=== PATIENT | female | born 1930 | race African-American/Black ===

== ENCOUNTER → 2016-02-21 12:18 | Outpatient (CLI) | payer MEDICARE, MEDICAID ==
[2015-09-25 10:10] VITALS: BMI 56.6
[~2016-02-21 12:18] MED LIST: ACETAMINOPHEN325 MG PO; ADVAIR 250/501 DISK INH; AMBIEN10 MG PO; AMRIX15 M1 PO; ASPIRIN81 MG PO; BENADRYL25 MG PO; BUMEX2 MG PO; CELEBREX 100 M100 MG PO; CELEBREX200 MG PO; COLACE100 MG PO; COREG6.25 MG PO; COUMADIN3 MG PO; COUMADIN4 MG PO; COUMADIN5 MG PO; FERREX 150 PLUS1 CAP PO; FLORAJEN3 CAPS460 MG PO; FLUTICASONE PRO16 GM NASAL; GLUCOPHAGE500 MG PO; GLUCOSAMINE & C1 CAP PO; GLUCOTROL 5 MG T5 MG PO; HYDROCODONE-APA1 TAB PO; INDOCIN25 MG PO; IPRAT-ALBUT 0.5-3 ML UPD; K-DUR20 MEQ PO; K-TAB10 MEQ PO; KEFLEX500 MG PO; LASIX20 MG PO; LEVAQUIN500 MG PO; LEVAQUIN750 MG PO; LEVOTHROID75 MCG PO; LEVOTHYROXINE112 MCG PO; LEXAPRO10 MG PO; LIPITOR20 MG PO; LISINOPRIL-HCTZ1 TA2 PO; LISINOPRIL10 MG PO; LOTREL 10/20 CA1 CAP PO; MOBIC7.5 MG PO; MUCINEX DM ER1 EAC1 PO; MUCINEX600 MG PO; NORCO 7.5-3251 EACH PO; NORVASC10 MG PO; NYSTATIN ORAL SU5 ML PO; OXYBUTYNIN CHLOR5 MG PO; PAXIL20 MG PO; PAXIL30 MG PO; PEPCID20 MG PO; POTASSIUM CHLO20 MEQ PO; PREDNISONE10 MG PO; PREDNISONE20 MG PO; PRILOSEC20 MG; PRILOSEC20 MG PO; PROMETHAZINE W473 M1 PO; PROVENTIL/2.5 MG/3 M INH; PULMICORT0.5 MG/21 INH; STERAPRED DS 1210 MG PO; SYMBICORT 16010.2 GM INH; TRAZODONE HCL50 MG PO; ULORIC40 MG PO; ULTRAM50 MG PO; VALIUM5 MG PO; VENTOLIN HFA18 GM INH; VESICARE5 MG PO; VITAMIN D250000 UNIT PO; ZYLOPRIM100 MG PO
[2016-02-21 14:02] LABS: ANION GAP 9.2 mmol/L (8-16); CALCIUM 8.5 mg/dL (8.5-10.1); CARBON DIOXIDE 34.2 mmol/L (21.0-32.0); CREATININE - SERUM 1.2 mg/dL (0.6-1.3); POTASSIUM - SERUM 4.4 mmol/L (3.5-5.1)
[2016-02-21 14:09] LABS: INR 2.14 (0.85-1.17)
== END | disposition home or self-care (01) ==
LOC: D.LABREF 12:18
PROVIDERS: Family Medicine
DX: Z51.81 Encounter for therapeutic drug level monitoring (principal); Z79.01 Long term (current) use of anticoagulants; Z86.718 Personal history of other venous thrombosis and embolism; R25.2 Cramp and spasm

== ENCOUNTER → 2016-03-18 11:32 | Outpatient (CLI) | payer MEDICARE, MEDICAID ==
[2015-09-25 10:10] VITALS: BMI 56.6
[2016-03-18 12:19] LABS: INR 1.98 (0.85-1.17); PROTIME 22.5 SECONDS (11.6-15.0)
== END | disposition home or self-care (01) ==
LOC: D.LABREF 11:32
PROVIDERS: Family Medicine
DX: Z79.01 Long term (current) use of anticoagulants (principal); I50.9 Heart failure, unspecified; Z86.718 Personal history of other venous thrombosis and embolism

== ENCOUNTER 2016-03-21 11:29 | Inpatient (IN) | payer MEDICARE, MEDICAID ==
[~2016-03-21] VITALS: Ht 162.6 cm; Wt 152.3 kg
[~2016-03-21 11:29] MED LIST changes: -ACETAMINOPHEN325 MG PO; -ADVAIR 250/501 DISK INH; -BUMEX2 MG PO; -COUMADIN3 MG PO; -COUMADIN4 MG PO; -FLORAJEN3 CAPS460 MG PO; -GLUCOTROL 5 MG T5 MG PO; -IPRAT-ALBUT 0.5-3 ML UPD; -K-DUR20 MEQ PO; -LEVAQUIN500 MG PO; -LEVOTHYROXINE112 MCG PO; -LIPITOR20 MG PO; -LISINOPRIL-HCTZ1 TA2 PO; -MUCINEX DM ER1 EAC1 PO; -NYSTATIN ORAL SU5 ML PO; -OXYBUTYNIN CHLOR5 MG PO; -PAXIL30 MG PO; -SYMBICORT 16010.2 GM INH
[2016-03-21 12:24] LABS: BASOPHILS 0.3 % (0.0-2.0); EOSINOPHILS 8.1 % (0-7); HEMATOCRIT 31.5 % (36.0-48.0); HEMOGLOBIN 9.5 g/dL (12-16); IMMATURE GRANULOCYTES 1.2 % (0-5); MCH 30.6 pg (26.0-34.0); MCHC 30.2 g/dL (31.0-37.0); MCV 101.6 fL (80.0-100.0); MONOCYTES 7.7 % (2-11); NEUTROPHILS 58.7 % (40-80); PLATELET COUNT 229 10x3/uL (130-400); RDW 15.8 % (11.5-14.5); WBC 11.4 10x3/uL (4.8-10.8)
[2016-03-21 12:43] LABS: ALBUMIN 2.8 g/dL (3.4-5.0); ANION GAP 10.5 mmol/L (8-16); BILIRUBIN - TOTAL 0.48 mg/dL (0.2-1.3); CARBON DIOXIDE 33.2 mmol/L (21.0-32.0); CREATININE - SERUM 1.6 mg/dL (0.6-1.3); POTASSIUM - SERUM 4.7 mmol/L (3.5-5.1); PROTEIN - SERUM 7.1 g/dL (6.4-8.2)
[2016-03-21 13:05] LABS: APPEARANCE CLEAR (CLEAR); BILIRUBIN NEGATIVE (NEGATIVE); COLOR YELLOW (YELLOW); GLUCOSE NEGATIVE (NEGATIVE); KETONE NEGATIVE (NEGATIVE); LEUKOCYTE ESTERASE NEGATIVE (NEGATIVE); NITRITE NEGATIVE (NEGATIVE); PROTEIN NEGATIVE (NEGATIVE); UROBILINOGEN NORMAL (NORMAL)
[2016-03-21 15:17] LABS: APTT 42.4 SECONDS (22.8-39.4); INR 2.06 (0.85-1.17); PROTIME 23.3 SECONDS (11.6-15.0)
[2016-03-21 22:38] VITALS: BP 145/48; BMI 57.4
--- NOTE | 2016-03-21 22:42 | NUR ---
PT ARRIVED TO FLOOR FROM ER BY STRETCHER, RESPERATIONS EVEN AND UNLABORED ON 2LNC FAMILY/FRIEND IN ROOM AT BEDSIDE IVP INFUSING NS ORDERED. BED LOW AND LOCKED CALL LIGHT IN REACH SRX2 NO DISTRESS OBSERVED WILL MONITOR
[2016-03-22 01:44] VITALS: BP 96/56
[2016-03-22 05:56] LABS: BASOPHILS 0.3 % (0.0-2.0); EOSINOPHILS 7.5 % (0-7); HEMATOCRIT 30.2 % (36.0-48.0); HEMOGLOBIN 9.3 g/dL (12-16); IMMATURE GRANULOCYTES 0.8 % (0-5); LYMPHOCYTES 23.4 % (15-50); MCH 30.9 pg (26.0-34.0); MCHC 30.8 g/dL (31.0-37.0); MCV 100.3 fL (80.0-100.0); MEAN PLATELET VOLUME 10.4 fL (7.4-10.4); PLATELET COUNT 236 10x3/uL (130-400); RBC 3.01 10x6/uL (4.00-5.40); WBC 11.8 10x3/uL (4.8-10.8)
[2016-03-22 06:08] LABS: INR 2.01 (0.85-1.17); PROTIME 22.8 SECONDS (11.6-15.0)
[2016-03-22 06:13] LABS: ANION GAP 8.3 mmol/L (8-16); CARBON DIOXIDE 34.8 mmol/L (21.0-32.0); CREATININE - SERUM 1.2 mg/dL (0.6-1.3); MAGNESIUM - SERUM 2.3 mg/dL (1.8-2.4); PHOSPHOROUS 3.1 mg/dL (2.5-4.9); POTASSIUM - SERUM 4.1 mmol/L (3.5-5.1)
--- NOTE | 2016-03-22 07:10 | NUR ---
PT SITTING UP IN BED REQUESTING SOCKS, GIVEN. DENIES OTHER NEEDS WILL CONT TO MONITOR.
[2016-03-22 08:00] VITALS: BP 90/41
[2016-03-22] MEDS ORDERED: FLUTICASONE PRO16 GM NASAL (09:15)
[2016-03-22] MEDS ORDERED: LISINOPRIL-HCTZ1 TA2 PO (09:16)
[2016-03-22] MEDS ORDERED: LEVOTHYROXINE112 MCG PO (09:16)
[2016-03-22] MEDS ORDERED: K-DUR20 MEQ PO (09:18)
[2016-03-22] MEDS ORDERED: GLUCOTROL 5 MG T5 MG PO (09:19)
[2016-03-22] MEDS ORDERED: VALIUM5 MG PO (09:20)
[2016-03-22] MEDS ORDERED: PAXIL30 MG PO (09:22)
[2016-03-22] MEDS ORDERED: BUMEX2 MG PO (09:23)
[2016-03-22] MEDS ORDERED: OXYBUTYNIN CHLOR5 MG PO (09:24)
[2016-03-22] MEDS ORDERED: ZYLOPRIM100 MG PO (09:25)
[2016-03-22] MEDS ORDERED: LIPITOR20 MG PO (09:26)
[2016-03-22] MEDS ORDERED: COUMADIN4 MG PO (09:28)
[2016-03-22] MEDS ORDERED: COUMADIN3 MG PO (09:28)
[2016-03-22] MEDS ORDERED: SYMBICORT 16010.2 GM INH (09:30)
[2016-03-22] MEDS ORDERED: ADVAIR 250/501 DISK INH (09:31)
[2016-03-22] MEDS ORDERED: ACETAMINOPHEN325 MG PO (09:32)
[2016-03-22 12:00] VITALS: BP 124/55
[2016-03-22 12:07] VITALS: Ht 162.6 cm; Wt 152.3 kg
--- NOTE | 2016-03-22 13:11 | NUR ---
PT TAKING A NAP, NO S/S DISTRESS AT THIS TIME WILL CONT TO MONITOR.
--- NOTE | 2016-03-22 14:45 | NUR ---
PT PULLED OUT PIV WITH CATHETER TIP INTACT.
--- NOTE | 2016-03-22 15:37 | NUR ---
SANJUANA SO SITED PT TO LEFT FA 22G.
--- NOTE | 2016-03-22 15:56 | NUR ---
Patient Name: SRINIVAS PARRA Admission Status: ER Accout number: [id number] Admission Date: 03-21-2016 : 1930 Admission Diagnosis:ACUTE KIDNEY FAILURE, UNSPECIFIED Attending: SHEILA Current LOS: 1 Anticipated DC Date: Planned Disposition: Home with Home Health Primary Insurance: MEDICARE A & B Discharge Planning Comments: * Is the patient Alert and Oriented? Yes 0 * How many steps to enter\exit or inside your home? 1 0 * PCP DR. ALAN 0 * Pharmacy [facility]. 0 * Preadmission Environment Home with Family 0 * ADLs Partial Dependent 0 * Equipment Bedside [facility] Bed Nebulizer Other Oxygen Shower Chair Wheelchair 0 * Other Equipment LIFT CHAIR [facility] [employer]IPMENT PROVIDER 0 * List name and contact numbers for known caregivers / representatives who currently or will assist patient after discharge: LAURYN LEI, DAUGHTER, 0 * Community resources currently utilized Home Health 0 * Please name any agencies selected above. [facility], 0 * Additional services required to return to the preadmission environment? YES MEALS ON WHEELS, PRIVATE DUTY CARE [facility], [facility] (S-F; 9AM-3PM) * Can the patient safely return to the preadmission environment? Yes 0 * Has this patient been hospitalized within the prior 30 days at any hospital? No 0 CM MET WITH PT IN ROOM TO DISCUSS DISCHARGE PLANNING AND NEEDS. PT REPORTS LIVING AT HOME PARTIALLY DEPENDENT ON CAREGIVERS AND ADULT DAUGHTER. PT REPORTS HAVING ALL NEEDED MEDICAL EQUIPMENT FROM [facility]. PT HAS HOME HEALTH FOR NURSING AND PHYSICAL THERAPY WITH [facility], PERSONAL CARE THROUGH [facility] AND VISITING FANS CLERK WITH [facility]. CM DISCUSSED AVAILABILITY OF HOME HEALTH, REHAB SERVICES AND MEDICAL EQUIPMENT. PT DENIES REHAB NEEDS, REPORTS SHE IS GOING HOME, FAMILY TO PICK HER UP FOR DISCHARGE HOME. FOR DISCHARGE AND HOME HEALTH RESUMPTION, CONTACT [facility], , FAX DISCHARGE INFORMATION TO [facility] AT [phone]. CM TO FOLLOW AND ASSIST NEEDED. Hearing And Speech Assistant: Jeremy Caldera
[2016-03-22 16:00] VITALS: BP 101/53
--- NOTE | 2016-03-22 16:53 | NUR ---
ERLINDA FROM [facility] CALLED AND SAID THAT THE PT THAT WAS ADMITTED LAST NIGHT DID NOT RECEIVE FIRST DOSE OF LEVAQUIN THROUGH ADMITTING NURSE. I STARTED LEVAQUIN NOW.
--- NOTE | 2016-03-22 18:29 | NUR ---
PT SITTING UP IN BED DENIES NEEDS WILL CONT TO MONITOR.
[2016-03-22 20:24] VITALS: BP 106/65
--- NOTE | 2016-03-22 21:19 | NUR ---
RESTING IN BED. AROUSES TO VOICE. ALERT ORIENTED CONVERSANT. DENIES NEEDS. GUEST AT BEDSIDE
[2016-03-23 01:07] VITALS: BP 154/73
[2016-03-23 05:01] VITALS: BP 110/56
[2016-03-23 06:16] LABS: BASOPHILS 0.1 % (0.0-2.0); EOSINOPHILS 0 % (0-7); HEMATOCRIT 30.8 % (36.0-48.0); HEMOGLOBIN 9.9 g/dL (12-16); IMMATURE GRANULOCYTES 1.2 % (0-5); LYMPHOCYTES 9.6 % (15-50); MCH 31.4 pg (26.0-34.0); MCHC 32.1 g/dL (31.0-37.0); MONOCYTES 2.5 % (2-11); NEUTROPHILS 86.6 % (40-80); PLATELET COUNT 237 10x3/uL (130-400); RBC 3.15 10x6/uL (4.00-5.40); RDW 15.8 % (11.5-14.5)
[2016-03-23 06:18] LABS: MCV 97.8 fL (80.0-100.0); WBC 15.8 10x3/uL (4.8-10.8)
[2016-03-23 06:31] LABS: ANION GAP 11.4 mmol/L (8-16); CALCIUM 9.2 mg/dL (8.5-10.1); CARBON DIOXIDE 28.8 mmol/L (21.0-32.0); CREATININE - SERUM 1.2 mg/dL (0.6-1.3); MAGNESIUM - SERUM 2.3 mg/dL (1.8-2.4); POTASSIUM - SERUM 4.2 mmol/L (3.5-5.1)
[2016-03-23 06:56] LABS: INR 2.17 (0.85-1.17); PROTIME 24.2 SECONDS (11.6-15.0)
[2016-03-23 07:00] VITALS: BP 108/49
--- NOTE | 2016-03-23 07:16 | NUR ---
AM ROUDNING- PT LAYING IN BED ON BACK WITH EYES OPEN RESTING. FAMILY MEMBER AT BEDSIDE. ON ROOM AIR. IV SEEN TO LEFT FOREARM THAT IS SALINE LOCKED AND PATENT. ON MONITOR SHOWING SR, HR 82 WITH BBB. PER REPORT FROM PRINT SUPPORT SPECIALIST NURSE ALFREDO, PT HAS PACEMAKER TO LEFT SIDE OF CHEST. ON EP. FSBS ACHS, 264 THIS AM THAT WAS COVERED BY PRINT SUPPORT SPECIALIST NURSE, ALFREDO. PT IS ALERT AND ORIENTED. NO NEED AT CURRENT TIME. WILL CONTINUE TO MONITOR.
[2016-03-23 12:00] VITALS: BP 105/47
[2016-03-23] MEDS ORDERED: NYSTATIN ORAL SU5 ML PO (13:46)
[2016-03-23] MEDS ORDERED: FERREX 150 PLUS1 CAP PO (13:46)
[2016-03-23] MEDS ORDERED: MUCINEX DM ER1 EAC1 PO (13:47)
[2016-03-23] MEDS ORDERED: FLORAJEN3 CAPS460 MG PO (13:48)
[2016-03-23] MEDS ORDERED: PREDNISONE10 MG PO (13:51)
[2016-03-23] MEDS ORDERED: IPRAT-ALBUT 0.5-3 ML UPD (13:52)
[2016-03-23] MEDS ORDERED: LEVAQUIN500 MG PO (13:52)
[2016-03-23 16:00] VITALS: BP 110/52
--- NOTE | 2016-03-23 16:21 | NUR ---
TOOK PTS IV CATHETER OUT TO LEFT FOREARM WITH CATH TIP INTACT. APPLIED 2X2 GUAZE AND SECURED SITE WITH TAPE. TOLERTED WELL. AWAITING SARAY OTOOLE TO FINISH D/C PAPERWORK AND WILL CONTINUE TO D/C PAPERWORK. AMBULANCE HAS BEEN CALLED PER SARAY OTOOLE.
--- NOTE | 2016-03-23 17:52 | NUR ---
PT SITTING UP IN BED WITH EYES OPEN RESTING. GUEST AT BEDSIDE. PT IS AWAITING AMBULANCE TO COME GET HER TO TAKE HER HOME. DENIES ANY NEED AT CURRENT TIME. WILL CONTINUE TO MONITOR.
--- NOTE | 2016-03-23 18:50 | NUR ---
1835- PT D/C VIA STRETCHER BY AMBULANCE HOME.
--- NOTE | 2016-03-25 08:45 | NUR ---
Patient Name: SRINIVAS PARRA Encounter No: [id number] : 1930 Primary Insurance: MEDICARE A & B Anticipated DC Date: Planned Disposition: Home with Home Health External Planned Provider: [facility] DCP follow-up note: CM REVIEWED CHART POST DISCHARGE, CALLED [facility], , NOTIFIED JAKE OF PT'S DISCHARGE ON FRIDAY. CM FAXED DISCHARGE INFORMATION TO [facility] AT [phone]. [facility] TO RESUME HOME CARE. Rubber Curer: Jeremy Caldera
--- NOTE | 2016-04-04 09:40 | CN ---
PATIENT NAME:SRINIVAS PARRA MEDICAL RECORD: [id number] : [birth year] LOCATION:D. D.2102 ADMIT DATE: 03/21/16 ACCOUNT: [id number] CONSULTING PHYSICIAN: SHAE MOREJON MD REFERRING PHYSICIAN: FRANCISCA MONTEMAYOR MD DATE OF CONSULTATION: 03/22/2016 PULMONARY CONSULTATION CONSULT REQUESTING PHYSICIAN: Francisca Montemayor MD REASON FOR CONSULTATION: Acute exacerbation of chronic obstructive pulmonary disease, possible pneumonia. HISTORY OF PRESENT ILLNESS: Ms. Parra is an 85-year-old -[place], very pleasant lady. According to the patient, she is sick for the last 4-5 days. She is coughing, wheezing, shortness of breath with mild exertion. The cough is productive of white yellow colored sputum production. Denies any fever or chills. No night sweats. According to the patient, the cough is so severe, spasmodic, sometimes she throw up with the coughing. REVIEW OF SYSTEMS: Mainly in the history of present illness. PAST MEDICAL HISTORY: 1. Congestive heart failure. 2. Deep venous thrombosis. The patient is on Coumadin. 3. Hypertension. 4. Chronic obstructive pulmonary disease. 5. Gastroesophageal reflux disease. 6. Osteoarthritis. 7. Gout. 8. Osteoporosis. 9. Type 2 diabetes mellitus. 10. Hypothyroidism. PAST SURGICAL HISTORY: She is status post pacemaker placement in 2013. PERSONAL AND SOCIAL HISTORY: The patient is . She is a heavy secondhand exposure to smoking. Her were 2 pack per day smoker. Herself does not smoke. FAMILY HISTORY: Significant for cardiovascular diseases. PHYSICAL EXAMINATION: GENERAL: Now, the patient is lying comfortably. She is not in acute distress. VITAL SIGNS: The blood pressure is 124/55, pulse is 79, respirations 18, temperature 97.9, SPO2 is 96% on room air. HEENT: Conjunctivae pink, sclerae nonicteric. NECK: Supple, no JVD. CHEST: The chest excursion is minimal on both sides. There is wheeze on forceful expiration. HEART: Rhythm regular, normal sound, no murmur. ABDOMEN: Soft, bowel sounds present. No hepatosplenomegaly. RECTAL: Deferred. EXTREMITIES: No cyanosis, no clubbing, no pedal edema. CONSULT REPORT [id number] SRINIVAS PARRA SKIN: Warm, normal turgor. CENTRAL NERVOUS SYSTEM: The patient is awake and alert. There is no obvious cranial nerve abnormality. The gait was not tested. IMAGING: Chest radiograph: There are increased interstitial markings. LABORATORY DATA: CBC: WBC 11.8, hemoglobin 9.3, hematocrit 30.2. The platelet count is 236. Chemistry: Sodium 141, potassium 4.1, chloride 102, BUN is 42, creatinine 1.2. The proBNP is 81. IMPRESSION: 1. Acute exacerbation of chronic obstructive pulmonary disease. 2. Acute cough. 3. Acute tracheobronchitis, rule out pneumonia. 4. Congestive heart failure. 5. Gastroesophageal reflux. 6. Leukocytosis. 7. Allergic rhinitis. 8. History of deep venous thrombosis. RECOMMENDATION: 1. Continue methylprednisolone IV, albuterol/ipratropium nebulizer, Brovana and budesonide nebulizer. 2. Continue Levaquin. Continue Bumex. 3. Flonase nasal spray. 4. Mucinex DM [address] Montemayor, once again thanks for involving me in the care of Ms. Parra. TRANSINT:[id number] Voice Confirmation ID: [id number] DOCUMENT ID: [id number] SHAE MOREJON MD at 0940 CC: NABILA ALAN MD [id number] DICTATION DATE: 03/22/161458 OPERATIONS SPECIALISTS: 03/22/16 1748 DIS IN 03/23/16 [facility] [address] [facility] [address]
== END 2016-03-23 18:51 | disposition home health service (06) | DRG 190 ==
LOC: D.ER 11:29 → D.M2 17:50
PROVIDERS: Nurse Practitioner Family; ADMIT Emergency Medicine
DX: J44.0 Chronic obstructive pulmonary disease with (acute) lower respiratory infection (principal); J18.9 Pneumonia, unspecified organism; N17.9 Acute kidney failure, unspecified; J44.1 Chronic obstructive pulmonary disease with (acute) exacerbation; E03.9 Hypothyroidism, unspecified; E11.65 Type 2 diabetes mellitus with hyperglycemia; F03.90 Unspecified dementia, unspecified severity, without behavioral disturbance, psychotic disturbance, mood disturbance, and anxiety; M81.0 Age-related osteoporosis without current pathological fracture; K21.9 Gastro-esophageal reflux disease without esophagitis; I11.0 Hypertensive heart disease with heart failure; I50.9 Heart failure, unspecified; J30.9 Allergic rhinitis, unspecified; D50.9 Iron deficiency anemia, unspecified; Z86.718 Personal history of other venous thrombosis and embolism; Z95.0 Presence of cardiac pacemaker

== ENCOUNTER → 2016-04-01 11:46 | Outpatient (CLI) | payer MEDICARE, MEDICAID ==
[2016-03-22 12:07] VITALS: BMI 57.3
[~2016-04-01 11:46] MED LIST changes: +ACETAMINOPHEN325 MG PO; +ADVAIR 250/501 DISK INH; +BUMEX2 MG PO; +COUMADIN3 MG PO; +COUMADIN4 MG PO; +FLORAJEN3 CAPS460 MG PO; +GLUCOTROL 5 MG T5 MG PO; +IPRAT-ALBUT 0.5-3 ML UPD; +K-DUR20 MEQ PO; +LEVAQUIN500 MG PO; +LEVOTHYROXINE112 MCG PO; +LIPITOR20 MG PO; +LISINOPRIL-HCTZ1 TA2 PO; +MUCINEX DM ER1 EAC1 PO; +NYSTATIN ORAL SU5 ML PO; +OXYBUTYNIN CHLOR5 MG PO; +PAXIL30 MG PO; +SYMBICORT 16010.2 GM INH
[2016-04-01 13:16] LABS: INR 2.25 (0.85-1.17); PROTIME 24.9 SECONDS (11.6-15.0)
== END | disposition home or self-care (01) ==
LOC: D.LABREF 11:46
PROVIDERS: Family Medicine
DX: Z51.81 Encounter for therapeutic drug level monitoring (principal); Z79.01 Long term (current) use of anticoagulants; Z86.718 Personal history of other venous thrombosis and embolism

== ENCOUNTER 2016-04-15 11:39 | Observation (INO) | payer MEDICARE, MEDICAID ==
[~2016-04-15] VITALS: Ht 162.6 cm; Wt 147.0 kg
[2016-04-15 12:57] LABS: BASOPHILS 0.2 % (0.0-2.0); EOSINOPHILS 4.5 % (0-7); HEMATOCRIT 32.4 % (36.0-48.0); HEMOGLOBIN 9.8 g/dL (12-16); IMMATURE GRANULOCYTES 0.6 % (0-5); LYMPHOCYTES 26.8 % (15-50); MCHC 30.2 g/dL (31.0-37.0); MCV 102.5 fL (80.0-100.0); MEAN PLATELET VOLUME 10.1 fL (7.4-10.4); MONOCYTES 5.5 % (2-11); NEUTROPHILS 62.4 % (40-80); PLATELET COUNT 197 10x3/uL (130-400); RBC 3.16 10x6/uL (4.00-5.40); RDW 15.4 % (11.5-14.5); WBC 8.7 10x3/uL (4.8-10.8)
[2016-04-15 13:13] LABS: ALBUMIN 2.8 g/dL (3.4-5.0); ALKALINE PHOSPHATASE 140 U/L (46-116); ALT (SGPT) 28 U/L (10-68); BILIRUBIN - TOTAL 0.34 mg/dL (0.2-1.3); CALC OSMOLALITY 290 mosm/kg (275-300); CALCIUM 8.7 mg/dL (8.5-10.1); CHLORIDE - SERUM 101 mmol/L (98-107); CREATININE - SERUM 1.2 mg/dL (0.6-1.3); GLUCOSE 207 mg/dL (74-106); POTASSIUM - SERUM 4.2 mmol/L (3.5-5.1); PROTEIN - SERUM 6.3 g/dL (6.4-8.2); SODIUM 140 mmol/L (136-145); UREA NITROGEN 28 mg/dL (7-18); eGFR NON AFRICAN AMERICAN 45 mL/min (90-120)
[2016-04-15 13:14] LABS: CARBON DIOXIDE 47.8 mmol/L (21.0-32.0)
[2016-04-15 13:24] LABS: PRO BNP 111 pg/mL (0-450)
[2016-04-15 13:57] LABS: APPEARANCE HAZY (CLEAR); BILIRUBIN NEGATIVE (NEGATIVE); COLOR YELLOW (YELLOW); GLUCOSE NEGATIVE (NEGATIVE); KETONE NEGATIVE (NEGATIVE); LEUKOCYTE ESTERASE NEGATIVE (NEGATIVE); NITRITE NEGATIVE (NEGATIVE); PH 5.5 (5.0-6.0); PROTEIN NEGATIVE (NEGATIVE); RED CELLS - URINE OCC /hpf (0-5); UROBILINOGEN NORMAL (NORMAL); WHITE CELLS - URINE OCC /hpf (0-5)
[2016-04-15 13:58] LABS: BACTERIA FEW /hpf (NONE SEEN); EPITHELIAL CELLS 0-5 /hpf (0-5); HYALINE CAST 0-5 /lpf (NONE SEEN); MUCUS <1+ /lpf (NONE SEEN)
[2016-04-15 18:00] VITALS: BP 101/53; Ht 162.6 cm; Wt 147.0 kg
--- NOTE | 2016-04-15 18:10 | NUR ---
ADMITTED FROM ER VIA STRECTHER. INCONT OF URINE. BED ZEROED OUT AND PATIENT WEIGHED. MONITOR ON WITH SR. IV STARTED IN AMBULANCE AND DATED. WILL CONTINUE TO MONITOR.
--- NOTE | 2016-04-15 18:38 | NUR ---
NO NEEDS VOICED. HOB UP FOR DIET. DENIES ANY NEEDS. NS AT 50 INFUSING INTO THE RIGHT WRIST. TELEMERTY SHOWS SR
[2016-04-15 20:00] VITALS: BP 110/53
--- NOTE | 2016-04-15 20:00 | NUR ---
INTRODUCED MYSELF TO PT PRIMARY RN FOR [facility]. PT IS A&O RESTING QUIETLY IN BED WITH FAMILY AT BEDSIDE. RR NONLABORED ON RA. PT DENIES ANY CURRENT PAIN OR NEEDS. CL IN REACH, BED IN LOWEST, SIDE RAILS X2 AND BUILT IN BED ALARM ON. WILL CPOC.
--- NOTE | 2016-04-15 21:25 | NUR ---
FSBS 152 PT DENIED WANTING ANY TX AND STATES AT HOME SHE WOULDNT TAKE ANYTHING. PT RESTING AND STATES SHE IS COMFORTABLE. CL IN REACH, BED IN LOWEST, SIDE RAILS X2. WILL CPOC.
[2016-04-16] VITALS: BP 129/50
--- NOTE | 2016-04-16 00:23 | NUR ---
PT RESTING QUIETLY IN BED WITH EYES CLOSED. RR NONLABORED ON RA. R.WRIST PIV HAS DRSG CDI WITH NS @50ML/HR INFUSING. NO S/S OF DISTRESS OR ANY CURRENT NEEDS AT THIS TIME. CL IN REACH, BED IN LOWEST, SIDE RAILS X2, BUILT IN BED ALARM ON. WILL CTM.
--- NOTE | 2016-04-16 02:30 | NUR ---
CHANGED ALL LINENS R/T INCONTINENT EPISODE OF URINE. CLEANSED PT TO BEST OF ABILITY WITH HER LIMITED ROM. ELEVATED BILAT FEET ON PILLOW TO HELP REDUCE SOME PAIN PT IN A LOT OF PAIN BUT HAS NO ORDERED PAIN MEDS. STATED SOME RELIEF WITH THE ELEVATION. REPOSITIONED PT WELL AND SHE STATED IT HELPED. SL PTS R.WRIST REQUESTED FOR COMFORT. PT DENIES ANY FURTHER NEEDS AT THIS TIME. CL IN REACH, BED IN LOWEST, SIDE RAILS X2. WILL CTM.
[2016-04-16 04:00] VITALS: BP 101/42
--- NOTE | 2016-04-16 05:57 | NUR ---
PT REFUSED HER AM PROTONIX R/T NOT FEELING WELL FROM HER PAIN AND WOULD LIKE TO JUST CONTINUE RESTING. GRANTED PTS WISHES. PT DENIES ANY CURRENT NEEDS AND STATES HER BRIEF IS DRY. CL IN REACH, BED IN LOWEST, SIDE RAILS X2. WILL CPOC.
[2016-04-16 06:04] LABS: BASOPHILS 0.2 % (0.0-2.0); EOSINOPHILS 3.9 % (0-7); HEMATOCRIT 31.8 % (36.0-48.0); HEMOGLOBIN 9.9 g/dL (12-16); IMMATURE GRANULOCYTES 0.3 % (0-5); LYMPHOCYTES 24.3 % (15-50); MCH 31.2 pg (26.0-34.0); MCHC 31.1 g/dL (31.0-37.0); MEAN PLATELET VOLUME 9.9 fL (7.4-10.4); NEUTROPHILS 65.3 % (40-80); PLATELET COUNT 213 10x3/uL (130-400); RBC 3.17 10x6/uL (4.00-5.40); RDW 15.2 % (11.5-14.5); WBC 9.9 10x3/uL (4.8-10.8)
[2016-04-16 06:22] LABS: MCV 100.3 fL (80.0-100.0)
[2016-04-16 06:24] LABS: ANION GAP 10.8 mmol/L (8-16); CALCIUM 8.9 mg/dL (8.5-10.1); CREATININE - SERUM 1.1 mg/dL (0.6-1.3); POTASSIUM - SERUM 3.9 mmol/L (3.5-5.1)
[2016-04-16 06:34] LABS: CARBON DIOXIDE 30.1 mmol/L (21.0-32.0)
--- NOTE | 2016-04-16 07:30 | NUR ---
ASSESSMENT COMPLETED. TELEMETRY SHOWS PACED RHYTHM. RIGHT WRIST SL. DENIES ANY NEEDS. CALL LIGHT IN REAXH WITH SR UP
[2016-04-16 08:27] VITALS: BP 132/41
[2016-04-16 12:02] VITALS: BP 104/50
--- NOTE | 2016-04-16 14:10 | NUR ---
PT REFUSED SCDS. PT WILL BE DISCHARGED. AWAITING DISCHARGE INSTRUCTIONS
--- NOTE | 2016-04-16 16:00 | NUR ---
Patient Name: SRINIVAS PARRA Admission Status: ER Accout number: [id number] Admission Date: 04-15-2016 : 1930 Admission Diagnosis: Attending: ELOISE Current LOS: 1 Anticipated DC Date: 04-16-2016 Planned Disposition: Home with Home Health Primary Insurance: MEDICARE A & B Discharge Planning Comments: * Is the patient Alert and Oriented? Yes 0 * How many steps to enter\exit or inside your home? 1 0 * PCP DR. ALAN 0 * [facility] [place] 0 * Preadmission Environment Home with Family 0 * ADLs Partial Dependent 0 * Partial ADLs (Assistance needed) Ambulation Bathing Dressing Medication Management Transfers 0 * Equipment Bedside [facility] Bed Nebulizer Other Oxygen Shower Chair Wheelchair 0 * Other Equipment LIFT CHAIR [employer] [facility] MED[employer]QUIPMENT PROVIDER 0 * List name and contact numbers for known caregivers / representatives who currently or will assist patient after discharge: LAURYN LEI, DAUGHTER, 0 * Community resources currently utilized Home Health Meals on Wheels Private Duty Care 0 * Please name any agencies selected above. [facility], (S-F; 9AM-3PM) 0 * Additional services required to return to the preadmission environment? No 0 * Can the patient safely return to the preadmission environment? Yes 0 * Has this patient been hospitalized within the prior 30 days at any hospital? Yes 0 CM MET WITH PT AND SON IN ROOM TO DISCUSS DISCHARGE PLANNING AND NEEDS. PT REPORTS LIVING AT HOME PARTIALLY DEPENDENT ON HER ADULT CHILDREN FOR CARE. PT REPORTS HAVING ALL NEEDED MEDICAL EQUIPMENT AT HOME FROM [facility]; PT HAS HOME HEALTH WITH [facility] AND [facility]. PT DENIES DISCHARGE NEEDS EXCEPT FOR RESUMPTION OF HER HOME SERVICES. PT WILL TRANSPORT HOME VIA AMBULANCE. CM CALLED [facility], , SPOKE TO JAUN WHO PUT PT BACK ON HOME HEALTH SCHEDULE. CM FAXED DISCHARGE INFORMATION FOR RESUMPTION OF CARE TO [facility] AT [phone]. PT NOTIFIED. PT DENIES FURTHER DISCHARGE NEEDS. Terrazzo Roller: Jeremy Caldera
--- NOTE | 2016-04-16 16:32 | NUR ---
PT DISCHARGED. TO HOME PER AMBULANCE
== END 2016-04-16 16:33 | disposition home or self-care (01) ==
LOC: D.ER 11:39 → OBSVTIME 15:29 → D.M2 15:29 → D.SDCHOLD 04-16 11:37 → D.M2 04-16 11:37
PROVIDERS: Emergency Medicine; ADMIT Family Medicine Adult Medicine
DX: I95.9 Hypotension, unspecified (principal); E11.65 Type 2 diabetes mellitus with hyperglycemia; I11.0 Hypertensive heart disease with heart failure; I50.9 Heart failure, unspecified; J44.9 Chronic obstructive pulmonary disease, unspecified; Z86.718 Personal history of other venous thrombosis and embolism; Z79.01 Long term (current) use of anticoagulants; Z95.0 Presence of cardiac pacemaker; M81.0 Age-related osteoporosis without current pathological fracture; D50.9 Iron deficiency anemia, unspecified; E03.9 Hypothyroidism, unspecified; K21.9 Gastro-esophageal reflux disease without esophagitis; Z87.891 Personal history of nicotine dependence

== ENCOUNTER → 2016-05-21 11:41 | Outpatient (CLI) | payer MEDICARE, MEDICAID ==
[2016-04-15 18:00] VITALS: BMI 64.9
[2016-05-21 12:25] LABS: INR 1.93 (0.85-1.17)
[2016-05-21 16:18] LABS: HEMATOCRIT 33.2 % (36.0-48.0); HEMOGLOBIN 10.4 g/dL (12-16); MCH 32.2 pg (26.0-34.0); MCHC 31.3 g/dL (31.0-37.0); MCV 102.8 fL (80.0-100.0); RBC 3.23 10x6/uL (4.00-5.40); RDW 14.9 % (11.5-14.5); WBC 9.6 10x3/uL (4.8-10.8)
[2016-05-21 16:34] LABS: PLATELET COUNT 161 10x3/uL (130-400)
[2016-05-21 16:35] LABS: MEAN PLATELET VOLUME 10.3 fL (7.4-10.4)
[2016-05-21 17:26] LABS: LYMPHOCYTES 12 % (15-50); NEUTROPHILS 88 % (40-80)
[2016-05-21 17:27] LABS: PLATELET ESTIMATE NORMAL; PLATELET MORPHOLOGY PLT CLUMPS PRESENT
== END | disposition home or self-care (01) ==
LOC: D.LABREF 11:41
PROVIDERS: Family Medicine
DX: D50.9 Iron deficiency anemia, unspecified (principal); Z51.81 Encounter for therapeutic drug level monitoring; Z79.01 Long term (current) use of anticoagulants; I50.9 Heart failure, unspecified

== ENCOUNTER → 2016-06-07 10:37 | Outpatient (CLI) | payer MEDICARE ==
[2016-04-15 18:00] VITALS: BMI 64.9
[2016-06-07 11:08] LABS: INR 2.19 (0.85-1.17); PROTIME 24.4 SECONDS (11.6-15.0)
[2016-06-07 11:18] LABS: ALBUMIN 2.8 g/dL (3.4-5.0); ANION GAP 6.8 mmol/L (8-16); BILIRUBIN - TOTAL 0.43 mg/dL (0.2-1.3); CALCIUM 9.1 mg/dL (8.5-10.1); CARBON DIOXIDE 32.1 mmol/L (21.0-32.0); CHOL - HDL RATIO 1.9 ratio (2.3-4.1); CREATININE - SERUM 1.1 mg/dL (0.6-1.3); LDL-HDL RATIO 0.7 ratio (1.5-3.5); POTASSIUM - SERUM 3.9 mmol/L (3.5-5.1); PROTEIN - SERUM 6.9 g/dL (6.4-8.2)
== END | disposition home or self-care (01) ==
LOC: D.LABREF 10:37
PROVIDERS: Family Medicine
DX: Z51.81 Encounter for therapeutic drug level monitoring (principal); Z79.01 Long term (current) use of anticoagulants; E78.00 Pure hypercholesterolemia, unspecified; I50.9 Heart failure, unspecified

== ENCOUNTER → 2016-07-09 13:00 | Outpatient (CLI) | payer MEDICARE ==
[2016-04-15 18:00] VITALS: BMI 64.9
[2016-07-09 13:35] LABS: INR 2.58 (0.85-1.17); PROTIME 27.9 SECONDS (11.6-15.0)
== END | disposition home or self-care (01) ==
LOC: D.LABREF 13:00
PROVIDERS: Family Medicine
DX: Z51.81 Encounter for therapeutic drug level monitoring (principal); Z79.01 Long term (current) use of anticoagulants; Z86.718 Personal history of other venous thrombosis and embolism

== ENCOUNTER → 2016-08-23 12:40 | Outpatient (CLI) | payer MEDICARE ==
[2016-04-15 18:00] VITALS: BMI 64.9
[~2016-08-23 12:40] MED LIST changes: +BACTROBAN NASAL1 GM NASAL; +COUMADIN1 MG PO; +HYDROCHLOROTH12.5 M1 PO; +LISINOPRIL2.5 MG PO
[2016-08-23 13:35] LABS: ANION GAP 15.7 mmol/L (8-16); CALCIUM 9.5 mg/dL (8.5-10.1); CARBON DIOXIDE 30.4 mmol/L (21.0-32.0); CREATININE - SERUM 1.5 mg/dL (0.6-1.3); POTASSIUM - SERUM 4.1 mmol/L (3.5-5.1)
== END | disposition home or self-care (01) ==
LOC: D.LABREF 12:40
PROVIDERS: Family Medicine
DX: I50.9 Heart failure, unspecified (principal)

== ENCOUNTER 2016-08-24 10:22 | Inpatient (IN) | payer MEDICARE ==
[~2016-08-24] VITALS: Ht 162.6 cm; Wt 170.1 kg
[~2016-08-24 10:22] MED LIST changes: -BACTROBAN NASAL1 GM NASAL; -COUMADIN1 MG PO; -HYDROCHLOROTH12.5 M1 PO; -LISINOPRIL2.5 MG PO
[2016-08-24 12:27] LABS: ALBUMIN 2.8 g/dL (3.4-5.0); BILIRUBIN - TOTAL 0.51 mg/dL (0.2-1.3); CALCIUM 9.3 mg/dL (8.5-10.1); CARBON DIOXIDE 30.3 mmol/L (21.0-32.0); CREATININE - SERUM 1.4 mg/dL (0.6-1.3); POTASSIUM - SERUM 4.3 mmol/L (3.5-5.1); PROTEIN - SERUM 7.3 g/dL (6.4-8.2)
[2016-08-24 12:42] LABS: BASOPHILS 0.3 % (0-2); EOSINOPHILS 4.8 % (0-7); HEMATOCRIT 35.9 % (36.0-48.0); HEMOGLOBIN 10.9 g/dL (12-16); IMMATURE GRANULOCYTES 0.6 % (0-5); LYMPHOCYTES 19.9 % (15-50); MCH 33.6 pg (26.0-34.0); MCHC 30.4 g/dL (31.0-37.0); MCV 110.8 fL (80.0-100.0); MEAN PLATELET VOLUME 9.8 fL (7.4-10.4); NEUTROPHILS 65.4 % (40-80); PLATELET COUNT 221 10x3/uL (130-400); RBC 3.24 10x6/uL (4.00-5.40); RDW 13.9 % (11.5-14.5)
[2016-08-24] MEDS ORDERED: COUMADIN1 MG PO (14:28)
[2016-08-24] MEDS ORDERED: LISINOPRIL2.5 MG PO (14:35)
[2016-08-24] MEDS ORDERED: HYDROCHLOROTH12.5 M1 PO (14:36)
[2016-08-24] MEDS ORDERED: ZYLOPRIM100 MG PO (14:37)
[2016-08-24] MEDS ORDERED: BACTROBAN NASAL1 GM NASAL (14:37)
[2016-08-24 14:53] VITALS: BP 99/35; BMI 64.5
[2016-08-24 20:00] VITALS: BP 128/81
[2016-08-25] VITALS: BP 115/59
--- NOTE | 2016-08-25 02:52 | NUR ---
ASSESSED, PT IS ASLEEP WITH EASY RESPIRATIONS AND NO DISTRESS NOTED.FAMILY REMAINS AT THE BEDSIDE. THE BED IS LOW, RAILS UP X'S 2 WITH THE CALL LIGHT AT HAND.
[2016-08-25 04:00] VITALS: BP 114/61
[2016-08-25 05:22] LABS: BASOPHILS 0.3 % (0-2); EOSINOPHILS 5.6 % (0-7); HEMATOCRIT 34.5 % (36.0-48.0); HEMOGLOBIN 10.4 g/dL (12-16); IMMATURE GRANULOCYTES 0.5 % (0-5); LYMPHOCYTES 26.1 % (15-50); MCH 33.3 pg (26.0-34.0); MCHC 30.1 g/dL (31.0-37.0); MCV 110.6 fL (80.0-100.0); MEAN PLATELET VOLUME 10.2 fL (7.4-10.4); MONOCYTES 7.4 % (2-11); NEUTROPHILS 60.1 % (40-80); PLATELET COUNT 236 10x3/uL (130-400); RBC 3.12 10x6/uL (4.00-5.40); RDW 14.1 % (11.5-14.5); WBC 11.5 10x3/uL (4.8-10.8)
[2016-08-25 05:30] LABS: INR 2.06 (0.85-1.17); PROTIME 23.2 SECONDS (11.6-15.0)
[2016-08-25 05:40] LABS: ANION GAP 11.1 mmol/L (8-16); CALCIUM 9.5 mg/dL (8.5-10.1); CREATININE - SERUM 1.3 mg/dL (0.6-1.3); POTASSIUM - SERUM 4.1 mmol/L (3.5-5.1)
[2016-08-25 08:39] VITALS: BP 120/47
[2016-08-25 12:00] VITALS: BP 113/55
[2016-08-25 16:00] VITALS: BP 110/70
[2016-08-25 19:00] VITALS: BP 101/38
--- NOTE | 2016-08-25 19:40 | NUR ---
REC'D. IN BED. HOB IN SITTING POSITION,02 2L NC. NO RESP. DISTRESS OBSERVED.4+ EDEMA OBSERVED TO LEGS FEET BILAT.DENIES PAIN OR ANY OTHER DISCOMFORT AT PRESENT TIME.WILL CONTINUE TO MONITOR FOR ANY CHGES. IN STATUS AND FOLLOW CURRENT PLAN OF CARE.
[2016-08-26 04:00] VITALS: BP 91/34
[2016-08-26 04:49] LABS: BASOPHILS 0.2 % (0-2); EOSINOPHILS 5.8 % (0-7); HEMATOCRIT 32.8 % (36.0-48.0); HEMOGLOBIN 9.9 g/dL (12-16); IMMATURE GRANULOCYTES 0.4 % (0-5); LYMPHOCYTES 25.9 % (15-50); MCH 33.3 pg (26.0-34.0); MCHC 30.2 g/dL (31.0-37.0); MCV 110.4 fL (80.0-100.0); MEAN PLATELET VOLUME 9.7 fL (7.4-10.4); MONOCYTES 7.4 % (2-11); NEUTROPHILS 60.3 % (40-80); PLATELET COUNT 224 10x3/uL (130-400); RBC 2.97 10x6/uL (4.00-5.40); RDW 14.1 % (11.5-14.5); WBC 11.5 10x3/uL (4.8-10.8)
[2016-08-26 05:24] LABS: ANION GAP 12.6 mmol/L (8-16); CALCIUM 9.1 mg/dL (8.5-10.1); CARBON DIOXIDE 31.2 mmol/L (21.0-32.0); CREATININE - SERUM 1.3 mg/dL (0.6-1.3); POTASSIUM - SERUM 3.8 mmol/L (3.5-5.1)
--- NOTE | 2016-08-26 07:30 | NUR ---
RECIEVED PT DURING WALKING ROUNDS. PT RESTING COMFORTABLY IN BED WITH NO COMPLAINTS OF PAIN OR DISCOMFORT AT THIS TIME. ASSESSMENT DONE PER FLOWSHEET. BED IN LOW POSITION AND CALL LIGHT WITHIN REACH. WILL CONTINUE TO MONITOR.
[2016-08-26 10:16] VITALS: BP 118/46
[2016-08-26 12:09] VITALS: BP 102/57
[2016-08-26 14:34] VITALS: Ht 162.6 cm; Wt 170.1 kg
--- NOTE | 2016-08-26 15:50 | NUR ---
SPOKE WITH LASHELL SIMPSON AT THIS TIME ABOUT COLLECTION METHOD OF UA FOR PT, RECIEVED VERBAL ORDERS FOR IN AND OUT CATH. WILL IMPLEMENT ORDERS.
[2016-08-26 15:57] VITALS: BP 100/37
--- NOTE | 2016-08-26 18:05 | NUR ---
MORENO CATH PLACED AT THIS TIME PER ORDER USING STERILE TECHNIQUE. ENTIRE CONTENTS OF KIT USED. PT TOLERATED WELL. BED IN LOW POSITION AND CALL LIGHT WITHIN REACH. WILL CONTINUE TO MONITOR.
[2016-08-26 19:00] VITALS: BP 104/39
[2016-08-26 22:11] LABS: APPEARANCE CLEAR (CLEAR); BILIRUBIN NEGATIVE (NEGATIVE); COLOR YELLOW (YELLOW); GLUCOSE NEGATIVE (NEGATIVE); KETONE NEGATIVE (NEGATIVE); LEUKOCYTE ESTERASE NEGATIVE (NEGATIVE); NITRITE NEGATIVE (NEGATIVE); PROTEIN NEGATIVE (NEGATIVE); UROBILINOGEN NORMAL (NORMAL)
[2016-08-27] VITALS: BP 102/44
[2016-08-27 04:00] VITALS: BP 103/40
[2016-08-27 06:06] LABS: INR 1.92 (0.85-1.17); PROTIME 21.9 SECONDS (11.6-15.0)
--- NOTE | 2016-08-27 06:10 | NUR ---
MORENO CARE COMPLETED USING THE MORENO CARE WIPES.
--- NOTE | 2016-08-27 07:30 | NUR ---
RECIEVED PT DURING WALKING ROUNDS. PT RESTING IN BED WITH NO COMPLAINTS OF PAIN OF DISCOMFORT AT THIS TIME. ASSESSMENT DONE PER FLOWSHEET. BED IN LOW POSITION AND CALL LIGHT WITHIN REACH. WILL CONTINUE TO MONITOR.
[2016-08-27 08:24] VITALS: BP 96/36
[2016-08-27 10:05] LABS: BASOPHILS 0.3 % (0-2); EOSINOPHILS 5.8 % (0-7); HEMATOCRIT 31.5 % (36.0-48.0); HEMOGLOBIN 9.6 g/dL (12-16); IMMATURE GRANULOCYTES 0.5 % (0-5); LYMPHOCYTES 25.5 % (15-50); MCH 34.2 pg (26.0-34.0); MCHC 30.5 g/dL (31.0-37.0); MCV 112.1 fL (80.0-100.0); MEAN PLATELET VOLUME 12.3 fL (7.4-10.4); MONOCYTES 7.8 % (2-11); NEUTROPHILS 60.1 % (40-80); PLATELET COUNT 226 10x3/uL (130-400); RBC 2.81 10x6/uL (4.00-5.40); RDW 14.2 % (11.5-14.5)
[2016-08-27 10:33] LABS: ALBUMIN 2.6 g/dL (3.4-5.0); ANION GAP 10.8 mmol/L (8-16); BILIRUBIN - TOTAL 0.61 mg/dL (0.2-1.3); CALCIUM 8.5 mg/dL (8.5-10.1); CARBON DIOXIDE 32.1 mmol/L (21.0-32.0); CREATININE - SERUM 1.5 mg/dL (0.6-1.3); POTASSIUM - SERUM 3.9 mmol/L (3.5-5.1)
[2016-08-27 12:40] VITALS: BP 91/49
--- NOTE | 2016-08-27 12:41 | NUR ---
Patient Name: SRINIVAS PARRA Admission Status: ER Accout number: [id number] Admission Date: 08-24-2016 : 1930 Admission Diagnosis:CELLULITIS OF LEFT LOWER LIMB Attending: DELMY Current LOS: 3 Anticipated DC Date: 08-30-2016 Planned Disposition: Home with Home Health Primary Insurance: MEDICARE A & B Discharge Planning Comments: CM MET WITH PATIENT REGARDING D/C NEEDS AND PLANS-PATIENT ASKED CM TO CALL DAUGHTER (RENATO) FOR INFORMATION. PATIENT LIVES WITH DAUGHTER AND SHE HELPS PATIENT WITH HER ADL'S. PATIENT HAS A RAMP TO ENTER HER HOME AND NO STAIRS INSIDE. PATIENT HAS A BS COMMODE, WALKER, GLUCOMETER, O2, NEBULIZER AND PORTABLE O2 AT HOME. PATIENT IS ON 2L AND OXYGEN IS SUPPLIED [facility]. PATIENTS PCP IS DR. ALAN AND PHARMACY IS [facility] [address] [facility]. PATIENT IS CURRENT WITH [facility] AND [facility] IS LOOKING AT REFERRAL PREVIOUSLY SENT. CM WILL CONTINUE TO FOLLOW PATIENT WITH D/C NEEDS AND PLANS. PCP DR[facility] [address] [facility]- [phone] RENATO (DAUGHTER) [phone] Personnel Security Specialist: Sabra Manriquez Is the patient Alert and Oriented? Yes 0 * How many steps to enter\exit or inside your home? RAMP 0 * PCP DR. ALAN 0 * Pharmacy [facility] [address] [facility] 0 * Preadmission Environment Home with Family 0 * ADLs Partial Dependent 0 * Partial ADLs (Assistance needed) Ambulation Bathing Dressing Medication Management Toileting Transfers 0 * Equipment Bedside Commode Glucometer Nebulizer Oxygen Walker 0 * Other Equipment PORTABLE O2 ([facility] 0 * List name and contact numbers for known caregivers / representatives who currently or will assist patient after discharge: RENATO TURNER (DAUGHTER) [phone] 0 * Community resources currently utilized Home Health 0 * Please name any agencies selected above. [facility] 0 * Additional services required to return to the preadmission environment? Yes 0 * Can the patient safely return to the preadmission environment? Yes 0 * Has this patient been hospitalized within the prior 30 days at any hospital? No 0 Grand Total: 0
[2016-08-27 16:39] VITALS: BP 81/36
[2016-08-27 19:00] VITALS: BP 84/37
[2016-08-28 04:00] VITALS: BP 82/35
[2016-08-28 06:54] LABS: CALCIUM 8.3 mg/dL (8.5-10.1); CREATININE - SERUM 1.6 mg/dL (0.6-1.3)
[2016-08-28 07:22] LABS: PROTIME 25.9 SECONDS (11.6-15.0)
[2016-08-28 07:24] LABS: INR 2.36 (0.85-1.17)
--- NOTE | 2016-08-28 07:30 | NUR ---
RECIEVED PT DURING WALKING ROUNDS, PT RESTING IN BED WITH NO COMPLAINTS OF PAIN OR DISCOMFORT AT THIS TIME. ASSESSMENT DONE PER FLOWSHEET. BED IN LOW POSITION AND CALL LIGHT WITHIN REACH. WILL CONTINUE TO MONITOR.
[2016-08-28 08:21] VITALS: BP 81/35
[2016-08-28 12:37] VITALS: BP 95/36
--- NOTE | 2016-08-28 12:50 | NUR ---
PT COMPLAINS OF BURNING AROUND HER BLANK-AREA, SPOKE WITH DOCTOR AND RECIEVED ORDER FOR NYSTATIN. WILL CONTINUE PLAN OF CARE. BED IN LOW POSITION AND CALL LIGHT WITHIN REACH. WILL CONTINUE TO MONITOR.
--- NOTE | 2016-08-28 14:18 | NUR ---
NUTRITION MONITORING & EVAL CHART REVIEWED. PT TOLERATING ADA DIET, 75% INTAKE LUNCH. WILL CONTINUE TO PROVIDE DIET, MONITOR INTAKE. RD FOLLOWING
[2016-08-28 15:54] VITALS: BP 95/42
[2016-08-28 19:00] VITALS: BP 108/58
--- NOTE | 2016-08-28 19:00 | NUR ---
BEDSIDE REPORT RECEIVED AND CARE OF PT ASSUMED. PT LYING IN SUPINE POSITON ON A BARIMAX BED. IV IN RIGHT HAND SALINE LOCKED. O2 IN USE AT 2L VIA NC. MORENO CATHETER DRAINING TO GRAVITY WITY YELLOW URINE IN COLLECTION BAG. WILL MONITOR CLOSLEY FOR NEEDS.
--- NOTE | 2016-08-28 20:00 | NUR ---
CHANGED DRAW SHEET AND BED PADS AFTER PT USED BEDPAN. CLEANSED PERINEAL AREA AND APPLIED NYSTATIN OINTMENT IN BLANK AREA, NYSTATIN POWDER IN CREASES AND KEO'S OINTMENT ON REDDENED / RAW AREAS ON THIGHS. PT POSITIONED FOR COMFORT. CALL LIGHT WITHIN REACH.
--- NOTE | 2016-08-28 21:20 | NUR ---
HS MEDICATIONS GIVEN TO INCLUDE NORCO 10 PER PT REQUEST FOR GENERALIZED PAIN. WILL CONTINUE TO MONITOR FOR NEEDS. FAMILY MEMBER IS AT BEDSIDE.
[2016-08-29] VITALS: BP 100/52
[2016-08-29 04:00] VITALS: BP 110/56
--- NOTE | 2016-08-29 07:40 | NUR ---
PT AOX4 RESP EVEN AND NONLABORED PT DENIES NEEDS AT THIS TIME IV TO RIGHT HAND PATENT AND INTACT AT THIS TIME SRX2 BED AT LOWEST SETTING CALL LIGHT WITHIN REACH WILL CONTINUE TO MONITOR
[2016-08-29 07:59] VITALS: BP 107/37
[2016-08-29] MEDS ORDERED: FLORAJEN3 CAPS460 MG PO (09:58)
[2016-08-29] MEDS ORDERED: NYSTATIN1 PWD TOPICAL (09:59)
[2016-08-29] MEDS ORDERED: NYSTATIN15 GM TOPICAL (09:59)
[2016-08-29] MEDS ORDERED: ZOSYN 3.3753.375 G1 IV (10:00)
--- NOTE | 2016-08-29 11:25 | NUR ---
SPOKE WITH PATENT ABOUT NEED FOR REHAB TO INCREASE STRENGTH AND MOBILITY. PATIENT IS AGREEABLE TO GO TO [facility] TODAY. CALLED SAIDA (DAUGHTER) AT [phone] PER PATIENT REQUEST TO UPDATE HER OF POC. HER DAUGHTER IS ALSO AGREEABLE.D/W TATIANA PADGETT APN AND MILES.
--- NOTE | 2016-08-29 12:21 | NUR ---
MILES NOTE: PATIENT IS DISCHARGING TO [facility] TODAY BY AMBULANCE. CM NOTIFIED DAUGHTER (LAURYN) REGARDING PATEINTS D/C TO FACILITY AND SHE STATED THAT WAS GREAT.
--- NOTE | 2016-08-29 13:27 | NUR ---
CM REASSESSMENT NOTE: CM REC. CALL FROM [facility] STATING PATIENTS ROOM NUMBER WILL BE [id number] AND THEY WILL CALL THE AMBULANCE. REPORT IS TO BE CALLED TO [phone]. NURSE NOTIFIED.
--- NOTE | 2016-08-29 13:44 | NUR ---
REPORT CALLED TO [facility] AT THIS TIME
--- NOTE | 2016-08-29 14:50 | NUR ---
PT TAKEN VIA GURNEY VIA AMBULANCE [facility] AT THIS TIME
== END 2016-08-29 14:50 | DRG 603 ==
LOC: D.ER 10:22 → D.MS 13:27
PROVIDERS: Family Medicine; ADMIT Emergency Medicine
DX: L03.116 Cellulitis of left lower limb (principal); Z68.44 Body mass index [BMI] 60.0-69.9, adult; L03.115 Cellulitis of right lower limb; I89.0 Lymphedema, not elsewhere classified; E11.65 Type 2 diabetes mellitus with hyperglycemia; Z79.84 Long term (current) use of oral hypoglycemic drugs; G89.29 Other chronic pain; J44.9 Chronic obstructive pulmonary disease, unspecified; I50.9 Heart failure, unspecified; K21.9 Gastro-esophageal reflux disease without esophagitis; Z87.891 Personal history of nicotine dependence; E66.9 Obesity, unspecified; I10 Essential (primary) hypertension; F03.90 Unspecified dementia, unspecified severity, without behavioral disturbance, psychotic disturbance, mood disturbance, and anxiety; M19.90 Unspecified osteoarthritis, unspecified site

== ENCOUNTER 2016-08-30 10:02 | Emergency (ER) | payer MEDICARE ==
[2016-08-26 14:34] VITALS: BMI 64.4
[~2016-08-30 10:02] MED LIST changes: +BACTROBAN NASAL1 GM NASAL; +COUMADIN1 MG PO; +HYDROCHLOROTH12.5 M1 PO; +LISINOPRIL2.5 MG PO; +NYSTATIN1 PWD TOPICAL; +NYSTATIN15 GM TOPICAL; +ZOSYN 3.3753.375 G1 IV
[2016-08-30 12:18] LABS: BASOPHILS 0.2 % (0-2); EOSINOPHILS 3.7 % (0-7); HEMATOCRIT 33.2 % (36.0-48.0); HEMOGLOBIN 10.2 g/dL (12-16); IMMATURE GRANULOCYTES 0.2 % (0-5); LYMPHOCYTES 21.4 % (15-50); MCH 33.6 pg (26.0-34.0); MCHC 30.7 g/dL (31.0-37.0); MCV 109.2 fL (80.0-100.0); MEAN PLATELET VOLUME 10.1 fL (7.4-10.4); NEUTROPHILS 67.5 % (40-80); PLATELET COUNT 186 10x3/uL (130-400); RBC 3.04 10x6/uL (4.00-5.40); RDW 13.4 % (11.5-14.5); WBC 9.7 10x3/uL (4.8-10.8)
[2016-08-30 12:32] LABS: ALBUMIN 2.6 g/dL (3.4-5.0); ANION GAP 13.6 mmol/L (8-16); BILIRUBIN - TOTAL 0.79 mg/dL (0.2-1.3); CALCIUM 8.8 mg/dL (8.5-10.1); CARBON DIOXIDE 28.9 mmol/L (21.0-32.0); CREATININE - SERUM 0.9 mg/dL (0.6-1.3); POTASSIUM - SERUM 4.5 mmol/L (3.5-5.1); PROTEIN - SERUM 6.6 g/dL (6.4-8.2)
[2016-08-30 12:45] LABS: INR 2.27 (0.85-1.17); PROTIME 25.1 SECONDS (11.6-15.0)
== END 2016-08-30 15:54 ==
LOC: D.ER 10:02
PROVIDERS: Emergency Medicine
DX: L03.116 Cellulitis of left lower limb (principal); L03.115 Cellulitis of right lower limb; M79.605 Pain in left leg; M79.604 Pain in right leg

== ENCOUNTER → 2016-10-17 09:51 | Outpatient (CLI) | payer MEDICARE ==
[2016-08-26 14:34] VITALS: BMI 64.4
== END | disposition home or self-care (01) ==
LOC: D.RAD 09:51
DX: R05 Cough (principal)

== ENCOUNTER 2016-12-09 16:08 | Inpatient (IN) | payer MEDICARE ==
[~2016-12-09] VITALS: Ht 162.6 cm; Wt 221.9 kg
[2016-12-09 16:49] LABS: BASOPHILS 0.3 % (0-2); HEMATOCRIT 36.7 % (36.0-48.0); HEMOGLOBIN 11.3 g/dL (12-16); IMMATURE GRANULOCYTES 0.8 % (0-5); LYMPHOCYTES 24.2 % (15-50); MCH 32.1 pg (26.0-34.0); MCHC 30.8 g/dL (31.0-37.0); MCV 104.3 fL (80.0-100.0); MEAN PLATELET VOLUME 10.8 fL (7.4-10.4); MONOCYTES 5.7 % (2-11); RBC 3.52 10x6/uL (4.00-5.40); RDW 14.1 % (11.5-14.5); WBC 11.9 10x3/uL (4.8-10.8)
[2016-12-09 16:50] LABS: PLATELET COUNT 200 10x3/uL (130-400)
[2016-12-09 16:53] LABS: APPEARANCE HAZY (CLEAR); BILIRUBIN NEGATIVE (NEGATIVE); COLOR YELLOW (YELLOW); GLUCOSE NEGATIVE (NEGATIVE); KETONE NEGATIVE (NEGATIVE); NITRITE POSITIVE (NEGATIVE); PROTEIN TRACE mg/dL (NEGATIVE); UROBILINOGEN NORMAL (NORMAL)
[2016-12-09 16:54] LABS: BACTERIA MANY /hpf (NONE SEEN); EPITHELIAL CELLS 0-5 /hpf (0-5); RED CELLS - URINE 0-5 /hpf (0-5)
[2016-12-09 17:05] LABS: ALBUMIN 2.6 g/dL (3.4-5.0); ALKALINE PHOSPHATASE 137 U/L (46-116); ALT (SGPT) 16 U/L (10-68); BILIRUBIN - TOTAL 0.51 mg/dL (0.2-1.3); CALC OSMOLALITY 286 mosm/kg (275-300); CALCIUM 8.9 mg/dL (8.5-10.1); CARBON DIOXIDE 32.3 mmol/L (21.0-32.0); CHLORIDE - SERUM 104 mmol/L (98-107); CREATININE - SERUM 0.7 mg/dL (0.6-1.3); GLUCOSE 176 mg/dL (74-106); POTASSIUM - SERUM 5.6 mmol/L (3.5-5.1); PROTEIN - SERUM 7.1 g/dL (6.4-8.2); SODIUM 142 mmol/L (136-145); UREA NITROGEN 13 mg/dL (7-18); eGFR NON AFRICAN AMERICAN 84 mL/min (90-120)
--- NOTE | 2016-12-09 21:40 | NUR ---
RECIEVED TO ROOM 2137 FROM ER VIA STRETCHER, PT A&O. RESPERATIONS EVEN ON AT 2 LITER VIA NC. IV TO TOP OF RIGHT HAND WITH LEVAQUIN INUFSING, NO S/S ADVERSE REACTION NOTED. MORENO DRAINING TO GRAVITY. PT FRIEND AT BED SIDE, BED LOW, CL IN REACH.
[2016-12-09] MEDS ORDERED: MYCOSTATIN CREA15 GM TOPICAL (21:55)
--- NOTE | 2016-12-09 22:08 | NUR ---
NORCO 1 TAB GIVEN WITH FRESH ICE WATER FOR C/O GENERALIZED PAIN. RATES PAIN AT AN 8 ON PAIN SCALE. WILL CONT TO MONITOR.
--- NOTE | 2016-12-10 00:29 | NUR ---
IN BE RESTING WITH EYES CLOSED, RESPERATIONS EVEN, NO S/S DISTRESS NOTED.
[2016-12-10 01:44] VITALS: BP 105/56
[2016-12-10 04:40] VITALS: BP 108/54
[2016-12-10 06:21] LABS: ANION GAP 10.6 mmol/L (8-16); CALCIUM 8.9 mg/dL (8.5-10.1); CARBON DIOXIDE 32.4 mmol/L (21.0-32.0)
[2016-12-10 06:23] LABS: CREATININE - SERUM 0.9 mg/dL (0.6-1.3)
[2016-12-10 07:13] VITALS: BP 112/49
--- NOTE | 2016-12-10 07:27 | NUR ---
AM ROUNDING- RECEIVED REPORT FROM HEAD BUCKER NURSE SHANA. PT IS CURRENTLY LAYING IN BED WITH EYES CLOSED RESTING. GUEST MEMBER IS AT BEDSIDE. ON 02 AT 2L VIA NC. ON MONITOR SHOWING V-PACED, HR 80 (PER VIMAL IN TELEMETRY). IV SEEN TO RIGHT HAND WITH NS RUNNING AT 50CC. CHRONIC MORENO CATHETER SEEN. NO NEED AT THIS TIME. WILL CONTINUE TO MONITOR AND CONTINUE WITH PLAN OF CARE.
[2016-12-10 11:03] LABS: INR 1.85 (0.85-1.17); PROTIME 21.3 SECONDS (11.6-15.0)
[2016-12-10 12:57] VITALS: BP 97/48; Ht 162.6 cm; Wt 221.9 kg
[2016-12-10 16:00] VITALS: BP 108/54
--- NOTE | 2016-12-10 18:37 | NUR ---
PT IS CURRENTLY LAYING IN BED WITH EYES OPEN RESTING. GUEST MEMBER IS AT BEDSIDE. NO NEED AT THIS CURRENT TIME. WILL CONTINUE TO MONITOR.
--- NOTE | 2016-12-10 18:39 | HP ---
PATIENT: SRINIVAS LARA MEDICAL RECORD: [id number] ACCOUNT: [id number] LOCATION:[facility] D.2138 : 31 ADMISSION DATE: 12/09/16 HISTORY AND PHYSICAL EXAMINATION HISTORY: Ms. Lara is an 86-year-old female patient that was just released from [facility] a few days ago. She got home and family is unable to really care for her. She is unable to ambulate. She is brought to the Emergency Room, where she was found to be in heart failure and she has UTI. She is admitted this time. She states that she has had troubles with her legs with swelling and hurting. She was told at the rehab that she has tendonitis, but nothing really ever helped. She denies much in the way of shortness of breath or orthopnea at this time. She does have edema in her lower extremities and her chest x-ray shows some vascular prominence at this time. Her BNP was a little elevated at 703. She is admitted at this time for diuresis, treatment of her UTI, and case management consult. PAST MEDICAL HISTORY: Her past medical history is significant for known diabetes; hypertension; CHF; previous pacemaker placement; COPD, on home chronic O2; GERD; and depression. PAST SURGICAL HISTORY: Surgeries include cataracts and tubal ligation. ALLERGIES: SHE HAD POSSIBLE ANGIOEDEMA TO CEPHALEXIN. HOME MEDICATIONS: Include Lactinex, iron supplementation, DuoNeb updrafts, nystatin cream, Bumex 2 mg a day, [place] 10 b.i.d. p.r.n., Flonase nasal spray, levothyroxine 112 mcg a day, potassium 20 mEq daily, glipizide 5 mg b.i.d., diazepam p.r.n., Paxil 30 mg at bedtime, Ditropan 5 a day, allopurinol 100 mg daily, atorvastatin 20 mg daily, Coumadin 3 mg alternating with 4 mg, budesonide/formoterol b.i.d., Tylenol p.r.n., and omeprazole 20 mg a day. FAMILY HISTORY: Significant for cardiovascular disease and diabetes. SOCIAL HISTORY: The patient recently got out of [facility]. She does not smoke or drink. REVIEW OF SYSTEMS: She complains of generalized weakness. Some shortness of breath, which has now improved. She has had some chest pain, which is better today. She complains of swelling in her lower extremities. She complains of chronic pain in her lower extremities that is arthritic in nature. She denies any recent changes in bladder or bowel habits. PHYSICAL EXAMINATION: GENERAL: She is morbidly obese. She is in no distress at this time. HEENT: Head is normocephalic. Sclerae nonicteric. NECK: Soft and supple. HEART: Regular at this time. LUNGS: Breath sounds with some mild rales in the bases. ABDOMEN: Soft. EXTREMITIES: Lower extremities reveal 2+ edema. NEUROLOGIC: Without gross focal deficits. Mentation, mood, and affect are normal. IMPRESSION: HISTORY AND PHYSICAL [id number] SRINIVAS LARA 1. CHF. 2. UTI. 3. Diabetes. 4. Chronic anticoagulation. 5. Morbid obesity. 6. COPD. 7. O2 dependence. PLAN: Admit. Cardiology consult. Diurese. Continue anticoagulation with Coumadin. We will get daily INRs and daily weights. Case management consult. See orders for plan. TRANSINT:[id number] Voice Confirmation ID: [id number] DOCUMENT ID: [id number] RAISSA MEDINA DO at 1839 CC: [id number] DICTATION DATE: 12/10/16 1235 STRATEGIC PLANNER: 12/10/16 1607 ADM IN [place] [id number] [place] [address]
--- NOTE | 2016-12-10 19:08 | NUR ---
PT IN BED. FAMILY MEMBER AT BEDSIDE. DENIES NEEDS AT THIS TIME WILL CONTINUE TO MONITOR.
[2016-12-10 20:00] VITALS: BP 122/51
--- NOTE | 2016-12-10 23:30 | NUR ---
PT IN BED RESTING QUIETLY. WILL CPOC.
[2016-12-11] VITALS: BP 107/44
[2016-12-11 04:00] VITALS: BP 108/56
--- NOTE | 2016-12-11 07:20 | NUR ---
REPORT RECEIVED. PT RESTING QUIELTY, RR EVEN AND UNLABORED. FAMILY AT BEDSIDE. PT IS ALERT AND ORIENTED X4. ASSESSMENT PERFORMED. PT DENIES NEEDS AT THIS TIME. WILL CTM.
[2016-12-11 08:35] VITALS: BP 114/38
--- NOTE | 2016-12-11 09:00 | NUR ---
PT RESTING QUIELTY, RR EVEN AND UNLABORED. PT C/O PAIN IN HER LEGS. WILL GIVE PRN NORCO. STAT LOCK CHANGED ON MORENO CATHETER. WILL CTM.
[2016-12-11 12:40] VITALS: BP 104/37
[2016-12-11 14:53] LABS: ANION GAP 9.9 mmol/L (8-16); CALCIUM 8.9 mg/dL (8.5-10.1); CARBON DIOXIDE 33.2 mmol/L (21.0-32.0); CREATININE - SERUM 1.1 mg/dL (0.6-1.3); POTASSIUM - SERUM 4.1 mmol/L (3.5-5.1)
[2016-12-11 14:58] LABS: BASOPHILS 0.2 % (0-2); EOSINOPHILS 2.7 % (0-7); HEMATOCRIT 32.7 % (36.0-48.0); IMMATURE GRANULOCYTES 0.9 % (0-5); INR 1.25 (0.85-1.17); MCH 31.2 pg (26.0-34.0); MCHC 30.6 g/dL (31.0-37.0); MCV 101.9 fL (80.0-100.0); MEAN PLATELET VOLUME 11.4 fL (7.4-10.4); NEUTROPHILS 62.2 % (40-80); PLATELET COUNT 114 10x3/uL (130-400); PROTIME 15.6 SECONDS (11.6-15.0); RBC 3.21 10x6/uL (4.00-5.40); RDW 13.9 % (11.5-14.5); WBC 13.4 10x3/uL (4.8-10.8)
--- NOTE | 2016-12-11 15:50 | NUR ---
PT REQUESTING PRN PAIN MED. RR EVEN AND UNLABORED. PT DENIES WANTING TO BE TURNED AT THIS TIME. WILL GIVE PAIN MED AND CTM.
[2016-12-11 16:44] VITALS: BP 111/52
--- NOTE | 2016-12-11 17:06 | NUR ---
Patient Name: SRINIVAS PARRA Admission Status: ER Accout number: [id number] Admission Date: 12-09-2016 : 1930 Admission Diagnosis: Attending: RAISSA MEDINA Current LOS: 2 Anticipated DC Date: 12-12-2016 Planned Disposition: Home with Home Health Primary Insurance: MEDICARE A & B PLANNED EXTERNAL PROVIDER: [facility] Discharge Planning Comments: * Is the patient Alert and Oriented? Yes 0 * How many steps to enter\\exit or inside your home? RAMP 0 * PCP DR. ALAN 0 * Pharmacy [facility] AT [facility]. 0 * Preadmission Environment Home with Family 0 * ADLs Partial Dependent 0 * Partial ADLs (Assistance needed) Ambulation Dressing Eating Medication Management Toileting Transfers 0 * Equipment Bedside [facility] Bed Nebulizer Other Oxygen Rolling Walker Shower Chair Wheelchair 0 * Other Equipment HOME AND PORTABLE OXYGEN [facility] - MEDICAL EQUIPMENT PROVIDER PREFERNENCE 0 * List name and contact numbers for known caregivers / representatives who currently or will assist patient after discharge: LAURYN LEI DTR, 0 * Community resources currently utilized Home Health 0 * Please name any agencies selected above. [facility] 0 * Additional services required to return to the preadmission environment? Yes * Can the patient safely return to the preadmission environment? Yes 0 * Has this patient been hospitalized within the prior 30 days at any hospital? No 0 CM RECEIVED ORDER REGARDING HOME SITUATION. CM MET WITH PT IN ROOM TO DISCUSS DISCHARGE PLANNING AND NEEDS. PT REPORTS LIVING AT HOME DEPENDENT UPON SON AND GRANDDAUGHTERS CARE. PT WAS AT [facility] FOR REHAB AND WAS THERE FOR 90 DAYS. PT REPORTS SHE HAS ALL NEEDED MEDICAL EQUIPMENT AT HOME EXCEPT FOR A LIFT. PT REPORTS SHE NEEDS A XAVIER LIFT AT HOME SO THAT HER FAMILY CAN GOLF COURSE DESIGNER HER TO THE BED, CHAIR AND WHEELCHAIR. MEDICAL EQUIPMENT PROVIDER IS [facility]. PT HAS [facility] HEALTH WITH [facility], THEY HAVE NOT YET BEEN OUT SINCE PT WAS ONLY HOME ONE DAY FROM THE REHAB BEFORE COMING TO HOSPITAL. PT REPORTS HAVING HOUSECALLS. PT REPORTS SHE NEEDS A LIFT AT HOME, HER FAMILY CAN CARE FOR HER. PT STATES SHE IS NOT GOING TO REHAB OR TO A [facility]P; PT STATES THAT "THEY LIED TO ME LAST TIME AND TOLD ME I HAD TO GO FOR TWO WEEKS AND IT WAS 90 DAYS...NOT THIS TIME." PT REPORTS SHE NEEDS AN AMBULANCE TO TAKE HER HOME AT DISCHARGE BECAUSE SHE CAN'T WALK. PT STATES THAT HER DAUGHTER IS WORKING ON HER MEDICAID CAREGIVER SERVICES AND TO CALL LAURYN. CM CALLED LAURYN LEI, ; LAURYN WANTS CM TO TALK TO PT ABOUT GOING TO THE USP. CM EXPLAINED THAT CM HAD DONE SO AND EXPLAINED PT'S REFUSAL. LAURYN REPORTS PT IS IN HER RIGHT MIND AND NO ONE IS PT'S GUARDIAN. LAURYN REPORTS THEY WILL NEED A LIFT, HOME HEALTH AND AMBULANCE TRANSPORTATION. LAURYN REPORTS THAT MEEK IS WORKING ON THE LIFT, HOME HEALTH HAS BEEN ARRANGED AND [facility] APPLIED FOR PT'S HOME MEDICAID SERVICES ON 12-05 AND THE APPLICATION IS STILL PENDING. 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 PT SIGNED CONSENT FOR DETENTION PLACEMENT AT [facility] (WHICH IS NOT YET OPEN). CM CALLED OZ OF [facility], , WHO CHECKED AND NOTIFIED CM THAT PT HAS NO REMAINING REHAB DAYS. ALVINO OF [facility] WILL COME AND TALK TO PT ABOUT PENITENTIARY CARE TOMORROW AT LAURYN (DAUGHTER'S) REQUEST. CM NOTIFIED PT THAT SHE HAS NO REHAB DAYS REMAINING, PT STATES SHE IS GOING HOME. CM CALLED AND SPOKE TO CHANTEL YATES OF [facility], . DENIES REPORTS THAT SHE HAS TOLD THE PT THAT MECHANICAL MAINTENANCE WORKER CARE IS APPROPRIATE FOR HER; PT IS NOT AGREEABLE TO PLACEMENT IN A USP. THE HOUSE IN WHICH PT LIVES IS VERY SMALL AND FAMILY IS HAVING TROUBLE TAKING CARE OF PT. CHANTEL HAS TAKEN CARE OF HOME HEALTH WITH [facility] AND WILL ORDER A XAVIER LIFT FOR HOME USE. FOR DISCHARGE, NOTIFY PT'S DAUGHTER, LAURYN AT [phone]; NOTIFY JASON AT [phone]; NOTIFY [facility] AT [phone], FAX DISCHARGE INFORMATION TO [facility] AT [phone]. PT TO TRANSPORT HOME VIA AMBULANCE. Milk Drying Machine Operator: Jeremy Caldera
--- NOTE | 2016-12-11 18:30 | NUR ---
PT RESTING QUIETLY, RR EVEN AND UNLABORED. PT DENIES NEEDS AT THIS TIME. WILL GIVE REPORT ON PT CONDITION FOR THE DAY.
[2016-12-11 19:00] VITALS: BP 132/49
--- NOTE | 2016-12-11 19:35 | NUR ---
PT IN BED WITH EYES OPEN WATCHING TV WITH . NO CONCERNS MADE KNOWN. NO S/S OF DISTRESS NOTED. CALL LIGHT IN REACH. WILL CONTINUE TO OBSERVE.
--- NOTE | 2016-12-11 23:20 | NUR ---
PT IN BED WITH EYES CLOSED AND CHEST RISING. NO S/S OF DISTRESS NOTED. CALL LIGHT IN REACH. WILL CONTINUE TO OBSERVE.
--- NOTE | 2016-12-12 04:43 | NUR ---
PT IN BED WITH EYES CLOSED AND CHEST RISING. NO CONCERNS NOTED AT THIS TIME. CALL LIGHT IN REACH. WILL CONTINUE TO OBSERVE.
[2016-12-12 05:46] LABS: INR 1.67 (0.85-1.17); PROTIME 19.7 SECONDS (11.6-15.0)
[2016-12-12 05:47] LABS: BASOPHILS 0.2 % (0-2); EOSINOPHILS 5.2 % (0-7); HEMATOCRIT 33.4 % (36.0-48.0); HEMOGLOBIN 10.4 g/dL (12-16); IMMATURE GRANULOCYTES 0.6 % (0-5); LYMPHOCYTES 24.5 % (15-50); MCH 31.9 pg (26.0-34.0); MCHC 31.1 g/dL (31.0-37.0); MCV 102.5 fL (80.0-100.0); MEAN PLATELET VOLUME 11.4 fL (7.4-10.4); MONOCYTES 5.7 % (2-11); NEUTROPHILS 63.8 % (40-80); PLATELET COUNT 214 10x3/uL (130-400); RBC 3.26 10x6/uL (4.00-5.40); RDW 14.2 % (11.5-14.5); WBC 10.9 10x3/uL (4.8-10.8)
[2016-12-12 05:57] LABS: ANION GAP 11.8 mmol/L (8-16); CALCIUM 8.5 mg/dL (8.5-10.1); CARBON DIOXIDE 31.3 mmol/L (21.0-32.0); CREATININE - SERUM 1.1 mg/dL (0.6-1.3); POTASSIUM - SERUM 4.1 mmol/L (3.5-5.1)
--- NOTE | 2016-12-12 07:15 | NUR ---
RECIEVED REPORT ON PATIENT, PATIENT IS ALERT AND ORIENTED AT THIS TIME. PATIENT HAS R HAND IV WITH NS INFSUING AT KVO AT THIS TIME. PATIENT IS ON 2L/MIN VIA NC WITH NAD NOTED. CHEST RISES AND FALLS EQUALLY. PATIENT IS SR ON MONITOR WITH BBB NOTED AND HAS A RATE OF 81. PATIENT DENIES ANY NEEDS AT THIS TIME. BED IS LOW AND LOCKED. WILL CONT TO MONITOR. CPOC
--- NOTE | 2016-12-12 09:00 | NUR ---
MORNING MEDICATIONS GIVEN WITH NO ISSUES, CPOC
[2016-12-12 10:22] VITALS: BP 113/40
--- NOTE | 2016-12-12 12:00 | NUR ---
PATIENT SITTING UP IN BED EATING LUNCH AT THIS TIME. DENIES ANY FURTHER NEEDS, CPOC
[2016-12-12 12:08] VITALS: BP 120/44
--- NOTE | 2016-12-12 14:13 | NUR ---
PATIENT HAS NOT BEEN WEIGHED TODAY, PATIENT IS BEDFAST AND HAS TO BE LIFTED, HAVE SPOKE WITH THERAPY TO GET A LIFT SO PATIENT CAN GET WEIGHED, BUT THEY ARE NEEDING AN ORDER. WILL SPEAK WITH DR MEDINA. CPOC
[2016-12-12 15:26] VITALS: BP 101/46
--- NOTE | 2016-12-12 16:13 | NUR ---
TYLENOL GIVEN FOR KNEE PAIN 09/19. WILL CONT TO MONITOR. CPOC
--- NOTE | 2016-12-12 17:45 | NUR ---
PATIENT EATING DINNER AT THIS TIME, DENIES ANY NEEDS. BED LOW AND LOCKED. CPOC
--- NOTE | 2016-12-12 19:09 | NUR ---
REPORT GIVEN TO AIRCRAFT CYLINDER MECHANIC. PATIENT DENIES ANY NEEDS. CPOC
--- NOTE | 2016-12-12 19:36 | NUR ---
PT IN BED RESTING AROUSES TO VOICE. AT BEDSIDE. DENIES NEEDS AT THIS TIME.
[2016-12-12 20:00] VITALS: BP 92/41
[2016-12-13] VITALS: BP 109/42
--- NOTE | 2016-12-13 05:40 | NUR ---
LYING IN BED WITH CALL LIGHT IN REACH. WILL CONTINUE WITH PLAN OF CARE.
[2016-12-13 07:18] LABS: BASOPHILS 0.2 % (0-2); EOSINOPHILS 6.2 % (0-7); HEMATOCRIT 32.9 % (36.0-48.0); HEMOGLOBIN 10.1 g/dL (12-16); LYMPHOCYTES 24.8 % (15-50); MCH 31.6 pg (26.0-34.0); MCHC 30.7 g/dL (31.0-37.0); MCV 102.8 fL (80.0-100.0); MEAN PLATELET VOLUME 10.8 fL (7.4-10.4); MONOCYTES 6.4 % (2-11); NEUTROPHILS 61.4 % (40-80); PLATELET COUNT 215 10x3/uL (130-400); RDW 14.3 % (11.5-14.5); WBC 10.8 10x3/uL (4.8-10.8)
[2016-12-13 07:35] LABS: INR 1.77 (0.85-1.17); PROTIME 20.6 SECONDS (11.6-15.0)
[2016-12-13 07:38] LABS: ANION GAP 8.8 mmol/L (8-16); CALCIUM 9.1 mg/dL (8.5-10.1); CARBON DIOXIDE 32.1 mmol/L (21.0-32.0); POTASSIUM - SERUM 3.9 mmol/L (3.5-5.1)
[2016-12-13 08:00] VITALS: BP 115/40
--- NOTE | 2016-12-13 10:21 | NUR ---
AM ROUNDS COMPLETED. INTRODUCED MYSELF TO PT PRIMARY RN FOR TODAYS SHIFT. RR NONLABORED, NO CURRENT NEEDS AT THIS TIME, WILL CHECK ORDERS AND CONTINUE WITH TODAYS PLAN OF CARE.
--- NOTE | 2016-12-13 11:17 | NUR ---
PT SITTING UP IN BED RESTING QUIETLY RECIEVING HER BREATHING TX. PT DENIES ANY CURRENT PAIN OR NEEDS WAITING TO EAT LUNCH. WILL CPOC.
[2016-12-13 12:00] VITALS: BP 111/41
--- NOTE | 2016-12-13 13:41 | NUR ---
Nutrition Follow Up: Pt reported that she did not feel well today - that her stomach was upset. She said that she normally has a good appetite; has been drinking Ensure. Nursing reported that strawberry/vanilla Ensure has been ordered with meals per pt request. Pt is eating 57% meal avg on an AHA diet. +BM 12/10/16. Labs reviewed. Meds noted including Lasix. Rec continue current diet. Will send Ensure TID. RD following.
--- NOTE | 2016-12-13 14:55 | NUR ---
Patient Name: SRINIVAS PARRA Encounter No: [id number] : 1930 Primary Insurance: MEDICARE A & B Anticipated DC Date: 12-13-2016 Planned Disposition: Snf Facility External Planned Provider: [facility] [employer] [facility] MEDICAID BED DCP follow-up note: CM SPOKE TO PT AT LENGTH IN ROOM REGARDING DISCHARGE PLAN. CM EXPLAINED TO PT THAT SHE IS READY TO DISCHARGE TODAY AND PT NEEDS SAFE DISCHARGE PLAN. PT INITIALLY STATES SHE IS NOT GOING TO A FPC AND WILL BE GOING HOME. CM INFORMED PT THAT CM WILL NOTIFY THE DOCTOR. PT WANTED TO TALK MORE. PT CALLED HER DAUGHTER, DAUGHTER, LAURYN, ASKED THAT CM HAVE PT SIGN FOR FPC CARE AND THAT CM GET PT TO GO TO A FPC UNTIL THEY CAN GET HOME CARE APPROVED IN ABOUT 45 DAYS. CM DISCUSSED THIS WITH PT. PT BEGAN TALKING LOUDLY, CALLED HER DAUGHTER AND THEY WERE DISCUSSING PT GOING HOME. CM LEFT THE ROOM, ASKED PT TO CALL CM WHEN SHE MAKES A DECISION REGARDING HOME OR FPC. CM MET WITH PT SHE DID NOT CALL CM BACK. PT REPORTS SHE IS GOING TO DO "WHATEVER". CM ASKED PT WHAT THAT MEANT, PT REPORTS YOU KNOW, "WHATEVER." CM EXPLAINED THAT PT HAS TO MAKE A DECISION AND THAT IT IS HER DECISION TO MAKE. PT REPORTS SHE WANTS TO GO TO A FPC UNTIL HER DAUGTHER MAKES HOME ARRANGEMENTS, SHE UNDERSTANDS SHE WILL BE IN MARKETING [employer]TERTAINMENT CARE. PT WANTS ANY FPC IN [place], BUT NOT [facility]. CHOICE SIGNED. IMPORTANT MESSAGE FROM MEDICARE PROVIDED AND EXPLAINED. CM RECEIVED CALL FROM PT'S DAUGHTER, LAURYN, WHO REQUESTED REFERRAL SENT TO [facility]. CM SPOKE TO PT WHO AGREES WITH REFERRAL TO [facility]. MILES CALLED ITALO OF [facility], , ITALO REORTS THAT THEY WILL EVALUATE PT FOR SENIOR LIVING CARE ADMISSION TOMORROW; CM FAXED REFERRAL TO [facility] AT [phone]. CM CALLED [facility], CLINICAL LIAISON FOR [facility], , ASKED FOR ASSESSMENT FOR SENIOR LIVING CARE ADMISSION. CM FAXED REFERRAL TO [facility]. CM WAITING ADMISSION DETERMINATIONS FROM [facility] AND [facility] FOR [facility]. Jeremy Caldera, CASE MANAGEMENT
--- NOTE | 2016-12-13 16:00 | NUR ---
PT GETTING BED BATH. UPON MORENO CARE NOTED PTS MORENO TUBING APPEARING VERY DIRTY INSIDE NOT ON OUTSIDE ABLE TO CLEAN. THIS MORENO IS CHRONIC BUT PT DOESNT KNOW WHY OR LAST TIME IT WAS CHANGED. NOTIFIED PRIMARY AND WILL CONTACT MAMI DOYLE TO SEE ABOUT CHANGING IT OUT.
[2016-12-13 18:02] VITALS: BP 114/43
--- NOTE | 2016-12-13 19:46 | NUR ---
PT RESTING IN BED WATCHING TV. FAMILY MEMBER AT BEDSIDE. PT HAS NS INFUSING TO RIGHT HAND IV. PT IS AAO. DENIES ANY NEEDS. NO S/S OF DISTRESS. BED LOW AND CALL LIGHT IN REACH. WILL CPOC
[2016-12-13 20:00] VITALS: BP 114/54
[2016-12-14] VITALS: BP 114/52
--- NOTE | 2016-12-14 01:10 | NUR ---
PT ASLEEP. RESPIRATIONS EVEN AND UNLABORED. NO S/S OF DISTRESS. BED LOW AND CALL LIGHT IN REACH. WILL CPOC
[2016-12-14 04:00] VITALS: BP 111/46
[2016-12-14 06:28] LABS: BASOPHILS 0.2 % (0-2); EOSINOPHILS 6.5 % (0-7); HEMATOCRIT 33.5 % (36.0-48.0); HEMOGLOBIN 10.4 g/dL (12-16); IMMATURE GRANULOCYTES 0.6 % (0-5); LYMPHOCYTES 21.5 % (15-50); MCH 31.8 pg (26.0-34.0); MCV 102.4 fL (80.0-100.0); MEAN PLATELET VOLUME 10.9 fL (7.4-10.4); MONOCYTES 6.5 % (2-11); NEUTROPHILS 64.7 % (40-80); PLATELET COUNT 231 10x3/uL (130-400); RBC 3.27 10x6/uL (4.00-5.40); RDW 14.3 % (11.5-14.5); WBC 11.1 10x3/uL (4.8-10.8)
[2016-12-14 06:36] LABS: INR 2.09 (0.85-1.17); PROTIME 23.6 SECONDS (11.6-15.0)
[2016-12-14 06:39] LABS: ANION GAP 9.8 mmol/L (8-16); CALCIUM 9.1 mg/dL (8.5-10.1); CARBON DIOXIDE 31.1 mmol/L (21.0-32.0); POTASSIUM - SERUM 3.9 mmol/L (3.5-5.1)
--- NOTE | 2016-12-14 06:45 | NUR ---
PT RESTING IN ROOM. FAMILY MEMBER AT BEDSIDE. PT DENIES ANY NEEDS. NO S/S OF DISTRESS. WILL CPOC
--- NOTE | 2016-12-14 07:15 | NUR ---
RECIEVED REPORT ON PATIENT, PATIENT IS ALERT AND ORIENTED AT THIS TIME. PATIENT HAS A R HAND IV WITH NS AT KVO AT THIS TIME PATIENT IS SR WITH A BBB AND A RATE OF 84 AT THIS TIME. PATIENT DENIES ANY NEEDS OR COMPLAINTS AT THIS TIME. WILL CONT TO MONITOR PATIENT. CPOC
[2016-12-14 08:16] VITALS: BP 108/40
--- NOTE | 2016-12-14 09:15 | NUR ---
MORNING MEDICATIONS GIVEN, NO ISSUES. PATIENT DENIES ANY NEEDS. BED LOW AND LOCKED. CPOC
[2016-12-14 11:23] VITALS: BP 113/56
--- NOTE | 2016-12-14 11:45 | NUR ---
PATIENT SITTING UP IN BED EATING LUNCH. DAUGHTER AT BEDSIDE, DENIES ANY NEEDS. CPOC
[2016-12-14] MEDS ORDERED: LISINOPRIL10 MG PO (12:40)
[2016-12-14] MEDS ORDERED: BACTRIM DS TABL1 TAB PO (12:44)
--- NOTE | 2016-12-14 13:00 | NUR ---
SPOKE WITH LOGAN AT [facility], REPORT GIVEN, DENIES ANY QUESTIONS. PATIENT BEING TRANSFERRED BY AMBULANCE. CPOC
--- NOTE | 2016-12-14 13:17 | NUR ---
DC PIV WITH CATH TIP INTACT.
--- NOTE | 2016-12-14 13:20 | NUR ---
SPOKE WITH DAISY AT [facility] FOR TRANSPORT. PCS SIGNED. WILL WAIT. CPOC
--- NOTE | 2016-12-14 14:20 | NUR ---
MORENO CATHETER DC. NO ISSUES.
--- NOTE | 2016-12-14 14:24 | NUR ---
PATIENT GIVEN DC INSTUCTIONS, SIGNED PAPERWORK. DENIES ANY NEEDS AT THIS TIME. WAITING ON TRANSPORT. CPOC
--- NOTE | 2016-12-14 15:14 | NUR ---
[facility] HERE FOR TRANSPORT. PATIENT READY FOR DC
--- NOTE | 2016-12-16 08:45 | NUR ---
LATE ENTRY FOR 12/14/16 PATIENT DISCHARGED TO A PULP DRIER FIRER BED AT [facility] IN [facility] ON FRIDAY VIA AMBULANCE.
== END 2016-12-14 15:18 | DRG 292 ==
LOC: D.ER 16:08 → D.M2 20:02 → D.ER 20:02 → D.M2 20:39 → D.SDCHOLD 12-12 17:05 → D.M2 12-12 17:06
PROVIDERS: Emergency Medicine; Family Medicine; ADMIT Family Medicine
DX: I11.0 Hypertensive heart disease with heart failure (principal); N39.0 Urinary tract infection, site not specified; Z68.44 Body mass index [BMI] 60.0-69.9, adult; B96.20 Unspecified Escherichia coli [E. coli] as the cause of diseases classified elsewhere; E11.9 Type 2 diabetes mellitus without complications; K21.9 Gastro-esophageal reflux disease without esophagitis; F32.9 Major depressive disorder, single episode, unspecified; Z95.0 Presence of cardiac pacemaker; J44.9 Chronic obstructive pulmonary disease, unspecified; E66.01 Morbid (severe) obesity due to excess calories; Z79.01 Long term (current) use of anticoagulants; Z99.81 Dependence on supplemental oxygen; I08.1 Rheumatic disorders of both mitral and tricuspid valves; I50.23 Acute on chronic systolic (congestive) heart failure

== ENCOUNTER 2017-03-01 10:35 | Inpatient (IN) | payer MEDICARE ==
[~2017-03-01] VITALS: Ht 162.6 cm; Wt 140.6 kg
[~2017-03-01 10:35] MED LIST changes: +BACTRIM DS TABL1 TAB PO; +MYCOSTATIN CREA15 GM TOPICAL
[2017-03-01 11:37] LABS: BASOPHILS 0.3 % (0-2); EOSINOPHILS 3.5 % (0-7); HEMATOCRIT 34.1 % (36.0-48.0); HEMOGLOBIN 10.7 g/dL (12-16); IMMATURE GRANULOCYTES 0.5 % (0-5); LYMPHOCYTES 29.1 % (15-50); MCH 32.6 pg (26.0-34.0); MCHC 31.4 g/dL (31.0-37.0); MEAN PLATELET VOLUME 10.2 fL (7.4-10.4); MONOCYTES 9.5 % (2-11); NEUTROPHILS 57.1 % (40-80); PLATELET COUNT 231 10x3/uL (130-400); RBC 3.28 10x6/uL (4.00-5.40); RDW 14.2 % (11.5-14.5); WBC 8.8 10x3/uL (4.8-10.8)
[2017-03-01 11:52] LABS: ALBUMIN 2.8 g/dL (3.4-5.0); ALKALINE PHOSPHATASE 106 U/L (46-116); ALT (SGPT) 13 U/L (10-68); BILIRUBIN - TOTAL 0.44 mg/dL (0.2-1.3); CALC OSMOLALITY 283 mosm/kg (275-300); CALCIUM 9.4 mg/dL (8.5-10.1); CARBON DIOXIDE 32.3 mmol/L (21.0-32.0); CHLORIDE - SERUM 99 mmol/L (98-107); CREATININE - SERUM 1.1 mg/dL (0.6-1.3); GLUCOSE 117 mg/dL (74-106); PROTEIN - SERUM 7.9 g/dL (6.4-8.2); SODIUM 139 mmol/L (136-145); UREA NITROGEN 27 mg/dL (7-18); eGFR NON AFRICAN AMERICAN 50 mL/min (90-120)
[2017-03-01 11:56] LABS: APPEARANCE HAZY (CLEAR); BILIRUBIN NEGATIVE (NEGATIVE); GLUCOSE NEGATIVE (NEGATIVE); KETONE NEGATIVE (NEGATIVE); NITRITE NEGATIVE (NEGATIVE); PROTEIN NEGATIVE (NEGATIVE); SPECIFIC GRAVITY 1.005 (1.005-1.020); UROBILINOGEN NORMAL (NORMAL)
[2017-03-01 11:59] LABS: BACTERIA MANY /hpf (NONE SEEN); EPITHELIAL CELLS 0-5 /hpf (0-5); RED CELLS - URINE OCC /hpf (0-5)
[2017-03-01 12:04] LABS: CKMB 0.7 U/L (0.0-3.6); CREATINE KINASE 72 UL (21-215); MAGNESIUM - SERUM 2.1 mg/dL (1.8-2.4); PRO BNP 756 pg/mL (0-450); TROPONIN-I < 0.017 ng/mL (0.000-0.060)
[2017-03-01 12:09] LABS: COLOR STRAW (YELLOW)
[2017-03-01] MEDS ORDERED: COLACE100 MG PO (16:29)
[2017-03-01] MEDS ORDERED: HYDROCODON-ACE1 EAC7 PO (16:30)
[2017-03-01] MEDS ORDERED: GUAIFENESI100 MG/5 M PO ×2 (16:40)
[2017-03-01] MEDS ORDERED: ATIVAN0.5 MG PO (16:41)
[2017-03-01 16:45] VITALS: BP 134/74
[2017-03-01] MEDS ORDERED: CLARITIN 10 MG10 MG PO (16:45)
[2017-03-01] MEDS ORDERED: FERREX 150 PLUS1 CAP PO (16:46)
[2017-03-01] MEDS ORDERED: SYMBICORT 16010.2 GM INH (16:52)
[2017-03-01] MEDS ORDERED: ELIQUIS5 MG PO (16:52)
[2017-03-01] MEDS ORDERED: ZOFRAN4 MG PO ×2 (16:54→16:55)
[2017-03-01] MEDS ORDERED: SENNA LAXATIVE8.6 MG PO (16:56)
[2017-03-01 17:15] VITALS: BP 134/74; BMI 53.3
[2017-03-01 20:00] VITALS: BP 132/81
[2017-03-02 02:56] VITALS: BP 138/87
[2017-03-02 06:28] LABS: BASOPHILS 0.2 % (0-2); EOSINOPHILS 0 % (0-7); HEMATOCRIT 34.1 % (36.0-48.0); HEMOGLOBIN 10.8 g/dL (12-16); IMMATURE GRANULOCYTES 0.4 % (0-5); LYMPHOCYTES 15.8 % (15-50); MCH 32.7 pg (26.0-34.0); MCHC 31.7 g/dL (31.0-37.0); MCV 103.3 fL (80.0-100.0); MEAN PLATELET VOLUME 10.7 fL (7.4-10.4); MONOCYTES 1.7 % (2-11); NEUTROPHILS 81.9 % (40-80); PLATELET COUNT 221 10x3/uL (130-400); RDW 13.9 % (11.5-14.5); WBC 10.7 10x3/uL (4.8-10.8)
[2017-03-02 06:48] LABS: ALBUMIN 2.7 g/dL (3.4-5.0); ANION GAP 12.8 mmol/L (8-16); BILIRUBIN - TOTAL 0.4 mg/dL (0.2-1.3); CALCIUM 9.3 mg/dL (8.5-10.1); CARBON DIOXIDE 32.2 mmol/L (21.0-32.0); CREATININE - SERUM 1.2 mg/dL (0.6-1.3); PROTEIN - SERUM 7.4 g/dL (6.4-8.2)
[2017-03-02 08:42] VITALS: BP 117/62
[2017-03-02 11:51] VITALS: BP 117/65
[2017-03-02 15:39] VITALS: BP 112/54
[2017-03-02 21:31] VITALS: BP 117/51
[2017-03-03 01:38] VITALS: BP 95/49
[2017-03-03 04:29] LABS: BASOPHILS 0.2 % (0-2); EOSINOPHILS 0 % (0-7); HEMATOCRIT 33.2 % (36.0-48.0); HEMOGLOBIN 10.5 g/dL (12-16); IMMATURE GRANULOCYTES 0.3 % (0-5); LYMPHOCYTES 9.7 % (15-50); MCH 32.8 pg (26.0-34.0); MCHC 31.6 g/dL (31.0-37.0); MCV 103.8 fL (80.0-100.0); MEAN PLATELET VOLUME 10.5 fL (7.4-10.4); MONOCYTES 3.3 % (2-11); NEUTROPHILS 86.5 % (40-80); PLATELET COUNT 272 10x3/uL (130-400); RDW 14.1 % (11.5-14.5); WBC 18.7 10x3/uL (4.8-10.8)
[2017-03-03 04:53] LABS: ANION GAP 11.6 mmol/L (8-16); CALCIUM 9.5 mg/dL (8.5-10.1); CARBON DIOXIDE 32.1 mmol/L (21.0-32.0); CREATININE - SERUM 1.4 mg/dL (0.6-1.3); POTASSIUM - SERUM 4.7 mmol/L (3.5-5.1)
[2017-03-03 07:46] VITALS: BP 116/54
[2017-03-03 08:45] VITALS: BP 132/63
[2017-03-03 12:37] VITALS: BP 103/49
[2017-03-03 15:02] VITALS: Ht 162.6 cm; Wt 140.6 kg
[2017-03-03 17:51] VITALS: BP 105/62
[2017-03-03 20:00] VITALS: BP 106/52
[2017-03-04 04:00] VITALS: BP 116/54
[2017-03-04 04:20] LABS: BASOPHILS 0.1 % (0-2); EOSINOPHILS 0 % (0-7); HEMATOCRIT 32.9 % (36.0-48.0); HEMOGLOBIN 10.3 g/dL (12-16); IMMATURE GRANULOCYTES 0.6 % (0-5); LYMPHOCYTES 9.2 % (15-50); MCH 32.7 pg (26.0-34.0); MCHC 31.3 g/dL (31.0-37.0); MCV 104.4 fL (80.0-100.0); MEAN PLATELET VOLUME 10.6 fL (7.4-10.4); MONOCYTES 5.6 % (2-11); NEUTROPHILS 84.5 % (40-80); PLATELET COUNT 272 10x3/uL (130-400); RBC 3.15 10x6/uL (4.00-5.40); WBC 18.5 10x3/uL (4.8-10.8)
[2017-03-04 04:52] LABS: ALBUMIN 2.6 g/dL (3.4-5.0); ANION GAP 10.1 mmol/L (8-16); BILIRUBIN - TOTAL 0.33 mg/dL (0.2-1.3); CALCIUM 9.4 mg/dL (8.5-10.1); CARBON DIOXIDE 34.8 mmol/L (21.0-32.0); CREATININE - SERUM 1.2 mg/dL (0.6-1.3); POTASSIUM - SERUM 4.9 mmol/L (3.5-5.1); PROTEIN - SERUM 7.3 g/dL (6.4-8.2)
[2017-03-04 09:29] VITALS: BP 91/43
[2017-03-04 11:19] LABS: ANA REFLEX - DIRECT Negative (Negative)
[2017-03-04 14:18] VITALS: BP 110/56
[2017-03-04 21:30] VITALS: BP 111/66
[2017-03-05 04:00] VITALS: BP 116/53
[2017-03-05 04:35] LABS: BASOPHILS 0.1 % (0-2); EOSINOPHILS 0 % (0-7); HEMATOCRIT 32.9 % (36.0-48.0); HEMOGLOBIN 10.2 g/dL (12-16); IMMATURE GRANULOCYTES 0.7 % (0-5); LYMPHOCYTES 11.4 % (15-50); MCH 32.4 pg (26.0-34.0); MCV 104.4 fL (80.0-100.0); MONOCYTES 6.7 % (2-11); NEUTROPHILS 81.1 % (40-80); PLATELET COUNT 278 10x3/uL (130-400); RBC 3.15 10x6/uL (4.00-5.40); RDW 14.3 % (11.5-14.5); WBC 14.7 10x3/uL (4.8-10.8)
[2017-03-05 04:56] LABS: ALBUMIN 2.4 g/dL (3.4-5.0); ANION GAP 7.9 mmol/L (8-16); BILIRUBIN - TOTAL 0.47 mg/dL (0.2-1.3); CALCIUM 9.4 mg/dL (8.5-10.1); CARBON DIOXIDE 35.6 mmol/L (21.0-32.0); CREATININE - SERUM 1.1 mg/dL (0.6-1.3); POTASSIUM - SERUM 4.5 mmol/L (3.5-5.1); PROTEIN - SERUM 7.2 g/dL (6.4-8.2)
[2017-03-05 08:09] VITALS: BP 124/72
[2017-03-05 12:45] VITALS: BP 126/70
[2017-03-05 16:28] VITALS: BP 122/60
[2017-03-05 22:10] LABS: MYCOPLASMA PNEUMO IGG 176 U/mL (0-99)
[2017-03-05 22:57] VITALS: BP 127/57
[2017-03-06] VITALS (7 sets, daily range): BP systolic 92–119; BP diastolic 38–68
[2017-03-06 04:29] LABS: BASOPHILS 0.1 % (0-2); EOSINOPHILS 0 % (0-7); HEMATOCRIT 33.9 % (36.0-48.0); HEMOGLOBIN 10.7 g/dL (12-16); IMMATURE GRANULOCYTES 0.6 % (0-5); LYMPHOCYTES 16.4 % (15-50); MCH 32.9 pg (26.0-34.0); MCHC 31.6 g/dL (31.0-37.0); MCV 104.3 fL (80.0-100.0); MEAN PLATELET VOLUME 10.3 fL (7.4-10.4); MONOCYTES 7.8 % (2-11); NEUTROPHILS 75.1 % (40-80); PLATELET COUNT 246 10x3/uL (130-400); RBC 3.25 10x6/uL (4.00-5.40); RDW 14.2 % (11.5-14.5); WBC 14.7 10x3/uL (4.8-10.8)
[2017-03-06 05:05] LABS: ALBUMIN 2.4 g/dL (3.4-5.0); ANION GAP 9.7 mmol/L (8-16); BILIRUBIN - TOTAL 0.59 mg/dL (0.2-1.3); CALCIUM 8.8 mg/dL (8.5-10.1); CARBON DIOXIDE 34.4 mmol/L (21.0-32.0); POTASSIUM - SERUM 4.1 mmol/L (3.5-5.1); PROTEIN - SERUM 7.1 g/dL (6.4-8.2)
[2017-03-06 16:16] LABS: ANCA - ANTIMYELOPEROXIDASE <9.0 U/mL (0.0-9.0); ANCA - ANTIPROTEINASE 3 11.2 U/mL (0.0-3.5); ANCA - ATYPICAL <1:20 titer (Neg:<1:20); ANCA - CYTOPLASMIC <1:20 titer (Neg:<1:20); ANCA - PERINUCLEAR <1:20 titer (Neg:<1:20)
[2017-03-07 04:00] VITALS: BP 121/51
[2017-03-07 05:21] LABS: BASOPHILS 0.1 % (0-2); EOSINOPHILS 1.6 % (0-7); HEMOGLOBIN 10.3 g/dL (12-16); IMMATURE GRANULOCYTES 1.2 % (0-5); LYMPHOCYTES 31.5 % (15-50); MCH 32.7 pg (26.0-34.0); MCHC 31.2 g/dL (31.0-37.0); MCV 104.8 fL (80.0-100.0); MEAN PLATELET VOLUME 10.4 fL (7.4-10.4); MONOCYTES 7.7 % (2-11); NEUTROPHILS 57.9 % (40-80); PLATELET COUNT 257 10x3/uL (130-400); RBC 3.15 10x6/uL (4.00-5.40); RDW 14.5 % (11.5-14.5); WBC 18.3 10x3/uL (4.8-10.8)
[2017-03-07 05:50] LABS: ALBUMIN 2.4 g/dL (3.4-5.0); ANION GAP 7.7 mmol/L (8-16); BILIRUBIN - TOTAL 0.71 mg/dL (0.2-1.3); CALCIUM 9.1 mg/dL (8.5-10.1); POTASSIUM - SERUM 3.7 mmol/L (3.5-5.1); PROTEIN - SERUM 6.8 g/dL (6.4-8.2)
[2017-03-07 09:04] VITALS: BP 92/38
[2017-03-07 09:18] LABS: IMMUNOGLOBULIN E 1484 IU/mL (0-100)
[2017-03-07] MEDS ORDERED: MACROBID100 MG PO (11:26)
[2017-03-07 12:43] VITALS: BP 90/42
== END 2017-03-07 13:00 | DRG 291 ==
LOC: D.ER 10:35 → D.MS 14:27
PROVIDERS: Family Medicine; Internal Medicine Nephrology; Internal Medicine Pulmonary Disease
PROC: 0T9B70Z Drainage of Bladder with Drainage Device, Via Natural or Artificial Opening (ICD-10-PCS; principal; 2017-03-01)
DX: I11.0 Hypertensive heart disease with heart failure (principal); J96.21 Acute and chronic respiratory failure with hypoxia; J18.1 Lobar pneumonia, unspecified organism; R53.2 Functional quadriplegia; J44.1 Chronic obstructive pulmonary disease with (acute) exacerbation; J44.0 Chronic obstructive pulmonary disease with (acute) lower respiratory infection; N17.9 Acute kidney failure, unspecified; N39.0 Urinary tract infection, site not specified; Z68.43 Body mass index [BMI] 50.0-59.9, adult; J98.11 Atelectasis; I50.43 Acute on chronic combined systolic (congestive) and diastolic (congestive) heart failure; D50.9 Iron deficiency anemia, unspecified; B96.20 Unspecified Escherichia coli [E. coli] as the cause of diseases classified elsewhere; I08.1 Rheumatic disorders of both mitral and tricuspid valves; E11.65 Type 2 diabetes mellitus with hyperglycemia; E66.01 Morbid (severe) obesity due to excess calories; K21.9 Gastro-esophageal reflux disease without esophagitis; E03.9 Hypothyroidism, unspecified; M81.0 Age-related osteoporosis without current pathological fracture; M19.90 Unspecified osteoarthritis, unspecified site; J30.9 Allergic rhinitis, unspecified; F32.9 Major depressive disorder, single episode, unspecified; M10.9 Gout, unspecified; R53.1 Weakness

== ENCOUNTER 2017-04-27 19:16 | Inpatient (IN) | payer MEDICARE ==
[~2017-04-27] VITALS: Ht 162.6 cm; Wt 152.0 kg
--- NOTE | ~2017-04-27 | EC ---
PATIENT:SRINIVAS PARRA DATE OF SERVICE: 04/27/17 SEX: F MEDICAL RECORD: [id number] DATE OF : [birth year] LOCATION:D.M2 D.212 AGE OF PATIENT: 87 ADMISSION DATE: 04/27/17 REFERRING PHYSICIAN: INTERPRETING PHYSICIAN: MELITON VALDEZ MD ECHOCARDIOGRAM REPORT ECHO CHARGES 4 ECHO COMPLETE DATE: CLINICAL DIAGNOSIS: EVALUATE FOR CHF ECHOCARDIOGRAPHIC MEASUREMENTS (adult normal given) AC root (d.<3.7cm) 3.1 cm LV Septum d (<1.2 cm> 1.8 cm Valve Excursion 1.9 cm LV Septum (systole) 2.4 cm Left Atria (s.<4.0cm> 3.4 cm LVPW d(<1.2cm) 1.5 cm RV (d.<2.3cm) 2.8 cm LVPW (sytole) 2.0 cm LV diastole(<5.6CM) 4.4 cm MV E-F(>70mm/sec) cm LV systole 2.6 cm LVOT Diameter 1.7 cm MV exc.(>10mm) cm Est.ejection fraction (50-75%) % DOPPLER: LVIT cm/sec A 45.0 cm/sec E 125 cm/sec LA cm/sec RVSP 25.0 mmHg LVOT 101 cm/sec AOP1/2T m/s Asc. Ao 191 cm/sec RVOT 73.0 cm/sec RA cm/sec PA 91.0 cm/sec AV Gradient Peak 15.0 mmHg AV Mean 7.5 mmHg AV Area 1.2 cm MV Gradient Peak 12.4 mmHg MV Mean 2.6 mmHg MV Area cm COMMENTS: Administrative Coordinator: 1 YANICK SPOTSWOOD Slasher Tender: 1 Dr. [place] TAPE# PACS Pericardial Effusion N DATE OF SERVICE: 04/28/2017 Echocardiogram FINDINGS: 1. Left ventricular chamber size is mildly dilated. Left ventricular systolic function is markedly reduced, overall ejection fraction 20% to 25%. 2. Left atrium is within normal limits at 3.4 cm. Right atrium and right ventricular chamber sizes are mildly dilated. 3. Valvular structures have normal structure and motion. ECHOCARDIOGRAM REPORT [id number] SRINIVAS PARRA 4. Doppler interrogation reveals only trace mitral regurgitation, trace tricuspid regurgitation. No other valvular insufficiency or stenosis. Pulmonary systolic pressure is normal estimated at 25 mmHg. 5. No evidence of pericardial effusion or left ventricular thrombus. TRANSINT:[id number] Voice Confirmation ID: [id number] DOCUMENT ID: [id number] MELITON VALDEZ MD at 1140 CC: [id number] DICTATION DATE: 04/28/17 1255 INDUSTRIAL SPECIALIST: 04/28/17 1307 DIS IN 05/02/17 [place] [id number] [place] [id number]
[~2017-04-27 19:16] MED LIST changes: +ATIVAN0.5 MG PO; +CLARITIN 10 MG10 MG PO; +ELIQUIS5 MG PO; +GUAIFENESI100 MG/5 M PO; +HYDROCODON-ACE1 EAC7 PO; +MACROBID100 MG PO; +SENNA LAXATIVE8.6 MG PO; +ZOFRAN4 MG PO
[2017-04-27 19:54] LABS: BASOPHILS 0.3 % (0-2); EOSINOPHILS 3.1 % (0-7); HEMATOCRIT 30.7 % (36.0-48.0); HEMOGLOBIN 9.7 g/dL (12-16); IMMATURE GRANULOCYTES 0.4 % (0-5); LYMPHOCYTES 29.4 % (15-50); MCH 33.6 pg (26.0-34.0); MCHC 31.6 g/dL (31.0-37.0); MCV 106.2 fL (80.0-100.0); MEAN PLATELET VOLUME 10.2 fL (7.4-10.4); MONOCYTES 6.6 % (2-11); NEUTROPHILS 60.2 % (40-80); RBC 2.89 10x6/uL (4.00-5.40); RDW 14.3 % (11.5-14.5); WBC 7.7 10x3/uL (4.8-10.8)
[2017-04-27 19:55] LABS: PLATELET COUNT 159 10x3/uL (130-400)
[2017-04-27 20:32] LABS: INR 1.39 (0.85-1.17); PROTIME 16.6 SECONDS (11.6-15.0)
[2017-04-27 20:45] LABS: ALBUMIN 3.2 g/dL (3.4-5.0); ALKALINE PHOSPHATASE 88 U/L (46-116); ALT (SGPT) 17 U/L (10-68); BILIRUBIN - TOTAL 0.61 mg/dL (0.2-1.3); CALCIUM 9.5 mg/dL (8.5-10.1); CARBON DIOXIDE 22.2 mmol/L (21.0-32.0); CHLORIDE - SERUM 102 mmol/L (98-107); CREATINE KINASE 45 UL (21-215); CREATININE - SERUM 4.5 mg/dL (0.6-1.3); LIPASE 272 U/L (73-393); MAGNESIUM - SERUM 2.1 mg/dL (1.8-2.4); PRO BNP 397 pg/mL (0-450); PROTEIN - SERUM 7.2 g/dL (6.4-8.2); SODIUM 135 mmol/L (136-145); UREA NITROGEN 122 mg/dL (7-18); eGFR NON AFRICAN AMERICAN 10 mL/min (90-120)
[2017-04-27 20:49] LABS: CALC OSMOLALITY 308 mosm/kg (275-300); GLUCOSE 93 mg/dL (74-106)
[2017-04-27 20:52] LABS: APPEARANCE HAZY (CLEAR); BILIRUBIN NEGATIVE (NEGATIVE); COLOR YELLOW (YELLOW); GLUCOSE NEGATIVE (NEGATIVE); KETONE NEGATIVE (NEGATIVE); NITRITE NEGATIVE (NEGATIVE); PROTEIN NEGATIVE (NEGATIVE); UROBILINOGEN NORMAL (NORMAL)
[2017-04-27 20:52] LABS: POTASSIUM - SERUM 7.8 mmol/L (3.5-5.1); TROPONIN-I < 0.017 ng/mL (0.000-0.060)
[2017-04-27 20:59] LABS: BACTERIA MANY /hpf (NONE SEEN); EPITHELIAL CELLS RARE /hpf (0-5); RED CELLS - URINE 0-5 /hpf (0-5); WHITE CELLS - URINE 25-50 /hpf (0-5)
[2017-04-28] VITALS (7 sets, daily range): BP systolic 107–150; BP diastolic 50–82; Ht 162.6 cm; Wt 152.0 kg
[2017-04-28 04:58] LABS: BASOPHILS 0.2 % (0-2); EOSINOPHILS 3.4 % (0-7); HEMATOCRIT 29.1 % (36.0-48.0); HEMOGLOBIN 9.3 g/dL (12-16); IMMATURE GRANULOCYTES 0.6 % (0-5); LYMPHOCYTES 33.6 % (15-50); MCH 33.1 pg (26.0-34.0); MEAN PLATELET VOLUME 10.3 fL (7.4-10.4); MONOCYTES 11.2 % (2-11); PLATELET COUNT 169 10x3/uL (130-400); RBC 2.81 10x6/uL (4.00-5.40); RDW 14.3 % (11.5-14.5); WBC 8.5 10x3/uL (4.8-10.8)
[2017-04-28 05:06] LABS: MCV 103.6 fL (80.0-100.0)
[2017-04-28 05:07] LABS: ANION GAP 18.1 mmol/L (8-16); CALCIUM 9.4 mg/dL (8.5-10.1); CARBON DIOXIDE 20.8 mmol/L (21.0-32.0); CREATININE - SERUM 3.8 mg/dL (0.6-1.3)
[2017-04-28] MEDS ORDERED: ACIDOPHILUS LAC1 CAP PO (05:07)
[2017-04-28 05:17] LABS: POTASSIUM - SERUM 5.9 mmol/L (3.5-5.1)
[2017-04-28] MEDS ORDERED: FERREX 150 PLUS1 CAP PO (05:22)
[2017-04-28] MEDS ORDERED: SINGULAIR10 MG PO (05:26)
[2017-04-28] MEDS ORDERED: ALDACTONE50 MG PO (05:38)
[2017-04-28] MEDS ORDERED: OMEPRAZOLE20 M1 PO (05:40)
[2017-04-28] MEDS ORDERED: HYDROCODON-ACE1 EAC7 PO (05:47)
[2017-04-28] MEDS ORDERED: ATIVAN0.5 MG PO (05:51)
[2017-04-29 04:00] VITALS: BP 104/58
[2017-04-29 05:08] LABS: BASOPHILS 0.4 % (0-2); HEMATOCRIT 26.1 % (36.0-48.0); HEMOGLOBIN 8.2 g/dL (12-16); IMMATURE GRANULOCYTES 0.6 % (0-5); LYMPHOCYTES 41.3 % (15-50); MCH 33.1 pg (26.0-34.0); MCHC 31.4 g/dL (31.0-37.0); MCV 105.2 fL (80.0-100.0); MEAN PLATELET VOLUME 10.3 fL (7.4-10.4); MONOCYTES 9.3 % (2-11); NEUTROPHILS 44.4 % (40-80); PLATELET COUNT 167 10x3/uL (130-400); RBC 2.48 10x6/uL (4.00-5.40); RDW 14.5 % (11.5-14.5)
[2017-04-29 05:36] LABS: ALBUMIN 2.5 g/dL (3.4-5.0); ANION GAP 15.8 mmol/L (8-16); BILIRUBIN - TOTAL 0.47 mg/dL (0.2-1.3); CALCIUM 8.4 mg/dL (8.5-10.1); CARBON DIOXIDE 22.4 mmol/L (21.0-32.0); CREATININE - SERUM 4.1 mg/dL (0.6-1.3); POTASSIUM - SERUM 5.2 mmol/L (3.5-5.1); PROTEIN - SERUM 5.9 g/dL (6.4-8.2); THYROID STIMULATING HORMONE 0.54 uIU/mL (0.36-3.74)
[2017-04-29 08:26] LABS: % SATURATION 50 % (15-55); IRON 97 ug/dl (35-150); TOTAL IRON BIND CAPACITY 192 ug/dl (260-445); UNSAT IRON BIND CAPACITY 95 ug/dl (150-375)
[2017-04-29 09:21] VITALS: BP 110/60
[2017-04-29 13:01] VITALS: BP 80/34
[2017-04-29 17:36] VITALS: BP 70/35
[2017-04-29 19:00] VITALS: BP 91/29
[2017-04-30] VITALS: BP 92/32
[2017-04-30 04:00] VITALS: BP 87/53
[2017-04-30 05:47] LABS: BASOPHILS 0.2 % (0-2); HEMOGLOBIN 7.8 g/dL (12-16); IMMATURE GRANULOCYTES 0.7 % (0-5); MCH 32.8 pg (26.0-34.0); MCHC 31.2 g/dL (31.0-37.0); MEAN PLATELET VOLUME 10.2 fL (7.4-10.4); MONOCYTES 9.2 % (2-11); NEUTROPHILS 44.9 % (40-80); PLATELET COUNT 164 10x3/uL (130-400); RBC 2.38 10x6/uL (4.00-5.40); RDW 14.4 % (11.5-14.5); WBC 8.2 10x3/uL (4.8-10.8)
[2017-04-30 06:15] LABS: ALBUMIN 2.4 g/dL (3.4-5.0); ANION GAP 17.5 mmol/L (8-16); BILIRUBIN - TOTAL 0.54 mg/dL (0.2-1.3); CALCIUM 8.2 mg/dL (8.5-10.1); CARBON DIOXIDE 19.1 mmol/L (21.0-32.0); CREATININE - SERUM 3.2 mg/dL (0.6-1.3); MAGNESIUM - SERUM 1.6 mg/dL (1.8-2.4); PHOSPHOROUS 5.5 mg/dL (2.5-4.9); POTASSIUM - SERUM 4.6 mmol/L (3.5-5.1); PROTEIN - SERUM 6.3 g/dL (6.4-8.2)
[2017-04-30 08:18] LABS: FOLATE (FOLIC ACID) - SERUM 15.3 ng/mL (>3.0)
[2017-04-30 08:41] VITALS: BP 74/44
[2017-04-30 12:01] VITALS: BP 81/41
[2017-04-30 16:09] VITALS: BP 86/45
[2017-04-30 19:00] VITALS: BP 108/62
[2017-05-01 02:33] VITALS: BP 115/40
[2017-05-01 05:33] LABS: BASOPHILS 0.2 % (0-2); EOSINOPHILS 2.8 % (0-7); IMMATURE GRANULOCYTES 0.8 % (0-5); MCH 32.2 pg (26.0-34.0); MCHC 32.2 g/dL (31.0-37.0); MEAN PLATELET VOLUME 10.4 fL (7.4-10.4); MONOCYTES 9.2 % (2-11); PLATELET COUNT 176 10x3/uL (130-400); RDW 16.4 % (11.5-14.5); WBC 8.4 10x3/uL (4.8-10.8)
[2017-05-01 05:41] LABS: ALBUMIN 2.6 g/dL (3.4-5.0); ANION GAP 14.2 mmol/L (8-16); BILIRUBIN - TOTAL 1.02 mg/dL (0.2-1.3); CARBON DIOXIDE 22.4 mmol/L (21.0-32.0); MAGNESIUM - SERUM 1.3 mg/dL (1.8-2.4); POTASSIUM - SERUM 4.6 mmol/L (3.5-5.1)
[2017-05-01 05:43] LABS: HEMATOCRIT 30.1 % (36.0-48.0); HEMOGLOBIN 9.7 g/dL (12-16); RBC 3.01 10x6/uL (4.00-5.40)
[2017-05-01 06:02] VITALS: BP 107/53
[2017-05-01 06:08] LABS: CREATININE - SERUM 1.7 mg/dL (0.6-1.3); PHOSPHOROUS 3.8 mg/dL (2.5-4.9)
[2017-05-01 08:14] VITALS: BP 118/55
[2017-05-01 11:29] VITALS: BP 128/66
[2017-05-01 15:16] VITALS: BP 123/71
[2017-05-01 22:47] VITALS: BP 109/52
[2017-05-02 05:45] LABS: BASOPHILS 0.2 % (0-2); EOSINOPHILS 2.5 % (0-7); IMMATURE GRANULOCYTES 0.7 % (0-5); MCH 32.6 pg (26.0-34.0); MCHC 32.3 g/dL (31.0-37.0); MEAN PLATELET VOLUME 9.5 fL (7.4-10.4); NEUTROPHILS 54.6 % (40-80); PLATELET COUNT 172 10x3/uL (130-400); RBC 3.07 10x6/uL (4.00-5.40); RDW 15.9 % (11.5-14.5); WBC 8.5 10x3/uL (4.8-10.8)
[2017-05-02 06:06] LABS: ALBUMIN 2.4 g/dL (3.4-5.0); ANION GAP 15.3 mmol/L (8-16); BILIRUBIN - TOTAL 0.79 mg/dL (0.2-1.3); CALCIUM 8.4 mg/dL (8.5-10.1); CARBON DIOXIDE 21.1 mmol/L (21.0-32.0); CREATININE - SERUM 1.5 mg/dL (0.6-1.3); POTASSIUM - SERUM 4.4 mmol/L (3.5-5.1); PROTEIN - SERUM 6.5 g/dL (6.4-8.2)
[2017-05-02 06:39] VITALS: BP 110/53
[2017-05-02] MEDS ORDERED: MACROBID100 MG PO (07:37)
[2017-05-02] MEDS ORDERED: GLIMEPIRIDE1 MG PO (07:39)
[2017-05-02 08:27] VITALS: BP 101/53
[2017-05-02 10:58] VITALS: BP 141/73
[2017-05-02] MEDS ORDERED: AMPICILLIN TRI500 MG PO (11:40)
[2017-05-02 14:46] VITALS: BP 136/68
== END 2017-05-02 15:41 | DRG 683 ==
LOC: D.ER 19:16 → D.M2 21:23 → D.EDHOLD 21:23 → D.M2 22:33
PROVIDERS: Emergency Medicine; Family Medicine; Nurse Practitioner Family
PROC: 0T9B70Z Drainage of Bladder with Drainage Device, Via Natural or Artificial Opening (ICD-10-PCS; principal; 2017-04-27)
DX: N17.9 Acute kidney failure, unspecified (principal); N39.0 Urinary tract infection, site not specified; I11.0 Hypertensive heart disease with heart failure; J44.9 Chronic obstructive pulmonary disease, unspecified; E87.5 Hyperkalemia; I50.9 Heart failure, unspecified; E86.0 Dehydration; D64.9 Anemia, unspecified; E03.9 Hypothyroidism, unspecified; F03.90 Unspecified dementia, unspecified severity, without behavioral disturbance, psychotic disturbance, mood disturbance, and anxiety; E11.65 Type 2 diabetes mellitus with hyperglycemia; Z95.0 Presence of cardiac pacemaker

== ENCOUNTER 2017-11-10 12:47 | Inpatient (IN) | payer MEDICARE ==
[~2017-11-10] VITALS: Ht 162.6 cm; Wt 147.0 kg
[~2017-11-10 12:47] MED LIST changes: +ACIDOPHILUS LAC1 CAP PO; +ALDACTONE50 MG PO; +AMPICILLIN TRI500 MG PO; +GLIMEPIRIDE1 MG PO; +OMEPRAZOLE20 M1 PO; +SINGULAIR10 MG PO
[2017-11-10 13:24] LABS: BASOPHILS 0.2 % (0-2); EOSINOPHILS 3.5 % (0-7); HEMATOCRIT 36.8 % (36.0-48.0); HEMOGLOBIN 11.5 g/dL (12-16); IMMATURE GRANULOCYTES 0.3 % (0-5); LYMPHOCYTES 23.2 % (15-50); MCH 32.6 pg (26.0-34.0); MCHC 31.3 g/dL (31.0-37.0); MCV 104.2 fL (80.0-100.0); MEAN PLATELET VOLUME 10.6 fL (7.4-10.4); MONOCYTES 7.3 % (2-11); NEUTROPHILS 65.5 % (40-80); PLATELET COUNT 223 10x3/uL (130-400); RBC 3.53 10x6/uL (4.00-5.40); RDW 13.4 % (11.5-14.5); WBC 14.7 10x3/uL (4.8-10.8)
[2017-11-10 14:10] LABS: ALBUMIN 2.9 g/dL (3.4-5.0); ANION GAP 8.2 mmol/L (8-16); BILIRUBIN - TOTAL 0.52 mg/dL (0.2-1.3); C-REACTIVE PROTEIN 2.4 mg/dL (0.0-0.9); CALCIUM 9.5 mg/dL (8.5-10.1); CARBON DIOXIDE 36.9 mmol/L (21.0-32.0); CREATININE - SERUM 0.9 mg/dL (0.6-1.3); POTASSIUM - SERUM 4.1 mmol/L (3.5-5.1); PROTEIN - SERUM 7.6 g/dL (6.4-8.2)
[2017-11-10 15:18] VITALS: BP 130/72
[2017-11-10 18:12] VITALS: BP 143/63; BMI 55.7
[2017-11-10 20:00] VITALS: BP 108/57
[2017-11-11 04:00] VITALS: BP 117/48
[2017-11-11] MEDS ORDERED: DONEPEZIL HCL5 M1 PO (04:29)
[2017-11-11] MEDS ORDERED: FLUTICASONE PRO16 GM NASAL (04:32)
[2017-11-11] MEDS ORDERED: VIBRAMYCIN 100100 MG PO (04:32)
[2017-11-11] MEDS ORDERED: MUCUS RELIEF400 MG PO (04:34)
[2017-11-11 05:51] LABS: BASOPHILS 0.3 % (0-2); EOSINOPHILS 4.6 % (0-7); HEMATOCRIT 35.7 % (36.0-48.0); HEMOGLOBIN 11.2 g/dL (12-16); IMMATURE GRANULOCYTES 0.4 % (0-5); MCH 32.7 pg (26.0-34.0); MCHC 31.4 g/dL (31.0-37.0); MCV 104.1 fL (80.0-100.0); MEAN PLATELET VOLUME 12.4 fL (7.4-10.4); NEUTROPHILS 64.7 % (40-80); PLATELET COUNT 220 10x3/uL (130-400); RBC 3.43 10x6/uL (4.00-5.40); RDW 13.5 % (11.5-14.5); WBC 14.6 10x3/uL (4.8-10.8)
[2017-11-11 06:13] LABS: ALBUMIN 2.6 g/dL (3.4-5.0); ANION GAP 9.5 mmol/L (8-16); BILIRUBIN - TOTAL 0.53 mg/dL (0.2-1.3); CALCIUM 9.2 mg/dL (8.5-10.1); CARBON DIOXIDE 32.8 mmol/L (21.0-32.0); CREATININE - SERUM 0.8 mg/dL (0.6-1.3); PROTEIN - SERUM 7.4 g/dL (6.4-8.2)
[2017-11-11 06:17] LABS: POTASSIUM - SERUM 3.3 mmol/L (3.5-5.1)
[2017-11-11 08:28] VITALS: BP 119/54
[2017-11-11 11:30] VITALS: BP 111/50
[2017-11-11 14:04] VITALS: Ht 162.6 cm; Wt 147.0 kg
[2017-11-11 15:30] VITALS: BP 103/49
[2017-11-11 17:18] VITALS: BP 146/77
[2017-11-11 20:00] VITALS: BP 134/47
[2017-11-12] VITALS: BP 123/41
[2017-11-12 04:00] VITALS: BP 120/64
[2017-11-12 07:37] LABS: BASOPHILS 0.3 % (0-2); EOSINOPHILS 5.7 % (0-7); HEMATOCRIT 34.6 % (36.0-48.0); HEMOGLOBIN 10.6 g/dL (12-16); IMMATURE GRANULOCYTES 0.3 % (0-5); LYMPHOCYTES 24.5 % (15-50); MCH 31.7 pg (26.0-34.0); MCHC 30.6 g/dL (31.0-37.0); MCV 103.6 fL (80.0-100.0); MEAN PLATELET VOLUME 12.5 fL (7.4-10.4); MONOCYTES 6.7 % (2-11); NEUTROPHILS 62.5 % (40-80); PLATELET COUNT 227 10x3/uL (130-400); RBC 3.34 10x6/uL (4.00-5.40); RDW 13.4 % (11.5-14.5); WBC 12.6 10x3/uL (4.8-10.8)
[2017-11-12 07:53] LABS: ANION GAP 8.8 mmol/L (8-16); CALCIUM 8.5 mg/dL (8.5-10.1); CARBON DIOXIDE 33.9 mmol/L (21.0-32.0); CREATININE - SERUM 0.9 mg/dL (0.6-1.3); POTASSIUM - SERUM 3.7 mmol/L (3.5-5.1); VANCOMYCIN - TROUGH 13.1 ug/mL (10.0-20.0)
[2017-11-12 08:18] VITALS: BP 124/48
[2017-11-12 13:26] VITALS: BP 100/46
[2017-11-12 22:51] VITALS: BP 92/66
[2017-11-13 06:18] VITALS: BP 115/52
[2017-11-13 08:09] VITALS: BP 138/67
[2017-11-13] MEDS ORDERED: VIBRAMYCIN 100100 MG PO (10:58)
[2017-11-13] MEDS ORDERED: VOLTAREN100 GM TOPICAL (11:00)
[2017-11-13] MEDS ORDERED: AMBIEN5 MG PO (11:01)
[2017-11-13] MEDS ORDERED: NYSTATIN1 PWD TOPICAL (11:02)
[2017-11-13 12:54] VITALS: BP 133/46
== END 2017-11-13 14:38 | DRG 603 ==
LOC: D.ER 12:47 → D.EDHOLD 16:32 → D.MS 16:32
PROVIDERS: Family Medicine
PROC: 05HC33Z Insertion of Infusion Device into Left Basilic Vein, Percutaneous Approach (ICD-10-PCS; principal; 2017-11-12)
PROC: B54NZZA Ultrasonography of Left Upper Extremity Veins, Guidance (ICD-10-PCS; 2017-11-12)
DX: L03.113 Cellulitis of right upper limb (principal); E11.9 Type 2 diabetes mellitus without complications; Z79.84 Long term (current) use of oral hypoglycemic drugs; I10 Essential (primary) hypertension; J44.9 Chronic obstructive pulmonary disease, unspecified; E03.9 Hypothyroidism, unspecified; D64.9 Anemia, unspecified; F32.9 Major depressive disorder, single episode, unspecified; E78.5 Hyperlipidemia, unspecified; K44.9 Diaphragmatic hernia without obstruction or gangrene; M81.0 Age-related osteoporosis without current pathological fracture; M17.0 Bilateral primary osteoarthritis of knee; M19.012 Primary osteoarthritis, left shoulder; M19.011 Primary osteoarthritis, right shoulder; K21.9 Gastro-esophageal reflux disease without esophagitis; F03.90 Unspecified dementia, unspecified severity, without behavioral disturbance, psychotic disturbance, mood disturbance, and anxiety

== ENCOUNTER 2017-11-24 17:32 | Inpatient (IN) | payer MEDICARE ==
[~2017-11-24] VITALS: Ht 162.6 cm; Wt 158.4 kg
--- NOTE | ~2017-11-24 | MORECARE ---
CASE MANAGEMENT DISCHARGE SUMMARY PATIENT: SRINIVAS PARRA UNIT: [id number] ADM DATE: 11/24/17 AGE: 87 : [birth year] SEX: F ROOM/BED: D.2109 AUTHOR: HALLEY ZAVALA PHYSICIAN: REFERRING PHYSICIAN: KACI VEGA MD DATE OF SERVICE: 11/25/17 Discharge Plan Patient Name: SRINIVAS PARRA Facility: [facility]:[place] : 1930 Planned Disposition: Anticipated Discharge Date: Discharge Date: Expected LOS: Initial Reviewer: [email or web address] Initial Review Date: 11/24/2017 Generated: 11/25/17 1:21 pm Patient Name: SRINIVAS PARRA Page [id number] at 1221 All edits/amendments must be made on the electronic document DICTATION DATE: 11/25/17 1220 EDUCATIONAL ADVISOR: NAYE 11/25/17 1220 RPT#: [id number] DC DATE: STATUS: ADM IN [facility] [address] [place] [address] END OF REPORT
--- NOTE | ~2017-11-24 | MORECARE ---
CASE MANAGEMENT DISCHARGE SUMMARY PATIENT: SRINIVAS PARRA UNIT: [id number] ADM DATE: 11/24/17 AGE: 87 : 31 SEX: F ROOM/BED: D.2107 AUTHOR: SALLY,DOC PHYSICIAN: REFERRING PHYSICIAN: KACI VEGA MD DATE OF SERVICE: 12/01/17 Discharge Plan Patient Name: SRINIVAS PARRA Facility: [facility]:[place] : 1930 Planned Disposition: Nursing Facility VLADIMIR Cert Anticipated Discharge Date: 11/30/17 Discharge Date: 11/30/2017 Expected LOS: 6 Initial Reviewer: [email or web address] Initial Review Date: 11/24/2017 Generated: 12/01/17 9:39 am Comments DCP- Discharge Planning Updated by [id number]: Marielle Romo on 11/30/17 2:[address] LATE ENTRY 114[address] [facility]. TC TO FACILITY. CM SPOKE WITH JUAN ANTONIO, SHE CALLED HER SPEECH LANGUAGE PATHOLOGIST PRN, KIERSTEN. CM ADVISED AT 1149 THAT PATIENT CAN RETURN TODAY VIA AMBULANCE. RECEIVING NURSE, MALDONADO WILL RECEIVE REPORT FROM PRIMARY NURSE. CM PROVIDED LALITO WITH CONTACT NUMBER TO CALL REPORT. PCS COMPLETED. CM DISCUSSED IMM WITH PATIENT. SHE SAID SHE UNDERSTOOD. FORM SIGNED AND PLACED ON CHART. COPY TO THE PATIENT. DCP- Discharge Planning Updated by [id number]: Jeremy Caldera on 11/26/17 11:[address] Patient Name: SRINIVAS PARRA Admission Status: ER Accout number: [id number] Admission Date: 11-24-2017 : 1930 Admission Diagnosis:CHRONIC OBSTRUCTIVE PULMONARY DISEASE W (ACUTE) EXACERB Attending: KACI VEGA Current LOS: 2 Anticipated DC Date: Planned Disposition: Nursing Facility VLADIMIR Cert Primary Insurance: MEDICARE A & B PLANNED EXTERNAL PROVIDER: [place], LONG TERM CARE MEDICAID BED Discharge Planning Comments: CM MET WITH PT IN ROOM TO DISCUSS DISCHARGE PLANNING AND NEEDS. PT REPORTS LIVING AT [facility] AND "LOVES IT THERE." PT PLANS TO RETURN TO [facility] AT DISCHARGE UNTIL SHE IS STRONG ENOUGH TO RETURN TOHER HOME WITH HER ADULT SON WHO IS LIVING IN PT'S HOME. PT DENIES DISCHARGE NEEDS, REPORTS SHE WILL NEED AN AMBULANCE TO PICK HER UP FOR DISCHARGE HOME TO THE "CARE HOME" SHE CANNOT GET UP. CM SPOKE TO OZ OF 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. CM FAXED UPDATE TO OZ FOR [facility] AT [phone]. FOR DISCHARGE BACK TO [facility], FAX DISCHARGE INFORMATION TO [facility] AT [phone]. NURSE REPORT TO BE CALLED TO [facility] AT [phone]. PT TO TRANSPORT VIA AMBULANCE. Oyster Grower: Jeremy Caldera DCPIA - Discharge Planning Initial Assessment Updated by [id number]: Jeremy Caldera on 11/26/17 12:38 pm * Is the patient Alert and Oriented? Yes * How many steps to enter\\exit or inside your home? NONE * PCP DR. VEGA * Pharmacy [facility] IN [place] * Preadmission Environment Correction [facility] * Facility Name [facility], * ADLs Partial Dependent * Partial ADLs (Assistance needed) Bathing Dressing Medication Management Toileting Transfers * Equipment Other * Other Equipment ALL EQUIPMENT PROVIDED BY FACILITY * List name and contact numbers for known caregivers / representatives who currently or will assist patient after discharge: LAURYN LEI DTR, * Verbal permission to speak to the caregivers and representatives has been obtained from the patient. N/A * Community resources currently utilized None * Please name any agencies selected above. NONE * Additional services required to return to the preadmission environment? No * Can the patient safely return to the preadmission environment? Yes * Has this patient been hospitalized within the prior 30 days at any hospital? Yes Coverage Notice Reviewer: [id number] - Marielle Romo Notice Issued Date-Time: 11/30/2017 12:44 Notice Type: IM Discharge Notice Notice Delivered To: Patient Relationship to Patient: Inspector And Sorter Name: Delivery Method: HAND - Hand Delivered Prudence Days: Prior Verbal Notification: Recipient Understood Notice: Yes Recipient Signature: Yes Med Rec Note Co-signed by Attending: Coverage Notice Comment: CM EXPLAINED IMM. PATIENT STATED SHE UNDERSTOOD. HAD NO QUESTIONS. EXCITED TO RETURN TO [facility]. IMM SIGNED.SIGNED COPY TO CHART. COPY TO THE CHART. Last DP export: 11/30/17 2:32 Patient Name: SRINIVAS PARRA Page [id number] at 0839 All edits/amendments must be made on the electronic document DICTATION DATE: 12/01/17838 FIELD REPRESENTATIVE: NAYE 12/01/17838 RPT#: [id number] DC DATE:11/30/17 STATUS: DIS IN [facility] [address] [place] [address] END OF REPORT
--- NOTE | ~2017-11-24 | MORECARE ---
CASE MANAGEMENT DISCHARGE SUMMARY PATIENT: SRINIVAS PARRA UNIT: [id number] ADM DATE: 11/24/17 AGE: 87 : 31 SEX: F ROOM/BED: D.1854 AUTHOR: SALLY,DOC PHYSICIAN: REFERRING PHYSICIAN: KACI VEGA MD DATE OF SERVICE: 11/30/17 Discharge Plan Patient Name: SRINIVAS PARRA Facility: [facility]:[place] : 1930 Planned Disposition: Nursing Facility [facility] Cert Anticipated Discharge Date: 11/30/17 Discharge Date: Expected LOS: 6 Initial Reviewer: [id number] Initial Review Date: 11/24/2017 Generated: 11/30/17 4:32 pm Comments DCP- Discharge Planning Updated by [email or web address]: Marielle Romo on 11/30/17 2:[address] LATE ENTRY 1140 PLAN DISCHARGE BACK TO [facility]. TC TO FACILITY. CM SPOKE WITH JUAN ANTONIO, SHE CALLED HER MEN'S DESIGNER, KIERSTEN. CM ADVISED AT 1149 THAT PATIENT CAN RETURN TODAY VIA AMBULANCE. RECEIVING NURSE, MALDONADO WILL RECEIVE REPORT FROM PRIMARY NURSE. CM PROVIDED LALITO WITH CONTACT NUMBER TO CALL REPORT. PCS COMPLETED. CM DISCUSSED IMM WITH PATIENT. SHE SAID SHE UNDERSTOOD. FORM SIGNED AND PLACED ON CHART. COPY TO THE PATIENT. DCP- Discharge Planning Updated by [id number]: Jeremy Caldera on 11/26/17 11:[address] Patient Name: SRINIVAS PARRA Admission Status: ER Accout number: [id number] Admission Date: 11-24-2017 : 1930 Admission Diagnosis:CHRONIC OBSTRUCTIVE PULMONARY DISEASE W (ACUTE) EXACERB Attending: KACI VEGA Current LOS: 2 Anticipated DC Date: Planned Disposition: Nursing Facility [facility] Cert Primary Insurance: MEDICARE A & B PLANNED EXTERNAL PROVIDER: [place], LONG TERM CARE MEDICAID BED Discharge Planning Comments: CM MET WITH PT IN ROOM TO DISCUSS DISCHARGE PLANNING AND NEEDS. PT REPORTS LIVING AT [facility] AND "LOVES IT THERE." PT PLANS TO RETURN TO [facility] AT DISCHARGE UNTIL SHE IS STRONG ENOUGH TO RETURN TOHER HOME WITH HER ADULT SON WHO IS LIVING IN PT'S HOME. PT DENIES DISCHARGE NEEDS, REPORTS SHE WILL NEED AN AMBULANCE TO PICK HER UP FOR DISCHARGE HOME TO THE "[facility]" SHE CANNOT GET UP. 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 CM FAXED UPDATE TO OZ FOR [facility] AT [phone]. FOR DIS[facility]GE BACK TO [facility], FAX DISCHARGE INFORMATION TO [facility] AT [phone]. NURSE REPORT TO BE CALLED TO [facility] AT [phone]. PT TO TRANSPORT VIA AMBULANCE. Economics Consultant: Jeremy Caldera DCPIA - Discharge Planning Initial Assessment Updated by [email or web address]: Jeremy Caldera on 11/26/17 12:38 pm * Is the patient Alert and Oriented? Yes * How many steps to enter\\exit or inside your home? NONE * PCP DR. VEGA * [facility] [place] * Preadmission Environment Nursing [facility] * Facility Name [facility], * ADLs Partial Dependent * Partial ADLs (Assistance needed) Bathing Dressing Medication Management Toileting Transfers * Equipment Other * Other Equipment ALL EQUIPMENT PROVIDED BY FACILITY * List name and contact numbers for known caregivers / representatives who currently or will assist patient after discharge: LAURYN LEI DTR, * Verbal permission to speak to the caregivers and representatives has been obtained from the patient. N/A * Community resources currently utilized None * Please name any agencies selected above. NONE * Additional services required to return to the preadmission environment? No * Can the patient safely return to the preadmission environment? Yes * Has this patient been hospitalized within the prior 30 days at any hospital? Yes Coverage Notice Reviewer: [id number] Mily Romo Notice Issued Date-Time: 11/30/2017 12:44 Notice Type: IM Discharge Notice Notice Delivered To: Patient Relationship to Patient: Shareholder Name: Delivery Method: - Prudence Days: Prior Verbal Notification: Recipient Understood Notice: Recipient Signature: Med Rec Note Co-signed by Attending: Coverage Notice Comment: Last DP export: 11/30/17 2:25 Patient Name: SRINIVAS PARRA Page 68875 at 1532 All edits/amendments must be made on the electronic document DICTATION DATE: 11/30/171531 STAMP ANALYST: NAYE 11/30/171531 RPT#: [id number] DC DATE: STATUS: ADM IN [facility] [address] [place] [address] END OF REPORT
--- NOTE | ~2017-11-24 | MORECARE ---
CASE MANAGEMENT DISCHARGE SUMMARY PATIENT: SRINIVAS PARRA UNIT: [id number] ADM DATE: 11/24/17 AGE: 87 : 31 SEX: F ROOM/BED: D.2103 AUTHOR: SALLY,DOC PHYSICIAN: REFERRING PHYSICIAN: KACI VEGA MD DATE OF SERVICE: 11/26/17 Discharge Plan Patient Name: SRINIVAS PARRA Facility: [facility]:[place] : 1930 Planned Disposition: Nursing Facility [facility] Cert Anticipated Discharge Date: Discharge Date: Expected LOS: Initial Reviewer: [id number] Initial Review Date: 11/24/2017 Generated: 11/26/17 1:47 pm Comments DCP- Discharge Planning Updated by [email or web address]: Jeremy Caldera on 11/26/17 11:[address] Patient Name: SRINIVAS PARRA Admission Status: ER Accout number: [id number] Admission Date: 11-24-2017 : 1930 Admission Diagnosis:CHRONIC OBSTRUCTIVE PULMONARY DISEASE W (ACUTE) EXACERB Attending: KACI VEGA Current LOS: 2 Anticipated DC Date: Planned Disposition: Nursing Facility [facility] Cert Primary Insurance: MEDICARE A & B PLANNED EXTERNAL PROVIDER: [place], LONG TERM CARE MEDICAID BED Discharge Planning Comments: CM MET WITH PT IN ROOM TO DISCUSS DISCHARGE PLANNING AND NEEDS. PT REPORTS LIVING AT [facility] AND "LOVES IT THERE." PT PLANS TO RETURN TO [facility] AT DISCHARGE UNTIL SHE IS STRONG ENOUGH TO RETURN TOHER HOME WITH HER ADULT SON WHO IS LIVING IN PT'S HOME. PT DENIES DISCHARGE NEEDS, REPORTS SHE WILL NEED AN AMBULANCE TO PICK HER UP FOR DISCHARGE HOME TO THE [facility]" SHE CANNOT GET UP. 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 CM FAXED UPDATE TO OZ FOR [facility] AT [phone]. FOR DISCHARGE BACK TO [facility] FDC CARE, FAX DISCHARGE INFORMATION TO [facility] AT [phone]. NURSE REPORT TO BE CALLED TO [facility] AT [phone]. PT TO TRANSPORT VIA AMBULANCE. Management Trainee Program Stores: Jeremy Caldera DCPIA - Discharge Planning Initial Assessment Updated by [email or web address]: Jeremy Caldera on 11/26/17 12:38 pm * Is the patient Alert and Oriented? Yes * How many steps to enter\\exit or inside your home? NONE * PCP DR. VEGA * Pharmacy [facility] [place] * Preadmission Environment [facility] * Facility Name [facility], * ADLs Partial Dependent * Partial ADLs (Assistance needed) Bathing Dressing Medication Management Toileting Transfers * Equipment Other * Other Equipment ALL EQUIPMENT PROVIDED BY FACILITY * List name and contact numbers for known caregivers / representatives who currently or will assist patient after discharge: LAURYN LEI DTR, * Verbal permission to speak to the caregivers and representatives has been obtained from the patient. N/A * Community resources currently utilized None * Please name any agencies selected above. NONE * Additional services required to return to the preadmission environment? No * Can the patient safely return to the preadmission environment? Yes * Has this patient been hospitalized within the prior 30 days at any hospital? Yes Last DP export: 11/26/17 11:40 Patient Name: SRINIVAS PARRA Page 02453 at 1247 All edits/amendments must be made on the electronic document DICTATION DATE: 11/26/171246 STONE LAYER: NAYE 11/26/171246 RPT#: [id number] [place] DATE: STATUS: ADM IN [facility] [address] [place] [address] END OF REPORT
--- NOTE | ~2017-11-24 | MORECARE ---
CASE MANAGEMENT DISCHARGE SUMMARY PATIENT: SRINIVAS PARRA UNIT: [id number] ADM DATE: 11/24/17 AGE: 87 : 31 SEX: F ROOM/BED: D.210 AUTHOR: SALLY,DOC PHYSICIAN: REFERRING PHYSICIAN: KACI VEGA MD DATE OF SERVICE: 11/30/17 Discharge Plan Patient Name: SRINIVAS PARRA Facility: [facility]:[place] : 1930 Planned Disposition: Nursing Facility [facility] Cert Anticipated Discharge Date: 11/30/17 Discharge Date: Expected LOS: 6 Initial Reviewer: [email or web address] Initial Review Date: 11/24/2017 Generated: 11/30/17 4:25 pm Comments DCP- Discharge Planning Updated by [email or web address]: Jeremy Caldera on 11/26/17 11:[address] Patient Name: SRINIVAS PARRA Admission Status: ER Accout number: [id number] Admission Date: 11-24-2017 : 1930 Admission Diagnosis:CHRONIC OBSTRUCTIVE PULMONARY DISEASE W (ACUTE) EXACERB Attending: KACI VEGA Current LOS: 2 Anticipated DC Date: Planned Disposition: Nursing Facility [facility] Cert Primary Insurance: MEDICARE A & B PLANNED EXTERNAL PROVIDER: [place], LONG TERM CARE MEDICAID BED Discharge Planning Comments: CM MET WITH PT IN ROOM TO DISCUSS DISCHARGE PLANNING AND NEEDS. PT REPORTS LIVING AT [facility] AND "LOVES IT THERE." PT PLANS TO RETURN TO [facility] AT DISCHARGE UNTIL SHE IS STRONG ENOUGH TO RETURN TOHER HOME WITH HER ADULT SON WHO IS LIVING IN PT'S HOME. PT DENIES DISCHARGE NEEDS, REPORTS SHE WILL NEED AN AMBULANCE TO PICK HER UP FOR DISCHARGE HOME TO THE "LONG TERM" SHE CANNOT GET UP. 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 CM FAXED UPDATE TO OZ FOR [facility] AT [phone]. FOR DISCHARGE BACK TO [facility], FAX DISCHARGE INFORMATION TO [facility] AT [phone]. NURSE REPORT TO BE CALLED TO [facility] AT [phone]. PT TO TRANSPORT VIA AMBULANCE. Librarian Specialist: Jeremy [place] DCPIA - Discharge Planning Initial Assessment Updated by [email or web address]: Jeremy Caldera on 11/26/17 12:38 pm * Is the patient Alert and Oriented? Yes * How many steps to enter\\exit or inside your home? NONE * PCP DR. VEGA * Pharmacy [facility] [place] * Preadmission Environment [facility] * Facility Name [facility], * ADLs Partial Dependent * Partial ADLs (Assistance needed) Bathing Dressing Medication Management Toileting Transfers * Equipment Other * Other Equipment ALL EQUIPMENT PROVIDED BY FACILITY * List name and contact numbers for known caregivers / representatives who currently or will assist patient after discharge: LAURYN LEI DTR, * Verbal permission to speak to the caregivers and representatives has been obtained from the patient. N/A * Community resources currently utilized None * Please name any agencies selected above. NONE * Additional services required to return to the preadmission environment? No * Can the patient safely return to the preadmission environment? Yes * Has this patient been hospitalized within the prior 30 days at any hospital? Yes Last DP export: 11/26/17 12:03 Patient Name: SRINIVAS PARRA Page 09140 at 1521 All edits/amendments must be made on the electronic document DICTATION DATE: 11/30/171524 HOST: NAYE 11/30/171524 RPT#: [id number] DC DATE: STATUS: ADM IN [facility] [address] [place] [address] END OF REPORT
--- NOTE | ~2017-11-24 | CN ---
PATIENT NAME:SRINIVAS PARRA MEDICAL RECORD: [id number] : [birth year] LOCATION:D. D.2109 ADMIT DATE: 11/24/17 ACCOUNT: [id number] CONSULTING PHYSICIAN: SHAE MOREJON MD REFERRING PHYSICIAN: IMTIAZ ALMAGUER MD DATE OF CONSULTATION: 11/25/2017 CONSULT REQUESTING PHYSICIAN: Imtiaz Almaguer MD REASON FOR CONSULTATION: Acute exacerbation of COPD and shortness of breath. HISTORY OF PRESENT ILLNESS: Ms. Parra is an 87-year-old -[place]ian female, very well known to me. According to the patient, she has worsening shortness of breath for the last few days. She was wheezing. She was coughing with difficulty to clear up the phlegm. She was brought into the ER yesterday. Denies any fever and chill. There are no night sweats. REVIEW OF THE SYSTEMS: As in history of present illness. PAST MEDICAL HISTORY: 1. COPD. 2. Congestive heart failure. 3. History of DVT. 4. Hypertension. 5. Gastroesophageal reflux disease. 6. Osteoarthritis. 7. Gout. 8. Type 2 diabetes mellitus. 9. Hypothyroidism. PAST SURGICAL HISTORY: She is status post pacemaker placement. PERSONAL AND SOCIAL HISTORY: The patient is an ex-smoker. She is nondrinker. FAMILY HISTORY: Noncontributory. PHYSICAL EXAMINATION: GENERAL: Now, the patient is lying comfortably in bed. She is not in acute distress. VITAL SIGNS: The blood pressure is 120/59, pulse is 83, respiration 20, temperature 98.1, and SpO2 of 95% on 2 liters nasal cannula. HEENT: Conjunctivae are pink. Sclerae are not icteric. NECK: Neck is supple. No JVD. CHEST: There is wheeze on forceful expiration. HEART: Rhythm regular. Normal sound. No murmur. ABDOMEN: Abdomen is soft. Bowel sounds present. No hepatosplenomegaly. RECTAL: Deferred. EXTREMITIES: No cyanosis. No clubbing. No pedal edema. SKIN: The skin is warm. Normal turgor. CENTRAL NERVOUS SYSTEM: The patient is awake and alert. There is no obvious cranial nerve abnormality. The gait was not tested. LABORATORY DATA AND DIAGNOSTIC DATA: Chest radiograph; there is no acute infiltrate. CBC; WBC 14,000, hemoglobin 11.3, hematocrit 36.6, and platelet count is 247. Chemistry; sodium 144, potassium 3.6, BUN is 8, and creatinine CONSULT REPORT [id number] SRINIVAS PARRA 0.8. IMPRESSION: 1. Acute exacerbation of COPD. 2. Acute tracheobronchitis. 3. Gastroesophageal reflux disease. 4. Congestive heart failure. 5. Leukocytosis secondary to acute tracheobronchitis. 6. Acute cough. 7. Allergic rhinitis. RECOMMENDATION: 1. Continue Levaquin IV. 2. Albuterol/ipratropium nebulizer. 3. Discontinue Spiriva. Start on Brovana and budesonide nebulizer. 4. Methylprednisolone IV. 5. Fluticasone nasal spray. 6. Start on Benadryl at night for insomnia. 7. DVT prophylaxis. 8. Followup labs in the morning and chest radiograph. Dr. Almaguer, thank you for involving me in the care of Ms. Parra. TRANSINT:[id number] Voice Confirmation ID: [id number] DOCUMENT ID: [id number] SHAE MOREJON MD CC: [id number] DICTATION DATE: 11/25/17 160 PARAEDUCATOR: 11/25/17 1650 ADM IN [facility] [address] [place] [address]
--- NOTE | ~2017-11-24 | MORECARE ---
CASE MANAGEMENT DISCHARGE SUMMARY PATIENT: SRINIVAS PARRA UNIT: [id number] ADM DATE: 11/24/17 AGE: 87 : 31 SEX: F ROOM/BED: D.2109 AUTHOR: HALLEY ZAVALA PHYSICIAN: REFERRING PHYSICIAN: KACI VEGA MD DATE OF SERVICE: 11/26/17 Discharge Plan Patient Name: SRINIVAS PARRA [facility] [facility] 1930 Planned Disposition: Nursing Facility [facility] Cert Anticipated Discharge Date: Discharge Date: Expected LOS: Initial Reviewer: [id number] Initial Review Date: 11/24/2017 Generated: 11/26/17 1:40 pm DCPIA - Discharge Planning Initial Assessment Updated by [email or web address]: Jeremy Caldera on 11/26/17 12:38 pm * Is the patient Alert and Oriented? Yes * How many steps to enter\exit or inside your home? NONE * PCP DR. VEGA * Pharmacy [facility] [place] * Preadmission Environment [facility] * Facility Name [facility], * ADLs Partial Dependent * Partial ADLs (Assistance needed) Bathing Dressing Medication Management Toileting Transfers * Equipment Other * Other Equipment ALL EQUIPMENT PROVIDED BY FACILITY * List name and contact numbers for known caregivers / representatives who currently or will assist patient after discharge: LAURYN LEI DTR, * Verbal permission to speak to the caregivers and representatives has been obtained from the patient. N/A * Community resources currently utilized None * Please name any agencies selected above. NONE * Additional services required to return to the preadmission environment? No * Can the patient safely return to the preadmission environment? Yes * Has this patient been hospitalized within the prior 30 days at any hospital? Yes Last DP export: 11/25/17 11:21 Patient Name: SRINIVAS PARRA Page 02510 at 1240 All edits/amendments must be made on the electronic document DICTATION DATE: 11/26/17 1240 WHOLESALE PARTS SALESPERSON: NAYE 11/26/17 1240 RPT#: [id number] DC DATE: STATUS: ADM IN [facility] [address] [place] [address] END OF REPORT
--- NOTE | ~2017-11-24 | EC ---
PATIENT:SRINIVAS PARRA DATE OF SERVICE: 11/24/17 SEX: F MEDICAL RECORD: [id number] DATE OF : [birth year] LOCATION:D.M2 D.210 AGE OF PATIENT: 87 ADMISSION DATE: 11/24/17 REFERRING PHYSICIAN: INTERPRETING PHYSICIAN: VIKA SHELDON MD ECHOCARDIOGRAM REPORT ECHO CHARGES 4 ECHO COMPLETE Date: 11/26/17 CLINICAL DIAGNOSIS: SSS ECHOCARDIOGRAPHIC MEASUREMENTS (adult normal given) AC root (d.<3.7cm) 2.8 cm LV Septum d (<1.2 cm> 1.6 cm Valve Excursion 1.6 cm LV Septum (systole) 1.6 cm Left Atria (s.<4.0cm> 4.3 cm LVPW d(<1.2cm) 1.5 cm RV (d.<2.3cm) 3.2 cm LVPW (sytole) 1.6 cm LV diastole(<5.6CM) 5.7 cm MV E-F(>70mm/sec) cm LV systole 4.3 cm LVOT Diameter 1.5 cm MV exc.(>10mm) cm Est.ejection fraction (50-75%) % DOPPLER: LVIT cm/sec A 119 cm/sec E 63 cm/sec LA cm/sec RVSP 18.1 mmHg LVOT 120 cm/sec AOP1/2T m/s Asc. Ao 173 cm/sec RVOT 93 cm/sec RA cm/sec PA 102 cm/sec AV Gradient Peak 12.0 mmHg AV Mean 7.5 mmHg AV Area 1.2 cm MV Gradient Peak 8.0 mmHg MV Mean 3.6 mmHg MV Area cm COMMENTS: Graphic Art Designer: Donald AN Chemical Preparer: 3 Dr. Mcdaniels TAPE# PACS Pericardial Effusion N DATE OF SERVICE: Adequate 2-D echo, color flow and spectral Doppler, and M-mode. LVH is present. LV internal dimensions are normal. There is mild LV hypokinesis. Overall function is mildly reduced at 40% to 45%. Aortic valve sclerosis without stenosis by Doppler interrogation. Left atrium is minimally dilated at 4.3 cm. Mitral valve is thickened with mild MR. Right-sided chamber is grossly normal. Moderate TR by color flow imaging. ECHOCARDIOGRAM REPORT [id number] SRINIVAS PARRA TRANSINT:[id number] Voice Confirmation ID: [id number] DOCUMENT ID: [id number] VIKA SHELDON MD at 0802 CC: [id number] DICTATION DATE: 11/26/17 1335 PACKAGING LINE ATTENDANT: 11/26/17 1354 ADM IN [facility] [address] [place] [id number]
--- NOTE | ~2017-11-24 | MORECARE ---
CASE MANAGEMENT DISCHARGE SUMMARY PATIENT: SRINIVAS PARRA UNIT: [id number] ADM DATE: 11/24/17 AGE: 87 : 31 SEX: F ROOM/BED: D.2108 AUTHOR: SALLY,DOC PHYSICIAN: REFERRING PHYSICIAN: KACI VEGA MD DATE OF SERVICE: 11/26/17 Discharge Plan Patient Name: SRINIVAS PARRA Facility: [facility]:[place] : 1930 Planned Disposition: Nursing Facility [facility]IR Cert Anticipated Discharge Date: Discharge Date: Expected LOS: Initial Reviewer: [email or web address] Initial Review Date: 11/24/2017 Generated: 11/26/17 2:03 pm Comments DCP- Discharge Planning Updated by [email or web address]: Jeremy Caldera on 11/26/17 11:[address] Patient Name: SRINIVAS PARRA Admission Status: ER Accout number: [id number] Admission Date: 11-24-2017 : 1930 Admission Diagnosis:CHRONIC OBSTRUCTIVE PULMONARY DISEASE W (ACUTE) EXACERB Attending: KACI VEGA Current LOS: 2 Anticipated DC Date: Planned Disposition: Nursing Facility [facility] Cert Primary Insurance: MEDICARE A & B PLANNED EXTERNAL PROVIDER: [place], LONG TERM CARE MEDICAID BED Discharge Planning Comments: CM MET WITH PT IN ROOM TO DISCUSS DISCHARGE PLANNING AND NEEDS. PT REPORTS LIVING AT [facility] AND "LOVES IT THERE." PT PLANS TO RETURN TO [facility] AT DISCHARGE UNTIL SHE IS STRONG ENOUGH TO RETURN TOHER HOME WITH HER ADULT SON WHO IS LIVING IN PT'S HOME. PT DENIES DISCHARGE NEEDS, REPORTS SHE WILL NEED AN AMBULANCE TO PICK HER UP FOR DISCHARGE HOME TO THE "HALF-WAY" SHE CANNOT GET UP. CM SPOKE TO OZ OF 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. CM FAXED UPDATE TO OZ FOR [facility] AT [phone]. FOR DISCHARGE BACK TO [facility] JAIL CARE, FAX DISCHARGE INFORMATION TO [facility] AT [phone]. NURSE REPORT TO BE CALLED TO [facility] AT [phone]. PT TO TRANSPORT VIA AMBULANCE. Certified Breastfeeding Educator: Jeremy Caldera DCPIA - Discharge Planning Initial Assessment Updated by [email or web address]: Jeremy Caldera on 11/26/17 12:38 pm * Is the patient Alert and Oriented? Yes * How many steps to enter\\exit or inside your home? NONE * PCP DR. VEGA * Pharmacy [facility] [place] * Preadmission Environment [facility] * Facility Name [facility], * ADLs Partial Dependent * Partial ADLs (Assistance needed) Bathing Dressing Medication Management Toileting Transfers * Equipment Other * Other Equipment ALL EQUIPMENT PROVIDED BY FACILITY * List name and contact numbers for known caregivers / representatives who currently or will assist patient after discharge: LAURYN LEI DTR, * Verbal permission to speak to the caregivers and representatives has been obtained from the patient. N/A * Community resources currently utilized None * Please name any agencies selected above. NONE * Additional services required to return to the preadmission environment? No * Can the patient safely return to the preadmission environment? Yes * Has this patient been hospitalized within the prior 30 days at any hospital? Yes External Providers External Provider: [facility] Next Contact Date: 11/26/2017 Service Request Date: Service Type: Resolution: Reviewer: Comments: Last DP export: 11/26/17 11:47 Patient Name: SRINIVAS PARRA Page 85053 at 1303 All edits/amendments must be made on the electronic document DICTATION DATE: 11/26/17 1303 PRESALES CONSULTANT: NAYE 11/26/17 1303 RPT#: [id number] DC DATE: STATUS: ADM IN [facility] [address] [place] [address] END OF REPORT
[~2017-11-24 17:32] MED LIST changes: +AMBIEN5 MG PO; +DONEPEZIL HCL5 M1 PO; +MUCUS RELIEF400 MG PO; +VIBRAMYCIN 100100 MG PO; +VOLTAREN100 GM TOPICAL
[2017-11-24 18:05] LABS: BASOPHILS 0.1 % (0-2); EOSINOPHILS 5.6 % (0-7); HEMATOCRIT 36.6 % (36.0-48.0); HEMOGLOBIN 11.3 g/dL (12-16); IMMATURE GRANULOCYTES 0.4 % (0-5); LYMPHOCYTES 28.1 % (15-50); MCH 32.2 pg (26.0-34.0); MCHC 30.9 g/dL (31.0-37.0); MCV 104.3 fL (80.0-100.0); MEAN PLATELET VOLUME 10.7 fL (7.4-10.4); NEUTROPHILS 59.8 % (40-80); PLATELET COUNT 247 10x3/uL (130-400); RBC 3.51 10x6/uL (4.00-5.40); RDW 13.3 % (11.5-14.5)
[2017-11-24] MEDS ORDERED: PROTONIX40 MG PO (18:16)
[2017-11-24] MEDS ORDERED: PREDNISONE20 MG PO (18:17)
[2017-11-24] MEDS ORDERED: BENADRYL25 MG PO (18:18)
[2017-11-24 18:22] LABS: ALBUMIN 2.5 g/dL (3.4-5.0); ALKALINE PHOSPHATASE 111 U/L (46-116); ALT (SGPT) 13 U/L (10-68); BILIRUBIN - TOTAL 0.27 mg/dL (0.2-1.3); CALC OSMOLALITY 285 mosm/kg (275-300); CARBON DIOXIDE 31.4 mmol/L (21.0-32.0); CHLORIDE - SERUM 105 mmol/L (98-107); CREATININE - SERUM 0.8 mg/dL (0.6-1.3); GLUCOSE 118 mg/dL (74-106); POTASSIUM - SERUM 3.6 mmol/L (3.5-5.1); PROTEIN - SERUM 7.6 g/dL (6.4-8.2); SODIUM 144 mmol/L (136-145); UREA NITROGEN 8 mg/dL (7-18); eGFR NON AFRICAN AMERICAN 72 mL/min (90-120)
[2017-11-24 18:28] LABS: PRO BNP 1355 pg/mL (0-450)
[2017-11-24 18:37] LABS: TROPONIN-I < 0.017 ng/mL (0.000-0.060)
[2017-11-24 21:10] VITALS: BP 130/80
[2017-11-24 22:11] VITALS: BP 135/73
[2017-11-25 00:25] VITALS: BP 149/53
[2017-11-25 04:00] VITALS: BP 147/53
[2017-11-25 08:21] VITALS: BP 131/62
[2017-11-25 10:15] VITALS: Ht 162.6 cm; Wt 158.4 kg
[2017-11-25 11:43] VITALS: BP 152/56
[2017-11-25 16:00] VITALS: BP 120/59
[2017-11-25 21:48] VITALS: BP 133/61
[2017-11-26 00:02] VITALS: BP 98/45
[2017-11-26 04:48] LABS: BASOPHILS 0.1 % (0-2); EOSINOPHILS 0 % (0-7); HEMATOCRIT 33.1 % (36.0-48.0); HEMOGLOBIN 10.4 g/dL (12-16); IMMATURE GRANULOCYTES 0.6 % (0-5); LYMPHOCYTES 9.7 % (15-50); MCH 31.8 pg (26.0-34.0); MCHC 31.4 g/dL (31.0-37.0); MEAN PLATELET VOLUME 10.6 fL (7.4-10.4); MONOCYTES 6.2 % (2-11); NEUTROPHILS 83.4 % (40-80); PLATELET COUNT 238 10x3/uL (130-400); RBC 3.27 10x6/uL (4.00-5.40); RDW 13.1 % (11.5-14.5)
[2017-11-26 05:16] LABS: ALBUMIN 2.2 g/dL (3.4-5.0); ANION GAP 10.3 mmol/L (8-16); BILIRUBIN - TOTAL 0.24 mg/dL (0.2-1.3); CALCIUM 8.9 mg/dL (8.5-10.1); CARBON DIOXIDE 30.5 mmol/L (21.0-32.0); CHOL - HDL RATIO 2.4 ratio (2.3-4.1); CREATININE - SERUM 0.8 mg/dL (0.6-1.3); LDL-HDL RATIO 1.2 ratio (1.5-3.5); MCV 101.2 fL (80.0-100.0); POTASSIUM - SERUM 3.8 mmol/L (3.5-5.1); PROTEIN - SERUM 6.8 g/dL (6.4-8.2); WBC 17.9 10x3/uL (4.8-10.8)
[2017-11-26 05:25] VITALS: BP 145/60
[2017-11-26 08:17] VITALS: BP 124/64
[2017-11-26 11:55] VITALS: BP 124/67
[2017-11-26 16:53] VITALS: BP 146/70
[2017-11-26 21:31] VITALS: BP 148/63
[2017-11-27 01:11] VITALS: BP 127/71
[2017-11-27 07:25] VITALS: BP 131/75
[2017-11-27 09:24] VITALS: BP 129/43
[2017-11-27 09:47] LABS: BASOPHILS 0.1 % (0-2); EOSINOPHILS 0 % (0-7); HEMATOCRIT 32.3 % (36.0-48.0); HEMOGLOBIN 10.2 g/dL (12-16); MCH 32.2 pg (26.0-34.0); MCHC 31.6 g/dL (31.0-37.0); MCV 101.9 fL (80.0-100.0); MEAN PLATELET VOLUME 10.2 fL (7.4-10.4); MONOCYTES 7.7 % (2-11); NEUTROPHILS 78.2 % (40-80); PLATELET COUNT 229 10x3/uL (130-400); RBC 3.17 10x6/uL (4.00-5.40); RDW 13.2 % (11.5-14.5)
[2017-11-27 09:48] LABS: ANION GAP 7.7 mmol/L (8-16); CALCIUM 8.6 mg/dL (8.5-10.1); CARBON DIOXIDE 35.4 mmol/L (21.0-32.0); CREATININE - SERUM 0.9 mg/dL (0.6-1.3); POTASSIUM - SERUM 4.1 mmol/L (3.5-5.1); WBC 12.5 10x3/uL (4.8-10.8)
[2017-11-27 12:20] VITALS: BP 143/61
[2017-11-27 15:46] VITALS: BP 125/64
[2017-11-27 22:02] VITALS: BP 130/73
[2017-11-28 01:00] VITALS: BP 140/68
[2017-11-28 04:00] VITALS: BP 136/65
[2017-11-28 08:08] VITALS: BP 143/74
[2017-11-28 10:55] VITALS: BP 105/51
[2017-11-28 13:10] LABS: BASOPHILS 0.1 % (0-2); EOSINOPHILS 0 % (0-7); HEMATOCRIT 35.5 % (36.0-48.0); HEMOGLOBIN 11.2 g/dL (12-16); IMMATURE GRANULOCYTES 1.4 % (0-5); LYMPHOCYTES 8.2 % (15-50); MCH 32.6 pg (26.0-34.0); MCHC 31.5 g/dL (31.0-37.0); MCV 103.2 fL (80.0-100.0); MEAN PLATELET VOLUME 10.2 fL (7.4-10.4); MONOCYTES 4.5 % (2-11); NEUTROPHILS 85.8 % (40-80); PLATELET COUNT 211 10x3/uL (130-400); RBC 3.44 10x6/uL (4.00-5.40); RDW 13.3 % (11.5-14.5); WBC 13.2 10x3/uL (4.8-10.8)
[2017-11-28 13:23] LABS: ANION GAP 13.1 mmol/L (8-16); CALCIUM 8.8 mg/dL (8.5-10.1); CARBON DIOXIDE 29.6 mmol/L (21.0-32.0); CREATININE - SERUM 1.1 mg/dL (0.6-1.3); POTASSIUM - SERUM 3.7 mmol/L (3.5-5.1)
[2017-11-28 15:58] VITALS: BP 139/68
[2017-11-28 21:05] VITALS: BP 138/69
[2017-11-29 01:11] VITALS: BP 132/63
[2017-11-29 05:45] VITALS: BP 119/54
[2017-11-29 08:17] VITALS: BP 113/52
[2017-11-29 12:50] VITALS: BP 145/60
[2017-11-29 15:31] VITALS: BP 147/64
[2017-11-29 20:48] VITALS: BP 137/72
[2017-11-30 01:31] VITALS: BP 115/59
[2017-11-30 05:53] LABS: BASOPHILS 0.1 % (0-2); EOSINOPHILS 0.1 % (0-7); HEMATOCRIT 35.2 % (36.0-48.0); IMMATURE GRANULOCYTES 0.8 % (0-5); MCH 31.9 pg (26.0-34.0); MCHC 31.3 g/dL (31.0-37.0); MEAN PLATELET VOLUME 11.4 fL (7.4-10.4); MONOCYTES 8.5 % (2-11); NEUTROPHILS 69.5 % (40-80); PLATELET COUNT 211 10x3/uL (130-400); RBC 3.45 10x6/uL (4.00-5.40); RDW 13.4 % (11.5-14.5); WBC 15.5 10x3/uL (4.8-10.8)
[2017-11-30 05:59] LABS: CALCIUM 8.7 mg/dL (8.5-10.1); CARBON DIOXIDE 32.1 mmol/L (21.0-32.0); CHLORIDE - SERUM 105 mmol/L (98-107); POTASSIUM - SERUM 3.5 mmol/L (3.5-5.1); SODIUM 144 mmol/L (136-145); UREA NITROGEN 16 mg/dL (7-18); eGFR NON AFRICAN AMERICAN 84 mL/min (90-120)
[2017-11-30 06:00] LABS: CALC OSMOLALITY 287 mosm/kg (275-300); CREATININE - SERUM 0.7 mg/dL (0.6-1.3); GLUCOSE 100 mg/dL (74-106)
[2017-11-30 06:05] VITALS: BP 128/71
[2017-11-30 08:42] VITALS: BP 122/60
[2017-11-30] MEDS ORDERED: LEVAQUIN750 MG PO (10:08)
[2017-11-30] MEDS ORDERED: BENADRYL25 MG PO (10:08)
[2017-11-30] MEDS ORDERED: AMBIEN5 MG PO (10:09)
[2017-11-30] MEDS ORDERED: PULMICORT0.5 MG/21 UPD (10:10)
[2017-11-30] MEDS ORDERED: BENZONATATE200 MG PO (10:10)
[2017-11-30] MEDS ORDERED: STERAPRED DS 1010 MG PO (10:12)
[2017-11-30] MEDS ORDERED: LISINOPRIL10 MG PO (10:13)
[2017-11-30] MEDS ORDERED: ALDACTONE25 MG PO (10:13)
[2017-11-30] MEDS ORDERED: BROVANA15 MCG/2 M INH (10:14)
== END 2017-11-30 16:08 | DRG 202 ==
LOC: D.ER 17:32 → D.EDHOLD 20:15 → D.M2 20:15
PROVIDERS: Emergency Medicine; Family Medicine
DX: J20.9 Acute bronchitis, unspecified (principal); J44.0 Chronic obstructive pulmonary disease with (acute) lower respiratory infection; J44.1 Chronic obstructive pulmonary disease with (acute) exacerbation; I11.0 Hypertensive heart disease with heart failure; I50.9 Heart failure, unspecified; Z79.01 Long term (current) use of anticoagulants; K21.9 Gastro-esophageal reflux disease without esophagitis; F03.90 Unspecified dementia, unspecified severity, without behavioral disturbance, psychotic disturbance, mood disturbance, and anxiety; J30.9 Allergic rhinitis, unspecified; D50.9 Iron deficiency anemia, unspecified; E78.5 Hyperlipidemia, unspecified; F32.9 Major depressive disorder, single episode, unspecified; M81.0 Age-related osteoporosis without current pathological fracture; G47.00 Insomnia, unspecified; E03.9 Hypothyroidism, unspecified; E11.9 Type 2 diabetes mellitus without complications; M19.90 Unspecified osteoarthritis, unspecified site; Z86.718 Personal history of other venous thrombosis and embolism; Z87.891 Personal history of nicotine dependence

== ENCOUNTER 2018-01-23 17:13 | Inpatient (IN) | payer MEDICARE ==
[~2018-01-23] VITALS: Ht 162.6 cm; Wt 150.0 kg
--- NOTE | ~2018-01-23 | MORECARE ---
CASE MANAGEMENT DISCHARGE SUMMARY PATIENT: SRINIVAS PARRA UNIT: [id number] ADM DATE: 01/23/18 AGE: 87 : 31 SEX: F ROOM/BED: D.9129 AUTHOR: SALLY,DOC PHYSICIAN: REFERRING PHYSICIAN: KACI VEGA MD DATE OF SERVICE: 01/26/18 Discharge Plan Patient Name: SRINIVAS PARRA Facility: [facility]:[place] : 1930 Planned Disposition: Nursing Facility VLADIMIR Cert Anticipated Discharge Date: 01/26/18 Discharge Date: Expected LOS: 3 Initial Reviewer: [email or web address] Initial Review Date: 01/23/2018 Generated: 01/26/18 4:05 pm Comments DCP- Discharge Planning Updated by [email or web address]: Jeremy Caldera on 01/26/18 2:[address] Patient Name: SRINIVAS PARRA Admission Status: ER Accout number: [id number] Admission Date: 01-23-2018 : 1930 Admission Diagnosis: Attending: KACI VEGA Current LOS: 3 Anticipated DC Date: 01-26-2018 Planned Disposition: Nursing Facility VLADIMIR Cert Primary Insurance: MEDICARE A & B PLANNED EXTERNAL PROVIDER: [place], LONG TERM CARE MEDICAID BED Discharge Planning Comments: CM RECEIVED DISCHARGE ORDER, SPOKE TO PT AND DAUGHTER/POA, LAURYN, IN ROOM. PT LIVES AT [facility]. PT REPORTS SHE REALLY WANTS TO WORK TOWARD GOING HOME FROM THE ALF AND HAS MANY KIDS AND WISHES THEY WOULD TAKE CARE OF HER AT HOME. CM EXPLAINED THAT FAMILY IS NOT ABLE TO TAKE CARE OF PT ADEQUATELY AT HOME AND PT HAS A SAFE PLACE TO STAY AT THIS TIME. CM POINTED OUT THAT FAMILY COMES TO SEE PT FREQUENTLY. LAURYN REPORTS THAT PT WILL RETURN TO [facility], THEY ARE TAKING GOOD CARE OF PT THERE AND ALL NEEDS ARE BEING MET. PT WILL TRANSPORT VIA AMBULANCE. IMPORTANT MESSAGE FROM MEDICARE PROVIDED AND EXPLAINED. CM NOTIFIED OZ OF [facility], , FAXED DISCHARGE INFORMATION TO [facility] AT [phone]. TRACK HELPER NURSE NOTIFIED. NURSE REPORT TO BE CALLED TO [facility] AT [phone]. PT TO TRANSPORT VIA AMBULANCE. Spray Pilot: Jeremy Caldera DCPIA - Discharge Planning Initial Assessment Updated by [id number]: Jeremy Caldera on 01/26/18 2:53 pm * Is the patient Alert and Oriented? Yes * How many steps to enter\exit or inside your home? NONE * PCP DR. VEGA * Pharmacy [facility] * Preadmission Environment Shelter Long Term * Facility Name [facility] * ADLs Partial Dependent * Partial ADLs (Assistance needed) Ambulation Bathing Dressing Medication Management Toileting Transfers * Equipment Other * Other Equipment ALL MEDICAL EQUIPMENT PROVIDED BY FACILITY * List name and contact numbers for known caregivers / representatives who currently or will assist patient after discharge: LAURYN LEI, DTKarissa, * Verbal permission to speak to the caregivers and representatives has been obtained from the patient. N/A * Community resources currently utilized None * Additional services required to return to the preadmission environment? No * Can the patient safely return to the preadmission environment? Yes * Has this patient been hospitalized within the prior 30 days at any hospital? No Coverage Notice Reviewer: [id number] - Jeremy Caldera Notice Issued Date-Time: 01/26/2018 13:25 Notice Type: IM Discharge Notice Notice Delivered To: Family Member Relationship to Patient: Daughter Security Shift Supervisor Name: LAURYN LEI Delivery Method: HAND - Hand Delivered Prudence Days: Prior Verbal Notification: Recipient Understood Notice: Yes Recipient Signature: Yes Med Rec Note Co-signed by Attending: Coverage Notice Comment: Last DP export: 01/26/18 1:50 Patient Name: SRINIVAS PARRA Page [id number] at 1505 All edits/amendments must be made on the electronic document DICTATION DATE: 01/26/18 1505 TELEPHONE OPERATORS SUPERVISOR: NAYE 01/26/18 1505 RPT#: [id number] DC DATE: STATUS: ADM IN [facility] [address] [place] [address] END OF REPORT
--- NOTE | ~2018-01-23 | MORECARE ---
CASE MANAGEMENT DISCHARGE SUMMARY PATIENT: SRINIVAS PARRA UNIT: [id number] ADM DATE: 01/23/18 AGE: 87 : 31 SEX: F ROOM/BED: D.2134 AUTHOR: HALLEY ZAVALA PHYSICIAN: REFERRING PHYSICIAN: KACI VEGA MD DATE OF SERVICE: 01/26/18 Discharge Plan Patient Name: SRINIVAS PARRA [facility] [facility] 1930 Planned Disposition: Anticipated Discharge Date: Discharge Date: Expected LOS: Initial Reviewer: [email or web address] Initial Review Date: 01/23/2018 Generated: 01/26/18 3:32 pm External Providers External Provider: [facility] Next Contact Date: 01/26/2018 Service Request Date: Service Type: Resolution: Reviewer: Comments: Last DP export: 01/24/18 12:17 Patient Name: SRINIVAS PARRA Page [phone] at 1432 All edits/amendments must be made on the electronic document DICTATION DATE: 01/26/18 1431 SYSTEMS PROGRAM MANAGER: NAYE 01/26/18 1431 RPT#: [id number] NM DATE: STATUS: ADM IN [facility] [address] [place] [address] END OF REPORT
--- NOTE | ~2018-01-23 | MORECARE ---
CASE MANAGEMENT DISCHARGE SUMMARY PATIENT: SRINIVAS PARRA UNIT: [id number] ADM DATE: 01/23/18 AGE: 87 : 31 SEX: F ROOM/BED: D.2134 AUTHOR: HALLEY ZAVALA PHYSICIAN: REFERRING PHYSICIAN: KACI VEGA MD DATE OF SERVICE: 01/26/18 Discharge Plan Patient Name: SRINIVAS PARRA Facility: [facility]:[place] : 1930 Planned Disposition: Nursing Facility VLADIMIR Cert Anticipated Discharge Date: 01/26/18 Discharge Date: Expected LOS: 3 Initial Reviewer: [email or web address] Initial Review Date: 01/23/2018 Generated: 01/26/18 3:50 pm Last DP export: 01/26/18 1:32 Patient Name: SRINIVAS PARRA Page [id number] at 1450 All edits/amendments must be made on the electronic document DICTATION DATE: 01/26/18 145 WOOL FLEECE GRADER: NAYE 01/26/18 1450 RPT#: [id number] DC DATE: STATUS: ADM IN [facility] [address] [place] [address] END OF REPORT
--- NOTE | ~2018-01-23 | MORECARE ---
CASE MANAGEMENT DISCHARGE SUMMARY PATIENT: SRINIVAS PARRA UNIT: [id number] ADM DATE: 01/23/18 AGE: 87 : 31 SEX: F ROOM/BED: D.2134 AUTHOR: HALLEY ZAVALA PHYSICIAN: REFERRING PHYSICIAN: KACI VEGA MD DATE OF SERVICE: 01/24/18 Discharge Plan Patient Name: SRINIVAS PARRA Facility: [facility]:[place] : 1930 Planned Disposition: Anticipated Discharge Date: Discharge Date: Expected LOS: Initial Reviewer: [email or web address] Initial Review Date: 01/23/2018 Generated: 01/24/18 2:17 pm Patient Name: SRINIVAS PARRA Page [phone] at 1317 All edits/amendments must be made on the electronic document DICTATION DATE: 01/24/18 1317 PRESCHOOL TEACHER: NAYE 01/24/18 1317 RPT#: [id number] DC DATE: STATUS: ADM IN [facility] [address] [place] [address] END OF REPORT
[~2018-01-23 17:13] MED LIST changes: +ALDACTONE25 MG PO; +BENZONATATE200 MG PO; +BROVANA15 MCG/2 M INH; +PROTONIX40 MG PO; +PULMICORT0.5 MG/21 UPD; +STERAPRED DS 1010 MG PO
[2018-01-23 18:54] LABS: BASOPHILS 0.1 % (0-2); HEMATOCRIT 43.4 % (36.0-48.0); IMMATURE GRANULOCYTES 0.7 % (0-5); LYMPHOCYTES 4.7 % (15-50); MCH 32.1 pg (26.0-34.0); MCV 107.2 fL (80.0-100.0); MEAN PLATELET VOLUME 10.6 fL (7.4-10.4); MONOCYTES 3.6 % (2-11); NEUTROPHILS 89.9 % (40-80); RBC 4.05 10x6/uL (4.00-5.40); RDW 13.8 % (11.5-14.5); WBC 19.6 10x3/uL (4.8-10.8)
[2018-01-23 18:55] LABS: PLATELET COUNT 166 10x3/uL (130-400)
[2018-01-23 19:05] LABS: ANION GAP 13.4 mmol/L (8-16); BILIRUBIN - TOTAL 0.62 mg/dL (0.2-1.3); CALCIUM 8.8 mg/dL (8.5-10.1); CARBON DIOXIDE 27.6 mmol/L (21.0-32.0); CREATININE - SERUM 0.8 mg/dL (0.6-1.3); PROTEIN - SERUM 7.6 g/dL (6.4-8.2)
[2018-01-23 23:37] VITALS: BP 110/35; Ht 162.6 cm; Wt 150.0 kg
[2018-01-24] VITALS: BP 117/61
[2018-01-24 04:00] VITALS: BP 109/42
[2018-01-24 09:02] VITALS: BP 107/53
[2018-01-24 13:32] VITALS: BP 102/84
[2018-01-24 16:49] VITALS: BP 108/38
[2018-01-24 20:30] VITALS: BP 111/40
[2018-01-25 00:30] VITALS: BP 95/40
[2018-01-25 04:30] VITALS: BP 100/41
[2018-01-25 07:29] LABS: BASOPHILS 0.1 % (0-2); EOSINOPHILS 0.8 % (0-7); HEMATOCRIT 35.6 % (36.0-48.0); HEMOGLOBIN 11.2 g/dL (12-16); IMMATURE GRANULOCYTES 0.4 % (0-5); LYMPHOCYTES 11.3 % (15-50); MCHC 31.5 g/dL (31.0-37.0); MEAN PLATELET VOLUME 10.6 fL (7.4-10.4); MONOCYTES 5.5 % (2-11); NEUTROPHILS 81.9 % (40-80); PLATELET COUNT 156 10x3/uL (130-400); RDW 13.9 % (11.5-14.5); WBC 19.8 10x3/uL (4.8-10.8)
[2018-01-25 07:49] LABS: MCV 101.7 fL (80.0-100.0)
[2018-01-25 07:55] LABS: BILIRUBIN - TOTAL 0.54 mg/dL (0.2-1.3); CALCIUM 8.6 mg/dL (8.5-10.1); CARBON DIOXIDE 27.9 mmol/L (21.0-32.0); CHOL - HDL RATIO 2.1 ratio (2.3-4.1); LDL-HDL RATIO 0.9 ratio (1.5-3.5); PROTEIN - SERUM 6.8 g/dL (6.4-8.2)
[2018-01-25 07:56] LABS: ALBUMIN 2.1 g/dL (3.4-5.0); ANION GAP 12.1 mmol/L (8-16); CREATININE - SERUM 1.1 mg/dL (0.6-1.3)
[2018-01-25 09:32] VITALS: BP 96/48
[2018-01-25 13:17] VITALS: BP 115/43
[2018-01-25 17:22] VITALS: BP 129/47
[2018-01-25 20:30] VITALS: BP 102/52
[2018-01-26 00:30] VITALS: BP 107/50
[2018-01-26 04:30] VITALS: BP 106/50
[2018-01-26 08:24] VITALS: BP 132/68
[2018-01-26 10:03] LABS: ANION GAP 12.7 mmol/L (8-16); CALCIUM 8.8 mg/dL (8.5-10.1); CARBON DIOXIDE 28.3 mmol/L (21.0-32.0); CREATININE - SERUM 0.9 mg/dL (0.6-1.3)
[2018-01-26 10:04] LABS: BASOPHILS 0.3 % (0-2); EOSINOPHILS 3.9 % (0-7); HEMATOCRIT 34.7 % (36.0-48.0); HEMOGLOBIN 10.9 g/dL (12-16); IMMATURE GRANULOCYTES 0.5 % (0-5); LYMPHOCYTES 24.2 % (15-50); MCHC 31.4 g/dL (31.0-37.0); MCV 101.8 fL (80.0-100.0); MONOCYTES 6.4 % (2-11); NEUTROPHILS 64.7 % (40-80); PLATELET COUNT 177 10x3/uL (130-400); RBC 3.41 10x6/uL (4.00-5.40); RDW 13.8 % (11.5-14.5)
[2018-01-26 10:05] LABS: WBC 11.6 10x3/uL (4.8-10.8)
[2018-01-26 10:59] VITALS: BP 136/64
[2018-01-26] MEDS ORDERED: Levaquin PREMIX IV (11:10)
[2018-01-26] MEDS ORDERED: LEVAQUIN750 MG PO (11:11)
== END 2018-01-26 16:02 | DRG 190 ==
LOC: D.ER 17:13 → D.EDHOLD 19:18 → D.M2 20:40
PROVIDERS: Family Medicine
DX: J44.0 Chronic obstructive pulmonary disease with (acute) lower respiratory infection (principal); J18.9 Pneumonia, unspecified organism; J44.1 Chronic obstructive pulmonary disease with (acute) exacerbation; I11.0 Hypertensive heart disease with heart failure; I50.9 Heart failure, unspecified; I95.9 Hypotension, unspecified; E03.9 Hypothyroidism, unspecified; M10.9 Gout, unspecified; M19.90 Unspecified osteoarthritis, unspecified site; M81.0 Age-related osteoporosis without current pathological fracture; E78.5 Hyperlipidemia, unspecified; G47.00 Insomnia, unspecified; J30.9 Allergic rhinitis, unspecified; K59.00 Constipation, unspecified; F03.90 Unspecified dementia, unspecified severity, without behavioral disturbance, psychotic disturbance, mood disturbance, and anxiety; Z95.0 Presence of cardiac pacemaker; K21.9 Gastro-esophageal reflux disease without esophagitis; E11.9 Type 2 diabetes mellitus without complications; F32.9 Major depressive disorder, single episode, unspecified

== ENCOUNTER 2018-05-13 14:27 | Inpatient (IN) | payer MEDICARE ==
[~2018-05-13] VITALS: Ht 162.6 cm; Wt 134.3 kg
[~2018-05-13 14:27] MED LIST changes: +Levaquin PREMIX IV
[2018-05-13 14:54] LABS: BASOPHILS 0.4 % (0-2); EOSINOPHILS 11.1 % (0-7); HEMATOCRIT 40.2 % (36.0-48.0); HEMOGLOBIN 12.6 g/dL (12-16); IMMATURE GRANULOCYTES 0.9 % (0-5); LYMPHOCYTES 18.8 % (15-50); MCH 32.8 pg (26.0-34.0); MCHC 31.3 g/dL (31.0-37.0); MCV 104.7 fL (80.0-100.0); MEAN PLATELET VOLUME 10.3 fL (7.4-10.4); NEUTROPHILS 63.8 % (40-80); PLATELET COUNT 208 10x3/uL (130-400); RBC 3.84 10x6/uL (4.00-5.40); RDW 12.7 % (11.5-14.5); WBC 12.8 10x3/uL (4.8-10.8)
[2018-05-13 15:11] LABS: ALBUMIN 2.7 g/dL (3.4-5.0); ALKALINE PHOSPHATASE 155 U/L (46-116); ALT (SGPT) 31 U/L (10-68); BILIRUBIN - TOTAL 0.49 mg/dL (0.2-1.3); CALC OSMOLALITY 283 mosm/kg (275-300); CALCIUM 8.7 mg/dL (8.5-10.1); CARBON DIOXIDE 28.9 mmol/L (21.0-32.0); CHLORIDE - SERUM 104 mmol/L (98-107); GLUCOSE 163 mg/dL (74-106); POTASSIUM - SERUM 4.4 mmol/L (3.5-5.1); PROTEIN - SERUM 7.7 g/dL (6.4-8.2); SODIUM 140 mmol/L (136-145); UREA NITROGEN 15 mg/dL (7-18); eGFR NON AFRICAN AMERICAN 55 mL/min (90-120)
[2018-05-13 15:14] LABS: INR 1.33 (0.85-1.17); PROTIME 15.9 SECONDS (11.6-15.0)
[2018-05-13 15:26] LABS: CKMB 0.7 U/L (0.0-3.6); CREATINE KINASE 66 UL (21-215); PRO BNP 1944 pg/mL (0-450); TROPONIN-I 0.054 ng/mL (0.000-0.060)
[2018-05-13 16:00] LABS: APTT 30.1 SECONDS (22.8-39.4)
[2018-05-13 16:19] LABS: MAGNESIUM - SERUM 1.9 mg/dL (1.8-2.4)
--- NOTE | 2018-05-13 17:16 | NUR ---
BLANK-CARE PROVIDED FOLLOWING INCONTINENT EPISODE OF BOWEL AND BLADDER. SKIN BREAK DOWN NOTED TO THE THIGHS AND BUTTOCKS.
[2018-05-13 18:05] LABS: APPEARANCE HAZY (CLEAR); COLOR YELLOW (YELLOW); NITRITE POSITIVE (NEGATIVE); PROTEIN TRACE mg/dL (NEGATIVE); SPECIFIC GRAVITY 1.025 (1.005-1.020)
[2018-05-13 18:06] LABS: BILIRUBIN NEGATIVE (NEGATIVE); EPITHELIAL CELLS OCC /hpf (0-5); GLUCOSE NEGATIVE (NEGATIVE); KETONE NEGATIVE (NEGATIVE); RED CELLS - URINE 0-5 /hpf (0-5); UROBILINOGEN NORMAL (NORMAL); WHITE CELLS - URINE 25-50 /hpf (0-5)
--- NOTE | 2018-05-13 18:06 | NUR ---
PATIENT ADMITTED TO FLOOR FROM ER VIA AND HOSPITAL PERSONNEL. MULTIPLE FAMILY MEMBERS PRESENT. PATIENT IS AWAKE, ALERT AND ORIENTED X 4. IV TO MAREK HAND SL WITH DRESSING C/D/I. PATIENT IS STABLE AND VSS. PATIENT DENEIS ANY NEEDS OR PAIN. ASSESSMENT COMPLETED. WILL CONTINUE WITH PLAN OF CARE. SR UP X 2 BED IN LOW POSITION AND CALL LIGHT IN REACH.
[2018-05-13 18:07] LABS: BACTERIA MANY /hpf (NONE SEEN)
--- NOTE | 2018-05-13 18:44 | MORECARE ---
CASE MANAGEMENT DISCHARGE SUMMARY PATIENT: SRINIVAS PARRA UNIT: [id number] ADM DATE: 05/13/18 AGE: 88 : 31 SEX: F ROOM/BED: D.2108 AUTHOR: HALLEY ZAVALA PHYSICIAN: REFERRING PHYSICIAN: KACI VEGA MD DATE OF SERVICE: 05/13/18 Discharge Plan Patient Name: SRINIVAS PARRA Facility: [facility]:[place] : 1930 Planned Disposition: Anticipated Discharge Date: Discharge Date: Expected LOS: Initial Reviewer: [email or web address] Initial Review Date: 05/13/2018 Generated: 05/13/18 7:44 pm Patient Name: SRINIVAS PARRA Page [phone] at 1844 All edits/amendments must be made on the electronic document DICTATION DATE: 05/13/181842 STUDENT DEVELOPMENT DEAN: NAYE 05/13/181842 RPT#: [id number] DC DATE: STATUS: ADM IN [facility] [address] [place] [address] END OF REPORT
[2018-05-13 19:20] VITALS: BP 119/68; BMI 56.8
--- NOTE | 2018-05-13 19:30 | NUR ---
PT RECEIVED IN BED WITH EYES OPEN. TECH IN ROOM PROVIDING FAN. PT ALERT AND ORIENTED. DENIES PAIN. CALL LIGHT EXPLAINED AND IN REACH. WILL CONTINUE TO OBSERVE.
[2018-05-13 20:30] VITALS: BP 120/75
--- NOTE | 2018-05-13 21:45 | NUR ---
PT RECEIVED PM MEDICATIONS PER APR. LINENS CHANGED DUE TO INCONTINENCE OF URINE. FSBS 120 WITH NO INSULIN GIVEN. CALL LIGHT IN REACH. WILL CONTINUE TO OBSERVE.
[2018-05-14 00:32] VITALS: BP 136/74
[2018-05-14] MEDS ORDERED: TESSALON PERLE100 MG PO (01:57)
[2018-05-14] MEDS ORDERED: FEXOFENADINE H180 MG PO (02:00)
[2018-05-14] MEDS ORDERED: GUAIFENESI100 MG/5 M PO (02:01)
[2018-05-14] MEDS ORDERED: ATIVAN0.5 MG PO (02:03)
[2018-05-14] MEDS ORDERED: HYDROCODON-ACE1 EAC7 PO (02:04)
[2018-05-14] MEDS ORDERED: ACETAMINOPHEN325 MG PO (02:39)
[2018-05-14 04:39] VITALS: BP 126/51
[2018-05-14 05:54] LABS: BASOPHILS 0.2 % (0-2); EOSINOPHILS 7.5 % (0-7); HEMATOCRIT 39.4 % (36.0-48.0); HEMOGLOBIN 12.7 g/dL (12-16); IMMATURE GRANULOCYTES 0.5 % (0-5); LYMPHOCYTES 23.6 % (15-50); MCH 33.1 pg (26.0-34.0); MCHC 32.2 g/dL (31.0-37.0); MEAN PLATELET VOLUME 11.8 fL (7.4-10.4); MONOCYTES 6.4 % (2-11); NEUTROPHILS 61.8 % (40-80); PLATELET COUNT 236 10x3/uL (130-400); RBC 3.84 10x6/uL (4.00-5.40); RDW 12.8 % (11.5-14.5)
[2018-05-14 06:20] LABS: MCV 102.6 fL (80.0-100.0); WBC 16.6 10x3/uL (4.8-10.8)
[2018-05-14 06:31] LABS: ANION GAP 9.1 mmol/L (8-16); CALCIUM 9.5 mg/dL (8.5-10.1); CARBON DIOXIDE 31.4 mmol/L (21.0-32.0); CHOL - HDL RATIO 2.4 ratio (2.3-4.1); LDL-HDL RATIO 1.2 ratio (1.5-3.5); POTASSIUM - SERUM 4.5 mmol/L (3.5-5.1); THYROID STIMULATING HORMONE 0.44 uIU/mL (0.36-3.74)
[2018-05-14 09:37] VITALS: BP 111/61
--- NOTE | 2018-05-14 10:11 | NUR ---
PT ALERTED NURSE THAT SHE WAS WET. RN AND SRN CHANGED PT AND PROVIDED FRESH BED LINENS. PT LIFTED UP IN BED. SHIFT ASSESSMENT PERFORMED. DENIES PAIN AT THIS TIME, DENIES ANY OTHER NEEDS AT THIS TIME, WILL CONT TO FOLLOW PLAN OF CARE
[2018-05-14 11:44] VITALS: Ht 162.6 cm; Wt 134.3 kg
[2018-05-14 12:27] VITALS: BP 116/67
--- NOTE | 2018-05-14 14:39 | MORECARE ---
CASE MANAGEMENT DISCHARGE SUMMARY PATIENT: SRINIVAS PARRA UNIT: [id number] ADM DATE: 05/13/18 AGE: 88 : 31 SEX: F ROOM/BED: D.2108 AUTHOR: HALLEY ZAVALA PHYSICIAN: REFERRING PHYSICIAN: KACI VEGA MD DATE OF SERVICE: 05/14/18 Discharge Plan Patient Name: SRINIVAS PARRA [facility] [facility] 1930 Planned Disposition: Anticipated Discharge Date: Discharge Date: Expected LOS: Initial Reviewer: [email or web address] Initial Review Date: 05/13/2018 Generated: 05/14/18 3:39 pm External Providers External Provider: [facility] in Next Contact Date: Service Request Date: Service Type: Resolution: Reviewer: Comments: Last DP export: 05/13/18 5:44 pm Patient Name: SRINIVAS PARRA Page 58209 at 1439 All edits/amendments must be made on the electronic document DICTATION DATE: 05/14/18 1439 VASCULAR ULTRASOUND TECHNOLOGIST: NAYE 05/14/18 1439 RPT#: [id number] [place] DATE: STATUS: ADM IN [facility] [address] [place] [address] END OF REPORT
--- NOTE | 2018-05-14 15:37 | MORECARE ---
CASE MANAGEMENT DISCHARGE SUMMARY PATIENT: SRINIVAS PARRA UNIT: [id number] ADM DATE: 05/13/18 AGE: 88 : 31 SEX: F ROOM/BED: D.2108 AUTHOR: HALLEY ZAVALA PHYSICIAN: REFERRING PHYSICIAN: KACI VEGA MD DATE OF SERVICE: 05/14/18 Discharge Plan Patient Name: SRINIVAS PARRA Facility: [facility]:[place] : 1930 Planned Disposition: Home with Hospice Anticipated Discharge Date: Discharge Date: Expected LOS: Initial Reviewer: [email or web address] Initial Review Date: 05/13/2018 Generated: 05/14/18 4:37 pm Coverage Notice Reviewer: [id number] Mily Weiss [place] Notice Issued Date-Time: 05/14/2018 14:12 Notice Type: Patient Choice Letter Notice Delivered To: Patient Relationship to Patient: Self Churn Tender Name: Delivery Method: - Prudence Days: Prior Verbal Notification: Recipient Understood Notice: Recipient Signature: Med Rec Note Co-signed by Attending: Coverage Notice Comment: Last DP export: 05/14/18 1:39 pm Patient Name: SRINIVAS PARRA Page 36855 at 1537 All edits/amendments must be made on the electronic document DICTATION DATE: 05/14/181536 ELECTRIC CLOCK MECHANIC: NAYE 05/14/181536 RPT#: [id number] DC DATE: STATUS: ADM IN [facility] [address] [place] [address] END OF REPORT
--- NOTE | 2018-05-14 15:47 | MORECARE ---
CASE MANAGEMENT DISCHARGE SUMMARY PATIENT: SRINIVAS PARRA UNIT: [id number] ADM DATE: 05/13/18 AGE: 88 : 31 SEX: F ROOM/BED: D.2108 AUTHOR: SALLY,DOC PHYSICIAN: REFERRING PHYSICIAN: KACI VEGA MD DATE OF SERVICE: 05/14/18 Discharge Plan Patient Name: SRINIVAS PARRA Facility: [facility]:[place] : 1930 Planned Disposition: Home with Hospice Anticipated Discharge Date: Discharge Date: Expected LOS: Initial Reviewer: [email or web address] Initial Review Date: 05/13/2018 Generated: 05/14/18 4:47 pm Comments DCP- Discharge Planning Updated by [email or web address]: Isela Johnston on 05/14/18 2:[address] Patient Name: SRINIVAS PARRA Admission Status: ER Accout number: [id number] Admission Date: 05-13-2018 : 1930 Admission Diagnosis: Attending: KACI VEGA Current LOS: 1 Anticipated DC Date: Planned Disposition: Home with Hospice Primary Insurance: MEDICARE A & B Discharge Planning Comments: CM CALLED TO ROOM BY FAMILY. FAMILY ENQUIRING ABOUT GETTING THE PATIENT HOME INSTEAD OF BACK TO [facility], BECAUSE THE PATIENT IS EXPRESSING THAT SHE WANTS TO LIVE OUT THE REST OF HER DAYS AT HOME. WE DISCUSSED MULTIPLE OPTIONS, INCLUDING HOSPICE. LOTS OF QUESTIONS ANSWERED ABOUT HOSPICE AND THE PATIENT AND FAMILY HAS DECIDED THEY WOULD LIKE TO SEE IF SHE QUALIFIES FOR HOSPICE. I CALLED AND SPOKE WITH DR VEGA ABOUT THIS AND HE GAVE THE VERBAL ORDER FOR HOSPICE CONSULT TO EVAL AND ADMIT APPROPRIAT. THE PATIENT SIGNED A ASHLYN FORM FOR [facility] ( PATIENT HAS BEEN A LISA AT HOME PATIENT PRIVIOUSLY AND THEY LIKED THE COMPANY). I CALLED AND SPOKE WITH TORY AT [facility] ([phone]), AND REFERRAL SENT. THEY ARE TO GET A NURSE UP HERE TO VISIT AND EVAL THE PATIENT. FURTHER DISCHARGE NEEDS ARE GOING TO BE DEPENDANT ON THE HOSPICE EVALUATION. Universal Banker: Isela Johnston RN CM DCPIA - Discharge Planning Initial Assessment Updated by [id number]: Isela Johnston on 05/14/18 3:40 pm * Is the patient Alert and Oriented? Yes * How many steps to enter\exit or inside your home? * PCP WAS DR BILL BEFORE WENT TO [facility], IT'S DR VEGA IN [facility] * Pharmacy [facility] NOW, BUT WILL CHOOSE ONE IF SHE CAN DISCHARGE HOME. * Preadmission Environment [facility] * Facility Name [facility] * ADLs Total Dependent * Other Equipment ALL EQUIPMENT SUPPLIED BY [facility] * List name and contact numbers for known caregivers / representatives who currently or will assist patient after discharge: KELLY LEI,DAUGHTER, POA, CHADD DIGGS, GRAND DAUGHTER, * Verbal permission to speak to the caregivers and representatives has been obtained from the patient. Yes * Additional services required to return to the preadmission environment? Yes * Can the patient safely return to the preadmission environment? Yes * Has this patient been hospitalized within the prior 30 days at any hospital? No Coverage Notice Reviewer: [id number] Mily Johnston Notice Issued Date-Time: 05/14/2018 14:12 Notice Type: Patient Choice Letter Notice Delivered To: Patient Relationship to Patient: Self Glove Wrapper Name: Delivery Method: - Prudence Days: Prior Verbal Notification: Recipient Understood Notice: Recipient Signature: Med Rec Note Co-signed by Attending: Coverage Notice Comment: Last DP export: 05/14/18 2:37 pm Patient Name: SRINIVAS PARRA Page [id number] at 1547 All edits/amendments must be made on the electronic document DICTATION DATE: 05/14/181546 MALLET AND DIE CUTTER: NAYE 05/14/18 154 RPT#: [id number] DC DATE: STATUS: ADM IN [facility] [address] [place] [address] END OF REPORT
--- NOTE | 2018-05-14 15:56 | NUR ---
Admitted from [facility] 05/13. Pt has red/yeasty areas between skin folds. She is incontinent of bowels and bladder. She is at high risk for skin breakdown. Recommend: turn q 2hr. schedule bridge heels / protect ankles Wound care will monitor.
--- NOTE | 2018-05-14 17:29 | NUR ---
PT RESTING IN BED EATING SUPPER, DENIES PAIN AT THIS TIME, DENIES ANY FURTHER NEEDS AT THIS TIME, WILL CONT TO FOLLOW POC
[2018-05-14 18:34] VITALS: BP 113/71
[2018-05-14 20:00] VITALS: BP 119/69
--- NOTE | 2018-05-14 20:45 | NUR ---
RECIEVED BEDSIDE REPORT. ROUNDS COMPLETED. PT VSS, AAOX4, NO S/S OF RR DISTRESS, RR EVEN AND UNLABORED. MEDS GIVEN AT THIS TIME.ASSESSED PT LOWER EXTREMITIES, +2 EDEMA ON R/L. PT STATES SHE FEEL A LITTLE PAIN ON HER KNEES AND THAT IS A 2/10. DENIES ANY NEEDS FOR PAIN AT THIS TIME. MATERIAL HANDLER 2ND SHIFT IN PT ROOM TO GIVE PT A BED BATH. WILL CPOC. CL IN REACH, BED IN LOW, SR UP X2.
[2018-05-15] VITALS: BP 112/54
[2018-05-15 04:00] VITALS: BP 131/68
[2018-05-15 04:50] LABS: BASOPHILS 0.1 % (0-2); EOSINOPHILS 0.1 % (0-7); HEMATOCRIT 41.9 % (36.0-48.0); HEMOGLOBIN 13.6 g/dL (12-16); IMMATURE GRANULOCYTES 0.5 % (0-5); LYMPHOCYTES 11.7 % (15-50); MCH 32.7 pg (26.0-34.0); MCHC 32.5 g/dL (31.0-37.0); MCV 100.7 fL (80.0-100.0); MONOCYTES 1.3 % (2-11); NEUTROPHILS 86.3 % (40-80); PLATELET COUNT 195 10x3/uL (130-400); RBC 4.16 10x6/uL (4.00-5.40); RDW 12.8 % (11.5-14.5); WBC 16.1 10x3/uL (4.8-10.8)
[2018-05-15 05:12] LABS: ANION GAP 12.7 mmol/L (8-16); CALCIUM 9.4 mg/dL (8.5-10.1); CREATININE - SERUM 1.2 mg/dL (0.6-1.3); POTASSIUM - SERUM 4.7 mmol/L (3.5-5.1)
--- NOTE | 2018-05-15 06:30 | NUR ---
HELPED CHANGE PT SHEETS, AFTER BED BATH. APPLIED NYSTATIN POWDER TO PT FOLDS. PT BLOOD SUGAR 216. INSULIN GIVEN AT THIS TIME. PT VOICED SATISFACTION. WILL CPOC. CL IN REACH, BED IN LOW, SR UP X2.
[2018-05-15 08:12] VITALS: BP 113/55
[2018-05-15] MEDS ORDERED: FUROSEMIDE20 MG PO (11:26)
[2018-05-15 12:31] VITALS: BP 104/55
[2018-05-15 16:39] VITALS: BP 102/44
--- NOTE | 2018-05-15 19:20 | NUR ---
RECEIVED REPORT, WILL ASSUME CARE OF PT, ASSISTED WITH PULLING PT UP IN BED, PLACED DINNER TRAY WITH IN REACH, BED IS LOW, SRX2, CALL LIGHT IN REACH, WILL CONTINUE PLAN OF CARE
[2018-05-15 20:00] VITALS: BP 99/50
--- NOTE | 2018-05-15 21:03 | NUR ---
[id number] COVERAGE NEEDED AT THIS TIME
[2018-05-16 00:06] VITALS: BP 129/44
--- NOTE | 2018-05-16 01:59 | NUR ---
SLEEPING, NO DISTRESS NOTICED AT THIS TIME, BED IS LOW, SRX2, CALL LIGHT IN REACH
--- NOTE | 2018-05-16 02:39 | NUR ---
I have reviewed this patient and I concur with the Shift Assessment completed by the Licensed Practical Nurse today this shift.
[2018-05-16 04:00] VITALS: BP 107/33
--- NOTE | 2018-05-16 05:23 | NUR ---
FILTERS ASSEMBLER IN ROOM, GAVE BATH/LINEN CHANGE
--- NOTE | 2018-05-16 07:00 | NUR ---
RECEIVED REPORT. ASSUMED CARE OF PATIENT. CALL LIGHT WITHIN REACH. PATIENT ALERT/ORIENTED. DENIES NEEDS. RESP EVEN AND UNLABORED. NO DISTRESS.
--- NOTE | 2018-05-16 09:23 | NUR ---
URINALYSIS COLLECTED AT THIS TIME VIA IN AN OUT CATH PRIOR TO STARTING LEVAQUIN.
[2018-05-16 09:51] VITALS: BP 107/42
[2018-05-16 10:17] LABS: APPEARANCE HAZY (CLEAR); BILIRUBIN NEGATIVE (NEGATIVE); COLOR YELLOW (YELLOW); GLUCOSE NEGATIVE (NEGATIVE); KETONE NEGATIVE (NEGATIVE); NITRITE POSITIVE (NEGATIVE); PROTEIN NEGATIVE (NEGATIVE); UROBILINOGEN NORMAL (NORMAL)
[2018-05-16 10:21] LABS: BACTERIA MANY /hpf (NONE SEEN); EPITHELIAL CELLS 0-5 /hpf (0-5); RED CELLS - URINE 0-5 /hpf (0-5)
--- NOTE | 2018-05-16 11:27 | NUR ---
FSBS 188. 2 UNITS HUMULIN ADMINISTERED PER SLIDING SCALE. NO DISTRESS.
[2018-05-16 13:11] VITALS: BP 102/49
--- NOTE | 2018-05-16 13:34 | NUR ---
SPOKE TO . PATIENTS FAMILY CAME IN AND TOLD HER SHE CAN NOT GO HOME FROM THE HOSPITAL DIRECTLY TO HOME BECAUSE THEY DON'T HAVE EVERYTHING THEY NEED TO TAKE CARE OF HER. PATIENTS DAUGHTER TOLD THE PATIENT THAT SHE WOULD HAVE TO GO BACK TO [facility] BEFORE COMING HOME ON HOSPICE. PATIENT WITH INCREASED ANXIETY AT THIS TIME. PATIENT REQUESTING MEDICATION FOR ANXIETY. GAVE TELEPHONE ORDERS FOR ATIVAN 1MG PO EVERY 4 HOURS PRN.
--- NOTE | 2018-05-16 13:41 | NUR ---
MEDICATED FOR ANXIETY AT THIS TIME. NO DISTRESS.
--- NOTE | 2018-05-16 16:16 | NUR ---
FSBS 96. NO INSULIN COVERAGE PER SLIDING SCALE.
--- NOTE | 2018-05-16 16:17 | NUR ---
DIET COKE PROVIDED UPON REQUEST. PATIENT STATES SHE IS DEPRESSED AND WANTS TO KNOW IF SHE IS GETTING MEDICATION FOR THAT AND IF NOT, CAN SHE HAVE SOME. PATIENT SMILING AND FEELING BETTER AFTER THIS DENTAL FRONT OFFICE ASSISTANT INFORMED HER THAT SAID WE WILL KEEP HER HERE LONG WE CAN. CALL LIGHT WITHIN REACH. NO DISTRESS.
[2018-05-16 17:40] VITALS: BP 103/83
--- NOTE | 2018-05-16 19:48 | NUR ---
RECIEVED UP IN BED DOING A UPDRAFT. RIGHT LOBES HAVE RUBS ON INHALATION. ALERT AND ORIENTED X4. INCONT OF B/B. IV TO RIGHT AND LEFT HAND SL.. TELEMETRY IN PLACE. REQUIRES TOTAL CARE. ABLE TO FEED SELF. DENIES ANY NEEDS. STATES " I'LL BE GLAD WHEN I GET MY NIGHT MEDS". EXPLAINED THE TIMES ABLE TO GIVE THEM. PT VERBALIZED UNDERSTANDING.
[2018-05-17] VITALS (7 sets, daily range): BP systolic 95–116; BP diastolic 41–52
--- NOTE | 2018-05-17 03:37 | NUR ---
RECIEVED FROM ER AND ADMITTED TO ROOM 2101. ALERT AND CONFUSED. ORIENTED TO PERSON AND PLACE ONLY. LUNG SOUNDS CLEAR BILATERAlLY. FOLLOWS COMMANDS. WEARS HEARING AIDS IN BOTH EARS AND SSTILL ASK WHAT DID YOU SAY. PER [facility]. RECORDS PT UNABLE TO AMBULATE. WEARS BRIEFS AND DOES HAVE SOME INCONTINENT EPISODES. ALSO HAS POOR EYESIGHT AND WEARS DENTURES. THIS NURSE HAS NOT SEEN HIS DENTURES. IV TO RIGHT HAND IN THUMB. NO REDNESS OR SWELLING TO SITE WITH DSG INTACT. PACE MAKER TO LEFT SIDE OF CHEST. PT IS A POOR HISTORIAN.
--- NOTE | 2018-05-17 07:00 | NUR ---
RECEIVED REPORT. ASSUMED CARE OF PATIENT. RESTING WITH EYES CLOSED. RESP EVEN AND UNLABORED. NO DISTRESS.
--- NOTE | 2018-05-17 07:30 | NUR ---
RESTING WELL, EYES OPEN. DENIES PAIN. CALL LIGHT WITHIN REACH. NO DISTRESS.
--- NOTE | 2018-05-17 11:05 | NUR ---
FSBS 123. NO INSULIN REQUIRED PER SLIDING SCALE.
--- NOTE | 2018-05-17 13:34 | NUR ---
COMPLETE LINEN CHANGE AND INCONTINENT CARES PROVIDED. NO DISTRESS.
--- NOTE | 2018-05-17 16:29 | NUR ---
FSBS 111. NO COVERAGE PER SLIDING SCALE.
--- NOTE | 2018-05-17 19:34 | NUR ---
RECIEVED UP IN BED WITH EYES OPEN AND TV ON. ALERT AND ORIENTED X4. INCONT OF B/B. PERICARE PROVIDED PRN. REQUIRES TOTAL CARE. HOWEVER ABLE TO FEE SELF. DENIES ANY PAIN OR NEEDS. WILL CONT POC.
[2018-05-18 01:51] VITALS: BP 120/60
[2018-05-18 05:41] VITALS: BP 114/56
--- NOTE | 2018-05-18 07:25 | NUR ---
AM ROUNDS- PT RESTING COMFORTABLY IN BED. A/OX4, RESP EVEN AND NONLABORED ON WL. LT HAND IV SL. MONITOR SHOWING SR, PACEMAKER TO LT CHEST. PT DENIES ANY NEEDS AT THIS TIME. CALL LIGHT IN REACH, NAD NOTED, WILL CONTINUE PLAN OF CARE.
--- NOTE | 2018-05-18 08:20 | NUR ---
AM MEDS GIVEN AT THIS TIME. LISINOPRIL HELD DUE TO LOW BP. PT DENIES ANY NEEDS AT THIS TIME. CALL LIGHT IN REACH, NAD NOTED, WILL CONTINUE TO MONITOR.
[2018-05-18 08:23] VITALS: BP 103/44
[2018-05-18] MEDS ORDERED: MACROBID100 MG PO (09:32)
--- NOTE | 2018-05-18 11:01 | MORECARE ---
CASE MANAGEMENT DISCHARGE SUMMARY PATIENT: SRINIVAS PARRA UNIT: [id number] ADM DATE: 05/13/18 AGE: 88 : 31 SEX: F ROOM/BED: D.2108 AUTHOR: SALLY,DOC PHYSICIAN: REFERRING PHYSICIAN: KACI VEGA MD DATE OF SERVICE: 05/18/18 Discharge Plan Patient Name: SRINIVAS PARRA Facility: [facility]:[place] : 1930 Planned Disposition: Home with Hospice Anticipated Discharge Date: Discharge Date: Expected LOS: Initial Reviewer: [email or web address] Initial Review Date: 05/13/2018 Generated: 05/18/18 12:01 pm DCP- Discharge Planning Updated by [id number]: Isela Johnston on 05/14/18 2:[address] Patient Name: SRINIVAS PARRA Admission Status: ER Accout number: [id number] Admission Date: 05-13-2018 : 1930 Admission Diagnosis: Attending: KACI VEGA Current LOS: 1 Anticipated DC Date: Planned Disposition: Home with Hospice Primary Insurance: MEDICARE A & B Discharge Planning Comments: CM CALLED TO ROOM BY FAMILY. FAMILY ENQUIRING ABOUT GETTING THE PATIENT HOME INSTEAD OF BACK TO [facility], BECAUSE THE PATIENT IS EXPRESSING THAT SHE WANTS TO LIVE OUT THE REST OF HER DAYS AT HOME. WE DISCUSSED MULTIPLE OPTIONS, INCLUDING HOSPICE. LOTS OF QUESTIONS ANSWERED ABOUT HOSPICE AND THE PATIENT AND FAMILY HAS DECIDED THEY WOULD LIKE TO SEE IF SHE QUALIFIES FOR HOSPICE. I CALLED AND SPOKE WITH DR VEGA ABOUT THIS AND HE GAVE THE VERBAL ORDER FOR HOSPICE CONSULT TO EVAL AND ADMIT APPROPRIAT. THE PATIENT SIGNED A ASHLYN FORM FOR [facility] ( PATIENT HAS BEEN A LISA AT HOME PATIENT PRIVIOUSLY AND THEY LIKED THE COMPANY). I CALLED AND SPOKE WITH TORY AT [facility] ([phone]), AND REFERRAL SENT. THEY ARE TO GET A NURSE UP HERE TO VISIT AND EVAL THE PATIENT. FURTHER DISCHARGE NEEDS ARE GOING TO BE DEPENDANT ON THE HOSPICE EVALUATION. Associate Biological Sales: Isela Johnston RN CM DCPIA - Discharge Planning Initial Assessment Updated by [id number]: Isela Johnston on 05/14/18 3:40 pm * Is the patient Alert and Oriented? Yes * How many steps to enter\exit or inside your home? * PCP WAS DR BILL BEFORE WENT TO [facility], IT'S DR VEGA IN [facility] * Pharmacy [facility] NOW, BUT WILL CHOOSE ONE IF SHE CAN DISCHARGE HOME. * Preadmission Environment [employer] * Facility Name [facility] * ADLs Total Dependent * Other Equipment ALL EQUIPMENT SUPPLIED BY [facility] * List name and contact numbers for known caregivers / representatives who currently or will assist patient after discharge: KELLY LEI,DAUGHTER, POA, CHADD DIGGS, GRAND DAUGHTER, * Verbal permission to speak to the caregivers and representatives has been obtained from the patient. Yes * Additional services required to return to the preadmission environment? Yes * Can the patient safely return to the preadmission environment? Yes * Has this patient been hospitalized within the prior 30 days at any hospital? No External Providers External Provider: [facility] Next Contact Date: 05/18/2018 Service Request Date: Service Type: Resolution: Reviewer: Comments: Coverage Notice Reviewer: [email or web address] Mily Weiss [place] Notice Issued Date-Time: 05/14/2018 14:12 Notice Type: Patient Choice Letter Notice Delivered To: Patient Relationship to Patient: Self Waterworks Chief Engineer Name: Delivery Method: - Prudence Days: Prior Verbal Notification: Recipient Understood Notice: Recipient Signature: Jeet Rec Note Co-signed by Attending: Coverage Notice Comment: Last DP export: 05/14/18 2:47 pm Patient Name: SRINIVAS PARRA Page 82075 at 1101 All edits/amendments must be made on the electronic document DICTATION DATE: 05/18/18 1100 STATIONARY EQUIPMENT MECHANIC: NAYE 05/18/18 1100 RPT#: [id number] DC DATE: STATUS: ADM IN [address] [place] [address] END OF REPORT
--- NOTE | 2018-05-18 11:13 | NUR ---
PROVIDED VEBAL AND WRITTEN DISCHARGE TEACHING TO PT, WHO VERBALIZED UNDERSTANDING REGARDING TEACHING. D/C LT HAND IV WITH CATHETER TIP INTACT. WILL CALL REPORT TO [employer] AND CALL [facility].
--- NOTE | 2018-05-18 11:38 | NUR ---
TRIED CALLING REPORT TO [employer], KEEP GETTING BUSY SIGNAL.
--- NOTE | 2018-05-18 12:34 | NUR ---
REPORT CALLED TO OLIVIA, ALSO CALLED [facility] WILL BE HERE TO PICK PT UP IN ABOUT 30-45MIN.
--- NOTE | 2018-05-18 12:35 | MORECARE ---
CASE MANAGEMENT DISCHARGE SUMMARY PATIENT: SRINIVAS PARRA UNIT: [id number] ADM DATE: 05/13/18 AGE: 88 : 31 SEX: F ROOM/BED: D.2109 AUTHOR: SALLY,DOC PHYSICIAN: REFERRING PHYSICIAN: KACI VEGA MD DATE OF SERVICE: 05/18/18 Discharge Plan Patient Name: SRINIVAS PARRA Facility: [facility]:[place] : 1930 Planned Disposition: Nursing Facility VLADIMIR Cert Anticipated Discharge Date: 05/18/18 Discharge Date: Expected LOS: 5 Initial Reviewer: [id number] Initial Review Date: 05/13/2018 Generated: 05/18/18 1:34 pm Comments DCP- Discharge Planning Updated by [email or web address]: Jeremy Caldera on 05/18/18 11:[address] Patient Name: SRINIVAS PARRA Encounter No: [id number] : 1930 Primary Insurance: MEDICARE A & B Anticipated DC Date: 05-18-2018 Planned Disposition: Nursing Facility VLADIMIR Cert External Planned Provider: [facility] TERM [facility] MEDICAID BED DCP follow-up note: CM RECEIVED DISCHARGE ORDER, SPOKE TO RN MILES CHRISTENSEN WHO INFORMED CM THAT PT'S FAMILY HAS PLAN FOR PT TO RETURN TO [facility] UNTIL PERSONAL CARE EVALUATION CAN BE DONE FOR PERSONAL CARE AT HOME, WHICH WILL TAKE BETWEEN 15 AND 45 DAYS. CM MET WITH PT IN ROOM, REVIEWED PLAN, PT IN AGREEMENT WITH PLAN FOR DISCHARGE TO [place] [facility] HER FAMILY IS WORKING ON "EVERYTHING" TO GET HER HOME. CHOICE FOR [facility] SIGNED AFTER LISTING OF GROUP HOME'S PROVIDED. IMPORTANT MESSAGE FROM MEDICARE PROVIDED AND EXPLAINED. CM CALLED [facility] CLINICAL LIAISON FOR [facility], , NOTIFIED OF DISCHARGE BACK TO [facility] TODAY. CM FAXED DISCHARGE INFORMATION TO [facility] VIA [facility] AT [phone]. MILES NOTIFIED TEETEE OF [facility] WHO WILL COORDINATE HOSPICE WITH FAMILY AFTER PT ARRIVES BACK TO [facility]. QUANTITATIVE CONSULTANT NURSE NOTIFIED. NURSE REPORT TO BE CALLED TO [facility] AT [phone]. PT TO TRANSPORT VIA AMBULANCE. Jeremy Ostrander, CASE MANAGEMENT DCP- Discharge Planning Updated by [email or web address]: Isela Christensen on 05/14/18 2:[address] Patient Name: SRINIVAS PARRA Admission Status: ER Accout number: [id number] Admission Date: 05-13-2018 : 1930 Admission Diagnosis: Attending: KACI VEGA Current LOS: 1 Anticipated DC Date: Planned Disposition: Home with Hospice Primary Insurance: MEDICARE A & B Discharge Planning Comments: CM CALLED TO ROOM BY FAMILY. FAMILY ENQUIRING ABOUT GETTING THE PATIENT HOME INSTEAD OF BACK TO [facility], BECAUSE THE PATIENT IS EXPRESSING THAT SHE WANTS TO LIVE OUT THE REST OF HER DAYS AT HOME. WE DISCUSSED MULTIPLE OPTIONS, INCLUDING HOSPICE. LOTS OF QUESTIONS ANSWERED ABOUT HOSPICE AND THE PATIENT AND FAMILY HAS DECIDED THEY WOULD LIKE TO SEE IF SHE QUALIFIES FOR HOSPICE. I CALLED AND SPOKE WITH DR VEGA ABOUT THIS AND HE GAVE THE VERBAL ORDER FOR HOSPICE CONSULT TO EVAL AND ADMIT APPROPRIAT. THE PATIENT SIGNED A ASHLYN FORM FOR [facility] ( PATIENT HAS BEEN A LISA AT HOME PATIENT PRIVIOUSLY AND THEY LIKED THE COMPANY). I CALLED AND SPOKE WITH TORY AT [facility] ([phone]), AND REFERRAL SENT. THEY ARE TO GET A NURSE UP HERE TO VISIT AND EVAL THE PATIENT. FURTHER DISCHARGE NEEDS ARE GOING TO BE DEPENDANT ON THE HOSPICE EVALUATION. Reproductive Endocrinologist: Isela Christensen RN DCPIA - Discharge Planning Initial Assessment Updated by [id number]: Isela Christensen on 05/14/18 3:40 pm * Is the patient Alert and Oriented? Yes * How many steps to enter\\exit or inside your home? * PCP WAS DR BILL BEFORE WENT TO [facility], IT'S DR VEGA IN [facility] * [facility]acy [facility] NOW, BUT WILL CHOOSE ONE IF SHE CAN DISCHARGE HOME. * Preadmission Environment [facility] * Facility Name [facility] * ADLs Total Dependent * Other Equipment ALL EQUIPMENT SUPPLIED BY [facility] * List name and contact numbers for known caregivers / representatives who currently or will assist patient after discharge: KELLY LEI,DAUGHTER, POA, CHADD DIGGS, GRAND DAUGHTER, * Verbal permission to speak to the caregivers and representatives has been obtained from the patient. Yes * Additional services required to return to the preadmission environment? Yes * Can the patient safely return to the preadmission environment? Yes * Has this patient been hospitalized within the prior 30 days at any hospital? No Coverage Notice Reviewer: [id number] Mily Christensen Notice Issued Date-Time: 05/14/2018 14:12 Notice Type: Patient Choice Letter Notice Delivered To: Patient Relationship to Patient: Self Character Actor Name: Delivery Method: - Prudence Days: Prior Verbal Notification: Recipient Understood Notice: Recipient Signature: Med Rec Note Co-signed by Attending: Coverage Notice Comment: Reviewer: [id number] Caldera Notice Issued Date-Time: 05/18/2018 11:40 Notice Type: Patient Choice Letter Notice Delivered To: Patient Relationship to Patient: Character Actor Name: Delivery Method: HAND - Hand Delivered Prudence Days: Prior Verbal Notification: Recipient Understood Notice: Yes Recipient Signature: Yes Med Rec Note Co-signed by Attending: Coverage Notice Comment: MAMI DOYLE Reviewer: [email or web address] Mily Caldera Notice Issued Date-Time: 05/18/2018 11:40 Notice Type: IM Discharge Notice Notice Delivered To: Patient Relationship to Patient: Character Actor Name: Delivery Method: HAND - Hand Delivered Prudence Days: Prior Verbal Notification: Recipient Understood Notice: Yes Recipient Signature: Yes Med Rec Note Co-signed by Attending: Coverage Notice Comment: Last DP export: 05/18/18 10:01 am Patient Name: SRINIVAS PARRA Page [phone] at 1235 All edits/amendments must be made on the electronic document DICTATION DATE: 05/18/18 1234 MANAGER CARD: NAYE 05/18/18 1234 RPT#: [id number] DC DATE: STATUS: ADM IN [facility] [address] [place] [address] END OF REPORT
[2018-05-18 12:43] VITALS: BP 115/52
--- NOTE | 2018-05-18 13:06 | NUR ---
PT HERE TO PICK PT UP, PT LEFT UNIT WITH ALL BELONGINGS VIA STRETCHER, ACCOMPANIED BY ADVERTISEMENT DISTRIBUTOR. NAD NOTED.
== END 2018-05-18 13:05 | DRG 202 ==
LOC: D.ER 14:27 → D.EDHOLD 16:09 → D.M2 16:55 → OBSVTIME 18:22 → D.M2 18:27
PROVIDERS: Emergency Medicine; ADMIT Family Medicine; ATTEND Family Medicine
DX: J20.9 Acute bronchitis, unspecified (principal); J44.0 Chronic obstructive pulmonary disease with (acute) lower respiratory infection; J44.1 Chronic obstructive pulmonary disease with (acute) exacerbation; G93.49 Other encephalopathy; N39.0 Urinary tract infection, site not specified; I11.0 Hypertensive heart disease with heart failure; I50.9 Heart failure, unspecified; E11.9 Type 2 diabetes mellitus without complications; E78.5 Hyperlipidemia, unspecified; K21.9 Gastro-esophageal reflux disease without esophagitis; M19.90 Unspecified osteoarthritis, unspecified site; M81.0 Age-related osteoporosis without current pathological fracture; E03.9 Hypothyroidism, unspecified; D50.9 Iron deficiency anemia, unspecified; G47.00 Insomnia, unspecified; F32.9 Major depressive disorder, single episode, unspecified; K59.09 Other constipation; J30.9 Allergic rhinitis, unspecified; G30.9 Alzheimer's disease, unspecified; F02.80 Dementia in other diseases classified elsewhere, unspecified severity, without behavioral disturbance, psychotic disturbance, mood disturbance, and anxiety; B37.9 Candidiasis, unspecified; Z86.718 Personal history of other venous thrombosis and embolism; B96.20 Unspecified Escherichia coli [E. coli] as the cause of diseases classified elsewhere

== ENCOUNTER 2018-06-01 09:44 | Inpatient (IN) | payer MEDICARE ==
[~2018-06-01] VITALS: Ht 162.6 cm; Wt 149.2 kg
[~2018-06-01 09:44] MED LIST changes: +FEXOFENADINE H180 MG PO; +FUROSEMIDE20 MG PO; +TESSALON PERLE100 MG PO
[2018-06-01 10:15] VITALS: BP 108/60
[2018-06-01 10:47] LABS: ALBUMIN 2.7 g/dL (3.4-5.0); ALKALINE PHOSPHATASE 125 U/L (46-116); ALT (SGPT) 14 U/L (10-68); BILIRUBIN - TOTAL 0.51 mg/dL (0.2-1.3); CALC OSMOLALITY 284 mosm/kg (275-300); CALCIUM 9.2 mg/dL (8.5-10.1); CARBON DIOXIDE 31.5 mmol/L (21.0-32.0); CHLORIDE - SERUM 104 mmol/L (98-107); GLUCOSE 171 mg/dL (74-106); POTASSIUM - SERUM 4.8 mmol/L (3.5-5.1); PROTEIN - SERUM 7.8 g/dL (6.4-8.2); SODIUM 139 mmol/L (136-145); UREA NITROGEN 20 mg/dL (7-18); eGFR NON AFRICAN AMERICAN 55 mL/min (90-120)
[2018-06-01 10:59] LABS: CKMB 0.5 U/L (0.0-3.6); CREATINE KINASE 50 UL (21-215); PRO BNP 863 pg/mL (0-450); TROPONIN-I < 0.017 ng/mL (0.000-0.060)
[2018-06-01 11:36] LABS: HEMATOCRIT 37.9 % (36.0-48.0); HEMOGLOBIN 12.3 g/dL (12-16); LYMPHOCYTES 29.4 % (15-50); MCH 33.2 pg (26.0-34.0); MCHC 32.5 g/dL (31.0-37.0); MCV 102.4 fL (80.0-100.0); MEAN PLATELET VOLUME 11.1 fL (7.4-10.4); PLATELET COUNT 190 10x3/uL (130-400); RDW 12.4 % (11.5-14.5); WBC 11.9 10x3/uL (4.8-10.8)
[2018-06-01 11:41] LABS: APTT 31.4 SECONDS (22.8-39.4); D-DIMER-QUANTITATIVE 5.24 ug/mLFEU (0.20-0.54); INR 1.16 (0.85-1.17); PROTIME 14.3 SECONDS (11.6-15.0)
[2018-06-01 13:30] VITALS: BP 118/57
[2018-06-01 14:00] VITALS: BP 116/62
--- NOTE | 2018-06-01 15:36 | MORECARE ---
CASE MANAGEMENT DISCHARGE SUMMARY PATIENT: SRINIVAS PARRA UNIT: [id number] ADM DATE: 06/01/18 AGE: 88 : 31 SEX: F ROOM/BED: D.2227 AUTHOR: HALLEY ZAVALA PHYSICIAN: REFERRING PHYSICIAN: NAIMA HENRY MD DATE OF SERVICE: 06/01/18 Discharge Plan Patient Name: SRINIVAS PARRA Facility: [facility]:[place] : 1930 Planned Disposition: Anticipated Discharge Date: Discharge Date: Expected LOS: Initial Reviewer: [email or web address] Initial Review Date: 06/01/2018 Generated: 06/01/18 4:36 pm DCP- Discharge Planning Updated by [email or web address]: Nena Waters on 06/01/18 2:[address] Patient is a current resident of [facility], in a LT Medicaid bed. [facility] was current, with the admitting Dx: COPD. Tai, with [facility] called and provided information: patient has not walked in 2 years, patient signed her own paperwork/DNR for Hospice, states patient is total dependent with bathing, dressing, medications. [facility] states Hospice will be revoked since patient is admitted w/same diagnosis, but will resume if patient/family chooses. Patient has a financial POA, Marika Chau #[phone] (dtr). [facility] had previously arranged home equipment, medications, per patient request, but patient was never discharged home per family choice. Patient has been hospitalized within the past 30 days, with May 18 dc date from [facility]. CM will follow and assist with dc needs/plans. Nena Waters RN, CM Patient Name: SRINIVAS PARRA Page [phone] at 1536 All edits/amendments must be made on the electronic document DICTATION DATE: 06/01/18 153 PLASMA TABLE OPERATOR: NAYE 06/01/181534 RPT#: [id number] DC DATE: STATUS: ADM IN [facility] [address] [place] [address] END OF REPORT
--- NOTE | 2018-06-01 15:43 | MORECARE ---
CASE MANAGEMENT DISCHARGE SUMMARY PATIENT: SRINIVAS PARRA UNIT: [id number] ADM DATE: 06/01/18 AGE: 88 : 31 SEX: F ROOM/BED: D.2227 AUTHOR: SALLY,DOC PHYSICIAN: REFERRING PHYSICIAN: NAIMA HENRY MD DATE OF SERVICE: 06/01/18 Discharge Plan Patient Name: SRINIVAS PARRA Facility: [facility]:[place] : 1930 Planned Disposition: Anticipated Discharge Date: Discharge Date: Expected LOS: Initial Reviewer: [email or web address] Initial Review Date: 06/01/2018 Generated: 06/01/18 4:43 pm DCP- Discharge Planning Updated by [email or web address]: Nena Waters on 06/01/18 2:[address] Patient is a current resident of [facility], in a LT Medicaid bed. [facility] was current, with the admitting Dx: COPD. Tai, with [facility] called and provided information: patient has not walked in 2 years, patient signed her own paperwork/DNR for Hospice, states patient is total dependent with bathing, dressing, medications. [facility] states Hospice will be revoked since patient is admitted w/same diagnosis, but will resume if patient/family chooses. Patient has a financial POA, Marika Chau #[phone] (dtr). [facility] had previously arranged home equipment, medications, per patient request, but patient was never discharged home per family choice. Patient has been hospitalized within the past 30 days, with May 18 dc date from [facility]. CM will follow and assist with dc needs/plans. Nena Waters RN CM DCPIA - Discharge Planning Initial Assessment Updated by [id number]: Nena Waters on 06/01/18 3:37 pm * Is the patient Alert and Oriented? No * How many steps to enter\exit or inside your home? * PCP Dr. Almaguer ([place]) * Pharmacy Provided [place] * Preadmission Environment [facility] * Facility Name [facility] * ADLs Total Dependent * Equipment Oxygen * Other Equipment W/C * List name and contact numbers for known caregivers / representatives who currently or will assist patient after discharge: Keara Chau (dtr and Financial POA) [phone] * Verbal permission to speak to the caregivers and representatives has been obtained from the patient. N/A * Please name any agencies selected above. [facility] * Additional services required to return to the preadmission environment? No * Can the patient safely return to the preadmission environment? Yes * Has this patient been hospitalized within the prior 30 days at any hospital? Yes Last DP export: 06/01/18 2:36 p Patient Name: SRINIVAS PARRA Page [phone] at 1543 All edits/amendments must be made on the electronic document DICTATION DATE: 06/01/181541 TENNIS RACKET REPAIRER: NAYE 06/01/181541 RPT#: [id number] DC DATE: STATUS: ADM IN [facility] [address] [place] [address] END OF REPORT
[2018-06-01 20:00] VITALS: BP 125/56
--- NOTE | 2018-06-01 20:30 | NUR ---
PT RESTING IN BED. ALERT AND ORIENTED. NO SIGNS OF DISTRESS. BREATHING EVEN AND UNLABORED. PT STATES NO PROBLEMS AT THIS TIME. IV SITE RT WRIST DRESSING CLEAN DRY AND INTACT. NO SIGNS OF INFECTION. 3LO2 NASAL CANNULA. NEED TELE MONITOR BUT ONE IS NOT AVAILABLE YET. WILL FALLOW UP. BOWEL SOUNDS ACTIVE. WILL CONTINUE PLAN OF CARE. CALL LIGHT IN REACH. BED LOWERED AND LOCKED. FRED ALARM ON. BED RAILS UP X3.
[2018-06-02] VITALS: BP 111/66
[2018-06-02 04:00] VITALS: BP 143/74
--- NOTE | 2018-06-02 05:43 | NUR ---
I have reviewed this patient and I concur with the Shift Assessment completed by the Licensed Practical Nurse today this shift.
--- NOTE | 2018-06-02 08:30 | NUR ---
ASSESSMENT PER FLOW SHEET. PT IS WITHIOUT DISTRESS.FALL PREVENTION I PLACE.MONITOR
[2018-06-02 08:40] LABS: BASOPHILS 0.1 % (0-2); EOSINOPHILS 0 % (0-7); HEMATOCRIT 37.8 % (36.0-48.0); HEMOGLOBIN 12.6 g/dL (12-16); IMMATURE GRANULOCYTES 0.5 % (0-5); LYMPHOCYTES 14.3 % (15-50); MCH 33.4 pg (26.0-34.0); MCHC 33.3 g/dL (31.0-37.0); MEAN PLATELET VOLUME 10.7 fL (7.4-10.4); MONOCYTES 1.2 % (2-11); NEUTROPHILS 83.9 % (40-80); PLATELET COUNT 220 10x3/uL (130-400); RBC 3.77 10x6/uL (4.00-5.40); RDW 12.3 % (11.5-14.5); WBC 13.4 10x3/uL (4.8-10.8)
[2018-06-02 08:43] LABS: ANION GAP 15.8 mmol/L (8-16); CALCIUM 9.4 mg/dL (8.5-10.1); CARBON DIOXIDE 25.8 mmol/L (21.0-32.0); POTASSIUM - SERUM 4.6 mmol/L (3.5-5.1)
[2018-06-02 08:44] VITALS: BP 120/59
[2018-06-02 09:08] LABS: MCV 100.3 fL (80.0-100.0)
[2018-06-02 12:30] VITALS: BP 111/49; BP 172/87
[2018-06-02 13:40] VITALS: Ht 162.6 cm; Wt 149.2 kg
--- NOTE | 2018-06-02 14:35 | NUR ---
IN AND OUT CATH FOR UA ORDERED. URINE TO LAB
[2018-06-02 14:57] LABS: APPEARANCE CLEAR (CLEAR); BILIRUBIN NEGATIVE (NEGATIVE); COLOR YELLOW (YELLOW); GLUCOSE 50 mg/dL (NEGATIVE); KETONE NEGATIVE (NEGATIVE); NITRITE NEGATIVE (NEGATIVE); PROTEIN NEGATIVE (NEGATIVE); UROBILINOGEN NORMAL (NORMAL)
[2018-06-02 15:19] LABS: % SATURATION 38 % (15-55); IRON 67 ug/dl (35-150); TOTAL IRON BIND CAPACITY 176 ug/dl (260-445); UNSAT IRON BIND CAPACITY 109 ug/dl (150-375)
[2018-06-02 15:38] VITALS: BP 103/48
[2018-06-02 20:00] VITALS: BP 98/46
--- NOTE | 2018-06-02 20:10 | NUR ---
IV INFLITRATED TO RFA.CATH REMOVED WITH TIP INTACT. IV RESITED TO LFA X 1 ATTEMPT. RESP EVEN AND UNLABORED. NO DISTRESS NOTED. O2 @ 3L PER NC ON. NO DISTRESS NOTED.INCONTINENT OF URINE,LINENS CHANGED WITH BLANK CARE GIVEN. CL IN REACH
[2018-06-03 04:00] VITALS: BP 107/48
--- NOTE | 2018-06-03 04:40 | NUR ---
I have reviewed this patient and I concur with the Shift Assessment completed by the Licensed Practical Nurse today this shift.
--- NOTE | 2018-06-03 07:45 | NUR ---
MORNING ASSESSMENT COMPLETE. SEE ASSESSMENT FLOWSHEET FOR FURTHER DETAILS. PT LYING IN BED AAO X4 TO PERSON, PLACE, TIME, AND SITUATION. DENIES NEEDS AT THIS TIME. CL IN REACH. SIDE RAILS UP X3 FOR PATIENT SAEFTY. BED IN LOWEST POSITION.
[2018-06-03 07:47] LABS: ANION GAP 13.9 mmol/L (8-16); CARBON DIOXIDE 25.6 mmol/L (21.0-32.0); CREATININE - SERUM 1.1 mg/dL (0.6-1.3); POTASSIUM - SERUM 4.5 mmol/L (3.5-5.1)
[2018-06-03 07:54] LABS: BASOPHILS 0.1 % (0-2); EOSINOPHILS 0 % (0-7); HEMATOCRIT 33.7 % (36.0-48.0); HEMOGLOBIN 10.9 g/dL (12-16); IMMATURE GRANULOCYTES 0.5 % (0-5); LYMPHOCYTES 9.3 % (15-50); MCH 32.3 pg (26.0-34.0); MCHC 32.3 g/dL (31.0-37.0); MEAN PLATELET VOLUME 11.3 fL (7.4-10.4); MONOCYTES 4.5 % (2-11); NEUTROPHILS 85.6 % (40-80); PLATELET COUNT 263 10x3/uL (130-400); RBC 3.37 10x6/uL (4.00-5.40); RDW 12.4 % (11.5-14.5); WBC 15.3 10x3/uL (4.8-10.8)
[2018-06-03 08:30] VITALS: BP 108/51
[2018-06-03 11:56] VITALS: BP 115/46
[2018-06-03 15:13] VITALS: BP 102/46
[2018-06-03 20:04] VITALS: BP 105/48
[2018-06-04 04:17] VITALS: BP 129/73
[2018-06-04 05:29] LABS: BASOPHILS 0.1 % (0-2); EOSINOPHILS 0.1 % (0-7); HEMATOCRIT 33.2 % (36.0-48.0); HEMOGLOBIN 10.8 g/dL (12-16); IMMATURE GRANULOCYTES 0.4 % (0-5); LYMPHOCYTES 24.3 % (15-50); MCH 32.9 pg (26.0-34.0); MCHC 32.5 g/dL (31.0-37.0); MCV 101.2 fL (80.0-100.0); MEAN PLATELET VOLUME 11.1 fL (7.4-10.4); NEUTROPHILS 69.1 % (40-80); PLATELET COUNT 235 10x3/uL (130-400); RBC 3.28 10x6/uL (4.00-5.40); RDW 12.4 % (11.5-14.5); WBC 13.3 10x3/uL (4.8-10.8)
[2018-06-04 05:41] LABS: ANION GAP 10.4 mmol/L (8-16); CALCIUM 8.8 mg/dL (8.5-10.1); CARBON DIOXIDE 28.8 mmol/L (21.0-32.0); CREATININE - SERUM 0.9 mg/dL (0.6-1.3); POTASSIUM - SERUM 4.2 mmol/L (3.5-5.1)
--- NOTE | 2018-06-04 07:39 | NUR ---
PATIENT RECIEVED RESTING IN BED. ADMITTED FOR COPD EXACERBATION. RESPIRATIONS REGULAR AND [id number] DENIES SHORTNESS OF BREATH. CL IN REACH
[2018-06-04 08:52] VITALS: BP 104/49
--- NOTE | 2018-06-04 09:27 | NUR ---
NORCO GIVEN FOR ARTHRITIS PAIN
[2018-06-04 12:57] VITALS: BP 117/61
--- NOTE | 2018-06-04 15:09 | MORECARE ---
CASE MANAGEMENT DISCHARGE SUMMARY PATIENT: SRINIVAS PARRA UNIT: [id number] ADM DATE: 06/01/18 AGE: 88 : 31 SEX: F ROOM/BED: D.2227 AUTHOR: SALLY,DOC PHYSICIAN: REFERRING PHYSICIAN: NAIMA HENRY MD DATE OF SERVICE: 06/04/18 Discharge Plan Patient Name: SRINIVAS PARRA Facility: [facility]:[place] : 1930 Planned Disposition: Anticipated Discharge Date: Discharge Date: Expected LOS: Initial Reviewer: [email or web address] Initial Review Date: 06/01/2018 Generated: 06/04/18 4:08 pm Comments DCP- Discharge Planning Updated by [id number]: Arminda Trang on 06/04/18 2:[address] SPOKE WITH PATIENT ABOUT DC PLANS, SHE STATED THAT SHE IS NOT ON HOSPICE AND SHE WOULD LIKE TO GO HOME TO [address] [place] [address] . SHE STATED THAT SHE HAS MEALS ON WHEELS AND A HIDE CLEANER. HER SON (ZENIA PARRA) IS WHO SHE WILL BE LIVING IN. I CALLED [facility] THE CLINICAL LIAISON TO CHECK INTO WHAT THE PATIENT SAID. CM WILL CONTINUE TO FOLLOW AND ASSIST WITH DC PLANNING DCP- Discharge Planning Updated by [email or web address]: Nena Waters on 06/01/18 2:[address] Patient is a current resident of [facility], in a LT Medicaid bed. [facility] was current, with the admitting Dx: COPD. Tai, with [facility] called and provided information: patient has not walked in 2 years, patient signed her own paperwork/DNR for Hospice, states patient is total dependent with bathing, dressing, medications. [facility] states Hospice will be revoked since patient is admitted w/same diagnosis, but will resume if patient/family chooses. Patient has a financial POA, Marika Chau #[phone] (dtr). [facility] had previously arranged home equipment, medications, per patient request, but patient was never discharged home per family choice. Patient has been hospitalized within the past 30 days, with May [address] [facility]. CM will follow and assist with dc needs/plans. Nena Waters RN, CM DCPIA - Discharge Planning Initial Assessment Updated by [email or web address]: Nena Waters on 06/01/18 3:37 pm * Is the patient Alert and Oriented? No * How many steps to enter\exit or inside your home? * PCP Dr. Almaguer ([place]) * Pharmacy Provided by [place] * Preadmission Environment [facility] * Facility Name [facility] * ADLs Total Dependent * Equipment Oxygen * Other Equipment W/C * List name and contact numbers for known caregivers / representatives who currently or will assist patient after discharge: Keara Chau (dtr and Financial POA) [phone] * Verbal permission to speak to the caregivers and representatives has been obtained from the patient. N/A * Please name any agencies selected above. [facility] * Additional services required to return to the preadmission environment? No * Can the patient safely return to the preadmission environment? Yes * Has this patient been hospitalized within the prior 30 days at any hospital? Yes Last DP export: 06/01/18 2:43 p Patient Name: SRINIVAS PARRA Page [id number] at 1509 All edits/amendments must be made on the electronic document DICTATION DATE: 06/04/181507 BILL CHECKER: NAYE 06/04/181507 RPT#: [id number] DC DATE: STATUS: ADM IN [facility] [address] [place] [address] END OF REPORT
[2018-06-04 20:00] VITALS: BP 98/50
[2018-06-05] VITALS: BP 99/42
[2018-06-05 04:00] VITALS: BP 102/63
[2018-06-05 07:02] LABS: CALCIUM 8.4 mg/dL (8.5-10.1); CARBON DIOXIDE 28.1 mmol/L (21.0-32.0); CREATININE - SERUM 0.8 mg/dL (0.6-1.3); POTASSIUM - SERUM 4.1 mmol/L (3.5-5.1)
[2018-06-05 07:09] LABS: BASOPHILS 0.1 % (0-2); EOSINOPHILS 0.3 % (0-7); HEMATOCRIT 34.7 % (36.0-48.0); HEMOGLOBIN 11.2 g/dL (12-16); IMMATURE GRANULOCYTES 0.3 % (0-5); LYMPHOCYTES 32.9 % (15-50); MCH 32.7 pg (26.0-34.0); MCHC 32.3 g/dL (31.0-37.0); MCV 101.5 fL (80.0-100.0); MEAN PLATELET VOLUME 11.6 fL (7.4-10.4); MONOCYTES 8.1 % (2-11); NEUTROPHILS 58.3 % (40-80); PLATELET COUNT 213 10x3/uL (130-400); RBC 3.42 10x6/uL (4.00-5.40); RDW 12.4 % (11.5-14.5); WBC 12.6 10x3/uL (4.8-10.8)
--- NOTE | 2018-06-05 07:55 | NUR ---
AAOX4. ON 3LPM VIA NC, IV TO LEFT FOREARM, PATENT, SALINE LOCKED, DENIES ANY CURRENT NEEDS OR DISCOMFORTS, BED LOWERED AND LOCKED, CALL LIGHT WITHIN REACH. CPOC
[2018-06-05 08:30] VITALS: BP 121/52
--- NOTE | 2018-06-05 10:15 | NUR ---
LYING IN BED,WITHOUT DISTRESS.CALL LIGHT IN REACH
--- NOTE | 2018-06-05 14:02 | NUR ---
Nutrition Follow Up: Pt stated that her appetite is improving. Food preferences noted. RD encouraged pt to continue increasing po intake as able and to make staff aware of any food preferences. Diet: ADA PO Intake: 67% meal avg BM: 06/02/18 Wt stable Labs reviewed - Glucose trending down Meds noted including Prednisone, Lasix Rec continue current diet. RD following.
[2018-06-05 14:08] VITALS: BP 103/40
[2018-06-05 17:26] VITALS: BP 108/52
[2018-06-05 20:00] VITALS: BP 96/45
[2018-06-06 00:57] VITALS: BP 81/49
--- NOTE | 2018-06-06 04:00 | NUR ---
I have reviewed this patient and I concur with the Shift Assessment completed by the Licensed Practical Nurse today this shift.
[2018-06-06 05:16] VITALS: BP 103/49
[2018-06-06 05:46] LABS: BASOPHILS 0.1 % (0-2); EOSINOPHILS 1.2 % (0-7); HEMATOCRIT 33.7 % (36.0-48.0); HEMOGLOBIN 10.9 g/dL (12-16); IMMATURE GRANULOCYTES 0.5 % (0-5); LYMPHOCYTES 35.4 % (15-50); MCH 32.8 pg (26.0-34.0); MCHC 32.3 g/dL (31.0-37.0); MCV 101.5 fL (80.0-100.0); MEAN PLATELET VOLUME 11.3 fL (7.4-10.4); MONOCYTES 6.8 % (2-11); PLATELET COUNT 251 10x3/uL (130-400); RBC 3.32 10x6/uL (4.00-5.40); RDW 12.5 % (11.5-14.5); WBC 14.7 10x3/uL (4.8-10.8)
[2018-06-06 06:19] LABS: ANION GAP 9.3 mmol/L (8-16); CALCIUM 8.3 mg/dL (8.5-10.1); CARBON DIOXIDE 30.3 mmol/L (21.0-32.0); CREATININE - SERUM 0.9 mg/dL (0.6-1.3); POTASSIUM - SERUM 3.6 mmol/L (3.5-5.1)
--- NOTE | 2018-06-06 07:50 | NUR ---
AAOX4. ON 3LPM NC, IV TO LEFT FOREARM, PATENT, SALINE LOCKED, DENIES ANY CURRENT NEEDS OR DISCOMFORTS, BED LOWERED AND LOCKED, CALL LIGHT WITHIN REACH. CPOC
[2018-06-06 08:19] VITALS: BP 107/42
[2018-06-06 12:00] VITALS: BP 90/51
--- NOTE | 2018-06-06 15:40 | NUR ---
I have reviewed this patient and I concur with the Shift Assessment completed by the Licensed Practical Nurse today this shift.
[2018-06-06 17:42] VITALS: BP 102/52
[2018-06-06 20:53] VITALS: BP 110/35
--- NOTE | 2018-06-06 21:00 | NUR ---
PT SITTING UP IN BED, NO SIGNS OF DISTRESS. ALERT AND ORIENTED. O2 2L/NC. IV LEFT FA SL. PT REQUESTED AND GIVEN TESSALON FOR COUGH. BS 264, GAVE 10 UNITS ORDERED. HS MEDS GIVEN WITHOUT DIFFICULTY. REFUSES SCDS. DENIES OTHER NEEDS AT THIS TIME. CL IN REACH, WILL CONT TO MONITOR
[2018-06-07 00:18] VITALS: BP 124/50
[2018-06-07 04:00] VITALS: BP 113/55
[2018-06-07 05:01] LABS: BASOPHILS 0.1 % (0-2); EOSINOPHILS 1.3 % (0-7); HEMATOCRIT 34.4 % (36.0-48.0); HEMOGLOBIN 11.1 g/dL (12-16); IMMATURE GRANULOCYTES 0.6 % (0-5); LYMPHOCYTES 28.1 % (15-50); MCH 32.7 pg (26.0-34.0); MCHC 32.3 g/dL (31.0-37.0); MCV 101.5 fL (80.0-100.0); MEAN PLATELET VOLUME 10.6 fL (7.4-10.4); MONOCYTES 6.9 % (2-11); PLATELET COUNT 250 10x3/uL (130-400); RBC 3.39 10x6/uL (4.00-5.40); RDW 12.3 % (11.5-14.5); WBC 16.2 10x3/uL (4.8-10.8)
[2018-06-07 05:13] LABS: ANION GAP 8.9 mmol/L (8-16); CALCIUM 8.5 mg/dL (8.5-10.1); CARBON DIOXIDE 30.2 mmol/L (21.0-32.0); CREATININE - SERUM 0.9 mg/dL (0.6-1.3); POTASSIUM - SERUM 4.1 mmol/L (3.5-5.1)
[2018-06-07 13:44] VITALS: BP 99/44
[2018-06-07 17:47] VITALS: BP 88/70
--- NOTE | 2018-06-07 18:11 | NUR ---
ALERT AND ORIENTED WITH H/L TO LT. FOREARM. TRACE EDEMA TO BLE AND DIMINSISHED BS TO LLQ ANTERIOR. ENCOURAGED INCENTIVE SPIROMETER. TESSALON PERARL GIVEN PRN FOR NONPRODIUCTIVE COUGH. SCD'S PLACED AND IN AT THIS TIME. O2 2L N/C. FSBS AC/HS PER S/S . ENCOURAGED TO USE CALL LIGHT FOR ASSIT
[2018-06-07 20:00] VITALS: BP 99/49
[2018-06-08] VITALS: BP 100/51
[2018-06-08 03:00] VITALS: BP 106/69
[2018-06-08 06:30] LABS: BASOPHILS 0.1 % (0-2); EOSINOPHILS 1.3 % (0-7); HEMATOCRIT 35.7 % (36.0-48.0); HEMOGLOBIN 11.4 g/dL (12-16); IMMATURE GRANULOCYTES 0.6 % (0-5); LYMPHOCYTES 31.7 % (15-50); MCH 32.5 pg (26.0-34.0); MCHC 31.9 g/dL (31.0-37.0); MCV 101.7 fL (80.0-100.0); MEAN PLATELET VOLUME 9.9 fL (7.4-10.4); MONOCYTES 6.4 % (2-11); NEUTROPHILS 59.9 % (40-80); PLATELET COUNT 265 10x3/uL (130-400); RBC 3.51 10x6/uL (4.00-5.40); RDW 12.4 % (11.5-14.5)
[2018-06-08 06:49] LABS: ANION GAP 10.6 mmol/L (8-16); CALCIUM 8.5 mg/dL (8.5-10.1); CARBON DIOXIDE 30.1 mmol/L (21.0-32.0); POTASSIUM - SERUM 3.7 mmol/L (3.5-5.1)
[2018-06-08 08:04] VITALS: BP 109/59
--- NOTE | 2018-06-08 08:45 | NUR ---
PATIENT IN BED WITH IV INTACT. NO COMPLAINTS OR SIGNS OF DISTRESS. BSCDS ON AND WORKING. CALL LIGHT WITHIN REACH.
--- NOTE | 2018-06-08 09:50 | NUR ---
No open wounds noted. Pt does have some scarring on the back of right thigh at buttocks. Right heel is red and slow to jovany. Pt is incontinent and requires assistance with personal care. Recommended: -turning/repositioning q 2 hours - bridging heels off of the mattress and pillows (float) -frequent personal care for incontinence - use zinc oxide paste for protection. Wound care conintues to monitor.
--- NOTE | 2018-06-08 10:45 | NUR ---
PATIENT IN BED WITH NO COMPLAINTS OR SIGNS OF DISTRESS. IV INTACT. EYES CLOSED RESTING QUIETLY. CALL LIGHT WITHIN REACH.
--- NOTE | 2018-06-08 11:53 | MORECARE ---
CASE MANAGEMENT DISCHARGE SUMMARY PATIENT: SRINIVAS PARRA UNIT: [id number] ADM DATE: 06/01/18 AGE: 88 : 31 SEX: F ROOM/BED: D.2227 AUTHOR: SALLY,DOC PHYSICIAN: REFERRING PHYSICIAN: NAIMA HENRY MD DATE OF SERVICE: 06/08/18 Discharge Plan Patient Name: SRINIVAS PARRA Facility: [facility]:[place] : 1930 Planned Disposition: Anticipated Discharge Date: Discharge Date: Expected LOS: Initial Reviewer: [id number] Initial Review Date: 06/01/2018 Generated: 06/08/18 12:53 pm Comments DCP- Discharge Planning Updated by [id number]: Bettyestelita Gustafson on 06/08/18 10:[address] I spoke with patient's daughter and financial POA, Keara Chau, concerning discharge plan. She states her mother is a total care and no one is able to take care of her and she will have to go back to ocean transportation intermediary care at [facility]. She states that her brother, Rafal, is unable to care for her. I notified Oz Cervantes, liason for [facility], of discharge plan. CM will continue to follow and assist with discharge planning/needs. DCP- Discharge Planning Updated by [email or web address]: Arminda Trang on 06/04/18 2:[address] SPOKE WITH PATIENT ABOUT DC PLANS, SHE STATED THAT SHE IS NOT ON HOSPICE AND SHE WOULD LIKE TO GO HOME TO [address] [place] [address] . SHE STATED THAT SHE HAS MEALS ON WHEELS AND A SPINNING BATH PATROLLER. HER SON (RAFAL PARRA) IS WHO SHE WILL BE LIVING IN. I CALLED OZ THE CLINICAL LIAISON TO CHECK INTO WHAT THE PATIENT SAID. CM WILL CONTINUE TO FOLLOW AND ASSIST WITH DC PLANNING DCP- Discharge Planning Updated by [id number]: Nena Waters on 06/01/18 2:[address] Patient is a current resident of [facility], in a LT Medicaid bed. [facility] was current, with the admitting Dx: COPD. Tai, with [facility] called and provided information: patient has not walked in 2 years, patient signed her own paperwork/DNR for Hospice, states patient is total dependent with bathing, dressing, medications. Tai states Hospice will be revoked since patient is admitted w/same diagnosis, but will resume if patient/family chooses. Patient has a financial POA, Marika Chau #[phone] (dtr). [facility] had previously arranged home equipment, medications, per patient request, but patient was never discharged home per family choice. Patient has been hospitalized within the past 30 days, with May [address] [facility]. CM will follow and assist with dc needs/plans. Nena Waters RN CM DCPIA - Discharge Planning Initial Assessment Updated by [id number]: Nena Waters on 06/01/18 3:37 pm * Is the patient Alert and Oriented? No * How many steps to enter\exit or inside your home? * PCP Dr. Almaguer ([place]) * Pharmacy Provided by [place] * Preadmission Environment [facility] * Facility Name [facility] * ADLs Total Dependent * Equipment Oxygen * Other Equipment W/C * List name and contact numbers for known caregivers / representatives who currently or will assist patient after discharge: Keara Chau (dtr and Financial POA) [phone] * Verbal permission to speak to the caregivers and representatives has been obtained from the patient. N/A * Please name any agencies selected above. [facility] * Additional services required to return to the preadmission environment? No * Can the patient safely return to the preadmission environment? Yes * Has this patient been hospitalized within the prior 30 days at any hospital? Yes Last DP export: 06/04/18 2:09 p Patient Name: SRINIVAS PARRA Page [id number] at 1153 All edits/amendments must be made on the electronic document DICTATION DATE: 06/08/18 1153 HYPERION ANALYST: NAYE 06/08/18 1153 RPT#: [id number] DC DATE: STATUS: ADM IN [facility] [address] [place] [address] END OF REPORT
[2018-06-08] MEDS ORDERED: FLORAJEN3 CAPS460 MG PO (13:08)
[2018-06-08] MEDS ORDERED: SINGULAIR10 MG PO (13:08)
[2018-06-08] MEDS ORDERED: LEVOFLOXACIN500 MG PO (13:08)
--- NOTE | 2018-06-08 13:17 | MORECARE ---
CASE MANAGEMENT DISCHARGE SUMMARY PATIENT: SIRNIVAS PARRA UNIT: [id number] ADM DATE: 06/01/18 AGE: 88 : 31 SEX: F ROOM/BED: D.2227 AUTHOR: SALLY,DOC PHYSICIAN: REFERRING PHYSICIAN: NAIMA HENRY MD DATE OF SERVICE: 06/08/18 Discharge Plan Patient Name: SRINIVAS PARRA Facility: [facility]:[place] : 1930 Planned Disposition: Anticipated Discharge Date: Discharge Date: Expected LOS: Initial Reviewer: [id number] Initial Review Date: 06/01/2018 Generated: 06/08/18 2:16 pm Comments DCP- Discharge Planning Updated by [id number]: Bettyestelita Gustafson on 06/08/18 10:[address] I spoke with patient's daughter and financial POA, Keara Chau, concerning discharge plan. 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 She states that her brother, Rafal, is unable to care for her. I notified Oz Crevantes, liason for [facility], of discharge plan. CM will continue to follow and assist with discharge planning/needs. DCP- Discharge Planning Updated by [id number]: Arminda Trang on 06/04/18 2:[address] SPOKE WITH PATIENT ABOUT DC PLANS, SHE STATED THAT SHE IS NOT ON HOSPICE AND SHE WOULD LIKE TO GO HOME TO [address] [place] [address] . SHE STATED THAT SHE HAS MEALS ON WHEELS AND A COMPUTER EDUCATION PROFESSOR. HER SON (RAFAL PARRA) IS WHO SHE WILL BE LIVING IN. I CALLED OZ THE CLINICAL LIAISON TO CHECK INTO WHAT THE PATIENT SAID. CM WILL CONTINUE TO FOLLOW AND ASSIST WITH DC PLANNING DCP- Discharge Planning Updated by [id number]: Nena Waters on 06/01/18 2:[address] Patient is a current resident of [facility], in a LT Medicaid bed. [facility] was current, with the admitting Dx: COPD. Tai, with [facility] called and provided information: patient has not walked in 2 years, patient signed her own paperwork/DNR for Hospice, states patient is total dependent with bathing, dressing, medications. [facility] will be revoked since patient is admitted w/same diagnosis, but will resume if patient/family chooses. Patient has a financial POA, Marika Chau #[phone] (dtr). [facility] had previously arranged home equipment, medications, per patient request, but patient was never discharged home per family choice. Patient has been hospitalized within the past 30 days, with May 18 dc date from [facility]. CM will follow and assist with dc needs/plans. Nena Waters RN CM DCPIA - Discharge Planning Initial Assessment Updated by [id number]: Nena Waters on 06/01/18 3:37 pm * Is the patient Alert and Oriented? No * How many steps to enter\exit or inside your home? * PCP Dr. Almaguer ([place]) * Pharmacy Provided by [place] * Preadmission Environment [facility] * Facility Name [facility] * ADLs Total Dependent * Equipment Oxygen * Other Equipment W/C * List name and contact numbers for known caregivers / representatives who currently or will assist patient after discharge: Keara Chau (dtr and Financial POA) [phone] * Verbal permission to speak to the caregivers and representatives has been obtained from the patient. N/A * Please name any agencies selected above. [facility] * Additional services required to return to the preadmission environment? No * Can the patient safely return to the preadmission environment? Yes * Has this patient been hospitalized within the prior 30 days at any hospital? Yes External Providers External Provider: [facility] Next Contact Date: Service Request Date: Service Type: Resolution: Reviewer: Comments: Coverage Notice Reviewer: [id number] Mily Gustafson Notice Issued Date-Time: 06/08/2018 13:14 Notice Type: IM Discharge Notice Notice Delivered To: Patient Relationship to Patient: Self Superintendent Plant Name: Delivery Method: HAND - Hand Delivered Prudence Days: Prior Verbal Notification: Recipient Understood Notice: Yes Recipient Signature: Yes Med Rec Note Co-signed by Attending: Coverage Notice Comment: IMM explained, signed, given, copy placed in MR Last DP export: 06/08/18 10:53 a Patient Name: SRINIVAS PARRA Page [phone] at 1317 All edits/amendments must be made on the electronic document DICTATION DATE: 06/08/18 131 NURSING PROGRAM DIRECTOR: NAYE 06/08/181315 RPT#: [id number] DC DATE: STATUS: ADM IN [facility] [address] [place] [address] END OF REPORT
--- NOTE | 2018-06-08 13:23 | MORECARE ---
CASE MANAGEMENT DISCHARGE SUMMARY PATIENT: SRINIVAS PARRA UNIT: [id number] ADM DATE: 06/01/18 AGE: 88 : 31 SEX: F ROOM/BED: D.2227 AUTHOR: SALLY,DOC PHYSICIAN: REFERRING PHYSICIAN: NAIMA HENRY MD DATE OF SERVICE: 06/08/18 Discharge Plan Patient Name: SRINIVAS PARRA Facility: [facility]:[place] : 1930 Planned Disposition: Anticipated Discharge Date: Discharge Date: Expected LOS: Initial Reviewer: [id number] Initial Review Date: 06/01/2018 Generated: 06/08/18 2:23 pm Comments DCP- Discharge Planning Updated by [id number]: Betty Gustafson on 06/08/18 12:[address] Patient has agreed to go back to [facility] to a skilled bed. She would like them to work on getting her stronger with the goal of returning home. I notified patient's daughter, Keara. IMM explained and signed, [facility] for [facility] signed and clinical faxed. CM will continue to follow and assist with discharge planning/needs. She will discharge to a skilled (Medicare) bed. DCP- Discharge Planning Updated by [email or web address]: Betty Gustafson on 06/08/18 10:[address] I spoke with patient's daughter and financial POA, Keara Chau, concerning discharge plan. She states her mother is a total care and no one is able to take care of her and she will have to go back to casting repairer care at [facility]. She states that her brother, Rafal, is unable to care for her. I notified Oz Cervantes, liason for [facility], of discharge plan. CM will continue to follow and assist with discharge planning/needs. DCP- Discharge Planning Updated by [id number]: Arminda Costello on 06/04/18 2:[address] SPOKE WITH PATIENT ABOUT DC PLANS, SHE STATED THAT SHE IS NOT ON HOSPICE AND SHE WOULD LIKE TO GO HOME TO [address] [place] [address] . SHE STATED THAT SHE HAS MEALS ON WHEELS AND A DIE SINKING MACHINE OPERATOR. HER SON (RAFAL PARRA) IS WHO SHE WILL BE LIVING IN. I CALLED OZ THE CLINICAL LIAISON TO CHECK INTO WHAT THE PATIENT SAID. CM WILL CONTINUE TO FOLLOW AND ASSIST WITH DC PLANNING DCP- Discharge Planning Updated by [id number]: Nena Evelin on 06/01/18 2:[address] Patient is a current resident of [facility], in a LT Medicaid bed. [facility] was current, with the admitting Dx: COPD. Tai, with [facility] called and provided information: patient has not walked in 2 years, patient signed her own paperwork/DNR for Hospice, states patient is total dependent with bathing, dressing, medications. Tai states Hospice will be revoked since patient is admitted w/same diagnosis, but will resume if patient/family chooses. Patient has a financial POA, Marika Chau #[phone] (dtr). [facility] had previously arranged home equipment, medications, per patient request, but patient was never discharged home per family choice. Patient has been hospitalized within the past 30 days, with May 18 dc date from [facility]. CM will follow and assist with dc needs/plans. Nena Waters RN CM DCPIA - Discharge Planning Initial Assessment Updated by [id number]: Nena Waters on 06/01/18 3:37 pm * Is the patient Alert and Oriented? No * How many steps to enter\exit or inside your home? * PCP Dr. Almaguer ([place]) * Pharmacy Provided by [place] * Preadmission Environment [facility] * Facility Name [facility] * ADLs Total Dependent * Equipment Oxygen * Other Equipment W/C * List name and contact numbers for known caregivers / representatives who currently or will assist patient after discharge: Keara Chau (dtr and Financial POA) [phone] * Verbal permission to speak to the caregivers and representatives has been obtained from the patient. N/A * Please name any agencies selected above. [facility] * Additional services required to return to the preadmission environment? No * Can the patient safely return to the preadmission environment? Yes * Has this patient been hospitalized within the prior 30 days at any hospital? Yes Coverage Notice Reviewer: [id number] - Betty Gustafson Notice Issued Date-Time: 06/08/2018 13:14 Notice Type: IM Discharge Notice Notice Delivered To: Patient Relationship to Patient: Self Collections Analyst Name: Delivery Method: HAND - Hand Delivered Prudence Days: Prior Verbal Notification: Recipient Understood Notice: Yes Recipient Signature: Yes Med Rec Note Co-signed by Attending: Coverage Notice Comment: IMM explained, signed, given, copy placed in MR Reviewer: [id number] Mily Betty Gustafson Notice Issued Date-Time: 06/08/2018 13:15 Notice Type: Patient Choice Letter Notice Delivered To: Patient Relationship to Patient: Self Collections Analyst Name: Delivery Method: HAND - Hand Delivered Prudence Days: Prior Verbal Notification: Recipient Understood Notice: Yes Recipient Signature: Yes Med Rec Note Co-signed by Attending: Coverage Notice Comment: IMM for [facility] Last DP export: 06/08/18 12:16 p Patient Name: SRINIVAS PARRA Page [id number] at 1323 All edits/amendments must be made on the electronic document DICTATION DATE: 06/08/18 1323 CRUSHER LOADER OPERATOR: NAYE 06/08/18 1323 RPT#: [id number] DC DATE: STATUS: ADM IN [facility] [address] [place] [address] END OF REPORT
--- NOTE | 2018-06-08 14:42 | NUR ---
PATIENT IN BED WITH NO COMPLAINTS. FAMILY AT BEDSIDE. CALL LIGHT WITHIN REACH. AWAITING DC TRANSPORTATION.
--- NOTE | 2018-06-10 10:38 | EC ---
PATIENT:SRINIVAS PARRA DATE OF SERVICE: 06/01/18 SEX: F MEDICAL RECORD: [id number] DATE OF : [birth year] LOCATION:D.MS [address] AGE OF PATIENT: 88 ADMISSION DATE: 06/01/18 REFERRING PHYSICIAN: INTERPRETING PHYSICIAN: MELITON VALDEZ MD ECHOCARDIOGRAM REPORT ECHO CHARGES 4 ECHO COMPLETE Date: 06/02/18 CLINICAL DIAGNOSIS: ECHOCARDIOGRAPHIC MEASUREMENTS (adult normal given) AC root (d.<3.7cm) 3.0 cm LV Septum d (<1.2 cm> 1.9 cm Valve Excursion 1.9 cm LV Septum (systole) 2.4 cm Left Atria (s.<4.0cm> 4.6 cm LVPW d(<1.2cm) 1.7 cm RV (d.<2.3cm) 2.8 cm LVPW (sytole) 2.3 cm LV diastole(<5.6CM) 4.2 cm MV E-F(>70mm/sec) cm LV systole 2.1 cm LVOT Diameter 1.7 cm MV exc.(>10mm) cm Est.ejection fraction (50-75%) % DOPPLER: LVIT cm/sec A 34.0 cm/sec E 151 cm/sec LA cm/sec RVSP mmHg LVOT 88.0 cm/sec AOP1/2T m/s Asc. Ao 163 cm/sec RVOT 84.0 cm/sec RA cm/sec PA 83.0 cm/sec AV Gradient Peak 11.0 mmHg AV Mean 6.7 mmHg AV Area 1.0 cm MV Gradient Peak 13.2 mmHg MV Mean 2.7 mmHg MV Area cm COMMENTS: Warp Bleaching Vat Tender: Mima BRENNEROE Aix Administrator: 1 Dr. Valdez TAPE# PACS Pericardial Effusion N DATE OF SERVICE: 06/02/2018 FINDINGS: 1. Left ventricular chamber size is in the upper limits of normal, left ventricular systolic function is moderately reduced, overall ejection fraction 30%. There is global hypokinesis throughout all segments with no discrete wall motion abnormalities present. 2. Left atrium is enlarged at 4.6 cm. Right atrium and right ventricular chamber sizes are as well mildly dilated. 3. Valvular structures have normal structure and motion. ECHOCARDIOGRAM REPORT [id number] SRINIVAS PARRA 4. Doppler interrogation reveals mild mitral regurgitation, mild tricuspid regurgitation, no other valvular insufficiency or stenosis. 5. No evidence of pericardial effusion or left ventricular thrombus. TRANSINT:[id number] Voice Confirmation ID: [id number] DOCUMENT ID: [id number] MELITON VALDEZ MD at 1038 CC: [id number] DICTATION DATE: 06/03/18412 LINE UP WORKER: 06/03/18429 DIS IN 06/08/18 [place] [id number] [place] [id number]
== END 2018-06-08 15:53 | DRG 202 ==
LOC: D.ER 09:44 → D.EDHOLD 13:53 → D.MS 13:53
PROVIDERS: Family Medicine; ADMIT Internal Medicine Nephrology; ATTEND Internal Medicine Nephrology
DX: J20.9 Acute bronchitis, unspecified (principal); J18.9 Pneumonia, unspecified organism; J44.1 Chronic obstructive pulmonary disease with (acute) exacerbation; I50.22 Chronic systolic (congestive) heart failure; J44.0 Chronic obstructive pulmonary disease with (acute) lower respiratory infection; Z68.43 Body mass index [BMI] 50.0-59.9, adult; E03.9 Hypothyroidism, unspecified; K44.9 Diaphragmatic hernia without obstruction or gangrene; E66.01 Morbid (severe) obesity due to excess calories

== ENCOUNTER → 2018-06-18 09:54 | Outpatient (CLI) | payer MEDICARE ==
[2018-06-02 13:40] VITALS: BMI 56.5
[~2018-06-18 09:54] MED LIST changes: +LEVOFLOXACIN500 MG PO
--- NOTE | 2018-06-18 10:37 | NUR ---
PT CAME FOR PFT, HAS CUSTOM WHEELCHAIR AND WE COULD NOT GET WHEELCHAIR INTO ROOM. SHE HAS HER FLIGHT LINE MECHANIC WITH HER AND HE TRIED AND ALSO STATED THAT SHE IS A XAVIER LIFT PATIENT. NOÉ CALLED TO INFORM HER THAT I COULD NOT DO TEST.
== END | disposition home or self-care (01) ==
LOC: D.RT 09:54
PROVIDERS: ATTEND Family Medicine
DX: J44.9 Chronic obstructive pulmonary disease, unspecified (principal)

== ENCOUNTER 2018-07-28 03:23 | Inpatient (IN) | payer MEDICARE ==
[2018-07-28] VITALS (9 sets, daily range): BP systolic 112–128; BP diastolic 53–68; BMI 54.0
[2018-07-28] MEDS ORDERED: AMBIEN10 MG PO (03:56)
[2018-07-28] MEDS ORDERED: GUAIFENESI100 MG/5 M PO (03:57)
[2018-07-28] MEDS ORDERED: MILK OF MAGNESI30 ML PO (03:57)
[2018-07-28] MEDS ORDERED: BENADRYL25 MG PO (03:58)
[2018-07-28] MEDS ORDERED: ZOFRAN4 MG PO (03:58)
[2018-07-28] MEDS ORDERED: PAXIL30 MG PO (03:59)
[2018-07-28] MEDS ORDERED: BREO ELLIPTA 21 EACH (03:59)
--- NOTE | 2018-07-28 04:06 | NUR ---
LAB AND RT AT PT BEDSIDE.
[2018-07-28 04:23] LABS: BASOPHILS 0.2 % (0-2); EOSINOPHILS 8.4 % (0-7); HEMATOCRIT 35.1 % (36.0-48.0); HEMOGLOBIN 11.3 g/dL (12-16); IMMATURE GRANULOCYTES 0.4 % (0-5); LYMPHOCYTES 36.5 % (15-50); MCH 32.5 pg (26.0-34.0); MCHC 32.2 g/dL (31.0-37.0); MCV 100.9 fL (80.0-100.0); MEAN PLATELET VOLUME 9.8 fL (7.4-10.4); MONOCYTES 4.6 % (2-11); NEUTROPHILS 49.9 % (40-80); PLATELET COUNT 227 10x3/uL (130-400); RBC 3.48 10x6/uL (4.00-5.40); RDW 12.8 % (11.5-14.5)
--- NOTE | 2018-07-28 04:25 | NUR ---
IN/OUT PERFORMED ON PT. PT TOLERATED WELL. URINE SPECIMEN SENT TO LAB. PT REPORTS DECREASE IN SOB AFTER RECEIVING UPDRAFT ON ARRIVAL. O2 SAT 97% ON 2L AT THIS TIME.
[2018-07-28 04:40] LABS: ALBUMIN 2.5 g/dL (3.4-5.0); ALKALINE PHOSPHATASE 97 U/L (46-116); ALT (SGPT) 13 U/L (10-68); BILIRUBIN - TOTAL 0.32 mg/dL (0.2-1.3); CALC OSMOLALITY 283 mosm/kg (275-300); CALCIUM 8.3 mg/dL (8.5-10.1); CARBON DIOXIDE 29.3 mmol/L (21.0-32.0); CHLORIDE - SERUM 105 mmol/L (98-107); CREATININE - SERUM 1.1 mg/dL (0.6-1.3); GLUCOSE 134 mg/dL (74-106); POTASSIUM - SERUM 3.9 mmol/L (3.5-5.1); PROTEIN - SERUM 6.7 g/dL (6.4-8.2); SODIUM 141 mmol/L (136-145); UREA NITROGEN 14 mg/dL (7-18); eGFR NON AFRICAN AMERICAN 50 mL/min (90-120)
[2018-07-28 04:54] LABS: CKMB 0.2 U/L (0.0-3.6); CREATINE KINASE 35 UL (21-215); PRO BNP 376 pg/mL (0-450); TROPONIN-I < 0.017 ng/mL (0.000-0.060)
[2018-07-28 05:09] LABS: COLOR YELLOW (YELLOW)
[2018-07-28 05:10] LABS: APPEARANCE CLEAR (CLEAR); BACTERIA FEW /hpf (NONE SEEN); BILIRUBIN NEGATIVE (NEGATIVE); EPITHELIAL CELLS 0-5 /hpf (0-5); GLUCOSE NEGATIVE (NEGATIVE); KETONE NEGATIVE (NEGATIVE); NITRITE NEGATIVE (NEGATIVE); PROTEIN NEGATIVE (NEGATIVE); RED CELLS - URINE 0-5 /hpf (0-5); UROBILINOGEN NORMAL (NORMAL); WHITE CELLS - URINE 0-5 /hpf (0-5)
--- NOTE | 2018-07-28 05:15 | NUR ---
PT RESTING ON BED, CALL LIGHT IN REACH. PT DENIES NEEDS AT THIS TIME.
--- NOTE | 2018-07-28 05:33 | NUR ---
PT LEFT ED VIA STRETCHER FOR CT.
--- NOTE | 2018-07-28 06:02 | NUR ---
PT RETURNED FROM CT VIA STRETCHER.
--- NOTE | 2018-07-28 07:00 | NUR ---
ASSUMED CARE OF PT. A/OX3. VERY TALKATIVE. DENIES ANY C/O. RESP EVEN/UNALBORED. SKIN W/D/P.
--- NOTE | 2018-07-28 07:10 | NUR ---
FSBS= 124MG/DL
--- NOTE | 2018-07-28 07:36 | NUR ---
REPORT CALLED TO SARAY PHILLIPS BY SBAR FORMAT
--- NOTE | 2018-07-28 08:29 | NUR ---
ADMITTED FROM ER. ALERT AND ORIENTED. ROOM 2109. MORBID OBESITY. NO C/O PAIN. CL IN REACH.
--- NOTE | 2018-07-28 12:50 | NUR ---
called pharmacy and waiting for reg insulin and paxil. non on unit or in pyxis.
--- NOTE | 2018-07-28 17:50 | NUR ---
FAMILY AT BS. NO CHANGE IN ASSESSMENT. NO C/O PAIN. CL IN REACH.
--- NOTE | 2018-07-28 19:35 | NUR ---
REPORT RECIEVED AND ROUNDING COMPLETE. PT LAYING IN BED, AT BEDSIDE. PT IS COMPLAINING OF COUGHING. PT STATES IT IS A NON PRODUTIVE COUGH. PT IS WEARING A NC AND RECIEVING 02 @ 2L. PT HAS A RIGHT AND RIGHT AC BOTH SALINE LOCKED AND ORANGE CAPPED. PT STATES SHE HAS NO NEEDS AT THIS TIME. CALL LIGHT WITHIN REACH AND BED IN LOWEST POSITION.
[2018-07-29] VITALS: BP 127/45
--- NOTE | 2018-07-29 00:33 | NUR ---
I have reviewed this patient and I concur with the Shift Assessment completed by the Licensed Practical Nurse today this shift.
[2018-07-29 04:00] VITALS: BP 108/46
[2018-07-29 07:30] LABS: BASOPHILS 0.1 % (0-2); EOSINOPHILS 0.2 % (0-7); HEMATOCRIT 32.8 % (36.0-48.0); HEMOGLOBIN 10.8 g/dL (12-16); IMMATURE GRANULOCYTES 0.5 % (0-5); LYMPHOCYTES 19.5 % (15-50); MCH 32.6 pg (26.0-34.0); MCHC 32.9 g/dL (31.0-37.0); MCV 99.1 fL (80.0-100.0); MONOCYTES 7.1 % (2-11); NEUTROPHILS 72.6 % (40-80); PLATELET COUNT 224 10x3/uL (130-400); RBC 3.31 10x6/uL (4.00-5.40); RDW 12.5 % (11.5-14.5); WBC 14.6 10x3/uL (4.8-10.8)
[2018-07-29 08:27] LABS: ANION GAP 13.9 mmol/L (8-16); CALCIUM 9.1 mg/dL (8.5-10.1); CARBON DIOXIDE 26.9 mmol/L (21.0-32.0); CHOL - HDL RATIO 3.5 ratio (2.3-4.1); LDL-HDL RATIO 2.3 ratio (1.5-3.5); POTASSIUM - SERUM 3.8 mmol/L (3.5-5.1); THYROID STIMULATING HORMONE 0.26 uIU/mL (0.36-3.74)
[2018-07-29 08:29] LABS: CREATININE - SERUM 0.8 mg/dL (0.6-1.3)
[2018-07-29 08:30] VITALS: BP 99/48
[2018-07-29 10:39] VITALS: BMI 53.9
--- NOTE | 2018-07-29 11:21 | MORECARE ---
CASE MANAGEMENT DISCHARGE SUMMARY PATIENT: SRINIVAS PARRA UNIT: [id number] ADM DATE: 07/29/18 AGE: 88 : 31 SEX: F ROOM/BED: D.1210 AUTHOR: HALLEY ZAVALA PHYSICIAN: REFERRING PHYSICIAN: KACI ALMAGUER MD DATE OF SERVICE: 07/29/18 Discharge Plan Patient Name: SRINIVAS PARRA Facility: [facility]:[place] : 1930 Planned Disposition: [facility] Facility Anticipated Discharge Date: 07/31/18 Discharge Date: Expected LOS: 2 Initial Reviewer: [email or web address] Initial Review Date: 07/28/2018 Generated: 07/29/18 12:21 pm DCPIA - Discharge Planning Initial Assessment Updated by [email or web address]: Naida Kay on 07/29/18 11:20 am * Is the patient Alert and Oriented? Yes * How many steps to enter\exit or inside your home? None * PCP Dr. Almaguer * Pharmacy [facility] * Preadmission Environment [facility] Facility * Facility Name [facility] Resident * ADLs Partial Dependent * Partial ADLs (Assistance needed) Ambulation Bathing Dressing Medication Management * Equipment Rolling Walker Wheelchair * List name and contact numbers for known caregivers / representatives who currently or will assist patient after discharge: Jimi wellington phone number * Verbal permission to speak to the caregivers and representatives has been obtained from the patient. No * Community resources currently utilized None * Additional services required to return to the preadmission environment? No * Can the patient safely return to the preadmission environment? Yes * Has this patient been hospitalized within the prior 30 days at any hospital? Yes Patient Name: SRINIVAS PARRA Page [id number] at 1121 All edits/amendments must be made on the electronic document DICTATION DATE: 07/29/18 112 CLIENT RESOLUTION SPECIALIST: NAYE 07/29/181120 RPT#: [id number] DC DATE: STATUS: ADM IN [facility] [address] [place] [address] END OF REPORT
--- NOTE | 2018-07-29 11:30 | MORECARE ---
CASE MANAGEMENT DISCHARGE SUMMARY PATIENT: SRINIVAS PARRA UNIT: [id number] ADM DATE: 07/29/18 AGE: 88 : 31 SEX: F ROOM/BED: D.1210 AUTHOR: SALLY,DOC PHYSICIAN: REFERRING PHYSICIAN: KACI ALMAGUER MD DATE OF SERVICE: 07/29/18 Discharge Plan Patient Name: SRINIVAS PARRA Facility: [facility]:[place] : 1930 Planned Disposition: Jail Facility Anticipated Discharge Date: 07/31/18 Discharge Date: Expected LOS: 2 Initial Reviewer: [id number] Initial Review Date: 07/28/2018 Generated: 07/29/18 12:29 pm Comments DCP- Discharge Planning Updated by [email or web address]: Naida Kay on 07/29/18 10:[address] Patient Name: SRINIVAS PARRA Admission Status: ER Accout number: [id number] Admission Date: 07-29-2018 : 1930 Admission Diagnosis: Attending: KACI ALMAGUER Current LOS: 1 Anticipated DC Date: 07-31-2018 Planned Disposition: Jail Facility Primary Insurance: MEDICARE A & B Discharge Planning Comments: CM met with patient to complete initial dc planning assessment. CM educated patient on the CM role and verbal consent given by patient to complete assessment. Patient is currently a resident at [facility]. At discharge patient plans to return to [facility] and feels this is a safe discharge. Patient denied further known discharge needs at this time. . Patient reports will transport him/her home at time of discharge. CM will continue to follow and will assist as needed with dc plans/needs. Retort Pre Cooker: Naida Kay RN, [facility] DCPIA - Discharge Planning Initial Assessment Updated by [email or web address]: Naida Kay on 07/29/18 11:20 am * Is the patient Alert and Oriented? Yes * How many steps to enter\exit or inside your home? None * PCP Dr. Almaguer * Pharmacy [facility] * Preadmission Environment Jail Facility * Facility Name [facility] Resident * ADLs Partial Dependent * Partial ADLs (Assistance needed) Ambulation Bathing Dressing Medication Management * Equipment Rolling Walker Wheelchair * List name and contact numbers for known caregivers / representatives who currently or will assist patient after discharge: Jimi wellington phone number * Verbal permission to speak to the caregivers and representatives has been obtained from the patient. No * Community resources currently utilized None * Additional services required to return to the preadmission environment? No * Can the patient safely return to the preadmission environment? Yes * Has this patient been hospitalized within the prior 30 days at any hospital? Yes Coverage Notice Reviewer: [id number] Mily Kay Notice Issued Date-Time: 07/29/2018 8:15 Notice Type: Medicare Outpatient Observation Notice Notice Delivered To: Patient Relationship to Patient: Crotch Piece Baster Name: Delivery Method: HAND - Hand Delivered Prudence Days: Prior Verbal Notification: Recipient Understood Notice: Recipient Signature: Med Rec Note Co-signed by Attending: Coverage Notice Comment: Last DP export: 07/29/18 10:21 a Patient Name: SRINIVAS PARRA Page [phone] at 1130 All edits/amendments must be made on the electronic document DICTATION DATE: 07/29/181128 CAPSULE MAKER: NAYE 07/29/18 112 RPT#: [id number] DC DATE: STATUS: ADM IN [facility] [address] [place] [address] END OF REPORT
[2018-07-29 12:18] VITALS: BP 127/47
[2018-07-29 20:00] VITALS: BP 132/66
--- NOTE | 2018-07-29 20:16 | NUR ---
PT REST IN BED. FAMILY MEMBER STAY AT BEDSIDE. CALL LIGHT IN REACH.
[2018-07-30] VITALS (7 sets, daily range): BP systolic 105–143; BP diastolic 44–77
--- NOTE | 2018-07-30 04:15 | NUR ---
REST IN QUIETLY IN BED. CALL LIGHT IN REACH.
--- NOTE | 2018-07-30 08:08 | NUR ---
THE PATIENT WAS LYING IN BED WHEN STAFF ENTERED HER ROOM. BED IS IN THE LOW PSOITION WITH SIDERAILS X2 AND CALL LIGHT WITHIN REACH. THE PATIENT WAS EDUCATED ON AND DEMONSTRATES APPRORPIATE USE OF A CALL LIGHT. THE PATIENT APPEARS COMFORTABLE WITH NO QUESTIONS OR COCNERNS AT THIS TIME.
[2018-07-30 09:46] LABS: BASOPHILS 0 % (0-2); EOSINOPHILS 0.4 % (0-7); HEMOGLOBIN 10.3 g/dL (12-16); IMMATURE GRANULOCYTES 0.9 % (0-5); LYMPHOCYTES 9.2 % (15-50); MCH 29.3 pg (26.0-34.0); MCHC 29.4 g/dL (31.0-37.0); MCV 99.7 fL (80.0-100.0); MEAN PLATELET VOLUME 11.6 fL (7.4-10.4); NEUTROPHILS 85.5 % (40-80); RBC 3.51 10x6/uL (4.00-5.40); RDW 12.6 % (11.5-14.5); WBC 11.6 10x3/uL (4.8-10.8)
[2018-07-30 09:47] LABS: PLATELET COUNT 151 10x3/uL (130-400)
[2018-07-30 10:05] LABS: ANION GAP 12.4 mmol/L (8-16); CALCIUM 8.8 mg/dL (8.5-10.1); CARBON DIOXIDE 29.5 mmol/L (21.0-32.0); CREATININE - SERUM 0.9 mg/dL (0.6-1.3)
[2018-07-30 10:07] LABS: POTASSIUM - SERUM 4.9 mmol/L (3.5-5.1)
--- NOTE | 2018-07-30 19:40 | NUR ---
AWAKE. LYING IN BED. SPOUSE AT BEDSIDE. ALERT AND ORIENTED X4. RESP NONLABORED. O2 @ 2L/NC. NONPROD COUGH NOTED. INCONT OF URINE AT THIS TIME. PERICARE PERFORMED. MORBIDLY OBESE. DENIES PAIN. SALINE LOCK NOTED TO RT HAND AND RT AC. NO DISTRESS. SR ELEVATED X2. CL IN REACH.
[2018-07-31 00:15] VITALS: BP 129/71
--- NOTE | 2018-07-31 02:01 | NUR ---
HAS SLEPT WELL SO FAR THIS SHIFT. LYING IN BED. WITH EYES CLOSED. RESP EVEN AND NONLABORED. O2 @ 2L/NC. SPOUSE AT BEDSIDE. SR ELEVATED X2. CL IN REACH.
[2018-07-31 04:28] VITALS: BP 138/64
--- NOTE | 2018-07-31 07:43 | NUR ---
THE PATIENT APPEARED TO BE SLEEPING, BUT EASILY AWOKE WHEN STAFF ENTERED HER ROOM. BED IS IN THE LOW POSITION WITH SIDERAILS X2 AND CALL LIGHT WITHIN REACH. THE PATIENT WAS EDUCATED ON THE NEED TO CALL STAFF FOR ANY ASSISTANCE THAT REQUIRES HER GETTING OUT OF BED. THE PATIENT DEMONSTRATES UNDERSTANDING VIA TEACHBACK METHOD. THE PATIENT APPEARS COMFORTABLE WITH NO QUESTIONS OR CONCERNS AT THIS TIME.
[2018-07-31 08:02] VITALS: BP 120/60
[2018-07-31] MEDS ORDERED: AUGMENTIN 875-11 TAB PO (10:16)
[2018-07-31] MEDS ORDERED: FLUTICASONE PRO16 GM NASAL (10:18)
--- NOTE | 2018-07-31 11:00 | MORECARE ---
CASE MANAGEMENT DISCHARGE SUMMARY PATIENT: SRINIVAS PARRA UNIT: [id number] ADM DATE: 07/29/18 AGE: 88 : 31 SEX: F ROOM/BED: D.1210 AUTHOR: SALLY,DOC PHYSICIAN: REFERRING PHYSICIAN: KACI ALMAGUER MD DATE OF SERVICE: 07/31/18 Discharge Plan Patient Name: SRINIVAS PARRA Facility: [facility]:[place] : 1930 Planned Disposition: Care Home Facility Anticipated Discharge Date: 07/31/18 Discharge Date: Expected LOS: 2 Initial Reviewer: [email or web address] Initial Review Date: 07/28/2018 Generated: 07/31/18 11:59 am DCP- Discharge Planning Updated by [email or web address]: Naida Kay on 07/29/18 10:[address] Patient Name: SRINIVAS PARRA Admission Status: ER Accout number: [id number] Admission Date: 07-29-2018 : 1930 Admission Diagnosis: Attending: KACI ALMAGUER Current LOS: 1 Anticipated DC Date: 07-31-2018 Planned Disposition: Care Home Facility Primary Insurance: MEDICARE A & B Discharge Planning Comments: CM met with patient to complete initial dc planning assessment. CM educated patient on the CM role and verbal consent given by patient to complete assessment. Patient is currently a resident at [facility]. At discharge patient plans to return to [facility] and feels this is a safe discharge. Patient denied further known discharge needs at this time. . Patient reports will transport him/her home at time of discharge. CM will continue to follow and will assist as needed with dc plans/needs. Umbrella Tipper: Naida Kay RN, [facility] DCPIA - Discharge Planning Initial Assessment Updated by [email or web address]: Naida Kay on 07/29/18 11:20 am * Is the patient Alert and Oriented? Yes * How many steps to enter\exit or inside your home? None * PCP Dr. Almaguer * [facility]acy [facility] * Preadmission Environment Care Home Facility * Facility Name [facility] Resident * ADLs Partial Dependent * Partial ADLs (Assistance needed) Ambulation Bathing Dressing Medication Management * Equipment Rolling Walker Wheelchair * List name and contact numbers for known caregivers / representatives who currently or will assist patient after discharge: Jimi wellington phone number * Verbal permission to speak to the caregivers and representatives has been obtained from the patient. No * Community resources currently utilized None * Additional services required to return to the preadmission environment? No * Can the patient safely return to the preadmission environment? Yes * Has this patient been hospitalized within the prior 30 days at any hospital? Yes External Providers External Provider: [facility] Next Contact Date: Service Request Date: Service Type: Resolution: Reviewer: Comments: Coverage Notice Reviewer: [id number] Kay Notice Issued Date-Time: 07/29/2018 8:15 Notice Type: Medicare Outpatient Observation Notice Notice Delivered To: Patient Relationship to Patient: National Recruiter Name: Delivery Method: HAND - Hand Delivered Prudence Days: Prior Verbal Notification: Recipient Understood Notice: Recipient Signature: Med Rec Note Co-signed by Attending: Coverage Notice Comment: Reviewer: HOLDEN Kay Notice Issued Date-Time: 07/29/2018 15:52 Notice Type: IM Admission Notice Notice Delivered To: Patient Relationship to Patient: National Recruiter Name: Delivery Method: - Prudence Days: Prior Verbal Notification: Recipient Understood Notice: Recipient Signature: Med Rec Note Co-signed by Attending: Coverage Notice Comment: Last DP export: 07/29/18 10:29 a Patient Name: SRINIVAS PARRA Page [id number] at 1100 All edits/amendments must be made on the electronic document DICTATION DATE: 07/31/181058 PROGRAM EVALUATION CONSULTANT: NAYE 07/31/18 1059 RPT#: [id number] DC DATE: STATUS: ADM IN [facility] [address] [place] [address] END OF REPORT
--- NOTE | 2018-07-31 11:07 | MORECARE ---
CASE MANAGEMENT DISCHARGE SUMMARY PATIENT: SRINIVAS PARRA UNIT: [id number] ADM DATE: 07/29/18 AGE: 88 : 31 SEX: F ROOM/BED: D.1210 AUTHOR: SALLY,DOC PHYSICIAN: REFERRING PHYSICIAN: KACI ALMAGUER MD DATE OF SERVICE: 07/31/18 Discharge Plan Patient Name: SRINIVAS PARRA Facility: [facility]:[place] : 1930 Planned Disposition: Half-Way Facility Anticipated Discharge Date: 07/31/18 Discharge Date: Expected LOS: 2 Initial Reviewer: [id number] Initial Review Date: 07/28/2018 Generated: 07/31/18 12:07 pm Comments DCP- Discharge Planning Updated by [email or web address]: Kamini Roger on 07/31/18 10:[address] Patient Name: SRINIVAS PARRA Admission Status: ER Accout number: [id number] Admission Date: 07-29-2018 : 1930 Admission Diagnosis: Attending: KACI ALMAGUER Current LOS: 2 Anticipated DC Date: 07-31-2018 Planned Disposition: Half-Way Facility Primary Insurance: MEDICARE A & B Discharge Planning Comments: CM SPOKE WITH OZ OF [facility] AND FAXED HER DOCUMENTS. WAITING FOR OZ TO CALL BACK TO LET ME KNOW IF PATIENT WILL BE RETURNING TO ALF BED OR INTERMEDIATE. CM TO FOLLOW AND ASSIST. Laydown Machine Operator: Kamini Roger DCP- Discharge Planning Updated by [email or web address]: Naida Kay on 07/29/18 10:[address] Patient Name: SRINIVAS PARRA Admission Status: ER Accout number: [id number] Admission Date: 07-29-2018 : 1930 Admission Diagnosis: Attending: KACI ALMAGUER Current LOS: 1 Anticipated DC Date: 07-31-2018 Planned Disposition: Half-Way Facility Primary Insurance: MEDICARE A & B Discharge Planning Comments: CM met with patient to complete initial dc planning assessment. CM educated patient on the CM role and verbal consent given by patient to complete assessment. Patient is currently a resident at [facility]. At discharge patient plans to return to [facility] and feels this is a safe discharge. Patient denied further known discharge needs at this time. . Patient reports will transport him/her home at time of discharge. CM will continue to follow and will assist as needed with dc plans/needs. Laydown Machine Operator: Naida Kay RN, [facility] DCPIA - Discharge Planning Initial Assessment Updated by [email or web address]: Naida Kay on 07/29/18 11:20 am * Is the patient Alert and Oriented? Yes * How many steps to enter\exit or inside your home? None * PCP Dr. Almaguer * Pharmacy [facility] * Preadmission Environment Half-Way Facility * Facility Name [facility] Resident * ADLs Partial Dependent * Partial ADLs (Assistance needed) Ambulation Bathing Dressing Medication Management * Equipment Rolling Walker Wheelchair * List name and contact numbers for known caregivers / representatives who currently or will assist patient after discharge: Jimi Chau - valentine wellington phone number * Verbal permission to speak to the caregivers and representatives has been obtained from the patient. No * Community resources currently utilized None * Additional services required to return to the preadmission environment? No * Can the patient safely return to the preadmission environment? Yes * Has this patient been hospitalized within the prior 30 days at any hospital? Yes Coverage Notice Reviewer: [id number] Mily Kay Notice Issued Date-Time: 07/29/2018 8:15 Notice Type: Medicare Outpatient Observation Notice Notice Delivered To: Patient Relationship to Patient: Lining Closer Name: Delivery Method: HAND - Hand Delivered Prudence Days: Prior Verbal Notification: Recipient Understood Notice: Recipient Signature: Med Rec Note Co-signed by Attending: Coverage Notice Comment: Reviewer: [id number] Mily Kay Notice Issued Date-Time: 07/29/2018 15:52 Notice Type: IM Admission Notice Notice Delivered To: Patient Relationship to Patient: Lining Closer Name: Delivery Method: - Prudence Days: Prior Verbal Notification: Recipient Understood Notice: Recipient Signature: Med Rec Note Co-signed by Attending: Coverage Notice Comment: Last DP export: 07/31/18 9:59 a Patient Name: SRINIVAS PARRA Page [id number] at 1107 All edits/amendments must be made on the electronic document DICTATION DATE: 07/31/18 1106 BIOFUELS TECHNOLOGY DEVELOPMENT MANAGER: NAYE 07/31/18 1106 RPT#: [id number] DC DATE: STATUS: ADM IN [facility] [address] [place] [address] END OF REPORT
--- NOTE | 2018-07-31 11:37 | MORECARE ---
CASE MANAGEMENT DISCHARGE SUMMARY PATIENT: SRINIVAS PARRA UNIT: [id number] ADM DATE: 07/29/18 AGE: 88 : 31 SEX: F ROOM/BED: D.1210 AUTHOR: SALLY,DOC PHYSICIAN: REFERRING PHYSICIAN: KACI ALMAGUER MD DATE OF SERVICE: 07/31/18 Discharge Plan Patient Name: SRINIVAS PARRA Facility: [facility]:[place] : 1930 Planned Disposition: Nursing Home Facility Anticipated Discharge Date: 07/31/18 Discharge Date: Expected LOS: 2 Initial Reviewer: [email or web address] Initial Review Date: 07/28/2018 Generated: 07/31/18 12:37 pm Comments DCP- Discharge Planning Updated by [email or web address]: Kamini Roger on 07/31/18 10:[address] Patient Name: SRINIVAS PARRA Admission Status: ER Accout number: [id number] Admission Date: 07-29-2018 : 1930 Admission Diagnosis: Attending: KACI ALMAGUER Current LOS: 2 Anticipated DC Date: 07-31-2018 Planned Disposition: Nursing Home Facility Primary Insurance: MEDICARE A & B Discharge Planning Comments: CM SPOKE WITH OZ OF [facility] AND FAXED HER DOCUMENTS. WAITING FOR OZ TO CALL BACK TO LET ME KNOW IF PATIENT WILL BE RETURNING TO HALFWAY BED OR LONG-TERM. CM TO FOLLOW AND ASSIST. Bingo Manager: Kamini Roger Appended by Kamini Roger on 07/31/2018 11:32 CDT: PATIENT TO RETURN TO [facility] FOR LONG-TERM, PATIENT TO GO BY AMBULANCE. DCP- Discharge Planning Updated by [id number]: Naida Kay on 07/29/18 10:[address] Patient Name: SRINIVAS PARRA Admission Status: ER Accout number: [id number] Admission Date: 07-29-2018 : 1930 Admission Diagnosis: Attending: KACI ALMAGUER Current LOS: 1 Anticipated DC Date: 07-31-2018 Planned Disposition: Nursing Home Facility Primary Insurance: MEDICARE A & B Discharge Planning Comments: CM met with patient to complete initial dc planning assessment. CM educated patient on the CM role and verbal consent given by patient to complete assessment. Patient is currently a resident at [facility]. At discharge patient plans to return to [facility] and feels this is a safe discharge. Patient denied further known discharge needs at this time. . Patient reports will transport him/her home at time of discharge. CM will continue to follow and will assist as needed with dc plans/needs. Bingo Manager: Naida Kay RN, [facility] DCPIA - Discharge Planning Initial Assessment Updated by [email or web address]: Naida Kay on 07/29/18 11:20 am * Is the patient Alert and Oriented? Yes * How many steps to enter\exit or inside your home? None * PCP Dr. Almaguer * Pharmacy [facility] * Preadmission Environment Nursing Home Facility * Facility Name [facility] Resident * ADLs Partial Dependent * Partial ADLs (Assistance needed) Ambulation Bathing Dressing Medication Management * Equipment Rolling Walker Wheelchair * List name and contact numbers for known caregivers / representatives who currently or will assist patient after discharge: Jimi Chau Mily Minor kaylynn [facility] phone number * Verbal permission to speak to the caregivers and representatives has been obtained from the patient. No * Community resources currently utilized None * Additional services required to return to the preadmission environment? No * Can the patient safely return to the preadmission environment? Yes * Has this patient been hospitalized within the prior 30 days at any hospital? Yes Coverage Notice Reviewer: [email or web address] Mily Kay Notice Issued Date-Time: 07/29/2018 8:15 Notice Type: Medicare Outpatient Observation Notice Notice Delivered To: Patient Relationship to Patient: Sensory Scientist Name: Delivery Method: HAND - Hand Delivered Prudence Days: Prior Verbal Notification: Recipient Understood Notice: Recipient Signature: Med Rec Note Co-signed by Attending: Coverage Notice Comment: Reviewer: [id number] Mily Kay Notice Issued Date-Time: 07/29/2018 15:52 Notice Type: IM Admission Notice Notice Delivered To: Patient Relationship to Patient: Sensory Scientist Name: Delivery Method: - Prudence Days: Prior Verbal Notification: Recipient Understood Notice: Recipient Signature: Med Rec Note Co-signed by Attending: Coverage Notice Comment: Last DP export: 07/31/18 10:07 a Patient Name: SRINIVAS PARRA Page [phone] at 1137 All edits/amendments must be made on the electronic document DICTATION DATE: 07/31/181136 GLOBAL CEO: NAYE 07/31/181136 RPT#: [id number] DC DATE: STATUS: ADM IN [facility] [address] [place] [address] END OF REPORT
--- NOTE | 2018-07-31 11:45 | NUR ---
CALLED [facility] FOR TRANSPORT BACK TO [facility], SPOKE TO ELMER. REPORTS OF 30 TO 40 MIN SCANNER OPERATOR TIME
--- NOTE | 2018-07-31 12:40 | NUR ---
CALLED REPORT TO SAI butler LPN AT [facility]
--- NOTE | 2018-07-31 12:42 | MORECARE ---
CASE MANAGEMENT DISCHARGE SUMMARY PATIENT: SRINIVAS PARRA UNIT: [id number] ADM DATE: 07/29/18 AGE: 88 : 31 SEX: F ROOM/BED: D.1210 AUTHOR: SALLY,DOC PHYSICIAN: REFERRING PHYSICIAN: KACI ALMAGUER MD DATE OF SERVICE: 07/31/18 Discharge Plan Patient Name: SRINIVAS PARRA Facility: [facility]:[place] : 1930 Planned Disposition: Custodial Facility Anticipated Discharge Date: 07/31/18 Discharge Date: 07/31/2018 Expected LOS: 2 Initial Reviewer: [email or web address] Initial Review Date: 07/28/2018 Generated: 07/31/18 1:42 pm Comments DCP- Discharge Planning Updated by [email or web address]: Kamini Roger on 07/31/18 10:[address] Patient Name: SRINIVAS PARRA Admission Status: ER Accout number: [id number] Admission Date: 07-29-2018 : 1930 Admission Diagnosis: Attending: KACI ALMAGUER Current LOS: 2 Anticipated DC Date: 07-31-2018 Planned Disposition: Custodial Facility Primary Insurance: MEDICARE A & B Discharge Planning Comments: CM SPOKE WITH OZ OF [facility] AND FAXED HER DOCUMENTS. WAITING FOR OZ TO CALL BACK TO LET ME KNOW IF PATIENT WILL BE RETURNING TO PRISON BED OR ASSISTED. CM TO FOLLOW AND ASSIST. Stove Mounter: Kamini Roger Appended by Kamini Roger on 07/31/2018 11:32 CDT: PATIENT TO RETURN TO [facility] FOR ASSISTED, PATIENT TO GO BY AMBULANCE. DCP- Discharge Planning Updated by [id number]: Naida Kay on 07/29/18 10:[address] Patient Name: SRINIVAS PARRA Admission Status: ER Accout number: [id number] Admission Date: 07-29-2018 : 1930 Admission Diagnosis: Attending: KACI ALMAGUER Current LOS: 1 Anticipated DC Date: 07-31-2018 Planned Disposition: Custodial Facility Primary Insurance: MEDICARE A & B Discharge Planning Comments: CM met with patient to complete initial dc planning assessment. CM educated patient on the CM role and verbal consent given by patient to complete assessment. Patient is currently a resident at [facility]. At discharge patient plans to return to [facility] and feels this is a safe discharge. Patient denied further known discharge needs at this time. . Patient reports will transport him/her home at time of discharge. CM will continue to follow and will assist as needed with dc plans/needs. Stove Mounter: Naida Kay RN, [facility] DCPIA - Discharge Planning Initial Assessment Updated by [email or web address]: Naida Kay on 07/29/18 11:20 am * Is the patient Alert and Oriented? Yes * How many steps to enter\exit or inside your home? None * PCP Dr. Almaguer * [facility] * Preadmission Environment Custodial Facility * Facility Name [facility] Resident * ADLs Partial Dependent * Partial ADLs (Assistance needed) Ambulation Bathing Dressing Medication Management * Equipment Rolling Walker Wheelchair * List name and contact numbers for known caregivers / representatives who currently or will assist patient after discharge: Prestonshawn Chau - valentine - kaylynn [facility] phone number * Verbal permission to speak to the caregivers and representatives has been obtained from the patient. No * Community resources currently utilized None * Additional services required to return to the preadmission environment? No * Can the patient safely return to the preadmission environment? Yes * Has this patient been hospitalized within the prior 30 days at any hospital? Yes Coverage Notice Reviewer: [id number] Mily Kay Notice Issued Date-Time: 07/29/2018 8:15 Notice Type: Medicare Outpatient Observation Notice Notice Delivered To: Patient Relationship to Patient: Forestry Professor Name: Delivery Method: HAND - Hand Delivered Prudence Days: Prior Verbal Notification: Recipient Understood Notice: Recipient Signature: Med Rec Note Co-signed by Attending: Coverage Notice Comment: Reviewer: [id number] Mily Kay Notice Issued Date-Time: 07/29/2018 15:52 Notice Type: IM Admission Notice Notice Delivered To: Patient Relationship to Patient: Forestry Professor Name: Delivery Method: - Prudence Days: Prior Verbal Notification: Recipient Understood Notice: Recipient Signature: Med Rec Note Co-signed by Attending: Coverage Notice Comment: Last DP export: 07/31/18 10:37 a Patient Name: SRINIVAS PARRA Page [phone] at 1242 All edits/amendments must be made on the electronic document DICTATION DATE: 07/31/182 WEARING APPAREL SHAKER: NAYE 07/31/18 1242 RPT#: [id number] DC DATE:07/31/18 STATUS: DIS IN [facility] [address] [place] [address] END OF REPORT
== END 2018-07-31 12:20 | DRG 291 ==
LOC: D.ER 03:23 → D.M3 07:26 → OBSVTIME 07:27 → D.M3 07-29 08:15
PROVIDERS: Family Medicine; ADMIT Family Medicine; ATTEND Family Medicine
DX: I11.0 Hypertensive heart disease with heart failure (principal); J96.01 Acute respiratory failure with hypoxia; J44.0 Chronic obstructive pulmonary disease with (acute) lower respiratory infection; J44.1 Chronic obstructive pulmonary disease with (acute) exacerbation; Z68.43 Body mass index [BMI] 50.0-59.9, adult; J20.9 Acute bronchitis, unspecified; F03.90 Unspecified dementia, unspecified severity, without behavioral disturbance, psychotic disturbance, mood disturbance, and anxiety; D64.9 Anemia, unspecified; I10 Essential (primary) hypertension; K21.9 Gastro-esophageal reflux disease without esophagitis; E78.5 Hyperlipidemia, unspecified; E11.9 Type 2 diabetes mellitus without complications; F32.9 Major depressive disorder, single episode, unspecified; I50.9 Heart failure, unspecified; E66.01 Morbid (severe) obesity due to excess calories; I50.23 Acute on chronic systolic (congestive) heart failure

== ENCOUNTER 2018-12-15 14:38 | Inpatient (IN) | payer MEDICARE ==
[~2018-12-15] VITALS: Ht 162.6 cm; Wt 143.2 kg
[~2018-12-15 14:38] MED LIST changes: +AUGMENTIN 875-11 TAB PO; +BREO ELLIPTA 21 EACH; +MILK OF MAGNESI30 ML PO
[2018-12-15 15:54] LABS: BASOPHILS 0.4 % (0-2); EOSINOPHILS 6.2 % (0-7); HEMOGLOBIN 11.4 g/dL (12-16); IMMATURE GRANULOCYTES 0.3 % (0-5); LYMPHOCYTES 24.5 % (15-50); MCH 32.9 pg (26.0-34.0); MCHC 30.8 g/dL (31.0-37.0); MCV 106.6 fL (80.0-100.0); MEAN PLATELET VOLUME 9.9 fL (7.4-10.4); MONOCYTES 6.4 % (2-11); NEUTROPHILS 62.2 % (40-80); PLATELET COUNT 257 10x3/uL (130-400); RBC 3.47 10x6/uL (4.00-5.40); RDW 12.3 % (11.5-14.5); WBC 14.4 10x3/uL (4.8-10.8)
[2018-12-15 16:05] LABS: CALC OSMOLALITY 283 mosm/kg (275-300); CALCIUM 9.1 mg/dL (8.5-10.1); CARBON DIOXIDE 32.5 mmol/L (21.0-32.0); CHLORIDE - SERUM 104 mmol/L (98-107); CREATININE - SERUM 1.1 mg/dL (0.6-1.3); POTASSIUM - SERUM 4.2 mmol/L (3.5-5.1); SODIUM 140 mmol/L (136-145); UREA NITROGEN 21 mg/dL (7-18); eGFR NON AFRICAN AMERICAN 50 mL/min (90-120)
[2018-12-15 16:06] LABS: GLUCOSE 139 mg/dL (74-106)
[2018-12-15 16:15] LABS: ALBUMIN 2.7 g/dL (3.4-5.0); ALKALINE PHOSPHATASE 111 U/L (46-116); ALT (SGPT) 15 U/L (10-68); BILIRUBIN - TOTAL 0.44 mg/dL (0.2-1.3); CREATINE KINASE 44 UL (21-215); MAGNESIUM - SERUM 1.9 mg/dL (1.8-2.4); PRO BNP 2043 pg/mL (0-450); PROTEIN - SERUM 8.2 g/dL (6.4-8.2)
[2018-12-15 16:25] LABS: TROPONIN-I < 0.017 ng/mL (0.000-0.060)
--- NOTE | 2018-12-15 18:25 | NUR ---
REPORT TO SARAY MYERS. PT TO BE ADMITTED TO ROOM 213
[2018-12-15 20:00] VITALS: BP 114/43
--- NOTE | 2018-12-15 20:02 | NUR ---
PATIETN TO THE FLOOR, ER PCT HELPED CLEAN HER UP, PATIENT HAD A LARGE BOWEL MOVEMENT. PATIENT HAS SOME REDNESS ON HER BUTT CHEECKS ALSO SOME SCARING FROM RECENT SKIN BREAK DOWN. APPLIED BUTT PASTE TO PATIENT'S BACKSIDE. PATIENT LAYING IN BED WITH 02 ON AT 2 LITERS. CALL LIGHT WITHIN REACH AND BED IN LOWEST LOCKED POSITION. NO NEEDS AT THIS TIME, PATIENT SHOWING NO S/SX OF DISTRESS.
[2018-12-16] VITALS (7 sets, daily range): BP systolic 92–114; BP diastolic 43–56; BMI 54.0
--- NOTE | 2018-12-16 01:22 | NUR ---
I have reviewed this patient and I concur with the Shift Assessment completed by the Licensed Practical Nurse today this shift.
--- NOTE | 2018-12-16 04:39 | NUR ---
PATIENT'S PIV IN LEFT HAND INFILTRATED. REMOVED PIV.
--- NOTE | 2018-12-16 05:25 | NUR ---
PATIENT LATING IN BED IN HIGH FOWLERS, PATIENT HAVING COUGHING FITS. PLACE A PIV IN PATIENT'S RIGHT HAND, 1 STICK, 22 GAUGE. PATIENT TOLERATED WELL. CALL LIGHT WIHTIN REACH AND BED IN LOWEST LOCKED POSITION.
[2018-12-16 06:53] LABS: BASOPHILS 0.4 % (0-2); EOSINOPHILS 9.1 % (0-7); HEMATOCRIT 39.1 % (36.0-48.0); HEMOGLOBIN 12.2 g/dL (12-16); IMMATURE GRANULOCYTES 0.5 % (0-5); LYMPHOCYTES 27.5 % (15-50); MCH 32.9 pg (26.0-34.0); MCHC 31.2 g/dL (31.0-37.0); MCV 105.4 fL (80.0-100.0); MEAN PLATELET VOLUME 10.9 fL (7.4-10.4); MONOCYTES 5.6 % (2-11); NEUTROPHILS 56.9 % (40-80); RBC 3.71 10x6/uL (4.00-5.40); RDW 12.6 % (11.5-14.5); WBC 15.1 10x3/uL (4.8-10.8)
[2018-12-16 06:59] LABS: PLATELET COUNT 310 10x3/uL (130-400)
[2018-12-16 07:05] LABS: ALBUMIN 2.8 g/dL (3.4-5.0); ANION GAP 10.2 mmol/L (8-16); BILIRUBIN - TOTAL 0.67 mg/dL (0.2-1.3); CALCIUM 9.1 mg/dL (8.5-10.1); CARBON DIOXIDE 30.7 mmol/L (21.0-32.0); CHOL - HDL RATIO 4.4 ratio (2.3-4.1); LDL-HDL RATIO 3.1 ratio (1.5-3.5); MAGNESIUM - SERUM 1.9 mg/dL (1.8-2.4); PHOSPHOROUS 3.3 mg/dL (2.5-4.9); POTASSIUM - SERUM 3.9 mmol/L (3.5-5.1); PROTEIN - SERUM 8.5 g/dL (6.4-8.2); THYROID STIMULATING HORMONE 1.05 uIU/mL (0.36-3.74)
--- NOTE | 2018-12-16 07:47 | NUR ---
PT RESTING. RR EVEN AND UNLABORED. DENIES NEEDS OR PAIN AT THIS TIME. ALERT AND ORIENTED. BED IN LOWEST POSITION. CALL LIGHT WITHIN REACH. WILL CONTINUE TO MONITOR.
--- NOTE | 2018-12-16 09:54 | NUR ---
I have reviewed this patient and I concur with the Shift Assessment completed by the Licensed Practical Nurse today this shift.
[2018-12-17] VITALS: BP 131/59
[2018-12-17 06:39] LABS: BASOPHILS 0.3 % (0-2); EOSINOPHILS 9.4 % (0-7); HEMATOCRIT 36.7 % (36.0-48.0); HEMOGLOBIN 11.6 g/dL (12-16); IMMATURE GRANULOCYTES 0.7 % (0-5); MCHC 31.6 g/dL (31.0-37.0); MCV 104.6 fL (80.0-100.0); MEAN PLATELET VOLUME 10.2 fL (7.4-10.4); MONOCYTES 6.7 % (2-11); NEUTROPHILS 55.9 % (40-80); PLATELET COUNT 279 10x3/uL (130-400); RBC 3.51 10x6/uL (4.00-5.40); RDW 12.5 % (11.5-14.5); WBC 13.8 10x3/uL (4.8-10.8)
--- NOTE | 2018-12-17 06:58 | NUR ---
REPORT RECEIVED. SHE IS ALERT. RESP EVEN WITHOUT LABOR O2 ON AT 2 L/M PER N/C. RIGHT HAND SALINE LOCK INTACT. PUREWICK CATH INTACT WITH DARK GE[place]A URINE NOTED. NO COUGH AT THIS TIME. CAREPLAN REVIEW DONE WITH SAFETY PRECAUTIONS IN PLACE. BED IN LOWEST POSITION AND LOCKED. HEEL PROTECTORS ON AND HEELS FLOATED. CL IN REACH
[2018-12-17 07:28] LABS: ANION GAP 8.8 mmol/L (8-16); CALCIUM 9.5 mg/dL (8.5-10.1); CARBON DIOXIDE 33.1 mmol/L (21.0-32.0); MAGNESIUM - SERUM 1.7 mg/dL (1.8-2.4); PHOSPHOROUS 3.2 mg/dL (2.5-4.9); POTASSIUM - SERUM 3.9 mmol/L (3.5-5.1)
[2018-12-17 08:58] VITALS: BP 86/58
--- NOTE | 2018-12-17 09:15 | NUR ---
B/P IS 86/58, RECHECK WAS DONE AND 110/68, ZESTRIL 10MG HELD. THERESE RED IS AWARE.
--- NOTE | 2018-12-17 12:49 | CN ---
PATIENT NAME:SRINIVAS PARRA MEDICAL RECORD: [id number] : [birth year] LOCATION:. D.2136 ADMIT DATE: 12/15/18 ACCOUNT: [id number] CONSULTING PHYSICIAN: MELITON KEANE MD REFERRING PHYSICIAN: KACI VEGA MD DATE OF CONSULTATION: 12/16/2018 DIAGNOSES: 1. Shortness of breath, dyspnea on exertion. 2. Cardiomyopathy. 3. Congestive heart failure, chronic systolic dysfunction. 4. Hypertension. 5. Pneumonia. 6. Noninsulin-dependent diabetes. HISTORY OF PRESENT ILLNESS: Mrs. Parra presents with increasing episodes of shortness of breath, dyspnea on exertion. This has been going on as best we can tell from her history for greater than a week. She does have a history of chronic obstructive pulmonary disease, congestive heart failure, and cardiomyopathy. She also has history of dementia. She has not had any fevers. She has had a productive cough. Her appetite is definitely dropped off as well. Her white count is elevated at 15. She does have a history of cardiomyopathy, last ejection fraction was 30% on an echocardiogram done in May of this year. She denies any chest pain or chest discomfort. Her troponins have been normal. PHYSICAL EXAMINATION: CONSTITUTIONAL/GENERAL APPEARANCE: Well nourished, well developed, appears stated age. EYES: Lids and conjunctivae noninjected. No discharge. No pallor. ENT: Lips within normal limit. No cyanosis. No pallor. NECK: Carotid arteries, bilateral normal upstroke. No bruits. No thrills. No jugular venous pressure or distention. CERVICAL LYMPH NODES: Nontender. Nonenlarged. THYROID: Not enlarged. No nodules. CARDIOVASCULAR: Precordial exam, nondisplaced. No heaves or pericardial thrills. Rate and rhythm, regular. Heart sounds, normal S1, normal S2. No S3, no gallop, no rub. Systolic murmur, not heard. Diastolic murmur, not heard. RESPIRATORY: Respiratory effort, unlabored. Normal curvature. No thoracic deformity. No chest wall tenderness. Percussion, resonant. Auscultation, clear. No wheezes, no rales, no rhonchi. ABDOMEN: Soft, nondistended, nontender. No abdominal pain, no vomiting and normal appetite. MUSCULOSKELETAL: No joint tenderness, normal gait, normal tone. SKIN: Warm and dry. OVERALL IMPRESSION: Pneumonia as well as concomitant congestive heart failure from chronic systolic dysfunction. At this time, I will leave treatment of the pneumonia up to the primary care physician as she is on IV Lasix. From a cardiac standpoint, diuresis is all that is needed actually and no other cardiac workup is needed at this time. TRANSINT:[id number] Voice Confirmation ID: [id number] DOCUMENT ID: [id number] CONSULT REPORT [id number] SRINIVAS PARRA, MELITON KRISHNAMURTHY at 1249 CC: [id number] DICTATION DATE: 12/16/18 1421 TAX APPRAISER: 12/16/18 1808 ADM IN [facility] [address] [place] [id number]
--- NOTE | 2018-12-17 12:49 | EC ---
PATIENT:SRINIVAS PARRA DATE OF SERVICE: 12/15/18 SEX: F MEDICAL RECORD: [id number] DATE OF : [birth year] LOCATION:D.M2 D.213 AGE OF PATIENT: 88 ADMISSION DATE: 12/15/18 REFERRING PHYSICIAN: INTERPRETING PHYSICIAN: MELITON KEANE MD ECHOCARDIOGRAM REPORT ECHO CHARGES 4 ECHO COMPLETE Date: 12/16/18 CLINICAL DIAGNOSIS: CHF ECHOCARDIOGRAPHIC MEASUREMENTS (adult normal given) AC root (d.<3.7cm) 2.7 cm LV Septum d (<1.2 cm> 1.5 cm Valve Excursion 1.3 cm LV Septum (systole) 1.6 cm Left Atria (s.<4.0cm> 2.4 cm LVPW d(<1.2cm) 1.4 cm RV (d.<2.3cm) 2.4 cm LVPW (sytole) 2.0 cm LV diastole(<5.6CM) 4.9 cm MV E-F(>70mm/sec) cm LV systole 2.9 cm LVOT Diameter 1.8 cm MV exc.(>10mm) cm Est.ejection fraction (50-75%) % DOPPLER: LVIT cm/sec A 47.0 cm/sec E 105 cm/sec LA cm/sec RVSP 25.0 mmHg LVOT 71.0 cm/sec AOP1/2T m/s Asc. Ao 161 cm/sec RVOT 66.0 cm/sec RA cm/sec PA 72.0 cm/sec AV Gradient Peak 10.4 mmHg AV Mean 6.1 mmHg AV Area 1.0 cm MV Gradient Peak 5.8 mmHg MV Mean 1.6 mmHg MV Area cm COMMENTS: Business Insight And Analytics Manager: Mima CHOU Bacteriologist Soil: 3 Dr. Mcdaniels TAPE# PACS Pericardial Effusion N DATE OF SERVICE: 12/16/2018 FINDINGS: 1. Left ventricular chamber size is mildly dilated. Left ventricular systolic function is markedly reduced, overall ejection fraction in the 20% range. 2. Left atrium is within normal limits at less than 3 cm. Right atrium and right ventricular chamber sizes are mildly dilated. 3. Valvular structures have normal structure and motion. 4. Doppler interrogation reveals trace mitral regurgitation, no other valvular insufficiency or stenosis. Pulmonary systolic pressure is estimated at 25 mmHg. ECHOCARDIOGRAM REPORT [id number] PARRA,PECOLIA 5. No evidence of pericardial effusion or left ventricular thrombus. TRANSINT:[id number] Voice Confirmation ID: [id number] DOCUMENT ID: [id number] MELITON KEANE MD at 1249 CC: [id number] DICTATION DATE: 12/16/18 1528 EDGING MACHINE CATCHER: 12/16/18 2222 ADM IN [facility] [address] [id number]
[2018-12-17 13:16] VITALS: BP 104/50
[2018-12-17 14:50] VITALS: Ht 162.6 cm; Wt 143.2 kg
[2018-12-17 18:43] VITALS: BP 131/44
--- NOTE | 2018-12-17 19:10 | NUR ---
BEDSIDE REPORT RECEIVED FROM DAY SHIFT, PT CARE ASSUMED. INTRODUCED SELF AND WROTE NAME ON BOARD, PT SITTING UP IN BED, AAOX4. DENIES PAIN OR ANY OTHER NEEDS AT THIS TIME. BED IN LOWEST POSITION, SR X2, CALL LIGHT WITHIN REACH. WILL CONTINUE TO MONITOR.
[2018-12-17 20:00] VITALS: BP 104/48
--- NOTE | 2018-12-17 22:30 | NUR ---
ASSISTED NICOLAS HORTA, WITH CLEANING UP PT AFTER BROWN SOFT BOWEL MOVEMENT NOTED IN BED. NEW PUREWICK PLACED AND CONNECTED TO SUCTION. CALMOSEPTINE APPLIED TO BILATERAL UPPER INNER THIGHS, POSTERIOR RIGHT THIGHT, AND BUTTOCKS. DENIES ANY OTHER NEEDS AT THIS TIME. BED IN LOWEST POSITION, SR X2, CALL LIGHT WITHIN REACH. WILL CONTINUE TO MONITOR.
[2018-12-18] VITALS: BP 106/50
[2018-12-18 04:00] VITALS: BP 117/51
[2018-12-18 06:19] LABS: BASOPHILS 0.3 % (0-2); EOSINOPHILS 8.7 % (0-7); HEMATOCRIT 36.9 % (36.0-48.0); HEMOGLOBIN 11.5 g/dL (12-16); IMMATURE GRANULOCYTES 0.5 % (0-5); LYMPHOCYTES 24.1 % (15-50); MCHC 31.2 g/dL (31.0-37.0); MCV 105.7 fL (80.0-100.0); MEAN PLATELET VOLUME 10.7 fL (7.4-10.4); MONOCYTES 7.4 % (2-11); PLATELET COUNT 259 10x3/uL (130-400); RBC 3.49 10x6/uL (4.00-5.40); RDW 12.5 % (11.5-14.5); WBC 14.2 10x3/uL (4.8-10.8)
[2018-12-18 06:45] LABS: ANION GAP 5.8 mmol/L (8-16); CALCIUM 9.2 mg/dL (8.5-10.1); CARBON DIOXIDE 32.9 mmol/L (21.0-32.0); CREATININE - SERUM 1.1 mg/dL (0.6-1.3); POTASSIUM - SERUM 3.7 mmol/L (3.5-5.1)
--- NOTE | 2018-12-18 07:32 | NUR ---
A/A/OX4. DENIES ANY PAIN OR DISCOMFORT AND VOICES NO REQUESTS. 02 ON PER N/C AT 2 L/M WITH NO SOB OR DISTRESS NOTED. PURE WIK IN PLACE AND WORKING WELL. EXCORIATION NOTED TO BACK OF RIGHT THIGH AND BILATERAL INNER THIGHS. CALMOSEPTINE BEING APPLIED TO THESE AREAS WITH PT REPORTING SOME RELIEF. SL PATENT TO RIGHT HAND WITH NO REDNESS OR EDEMA NOTED AT SITE. ASSESSMENT COMPLETED AND WILL CONTINUE POC.
--- NOTE | 2018-12-18 07:37 | NUR ---
RECEIVED RESTING WITH EYES CLOSED, OPENED TO NAME. DENIES ANY PAIN AT PRESENT TIME AND NO REQUESTS VOICED. 02 OFF AT PRESENT TIME WITH NO RESP DISTRESS NOTED. PT IS LEFT ARM RESERVE FOR AV FISTULA. ASSESSMENT COMPLETED AND WILL CONTINUE POC.
[2018-12-18 09:35] VITALS: BP 108/44
[2018-12-18] MEDS ORDERED: LEVAQUIN750 MG PO (09:48)
[2018-12-18] MEDS ORDERED: GUAIFENESI100 MG/5 M PO (09:50)
[2018-12-18] MEDS ORDERED: PULMICORT0.5 MG/21 UPD (09:51)
[2018-12-18] MEDS ORDERED: IPRAT-ALBUT 0.5-3 ML INH (09:52)
[2018-12-18] MEDS ORDERED: LASIX40 MG PO (10:11)
--- NOTE | 2018-12-18 15:05 | NUR ---
DISCHARGE INSTRUCTIONS REVIEWED WITH PT AND SHE UNDERSTANDS PENITENTIARY WILL BE GETTING THE SAME INSTRUCTIONS. SL REMOVED FROM RIGHT HAND WITH CATH TIP INTACT. MAMI DOYLE CONTACTED AND REPORT GIVEN TO ALEXANDRA CAMPBELL. PT LEFT [facility]IA [facility] FOR TRANSPORT TO [place]. ALL PERSONAL BELONGINGS WITH PT.
--- NOTE | 2018-12-18 16:54 | MORECARE ---
CASE MANAGEMENT DISCHARGE SUMMARY PATIENT: SRINIVAS PARRA UNIT: [id number] ADM DATE: 12/15/18 AGE: 88 : 31 SEX: F ROOM/BED: D.3246 AUTHOR: SALLY,DOC PHYSICIAN: REFERRING PHYSICIAN: KACI VGEA MD DATE OF SERVICE: 12/18/18 Discharge Plan Patient Name: SRINIVAS PARRA Facility: [facility]:[place] : 1930 Planned Disposition: Nursing Facility [facility] Cert Anticipated Discharge Date: 12/18/18 Discharge Date: Expected LOS: 3 Initial Reviewer: [email or web address] Initial Review Date: 12/18/2018 Generated: 12/18/18 5:53 pm Comments DCP- Discharge Planning Updated by [email or web address]: Jeremy Caldera on 12/18/18 3:[address] Patient Name: SRINIVAS PARRA Admission Status: ER Accout number: [id number] Admission Date: 12-15-2018 : 1930 Admission Diagnosis: Attending: KACI VEGA Current LOS: 3 Anticipated DC Date: 12-18-2018 Planned Disposition: Nursing Facility VLADIMIR Cert Primary Insurance: MEDICARE A & B PLANNED EXTERNAL PROVIDER: [facility], LONG TERM CARE MEDICAID BED Discharge Planning Comments: CM MET WITH PT IN ROOM TO DISCUSS DISCHARGE PLANNING AND NEEDS. PT REPORTS LIVING AT [facility] AND STILL HOPES TO ONE DAY GET TO GO HOME AND STAY A FEW NIGHTS IN HER OWN ROOM. PT HAS NO ONE TO CARE FOR HER AT HOME AT THIS TIME AND WILL RETURN TO [facility] FOR RUBBER FLAP CUTTER CARE. CHOICE SIGNED. IMPORTANT MESSAGE FROM MEDICARE PROVIDED AND EXPLAINED. PT STATES SHE WILL NOTIFY HER DAUGHTER OF RETURN TO [place]. CM RECEIVED DISCHARGE INFORMATION, FAXED DISCHARGE INFORMATION TO [facility] AT [phone]. CM CALLED AND SPOKE TO NORM WHO INFORMED CM THEY WILL RECEIVE BACK FOR RUBBER FLAP CUTTER CARE. STOCK DRIER TENDER NURSE NOTIFIED. NURSE REPORT TO BE CALLED TO [facility] AT [phone]. PT TRANPSORT VIA AMBULANCE. Adhesion Tester: Jeremy Caldera DCPIA - Discharge Planning Initial Assessment Updated by [id number]: Jeremy Caldera on 12/18/18 4:48 pm * Is the patient Alert and Oriented? Yes * How many steps to enter\exit or inside your home? NONE * PCP DR. VEGA * Pharmacy [facility] * Preadmission Environment Sludge Filtration Operator [facility] * Facility Name [facility] * ADLs Partial Dependent * Partial ADLs (Assistance needed) Ambulation Bathing Dressing Medication Management Toileting * Equipment Other * Other Equipment ALL MEDICAL EQUIPMENT PROVIDED BY FACILITY * List name and contact numbers for known caregivers / representatives who currently or will assist patient after discharge: LAURYN LEI DTR * Verbal permission to speak to the caregivers and representatives has been obtained from the patient. N/A * Community resources currently utilized None * Please name any agencies selected above. NONE * Additional services required to return to the preadmission environment? No * Can the patient safely return to the preadmission environment? Yes * Has this patient been hospitalized within the prior 30 days at any hospital? No External Providers External Provider: [facility] Next Contact Date: 12/18/2018 Service Request Date: Service Type: Resolution: Reviewer: Comments: Coverage Notice Reviewer: [id number] Mily Caldera Notice Issued Date-Time: 12/18/2018 12:50 Notice Type: IM Discharge Notice Notice Delivered To: Patient Relationship to Patient: Integration Solution Architect Name: Delivery Method: HAND - Hand Delivered Prudence Days: Prior Verbal Notification: Recipient Understood Notice: Yes Recipient Signature: Yes Med Rec Note Co-signed by Attending: Coverage Notice Comment: Patient Name: SRINIVAS PARRA Page [phone] at 1654 All edits/amendments must be made on the electronic document DICTATION DATE: 12/18/181652 FLOATMAN: NAYE 12/18/181652 RPT#: [id number] DC DATE: STATUS: ADM IN [facility] [address] [place] [address] END OF REPORT
== END 2018-12-18 17:09 | DRG 291 ==
LOC: D.ER 14:38 → D.M2 18:12
PROVIDERS: Emergency Medicine; ADMIT Family Medicine; ATTEND Family Medicine
DX: I11.0 Hypertensive heart disease with heart failure (principal); J18.8 Other pneumonia, unspecified organism; J44.0 Chronic obstructive pulmonary disease with (acute) lower respiratory infection; Z68.43 Body mass index [BMI] 50.0-59.9, adult; F02.81 Dementia in other diseases classified elsewhere, unspecified severity, with behavioral disturbance; J44.1 Chronic obstructive pulmonary disease with (acute) exacerbation; I50.23 Acute on chronic systolic (congestive) heart failure; I42.9 Cardiomyopathy, unspecified; E66.01 Morbid (severe) obesity due to excess calories; F34.1 Dysthymic disorder; G47.00 Insomnia, unspecified; B37.9 Candidiasis, unspecified; E78.5 Hyperlipidemia, unspecified; E11.9 Type 2 diabetes mellitus without complications; K21.9 Gastro-esophageal reflux disease without esophagitis; D50.9 Iron deficiency anemia, unspecified; G30.1 Alzheimer's disease with late onset; J30.9 Allergic rhinitis, unspecified; E03.9 Hypothyroidism, unspecified

== ENCOUNTER 2019-02-03 06:03 | Inpatient (IN) | payer MEDICARE ==
[~2019-02-03] VITALS: Ht 162.6 cm; Wt 137.4 kg
[~2019-02-03 06:03] MED LIST changes: +IPRAT-ALBUT 0.5-3 ML INH; +LASIX40 MG PO
[2019-02-03] MEDS ORDERED: AMBIEN5 MG PO (06:07)
[2019-02-03 07:06] LABS: CALC OSMOLALITY 286 mosm/kg (275-300); CALCIUM 8.7 mg/dL (8.5-10.1); CARBON DIOXIDE 31.5 mmol/L (21.0-32.0); CHLORIDE - SERUM 103 mmol/L (98-107); GLUCOSE 145 mg/dL (74-106); POTASSIUM - SERUM 3.6 mmol/L (3.5-5.1); SODIUM 142 mmol/L (136-145); UREA NITROGEN 15 mg/dL (7-18); eGFR NON AFRICAN AMERICAN 55 mL/min (90-120)
[2019-02-03 07:09] LABS: APTT 31.3 SECONDS (22.8-39.4); INR 1.13 (0.85-1.17)
[2019-02-03 07:10] LABS: BASOPHILS 0.3 % (0-2); EOSINOPHILS 13.4 % (0-7); HEMATOCRIT 35.9 % (36.0-48.0); HEMOGLOBIN 11.2 g/dL (12-16); IMMATURE GRANULOCYTES 0.3 % (0-5); LYMPHOCYTES 26.9 % (15-50); MCH 31.8 pg (26.0-34.0); MCHC 31.2 g/dL (31.0-37.0); MEAN PLATELET VOLUME 10.6 fL (7.4-10.4); MONOCYTES 5.7 % (2-11); NEUTROPHILS 53.4 % (40-80); PLATELET COUNT 249 10x3/uL (130-400); RBC 3.52 10x6/uL (4.00-5.40); RDW 12.7 % (11.5-14.5); WBC 11.7 10x3/uL (4.8-10.8)
[2019-02-03 07:21] LABS: ALBUMIN 2.5 g/dL (3.4-5.0); ALKALINE PHOSPHATASE 89 U/L (46-116); ALT (SGPT) 10 U/L (10-68); BILIRUBIN - TOTAL 0.39 mg/dL (0.2-1.3); CKMB 0.5 U/L (0.0-3.6); CREATINE KINASE 36 UL (21-215); D-DIMER-QUANTITATIVE 3.83 ug/mLFEU (0.20-0.54); PRO BNP 735 pg/mL (0-450); PROTEIN - SERUM 7.5 g/dL (6.4-8.2); TROPONIN-I < 0.017 ng/mL (0.000-0.060)
--- NOTE | 2019-02-03 07:22 | NUR ---
D DIMER 3.83
[2019-02-03 09:35] VITALS: BP 87/58
[2019-02-03 11:01] VITALS: BP 95/47
[2019-02-03 11:37] VITALS: BP 95/47
[2019-02-03] MEDS ORDERED: LISINOPRIL10 MG PO (11:44)
[2019-02-03] MEDS ORDERED: DIPHENHIST25 MG PO (11:46)
--- NOTE | 2019-02-03 12:33 | NUR ---
PT ARRIVES TO UNIT PER STRETCHER, TRANSFERED TO BED WITH 4 ASSIST, PT FROM [facility], O2 ER NC, WHEEZING NOTED BILATERALLY, FAMILY IN ROOM, SL TO LEFT SHOULDER
[2019-02-03 17:29] VITALS: BP 120/67
[2019-02-04] VITALS: BP 104/66
[2019-02-04 07:04] LABS: ANION GAP 9.7 mmol/L (8-16); CALCIUM 8.7 mg/dL (8.5-10.1); PHOSPHOROUS 2.8 mg/dL (2.5-4.9); POTASSIUM - SERUM 3.7 mmol/L (3.5-5.1)
--- NOTE | 2019-02-04 07:10 | NUR ---
PT RESTING IN BED. NO SIGNS OF DISTRESS. IV TO LEFT SHOULDER NO REDNESS OR TENDERNESS. ON TELEMETRY 75 SR WITH PACING BEATS. ON 2L NC. DENIES ANY FURTHER NEED AT THIS TIME. CALL LIGHT IN REACH. BED LOW POSITION. NO FAMILY AT BEDSIDE AT THIS TIME.
[2019-02-04 07:29] LABS: BASOPHILS 0.3 % (0-2); EOSINOPHILS 14.1 % (0-7); HEMATOCRIT 34.7 % (36.0-48.0); HEMOGLOBIN 10.8 g/dL (12-16); IMMATURE GRANULOCYTES 0.3 % (0-5); LYMPHOCYTES 32.5 % (15-50); MCH 31.9 pg (26.0-34.0); MCHC 31.1 g/dL (31.0-37.0); MCV 102.4 fL (80.0-100.0); MEAN PLATELET VOLUME 11.1 fL (7.4-10.4); MONOCYTES 6.7 % (2-11); NEUTROPHILS 46.1 % (40-80); PLATELET COUNT 271 10x3/uL (130-400); RBC 3.39 10x6/uL (4.00-5.40); RDW 12.4 % (11.5-14.5); WBC 11.7 10x3/uL (4.8-10.8)
[2019-02-04 08:49] VITALS: BP 101/50
--- NOTE | 2019-02-04 11:35 | NUR ---
I have reviewed this patient and I concur with the Shift Assessment completed by the Licensed Practical Nurse today this shift.
[2019-02-04 12:47] VITALS: BP 114/69
[2019-02-04 13:41] VITALS: Ht 162.6 cm; Wt 137.4 kg
[2019-02-04 16:48] VITALS: BP 119/59
--- NOTE | 2019-02-04 17:08 | NUR ---
OT NOTE: PT REQUIRED TOTAL A FOR POSITIONING TASKS. PT COMPLETED UE AAROM AXS. [phone] THANK YOU, SVETLANA GALLEGOS
--- NOTE | 2019-02-04 19:15 | NUR ---
PATIENT SITTING UP IN BED. PATIENT COMPLAINS OF PAIN AND STATES SHE WOULD LIKE SOME PAIN MEDICINE. DONNELL ANY FUTHER NEEDS AT THIS TIME. BED RAILS X2. CALL LIGHT AND BEDSIDE TABLE WITHIN REACH.
[2019-02-04 19:30] VITALS: BP 146/78
[2019-02-05 00:30] VITALS: BP 137/69
[2019-02-05 05:00] VITALS: BP 127/67
[2019-02-05 08:52] LABS: % SATURATION 32 % (15-55); IRON 54 ug/dl (35-150); TOTAL IRON BIND CAPACITY 168 ug/dl (260-445); UNSAT IRON BIND CAPACITY 114 ug/dl (150-375)
[2019-02-05 08:57] LABS: BASOPHILS 0.1 % (0-2); EOSINOPHILS 0 % (0-7); HEMATOCRIT 36.1 % (36.0-48.0); HEMOGLOBIN 11.7 g/dL (12-16); IMMATURE GRANULOCYTES 0.6 % (0-5); LYMPHOCYTES 14.2 % (15-50); MCH 32.4 pg (26.0-34.0); MCHC 32.4 g/dL (31.0-37.0); MEAN PLATELET VOLUME 10.2 fL (7.4-10.4); MONOCYTES 1.7 % (2-11); NEUTROPHILS 83.4 % (40-80); PLATELET COUNT 296 10x3/uL (130-400); RBC 3.61 10x6/uL (4.00-5.40); RDW 12.1 % (11.5-14.5); WBC 12.1 10x3/uL (4.8-10.8)
[2019-02-05 09:09] LABS: ANION GAP 11.6 mmol/L (8-16); CALCIUM 8.8 mg/dL (8.5-10.1); CARBON DIOXIDE 27.3 mmol/L (21.0-32.0); CREATININE - SERUM 0.8 mg/dL (0.6-1.3); MAGNESIUM - SERUM 1.9 mg/dL (1.8-2.4); POTASSIUM - SERUM 3.9 mmol/L (3.5-5.1)
--- NOTE | 2019-02-05 11:21 | MORECARE ---
CASE MANAGEMENT DISCHARGE SUMMARY PATIENT: SRINIVAS PARRA UNIT: [id number] ADM DATE: 02/03/19 AGE: 88 : 31 SEX: F ROOM/BED: D.[facility] AUTHOR: HALLEY ZAVALA PHYSICIAN: REFERRING PHYSICIAN: NAIMA HENRY MD DATE OF SERVICE: 02/05/19 Discharge Plan Patient Name: SRINIVAS PARRA Facility: [facility]:[place] : 1930 Planned Disposition: Nursing Facility [facility] Cert Anticipated Discharge Date: Discharge Date: Expected LOS: Initial Reviewer: [email or web address] Initial Review Date: 02/03/2019 Generated: 02/05/19 12:21 pm DCPIA - Discharge Planning Initial Assessment Updated by [id number]: Arminda Costello on 02/05/19 11:18 am * Is the patient Alert and Oriented? Yes * PCP GARY * Pharmacy [facility] * Preadmission Environment Hospital Medicine Director Custodial * Facility Name [facility] * ADLs Total Dependent * List name and contact numbers for known caregivers / representatives who currently or will assist patient after discharge: ZENIA PARRA ( SON) * Verbal permission to speak to the caregivers and representatives has been obtained from the patient. N/A * Community resources currently utilized None * Additional services required to return to the preadmission environment? No * Can the patient safely return to the preadmission environment? Yes * Has this patient been hospitalized within the prior 30 days at any hospital? No Patient Name: SRINIVAS PARRA Page [phone] at 1121 All edits/amendments must be made on the electronic document DICTATION DATE: 02/05/19 1121 EXCELSIOR CUTTER: NAYE 02/05/19 1121 RPT#: [id number] DC DATE: STATUS: ADM IN [facility] [address] [place] [address] END OF REPORT
--- NOTE | 2019-02-05 11:30 | MORECARE ---
CASE MANAGEMENT DISCHARGE SUMMARY PATIENT: SRINIVAS PARRA UNIT: [id number] ADM DATE: 02/03/19 AGE: 88 : 31 SEX: F ROOM/BED: D.2235 AUTHOR: SALLYDOC PHYSICIAN: REFERRING PHYSICIAN: NAIMA HENRY MD DATE OF SERVICE: 02/05/19 Discharge Plan Patient Name: SRINIVAS PARRA Facility: [facility]:[place] : 1930 Planned Disposition: Nursing Facility [facility] Cert Anticipated Discharge Date: Discharge Date: Expected LOS: Initial Reviewer: [email or web address] Initial Review Date: 02/03/2019 Generated: 02/05/19 12:29 pm DCP- Discharge Planning Updated by [email or web address]: Arminda Costello on 02/05/19 10:[address] Patient Name: SRINIVAS PARRA Admission Status: Elective Accout number: [id number] Admission Date: 02-03-2019 : 1930 Admission Diagnosis: Attending: NAIMA HENRY Current LOS: 2 Anticipated DC Date: Planned Disposition: Nursing Facility [facility] Cert Primary Insurance: MEDICARE A & B Discharge Planning Comments: CM met with patient to complete initial dc planning assessment. CM educated patient on the CM role and verbal consent given by patient to complete assessment. 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 Patient says this every time she is in the hospital. She says that she will do better at home and she has a vest backer, but her children say that it is not possible for her to go home. CM discussed availability of home health, rehab services, and medical equipment. All equipment/ DME is provided by [facility]. At this time the plan will be to return to [facility]. CM will continue to follow and will assist as needed with dc plans/needs. Urgent Care: Arminda Costello DCPIA - Discharge Planning Initial Assessment Updated by [email or web address]: Arminda Costello on 02/05/19 11:18 am * Is the patient Alert and Oriented? Yes * PCP GARY * Pharmacy [facility] * Preadmission Environment [facility] * Facility Name [facility] * ADLs Total Dependent * List name and contact numbers for known caregivers / representatives who currently or will assist patient after discharge: ZENIA PARRA ( SON) * Verbal permission to speak to the caregivers and representatives has been obtained from the patient. N/A * Community resources currently utilized None * Additional services required to return to the preadmission environment? No * Can the patient safely return to the preadmission environment? Yes * Has this patient been hospitalized within the prior 30 days at any hospital? No Last DP export: 02/05/19 10:21 Patient Name: SRINIVAS PARRA Page [phone] at 1130 All edits/amendments must be made on the electronic document DICTATION DATE: 02/05/191128 MANAGER TALENT ACQUISITION: NAYE 02/05/191128 RPT#: [id number] DC DATE: STATUS: ADM IN [facility] [address] [place] [address] END OF REPORT
--- NOTE | 2019-02-05 11:56 | NUR ---
OT NOTE: PERFORMED GROOMING TASKS AND FEEDING WITH SET UP; UE AROM EXS. PT WITH EXCESSIVE COUGHING DURING UE EXS. NURSING NOTIFIED. VEGA BANGURA, OTR/L
[2019-02-05 12:22] VITALS: BP 142/62
[2019-02-05 15:03] LABS: APPEARANCE CLEAR (CLEAR); BILIRUBIN NEGATIVE (NEGATIVE); COLOR YELLOW (YELLOW); GLUCOSE NEGATIVE (NEGATIVE); KETONE NEGATIVE (NEGATIVE); NITRITE NEGATIVE (NEGATIVE); PROTEIN NEGATIVE (NEGATIVE); UROBILINOGEN NORMAL (NORMAL)
--- NOTE | 2019-02-05 16:45 | NUR ---
PT WITH ORDER FOR URINE COLLECTION. IN/OUT CATH DONE FOR SAMPLE.
--- NOTE | 2019-02-05 16:54 | NUR ---
OT NOTE: PT COMPLETED BUE AROM EXS. PT COMPLETED UB HYGIENE TASKS WITH SETUP. PT REQUIRED TOTAL A FOR POSITIONING LE TO DECREASE SKIN BREAKDOWN. [phone] THANK YOU, SVETLANA GALLEGOS
[2019-02-05 17:02] VITALS: BP 120/52
[2019-02-05 21:00] VITALS: BP 132/65
[2019-02-06 04:50] VITALS: BP 128/65
[2019-02-06 06:19] LABS: BASOPHILS 0 % (0-2); EOSINOPHILS 0 % (0-7); HEMATOCRIT 33.3 % (36.0-48.0); HEMOGLOBIN 10.6 g/dL (12-16); IMMATURE GRANULOCYTES 0.5 % (0-5); LYMPHOCYTES 8.8 % (15-50); MCH 31.7 pg (26.0-34.0); MCHC 31.8 g/dL (31.0-37.0); MCV 99.7 fL (80.0-100.0); MEAN PLATELET VOLUME 10.8 fL (7.4-10.4); MONOCYTES 2.5 % (2-11); NEUTROPHILS 88.2 % (40-80); PLATELET COUNT 312 10x3/uL (130-400); RBC 3.34 10x6/uL (4.00-5.40); RDW 12.5 % (11.5-14.5)
[2019-02-06 06:21] LABS: WBC 16.7 10x3/uL (4.8-10.8)
[2019-02-06 06:47] LABS: ANION GAP 11.3 mmol/L (8-16); CALCIUM 8.3 mg/dL (8.5-10.1); CARBON DIOXIDE 26.6 mmol/L (21.0-32.0); MAGNESIUM - SERUM 1.9 mg/dL (1.8-2.4); POTASSIUM - SERUM 3.9 mmol/L (3.5-5.1)
--- NOTE | 2019-02-06 08:00 | NUR ---
AWAKE AND ALERT. ORIENTED X3. LUNGS ARE CLEAR BILATERALLY, DRY COUGH NOTED. SKIN IS INTACT WITHOUT REDNESS. IV TO LEFT UPPER ARM IS PATENT WTIHOUT REDNESS AT INSERTION SITE. BREAKFAST SERVED IN ROOM. ASSISTED TO OPEN CONTAINERS PER STAFF. EATING BREAKFAST. DENIES NEEDS.
[2019-02-06 09:01] VITALS: BP 123/53
--- NOTE | 2019-02-06 09:30 | NUR ---
ATE ABOUT HALF OF BREAKFAST WITH SET UP ASSISTANCE. TOOK AM MEDS WITHOUT DIFFICULTY. DENIES NEEDS.
--- NOTE | 2019-02-06 10:07 | NUR ---
TOOK AM MEDS WITHOUT DIFFICULTY. TOOK AM MEDS. NO NEEDS NOTED.
--- NOTE | 2019-02-06 11:30 | NUR ---
FSBS 250. GIVEN 8 UNITS HUMALOG SUBQ PER SS. WILL MONITOR.
--- NOTE | 2019-02-06 12:36 | NUR ---
LUNCH SERVED IN ROOM. WANTS TO WAIT A BIT TO EAT.
[2019-02-06 12:51] VITALS: BP 127/47
[2019-02-06 17:01] VITALS: BP 107/70
[2019-02-07 00:29] VITALS: BP 126/52
[2019-02-07 05:30] VITALS: BP 121/50
[2019-02-07 06:29] LABS: BASOPHILS 0 % (0-2); EOSINOPHILS 0 % (0-7); HEMATOCRIT 33.4 % (36.0-48.0); HEMOGLOBIN 10.5 g/dL (12-16); IMMATURE GRANULOCYTES 0.4 % (0-5); MCH 31.5 pg (26.0-34.0); MCHC 31.4 g/dL (31.0-37.0); MCV 100.3 fL (80.0-100.0); MEAN PLATELET VOLUME 10.6 fL (7.4-10.4); MONOCYTES 3.2 % (2-11); NEUTROPHILS 87.4 % (40-80); PLATELET COUNT 278 10x3/uL (130-400); RBC 3.33 10x6/uL (4.00-5.40); RDW 12.4 % (11.5-14.5); WBC 13.9 10x3/uL (4.8-10.8)
[2019-02-07 06:38] LABS: ANION GAP 11.2 mmol/L (8-16); CALCIUM 8.3 mg/dL (8.5-10.1); CREATININE - SERUM 0.8 mg/dL (0.6-1.3); MAGNESIUM - SERUM 2.1 mg/dL (1.8-2.4); POTASSIUM - SERUM 4.2 mmol/L (3.5-5.1)
[2019-02-07 09:06] VITALS: BP 115/71
--- NOTE | 2019-02-07 10:02 | NUR ---
PT SITTING UP IN BED HAD BREAKFAST STATES SHE IS FEELING WELL AT THE MOMENT. NO NEEDS VOICED. BED IN LOWESTN POSITION CL IN REACH CONTINUE WITH PLAN OF CARE
[2019-02-07 12:20] VITALS: BP 102/66
--- NOTE | 2019-02-07 12:58 | NUR ---
STRICT I&O ORDERED ON PT. PT IS INCONTINENT WILL TRY AND PLACE PUREWICK ON PT TO SEE IF ABLE TO RECORD I&O. NO NEEDS VOICED, CONTINUE WITH PLAN OF CARE
--- NOTE | 2019-02-07 13:05 | NUR ---
PT REFUSED TO WAKE UP FOR LUNCH RIGHT NOW STATES SHE WILL WAKE UP AND EAT IN A BIT NO NEEDS VOICED PT STATES SHE IS JUST SLEEPY AND WANTS TO REST. CONTINUE WITH PLAN OF CARE
--- NOTE | 2019-02-07 13:16 | NUR ---
I have reviewed this patient and I concur with the Shift Assessment completed by the Licensed Practical Nurse today this shift.
--- NOTE | 2019-02-07 15:35 | NUR ---
PT LYING IN BED EYES CLOSED, EVEN RISE AND FALL OF CHEST, NO S/SX OF DISTRESS, O2 ON, CL IN REACH, CONTINUE WITH PLAN OF CARE
[2019-02-07 16:12] VITALS: BP 95/49
[2019-02-07 19:30] VITALS: BP 93/41
[2019-02-08 00:30] VITALS: BP 114/59
[2019-02-08 05:31] VITALS: BP 122/64
[2019-02-08 06:51] LABS: BASOPHILS 0 % (0-2); EOSINOPHILS 0 % (0-7); HEMATOCRIT 34.3 % (36.0-48.0); HEMOGLOBIN 10.8 g/dL (12-16); IMMATURE GRANULOCYTES 0.7 % (0-5); LYMPHOCYTES 12.1 % (15-50); MCH 32.2 pg (26.0-34.0); MCHC 31.5 g/dL (31.0-37.0); MEAN PLATELET VOLUME 10.8 fL (7.4-10.4); MONOCYTES 4.6 % (2-11); NEUTROPHILS 82.6 % (40-80); PLATELET COUNT 303 10x3/uL (130-400); RBC 3.35 10x6/uL (4.00-5.40); RDW 12.9 % (11.5-14.5); WBC 12.9 10x3/uL (4.8-10.8)
[2019-02-08 07:02] LABS: MCV 102.4 fL (80.0-100.0)
[2019-02-08 07:09] LABS: CALCIUM 8.3 mg/dL (8.5-10.1); CARBON DIOXIDE 27.3 mmol/L (21.0-32.0); POTASSIUM - SERUM 4.3 mmol/L (3.5-5.1)
--- NOTE | 2019-02-08 08:01 | NUR ---
NO COMPLAINTS AT PRESENT. DRY GOWN AND LINENS AT PRESENT. OXYGEN REMAINS AT 1 L PER NC. COARSE RALES BILAT WITH COUGHING. FALL PRECAUTIONS IN PLACE. CALL LIGHT IN REACH
[2019-02-08 08:14] VITALS: BP 116/63
--- NOTE | 2019-02-08 12:19 | NUR ---
PT LYING IN BED STATES SHE DOES NOT FEEL VERY WELL TODAY, PT STATES COUGH IS BOTHERING HER MORE TODAY THAN IT HAS, ADMINISTERED PRN COUGH MEDICATION AND GAVE HER PAIN MEDS WELL PER REQUEST. BED IN LOWEST POSITION, CL IN REACH CONTINUE WITH PLAN OF CARE
--- NOTE | 2019-02-08 12:42 | NUR ---
OT NOTE: PT LIEING IN BED. STATES THAT SHE DOES NOT FEEL WELL. REQUESTING TISSUE TO CLEAR MOUTH SHE IS COUGHING UP PHLEGM.. PT RESISTANT TO UE EXS AND REQUIRES EXT TIME AND ENCOURAGEMENT TO PARTICIPATE. REFUSED TO ATTEMPT TO SIT ON EOB STATING THAT SHE DOESNT FEEL GOOD TODAY. PT ABLE TO PERFORM UPPER BODY ADLS INCLUDING PUTTING IN AND REMOVING DENTURES, ABLE TO WASH FACE AND HANDS WITH WASH CLOTH; FINE MOTOR TASKS INVOLVING PICKING UP SMALL ITEMS ON TRAY TABLE. PT ABLE TO DEMONSTRATE UE EXS AND LE EXS, HOWEVER, MINIMAL MOVEMENT OR STRENGTH IN LES. VEGA BANGURA, OTR/L [phone]
[2019-02-08 12:51] VITALS: BP 136/76
--- NOTE | 2019-02-08 13:55 | NUR ---
PT STATED SHE HAS NOT HAD A BM SINCE BEING ADMITTED, PT TAKES MIRALAX AND HAS ASKED FOR A SUPPOSITORY. ENCOURAGED PT TO ASK EGG BUYER ABOUT SUPPOSITORY WHEN SHE MAKES HER ROUNDS. NO OTHER NEEDS VOICED, CONTINUE WITH PLAN OF CARE
--- NOTE | 2019-02-08 14:35 | NUR ---
Nutrition follow-up: Diet: Low sodium PO intake ~50% of meals; pt states she is not feeling well today Pt has been refusing some meals +BM Wt: 302# Will encourage increased po intake RDN following.
--- NOTE | 2019-02-08 14:36 | NUR ---
OT NOTE: PT REFUSED TO ATTEMPT TO SIT AT EOB. SHE STATED MAYBE TOMORROW. PT COMPLETED FACE AND HAND HYGIENE TASKS WITH SET UP. PT COMPLETED UE AAROM AXS. PT COMPLETED POSITIONING TO DECREASE SKIN BREAKDOWN WITH TOTAL A. [phone] THANK YOU, SVETLANA GALLEGOS
[2019-02-08 16:35] VITALS: BP 130/59
[2019-02-08 19:30] VITALS: BP 111/84
--- NOTE | 2019-02-08 23:33 | NUR ---
REC'D. DURING WALKING ROUNDS CHGE OF SHIFT IN BED ASSISTED TO TURN REQUESTED TO RIGHT SIDE PILLOW TO BACK AND BETWEEN KNEES FOR SUPPORT CONTINUES TO COMPLAIN OF NO BM SINCE ADMISSION DISCUSSED MIRALAX BEING TAKEN DAILY FOR ABOVE.DENIES PAIN AT PRESENT TIME.WILL CONTINUE TO MONITOR FOR ANY CHGES AND FOLLOW CURRENT PLAN OF CARE.
[2019-02-09 00:30] VITALS: BP 152/80
[2019-02-09 05:25] VITALS: BP 160/78
[2019-02-09 05:33] LABS: ANION GAP 10.8 mmol/L (8-16); CALCIUM 8.3 mg/dL (8.5-10.1); MAGNESIUM - SERUM 2.1 mg/dL (1.8-2.4); POTASSIUM - SERUM 3.8 mmol/L (3.5-5.1)
[2019-02-09 05:34] LABS: BASOPHILS 0 % (0-2); EOSINOPHILS 0 % (0-7); HEMATOCRIT 35.5 % (36.0-48.0); HEMOGLOBIN 11.3 g/dL (12-16); IMMATURE GRANULOCYTES 1.2 % (0-5); LYMPHOCYTES 12.6 % (15-50); MCHC 31.8 g/dL (31.0-37.0); MCV 100.6 fL (80.0-100.0); MEAN PLATELET VOLUME 11.1 fL (7.4-10.4); MONOCYTES 6.5 % (2-11); NEUTROPHILS 79.7 % (40-80); PLATELET COUNT 278 10x3/uL (130-400); RBC 3.53 10x6/uL (4.00-5.40); RDW 12.8 % (11.5-14.5); WBC 11.8 10x3/uL (4.8-10.8)
--- NOTE | 2019-02-09 07:16 | NUR ---
I have reviewed this patient and I concur with the Shift Assessment completed by the Licensed Practical Nurse today this shift.
[2019-02-09 08:43] VITALS: BP 103/54
[2019-02-09 12:09] LABS: PROCALCITONIN 0.1 ng/mL (0.00-0.08)
[2019-02-09 12:43] VITALS: BP 120/55
--- NOTE | 2019-02-09 16:13 | NUR ---
OT NOTE: PT COMPLETED UB HYGIENE TASKS WITH MOD A. PT COMPLETED UE AAROM AX. PT COMPLETED POSITIONING TO DECREASE RISK OF SKIN BREAKDOWN WITH MAX A. [id number] THANK YOU, SVETLANA GALLEGOS
[2019-02-09 16:54] VITALS: BP 105/63
--- NOTE | 2019-02-09 20:03 | NUR ---
REC'D CHGE OF SHIFT WALKING ROUNDS IN BED EYES CLOSED RESP. DEEP AND EVEN.WILL CONTINUE TO MONITOR FOR ANY CHGES AND FOLLOW CURRENT PLAN OF CARE.
[2019-02-10 00:30] VITALS: BP 108/62
[2019-02-10 05:30] VITALS: BP 118/52; BP 99/58
--- NOTE | 2019-02-10 06:28 | NUR ---
I have reviewed this patient and I concur with the Shift Assessment completed by the Licensed Practical Nurse today this shift.
[2019-02-10 06:53] LABS: ANION GAP 7.6 mmol/L (8-16); CALCIUM 8.6 mg/dL (8.5-10.1); CARBON DIOXIDE 32.6 mmol/L (21.0-32.0); CREATININE - SERUM 0.8 mg/dL (0.6-1.3); MAGNESIUM - SERUM 2.1 mg/dL (1.8-2.4); PHOSPHOROUS 2.2 mg/dL (2.5-4.9)
[2019-02-10 06:54] LABS: POTASSIUM - SERUM 3.2 mmol/L (3.5-5.1)
--- NOTE | 2019-02-10 07:00 | NUR ---
PT IS RESTING IN BED WITH EYES CLOSED. RESPIRATIONS ARE EVEN AND UNLABORED. PT IS EASILY AROUSED WITH VERBAL STIMULATION. PT IS AAO X 4 UPON AROUSAL. PT WITH O2 VIA NC @ 1L. PT DENIES PRESENCE OF N/V/PAIN/DYSPNEA. PT REPORTS THAT SHE IS ABLE TO REPOSITION SELF IN BED. PUREWICK IN PLACE. BED IS IN THE LOWEST POSITION. CALL LIGHT AND BEDSIDE TABLE ARE WITHIN REACH. SIDE RAILS X 2. PT DENIES FURTHER NEEDS. WILL CONT TO MONITOR.
[2019-02-10 08:19] VITALS: BP 112/45
[2019-02-10 12:18] VITALS: BP 118/56
--- NOTE | 2019-02-10 14:10 | MORECARE ---
CASE MANAGEMENT DISCHARGE SUMMARY PATIENT: SRINIVAS PARRA UNIT: [id number] ADM DATE: 02/03/19 AGE: 88 : 31 SEX: F ROOM/BED: D.2235 AUTHOR: HALLEY ZAVALA PHYSICIAN: REFERRING PHYSICIAN: NAIMA HENRY MD DATE OF SERVICE: 02/10/19 Discharge Plan Patient Name: SRINIVAS PARRA Facility: [facility]:[place] : 1930 Planned Disposition: Nursing Facility [facility] Cert Anticipated Discharge Date: Discharge Date: Expected LOS: Initial Reviewer: [email or web address] Initial Review Date: 02/03/2019 Generated: 02/10/19 3:10 pm Comments DCP- Discharge Planning Updated by [email or web address]: Marielle Romo on 02/10/19 1:[address] PRIMARY NURSE REPORTS THE PATIENT STATES SHE DOES NOT WANT TO RETURN TO [facility]. CM REVIEWED HER CHART. THE PRIMARY RESTAURANT DELIVERY DRIVER HAS NOTED THE PATIENT CONCERNS AND ADDRESSED. DCP- Discharge Planning Updated by [id number]: Arminda Costello on 02/05/19 10:[address] Patient Name: SRINIVAS PARRA Admission Status: Elective Accout number: [id number] Admission Date: 02-03-2019 : 1930 Admission Diagnosis: Attending: NAIMA HENRY Current LOS: 2 Anticipated DC Date: Planned Disposition: Nursing Facility [facility] Primary Insurance: MEDICARE A & B Discharge Planning Comments: CM met with patient to complete initial dc planning assessment. CM educated patient on the CM role and verbal consent given by patient to complete assessment. 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. 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 Patient says this every time she is in the hospital. She says that she will do better at home and she has a para professional, but her children say that it is not possible for her to go home. CM discussed availability of home health, rehab services, and medical equipment. All equipment/ DME is provided by [facility]. At this time the plan will be to return to [facility]. CM will continue to follow and will assist as needed with dc plans/needs. Mill Helper: Arminda Costello DCPIA - Discharge Planning Initial Assessment Updated by [email or web address]: Arminda Costello on 02/05/19 11:18 am * Is the patient Alert and Oriented? Yes * PCP GARY * Pharmacy [facility] * Preadmission Environment Jail Alf * Facility Name [facility] * ADLs Total Dependent * List name and contact numbers for known caregivers / representatives who currently or will assist patient after discharge: ZENIA PARRA ( SON) * Verbal permission to speak to the caregivers and representatives has been obtained from the patient. N/A * Community resources currently utilized None * Additional services required to return to the preadmission environment? No * Can the patient safely return to the preadmission environment? Yes * Has this patient been hospitalized within the prior 30 days at any hospital? No Last DP export: 02/05/19 10:30 Patient Name: SRINIVAS PARRA Page [phone] at 1410 All edits/amendments must be made on the electronic document DICTATION DATE: 02/10/191409 REGISTERED SALES ASSISTANT: NAYE 02/10/191409 RPT#: [id number] DC DATE: STATUS: ADM IN [facility] [address] [facility] [place] [address] END OF REPORT
--- NOTE | 2019-02-10 15:34 | MORECARE ---
CASE MANAGEMENT DISCHARGE SUMMARY PATIENT: SRINIVAS PARRA UNIT: [id number] ADM DATE: 02/03/19 AGE: 88 : 31 SEX: F ROOM/BED: D.2235 AUTHOR: SALLY,DOC PHYSICIAN: REFERRING PHYSICIAN: NAIMA HENRY MD DATE OF SERVICE: 02/10/19 Discharge Plan Patient Name: SRINIVAS PARRA Facility: [facility]:[place] : 1930 Planned Disposition: Nursing Facility [facility] Cert Anticipated Discharge Date: Discharge Date: Expected LOS: Initial Reviewer: [email or web address] Initial Review Date: 02/03/2019 Generated: 02/10/19 4:34 pm Comments DCP- Discharge Planning Updated by [email or web address]: Marielle Romo on 02/10/19 2:[address] CM MET WITH THE PATIENT AT THE BEDSIDE. SHE IS ADAMANT SHE WANTS TO RETURN TO HER HOME WHERE HER SON AND GRANDDAUGHTER REPORTEDLY LIVE WITH HER. SHE STATES SHE HAS AN ARTHRITIS CHAIR, COMMODE AND WILL NEED A HOSPITAL BED. SHE STATES SHE HAD PRIVATE HIRE ASSISTANCE PREVIOUSLY AND HAD HOME HEALTH FOR PHYSICAL THERAPY AND NURSING. CM EXPLAINED THE SON WOULD NEED TO MEET W/ CM TO DISCUSS DISCHARGE AND NEEDS. SHE FEELS SHE IS INDEPENDENT OF HER SON. SHE DOES NOT FEEL SHE IS TREATED WELL AT [facility]. CM TO FOLLOW . DCP- Discharge Planning Updated by [id number]: Marielle Romo on 02/10/19 1:[address] PRIMARY NURSE REPORTS THE PATIENT STATES SHE DOES NOT WANT TO RETURN TO [facility]. CM REVIEWED HER CHART. THE PRIMARY CLEANER WALL HAS NOTED THE PATIENT CONCERNS AND ADDRESSED. DCP- Discharge Planning Updated by [id number]: Arminda Costello on 02/05/19 10:[address] Patient Name: SRINIVAS PARRA Admission Status: Elective Accout number: [id number] Admission Date: 02-03-2019 : 1930 Admission Diagnosis: Attending: NAIMA HENRY Current LOS: 2 Anticipated DC Date: Planned Disposition: Nursing Facility [facility] Cert Primary Insurance: MEDICARE A & B Discharge Planning Comments: CM met with patient to complete initial dc planning assessment. CM educated patient on the CM role and verbal consent given by patient to complete assessment. 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 Patient says this every time she is in the hospital. She says that she will do better at home and she has a commercial kitchen service technician, but her children say that it is not possible for her to go home. CM discussed availability of home health, rehab services, and medical equipment. All equipment/ DME is provided by [facility] At this time the plan will be to return to [facility]. CM will continue to follow and will assist as needed with dc plans/needs. Biomedical Equipment Specialist: Arminda Costello DCPIA - Discharge Planning Initial Assessment Updated by [id number]: Arminda Costello on 02/05/19 11:18 am * Is the patient Alert and Oriented? Yes * PCP GARY * Pharmacy [facility] * Preadmission Environment Gasket Inspector Fci * Facility Name [facility] * ADLs Total Dependent * List name and contact numbers for known caregivers / representatives who currently or will assist patient after discharge: ZENIA PARRA ( SON) * Verbal permission to speak to the caregivers and representatives has been obtained from the patient. N/A * Community resources currently utilized None * Additional services required to return to the preadmission environment? No * Can the patient safely return to the preadmission environment? Yes * Has this patient been hospitalized within the prior 30 days at any hospital? No Last DP export: 02/10/19 1:10 pm Patient Name: SRINIVAS PARRA Page [phone] at 1534 All edits/amendments must be made on the electronic document DICTATION DATE: 02/10/19 153 TERMINOLOGIST: NAYE 02/10/19 153 RPT#: [id number] DC DATE: STATUS: ADM IN [facility] [address] [place] [address] END OF REPORT
[2019-02-10 17:03] VITALS: BP 130/59
[2019-02-10 17:07] LABS: AEROBE ID Final report (())
[2019-02-10 20:00] VITALS: BP 111/52
[2019-02-11] VITALS: BP 109/85
[2019-02-11 04:00] VITALS: BP 94/51
[2019-02-11 04:54] LABS: BASOPHILS 0.1 % (0-2); EOSINOPHILS 0.8 % (0-7); HEMATOCRIT 34.7 % (36.0-48.0); HEMOGLOBIN 11.2 g/dL (12-16); IMMATURE GRANULOCYTES 0.9 % (0-5); LYMPHOCYTES 26.6 % (15-50); MCH 32.4 pg (26.0-34.0); MCHC 32.3 g/dL (31.0-37.0); MCV 100.3 fL (80.0-100.0); MONOCYTES 7.7 % (2-11); NEUTROPHILS 63.9 % (40-80); PLATELET COUNT 299 10x3/uL (130-400); RBC 3.46 10x6/uL (4.00-5.40); RDW 13.1 % (11.5-14.5)
[2019-02-11 05:06] LABS: WBC 18.2 10x3/uL (4.8-10.8)
[2019-02-11 05:13] LABS: ALBUMIN 2.1 g/dL (3.4-5.0); ANION GAP 8.4 mmol/L (8-16); BILIRUBIN - TOTAL 0.46 mg/dL (0.2-1.3); CALCIUM 8.2 mg/dL (8.5-10.1); CREATININE - SERUM 0.9 mg/dL (0.6-1.3); PROTEIN - SERUM 6.1 g/dL (6.4-8.2)
[2019-02-11 05:19] LABS: POTASSIUM - SERUM 3.4 mmol/L (3.5-5.1)
--- NOTE | 2019-02-11 07:55 | NUR ---
I have reviewed this patient and I concur with the Shift Assessment completed by the Licensed Practical Nurse today this shift.
[2019-02-11 12:36] VITALS: BP 104/46
[2019-02-11 14:12] LABS: APPEARANCE CLOUDY (CLEAR); BILIRUBIN NEGATIVE (NEGATIVE); COLOR YELLOW (YELLOW); EPITHELIAL CELLS 0-5 /hpf (0-5); GLUCOSE NEGATIVE (NEGATIVE); KETONE NEGATIVE (NEGATIVE); NITRITE NEGATIVE (NEGATIVE); PROTEIN NEGATIVE (NEGATIVE); RED CELLS - URINE 0-5 /hpf (0-5); SPECIFIC GRAVITY 1.015 (1.005-1.020); UROBILINOGEN NORMAL (NORMAL); WHITE CELLS - URINE 0-5 /hpf (NEGATIVE); YEAST >1+ /hpf (NONE SEEN)
[2019-02-11 14:13] LABS: BACTERIA MODERATE /hpf (NEGATIVE)
[2019-02-11 16:40] VITALS: BP 104/53
[2019-02-11 20:00] VITALS: BP 109/47
[2019-02-12 04:00] VITALS: BP 101/49
[2019-02-12 06:19] LABS: BASOPHILS 0.1 % (0-2); HEMOGLOBIN 10.7 g/dL (12-16); IMMATURE GRANULOCYTES 0.9 % (0-5); LYMPHOCYTES 27.7 % (15-50); MCH 31.7 pg (26.0-34.0); MCHC 31.5 g/dL (31.0-37.0); MCV 100.6 fL (80.0-100.0); MEAN PLATELET VOLUME 10.7 fL (7.4-10.4); MONOCYTES 7.9 % (2-11); NEUTROPHILS 62.4 % (40-80); RBC 3.38 10x6/uL (4.00-5.40); RDW 13.6 % (11.5-14.5); WBC 18.9 10x3/uL (4.8-10.8)
[2019-02-12 06:34] LABS: PLATELET COUNT 187 10x3/uL (130-400)
[2019-02-12 06:35] LABS: ALBUMIN 2.1 g/dL (3.4-5.0); ANION GAP 10.5 mmol/L (8-16); BILIRUBIN - TOTAL 0.58 mg/dL (0.2-1.3); CALCIUM 8.1 mg/dL (8.5-10.1); CARBON DIOXIDE 30.7 mmol/L (21.0-32.0); CREATININE - SERUM 0.9 mg/dL (0.6-1.3); PROTEIN - SERUM 5.9 g/dL (6.4-8.2)
[2019-02-12 06:37] LABS: POTASSIUM - SERUM 4.2 mmol/L (3.5-5.1)
--- NOTE | 2019-02-12 07:55 | NUR ---
PT IS RESTING IN BED WITH EYES CLOSED. RESPIRATIONS ARE EVEN AND UNLABORED. PT IS EASILY AROUSED WITH VERBAL STIMULATION. PT IS AAO X 4 UPON AROUSAL. PT DENIES PRESENCE OF PAIN/N/V AT THIS TIME. O2 VIA NC @ 2L. PIV TO LEFT SHOULDER INFUSING AT KVO WITHOUT DIFFICULTY. PT STATES "PLEASE LET ME SPEAK TO SOMEONE ABOUT GOING HOME WHEN I LEAVE HERE. I DO NOT WANT TO GO BACK TO THAT [facility]P. I WANT TO GO HOME TO MY CHAIR". CASE MANAGEMENT NOTIFIED OF PT CONCERNS AND REQUESTS. BED IS IN THE LOWEST POSITION. CALL LIGHT AND BEDSIDE TABLE ARE WITHIN REACH. SIDE RAILS X 2. PT DENIES FURTHER NEEDS. WILL CONT TO MONITOR.
[2019-02-12 08:29] VITALS: BP 112/88
[2019-02-12 12:52] VITALS: BP 120/55
[2019-02-12 18:14] VITALS: BP 109/54
[2019-02-12 20:00] VITALS: BP 108/54
--- NOTE | 2019-02-12 21:14 | NUR ---
PT C/O SHOULDER PAIN 2/10 AND COUGHING. GAVE 1 TAB NORCO-5 AND PHENERGAN COUGH SYRUP PO. GAVE OTHER SCHEDULED MEDS. FSBS 279 - GAVE INSULIN PER SS. PURWICK CATHETER CAPTURING URINE TO CANNISTER. COMPLETE ASSESSMENT PER FLOW-SHEET. PT EATING SNACK. NO OTHER NEEDS. WILL CONTINUE TO MONITOR.
[2019-02-13 04:00] VITALS: BP 102/54
[2019-02-13 06:27] LABS: BASOPHILS 0.1 % (0-2); EOSINOPHILS 1.3 % (0-7); HEMATOCRIT 38.1 % (36.0-48.0); HEMOGLOBIN 11.8 g/dL (12-16); IMMATURE GRANULOCYTES 0.3 % (0-5); LYMPHOCYTES 9.8 % (15-50); MCH 28.9 pg (26.0-34.0); MONOCYTES 8.6 % (2-11); NEUTROPHILS 79.9 % (40-80); RDW 18.9 % (11.5-14.5)
[2019-02-13 06:31] LABS: MCV 93.4 fL (80.0-100.0); PLATELET COUNT 300 10x3/uL (130-400); RBC 4.08 10x6/uL (4.00-5.40); WBC 6.9 10x3/uL (4.8-10.8)
[2019-02-13 06:50] LABS: ALBUMIN 2.9 g/dL (3.4-5.0); ANION GAP 12.1 mmol/L (8-16); BILIRUBIN - TOTAL 0.3 mg/dL (0.2-1.3); CALCIUM 8.9 mg/dL (8.5-10.1); CARBON DIOXIDE 32.9 mmol/L (21.0-32.0); CREATININE - SERUM 1.5 mg/dL (0.6-1.3); PROTEIN - SERUM 7.5 g/dL (6.4-8.2)
[2019-02-13 08:36] VITALS: BP 117/48
--- NOTE | 2019-02-13 08:55 | NUR ---
PT ALERT X 4. INSPIRATORY AND EXPIRATORY WHEEZES TO LEFT SIDE, CLEAR TO RIGHT, SHALLOW RESPIRATIONS, 2L O2 PER NC. TELEMETRY IN PLACE. IV TO LEFT SHOULDER, PATENT, DRESSING CDI. PT REPORTING HEADACHE THIS MORNING, PAIN LEVEL OF 2/10, MEDICATED PER ORDERS, WILL MONITOR. +2 EDEMA TO BLE. HEEL PROTECTORS IN PLACE. BED LOW, CALL LIGHT IN REACH. NO OTHER NEEDS AT THIS TIME.
[2019-02-13 13:31] VITALS: BP 100/58
[2019-02-13 16:42] VITALS: BP 124/63
[2019-02-13 20:00] VITALS: BP 113/48; BP 171/61
[2019-02-14 04:00] VITALS: BP 117/64
--- NOTE | 2019-02-14 05:47 | NUR ---
PT C/O SHOULDER PAIN 03/22. GAVE NORCO-5 1 TAB PO AND SCHEDULED MEDS. FSBS 166 - TREATED WITH INSULIN PER SS. PERFORMED PERINEAL CARE, CHANGED PURWICK CATHETER, APPLIED POWDER AND PUT PILLOW CASES IN FOLDS AND BETWEEN LEGS TO ABSORB MOISTURE. BROUGHT PT CUP OF COFFEE. NO OTHER NEEDS. WILL CONTINUE TO MONITOR.
[2019-02-14 07:32] LABS: BASOPHILS 0.1 % (0-2); EOSINOPHILS 1.2 % (0-7); HEMATOCRIT 35.4 % (36.0-48.0); HEMOGLOBIN 11.3 g/dL (12-16); IMMATURE GRANULOCYTES 0.9 % (0-5); LYMPHOCYTES 29.5 % (15-50); MCH 32.5 pg (26.0-34.0); MCHC 31.9 g/dL (31.0-37.0); MEAN PLATELET VOLUME 10.2 fL (7.4-10.4); MONOCYTES 8.3 % (2-11); RBC 3.48 10x6/uL (4.00-5.40); RDW 13.6 % (11.5-14.5)
[2019-02-14 07:36] LABS: MCV 101.7 fL (80.0-100.0); PLATELET COUNT 101 10x3/uL (130-400); WBC 18.7 10x3/uL (4.8-10.8)
[2019-02-14 07:46] LABS: ALBUMIN 2.1 g/dL (3.4-5.0); ALKALINE PHOSPHATASE 71 U/L (46-116); ALT (SGPT) 21 U/L (10-68); CALC OSMOLALITY 283 mosm/kg (275-300); CALCIUM 8.2 mg/dL (8.5-10.1); CARBON DIOXIDE 32.1 mmol/L (21.0-32.0); CHLORIDE - SERUM 106 mmol/L (98-107); CREATININE - SERUM 0.7 mg/dL (0.6-1.3); GLUCOSE 101 mg/dL (74-106); POTASSIUM - SERUM 3.5 mmol/L (3.5-5.1); PROTEIN - SERUM 6.1 g/dL (6.4-8.2); SODIUM 143 mmol/L (136-145); UREA NITROGEN 11 mg/dL (7-18); eGFR NON AFRICAN AMERICAN 84 mL/min (90-120)
[2019-02-14 08:41] VITALS: BP 124/55
--- NOTE | 2019-02-14 08:48 | NUR ---
PT ALERT X 4. BREATH SOUNDS CLEAR BILAT, SHALLOW, 2L O2 PER NC. TELEMETRY IN PLACE. IV TO LEFT SHOULDER TENDER TO TOUCH, STOPPED, WILL MONITOR. +2 EDEMA TO BLE. PT REPORTING PAIN OF 2/10, WILL MONITOR. BED LOW, CALL LIGHT IN REACH. NO OTHER NEEDS AT THIS TIME.
[2019-02-14 12:06] VITALS: BP 128/60
--- NOTE | 2019-02-14 16:07 | MORECARE ---
CASE MANAGEMENT DISCHARGE SUMMARY PATIENT: SRINIVAS PARRA UNIT: [id number] ADM DATE: 02/03/19 AGE: 88 : 31 SEX: F ROOM/BED: D.2235 AUTHOR: SALLY,DOC PHYSICIAN: REFERRING PHYSICIAN: NAIMA HENRY MD DATE OF SERVICE: 02/14/19 Discharge Plan Patient Name: SRINIVAS PARRA Facility: [facility]:[place] : 1930 Planned Disposition: Nursing Facility [facility] Anticipated Discharge Date: Discharge Date: Expected LOS: Initial Reviewer: [email or web address] Initial Review Date: 02/03/2019 Generated: 02/14/19 5:07 pm Comments DCP- Discharge Planning Updated by [email or web address]: Alyssa Dennison on 02/14/19 3:[address] [facility] WILL NEED TO KNOW ANTIBIOTICS NAME AND DURATION BEFORE THEY KNOW IF THEY CAN ACCOMMODATE PATIENT DISCHARGE NEEDS. DCP- Discharge Planning Updated by [id number]: Marielle Romo on 02/10/19 2:[address] CM MET WITH THE PATIENT AT THE BEDSIDE. SHE IS ADAMANT SHE WANTS TO RETURN TO HER HOME WHERE HER SON AND GRANDDAUGHTER REPORTEDLY LIVE WITH HER. SHE STATES SHE HAS AN ARTHRITIS CHAIR, COMMODE AND WILL NEED A HOSPITAL BED. SHE STATES SHE HAD PRIVATE HIRE ASSISTANCE PREVIOUSLY AND HAD HOME HEALTH FOR PHYSICAL THERAPY AND NURSING. CM EXPLAINED THE SON WOULD NEED TO MEET W/ CM TO DISCUSS DISCHARGE AND NEEDS. SHE FEELS SHE IS INDEPENDENT OF HER SON. SHE DOES NOT FEEL SHE IS TREATED WELL AT [facility]. CM TO FOLLOW . DCP- Discharge Planning Updated by [email or web address]: Marielle Romo on 02/10/19 1:[address] PRIMARY NURSE REPORTS THE PATIENT STATES SHE DOES NOT WANT TO RETURN TO [facility]. CM REVIEWED HER CHART. THE PRIMARY PLUSH WEAVER HAS NOTED THE PATIENT CONCERNS AND ADDRESSED. DCP- Discharge Planning Updated by [email or web address]: Arminda Costello on 02/05/19 10:[address] Patient Name: SRINIVAS PARRA Admission Status: Elective Accout number: [id number] Admission Date: 02-03-2019 : 1930 Admission Diagnosis: Attending: NAIMA HENRY Current LOS: 2 Anticipated DC Date: Planned Disposition: Nursing Facility [facility] Cert Primary Insurance: MEDICARE A & B Discharge Planning Comments: CM met with patient to complete initial dc planning assessment. CM educated patient on the CM role and verbal consent given by patient to complete assessment. 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 Patient says this every time she is in the hospital. She says that she will do better at home and she has a nurse coordinator, but her children say that it is not possible for her to go home. CM discussed availability of home health, rehab services, and medical equipment. All equipment/ DME is provided by [facility]. At this time the plan will be to return to [facility]. CM will continue to follow and will assist as needed with dc plans/needs. Automobile Tester: Arminda Costello DCPIA - Discharge Planning Initial Assessment Updated by [email or web address]: Arminda Costello on 02/05/19 11:18 am * Is the patient Alert and Oriented? Yes * PCP GARY * Pharmacy [facility] * Preadmission Environment Supervisor Locomotive Fdc * Facility Name [facility] * ADLs Total Dependent * List name and contact numbers for known caregivers / representatives who currently or will assist patient after discharge: ZENIA PARRA ( SON) * Verbal permission to speak to the caregivers and representatives has been obtained from the patient. N/A * Community resources currently utilized None * Additional services required to return to the preadmission environment? No * Can the patient safely return to the preadmission environment? Yes * Has this patient been hospitalized within the prior 30 days at any hospital? No Last DP export: 02/10/19 2:34 pm Patient Name: SRINIVAS PARRA Page [phone] at 1607 All edits/amendments must be made on the electronic document DICTATION DATE: 02/14/191606 ROUTE DELIVERY SUPERVISOR: NAYE 02/14/191606 RPT#: [id number] DC DATE: STATUS: ADM IN [facility] [address] [place] [address] END OF REPORT
[2019-02-14 17:36] VITALS: BP 125/60
[2019-02-14 20:00] VITALS: BP 128/64
[2019-02-15] VITALS: BP 99/56
[2019-02-15 04:00] VITALS: BP 128/64
--- NOTE | 2019-02-15 07:00 | NUR ---
ALERT AND ORIENTED, RESTING IN BED WITH EYES OPEN. NO C/O PAIN. NO S/S OF ACUTE DISTRESS NOTED. ON 2L O2, NC. ON ELECTROLYTE PROTOCOL. IV TO LEFT SHOULDER, NS INFUSING @ 50ML/HR. SITE PATENT WITHOUT REDNESS OR SWELLING. ON TELEMETRY. PACEMAKER TO LEFT CHEST. CHAIRFAST. PUREWICK IN PLACE. REDNESS IN FOLD OF ABDOMEN, NYSTATIN ORDERED. REFUSED SCDS, LOVENOX FOR DVT PROPHALXIS. DENIES ANY NEEDS AT THIS TIME. CALL LIGHT IN REACH. WILL CONTINUE TO MONITOR.
[2019-02-15 08:11] VITALS: BP 134/59
[2019-02-15 08:26] LABS: BASOPHILS 0.1 % (0-2); EOSINOPHILS 1.5 % (0-7); HEMATOCRIT 35.1 % (36.0-48.0); HEMOGLOBIN 11.1 g/dL (12-16); LYMPHOCYTES 28.6 % (15-50); MCH 32.6 pg (26.0-34.0); MCHC 31.6 g/dL (31.0-37.0); MCV 103.2 fL (80.0-100.0); MONOCYTES 8.4 % (2-11); NEUTROPHILS 60.4 % (40-80); RDW 13.7 % (11.5-14.5); WBC 19.8 10x3/uL (4.8-10.8)
[2019-02-15 08:28] LABS: PLATELET COUNT 262 10x3/uL (130-400)
[2019-02-15 08:43] LABS: ALBUMIN 2.3 g/dL (3.4-5.0); ANION GAP 7.5 mmol/L (8-16); BILIRUBIN - TOTAL 0.43 mg/dL (0.2-1.3); CALCIUM 8.4 mg/dL (8.5-10.1); CARBON DIOXIDE 33.7 mmol/L (21.0-32.0); CREATININE - SERUM 0.8 mg/dL (0.6-1.3); POTASSIUM - SERUM 3.2 mmol/L (3.5-5.1); PROTEIN - SERUM 6.4 g/dL (6.4-8.2)
--- NOTE | 2019-02-15 13:28 | MORECARE ---
CASE MANAGEMENT DISCHARGE SUMMARY PATIENT: SRINIVAS PARRA UNIT: [id number] ADM DATE: 02/03/19 AGE: 88 : 31 SEX: F ROOM/BED: D.2235 AUTHOR: SALLY,DOC PHYSICIAN: REFERRING PHYSICIAN: NAIMA HENRY MD DATE OF SERVICE: 02/15/19 Discharge Plan Patient Name: SRINIVAS PARRA Facility: [facility]:[place] : 1930 Planned Disposition: Nursing Facility [facility] Anticipated Discharge Date: Discharge Date: Expected LOS: Initial Reviewer: [id number] Initial Review Date: 02/03/2019 Generated: 02/15/19 2:27 pm Comments DCP- Discharge Planning Updated by [email or web address]: Alyssa Dennison on 02/14/19 3:[address] [facility] WILL NEED TO KNOW ANTIBIOTICS NAME AND DURATION BEFORE THEY KNOW IF THEY CAN ACCOMMODATE PATIENT DISCHARGE NEEDS. DCP- Discharge Planning Updated by [id number]: Marielle Romo on 02/10/19 2:[address] CM MET WITH THE PATIENT AT THE BEDSIDE. SHE IS ADAMANT SHE WANTS TO RETURN TO HER HOME WHERE HER SON AND GRANDDAUGHTER REPORTEDLY LIVE WITH HER. SHE STATES SHE HAS AN ARTHRITIS CHAIR, COMMODE AND WILL NEED A HOSPITAL BED. SHE STATES SHE HAD PRIVATE HIRE ASSISTANCE PREVIOUSLY AND HAD HOME HEALTH FOR PHYSICAL THERAPY AND NURSING. CM EXPLAINED THE SON WOULD NEED TO MEET W/ CM TO DISCUSS DISCHARGE AND NEEDS. SHE FEELS SHE IS INDEPENDENT OF HER SON. SHE DOES NOT FEEL SHE IS TREATED WELL AT [facility]. CM TO FOLLOW . DCP- Discharge Planning Updated by [email or web address]: Marielle Romo on 02/10/19 1:[address] PRIMARY NURSE REPORTS THE PATIENT STATES SHE DOES NOT WANT TO RETURN TO [facility]. CM REVIEWED HER CHART. THE PRIMARY HOT BLASTER HAS NOTED THE PATIENT CONCERNS AND ADDRESSED. DCP- Discharge Planning Updated by [id number]: Arminda Costello on 02/05/19 10:[address] Patient Name: SRINIVAS PARRA Admission Status: Elective Accout number: [id number] Admission Date: 02-03-2019 : 1930 Admission Diagnosis: Attending: NAIMA HENRY Current LOS: 2 Anticipated DC Date: Planned Disposition: Nursing Facility [facility] Cert Primary Insurance: MEDICARE A & B Discharge Planning Comments: CM met with patient to complete initial dc planning assessment. CM educated patient on the CM role and verbal consent given by patient to complete assessment. Patient is a roasterman resident at [facility]. 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 Patient says this every time she is in the hospital. She says that she will do better at home and she has a children's zoo caretaker, but her children say that it is not possible for her to go home. CM discussed availability of home health, rehab services, and medical equipment. All equipment/ DME is provided by [facility]. At this time the plan will be to return to [facility]. CM will continue to follow and will assist as needed with dc plans/needs. Leasing Machine Tender: Arminda Costello DCPIA - Discharge Planning Initial Assessment Updated by [id number]: Arminda Costello on 02/05/19 11:18 am * Is the patient Alert and Oriented? Yes * PCP GARY * Pharmacy [facility] * Preadmission Environment Custodial Operations Manager Skilled Nursing * Facility Name [facility] * ADLs Total Dependent * List name and contact numbers for known caregivers / representatives who currently or will assist patient after discharge: ZENIA PARRA ( SON) * Verbal permission to speak to the caregivers and representatives has been obtained from the patient. N/A * Community resources currently utilized None * Additional services required to return to the preadmission environment? No * Can the patient safely return to the preadmission environment? Yes * Has this patient been hospitalized within the prior 30 days at any hospital? No External Providers External Provider: [facility] Next Contact Date: Service Request Date: Service Type: Resolution: Reviewer: Comments: Coverage Notice Reviewer: [email or web address] Mily Gustafson Notice Issued Date-Time: 02/15/2019 13:03 Notice Type: IM Discharge Notice Notice Delivered To: Patient Relationship to Patient: Self Sr Solutions Consultant Name: Delivery Method: HAND - Hand Delivered Prudence Days: Prior Verbal Notification: Recipient Understood Notice: Yes Recipient Signature: Yes Med Rec Note Co-signed by Attending: Coverage Notice Comment: IMM EXPLAINED, SIGNED, GIVEN, COPY PLACED IN MR Reviewer: [id number] Gustafson Notice Issued Date-Time: 02/15/2019 13:03 Notice Type: Patient Choice Letter Notice Delivered To: Patient Relationship to Patient: Self Sr Solutions Consultant Name: Delivery Method: HAND - Hand Delivered Prudence Days: Prior Verbal Notification: Recipient Understood Notice: Yes Recipient Signature: Yes Med Rec Note Co-signed by Attending: Coverage Notice Comment: ASHLYN FOR MAMI DOYLE Last DP export: 02/14/19 3:07 pm Patient Name: SRINIVAS PARRA Page 32525 at 1328 All edits/amendments must be made on the electronic document DICTATION DATE: 02/15/19 1327 AUTOMOTIVE MECHANICAL ENGINEER: NAYE 02/15/19 1327 RPT#: [id number] DC DATE: STATUS: ADM IN [facility] [address] [place] [address] END OF REPORT
--- NOTE | 2019-02-15 13:35 | MORECARE ---
CASE MANAGEMENT DISCHARGE SUMMARY PATIENT: SRINIVAS PARRA UNIT: [id number] ADM DATE: 02/03/19 AGE: 88 : 31 SEX: F ROOM/BED: D.2235 AUTHOR: SALLY,DOC PHYSICIAN: REFERRING PHYSICIAN: NAIMA HENRY MD DATE OF SERVICE: 02/15/19 Discharge Plan Patient Name: SRINIVAS PARRA Facility: [facility]:[place] : 1930 Planned Disposition: Nursing Facility [facility] Cert Anticipated Discharge Date: Discharge Date: Expected LOS: Initial Reviewer: [id number] Initial Review Date: 02/03/2019 Generated: 02/15/19 2:35 pm Comments DCP- Discharge Planning Updated by [email or web address]: Betty Gustafson on 02/15/19 12:[address] Spoke with Luis Alfredo at [facility], they will accept patient back on IV Gentamycin with a midline. I spoke with Cuca and vascular access nurse consulted. I spoke with Lazara and informed that I anticipate a discharge back to [facility] today on IV antibiotics. I called Luis Alfredo back and Luis Alfredo states she will need to come back via ambulance and report called to Christiane hammer nurse. Anticipate discharge today to [facility] skilled (Medicare) bed. DCP- Discharge Planning Updated by [id number]: Alyssa Dennison on 02/14/19 3:[address] [facility] WILL NEED TO KNOW ANTIBIOTICS NAME AND DURATION BEFORE THEY KNOW IF THEY CAN ACCOMMODATE PATIENT DISCHARGE NEEDS. DCP- Discharge Planning Updated by [id number]: Marielle Romo on 02/10/19 2:[address] CM MET WITH THE PATIENT AT THE BEDSIDE. SHE IS ADAMANT SHE WANTS TO RETURN TO HER HOME WHERE HER SON AND GRANDDAUGHTER REPORTEDLY LIVE WITH HER. SHE STATES SHE HAS AN ARTHRITIS CHAIR, COMMODE AND WILL NEED A HOSPITAL BED. SHE STATES SHE HAD PRIVATE HIRE ASSISTANCE PREVIOUSLY AND HAD HOME HEALTH FOR PHYSICAL THERAPY AND NURSING. CM EXPLAINED THE SON WOULD NEED TO MEET W/ CM TO DISCUSS DISCHARGE AND NEEDS. SHE FEELS SHE IS INDEPENDENT OF HER SON. SHE DOES NOT FEEL SHE IS TREATED WELL AT [facility]. CM TO FOLLOW . DCP- Discharge Planning Updated by [id number]: Marielle Romo on 02/10/19 1:[address] PRIMARY NURSE REPORTS THE PATIENT STATES SHE DOES NOT WANT TO RETURN TO [facility]. CM REVIEWED HER CHART. THE PRIMARY HEALTH INSPECTOR FOOD HAS NOTED THE PATIENT CONCERNS AND ADDRESSED. DCP- Discharge Planning Updated by [id number]: Arminda Costello on 02/05/19 10:[address] Patient Name: SRINIVAS PARRA Admission Status: Elective Accout number: [id number] Admission Date: 02-03-2019 : 1930 Admission Diagnosis: Attending: NAIMA HENRY Current LOS: 2 Anticipated DC Date: Planned Disposition: Nursing Facility [facility] Cert Primary Insurance: MEDICARE A & B Discharge Planning Comments: CM met with patient to complete initial dc planning assessment. CM educated patient on the CM role and verbal consent given by patient to complete assessment. Patient is a half-way resident at [facility]. 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 Patient says this every time she is in the hospital. She says that she will do better at home and she has a guide plant, but her children say that it is not possible for her to go home. CM discussed availability of home health, rehab services, and medical equipment. All equipment/ DME is provided by [facility]. At this time the plan will be to return to [facility]. CM will continue to follow and will assist as needed with dc plans/needs. Residential Door Unit Installer: Arminda Costello DCPIA - Discharge Planning Initial Assessment Updated by [email or web address]: Arminda Costello on 02/05/19 11:18 am * Is the patient Alert and Oriented? Yes * PCP GARY * Pharmacy [facility] * Preadmission Environment Shelter Usp * Facility Name [facility] * ADLs Total Dependent * List name and contact numbers for known caregivers / representatives who currently or will assist patient after discharge: ZENIA PARRA ( SON) * Verbal permission to speak to the caregivers and representatives has been obtained from the patient. N/A * Community resources currently utilized None * Additional services required to return to the preadmission environment? No * Can the patient safely return to the preadmission environment? Yes * Has this patient been hospitalized within the prior 30 days at any hospital? No Coverage Notice Reviewer: [id number] Mily Gustafson Notice Issued Date-Time: 02/15/2019 13:03 Notice Type: IM Discharge Notice Notice Delivered To: Patient Relationship to Patient: Self Stringed Instrument Assembler Name: Delivery Method: HAND - Hand Delivered Prudence Days: Prior Verbal Notification: Recipient Understood Notice: Yes Recipient Signature: Yes Med Rec Note Co-signed by Attending: Coverage Notice Comment: IMM EXPLAINED, SIGNED, GIVEN, COPY PLACED IN MR Reviewer: [id number] Mily Gustafson Notice Issued Date-Time: 02/15/2019 13:03 Notice Type: Patient Choice Letter Notice Delivered To: Patient Relationship to Patient: Self Stringed Instrument Assembler Name: Delivery Method: HAND - Hand Delivered Prudence Days: Prior Verbal Notification: Recipient Understood Notice: Yes Recipient Signature: Yes Med Rec Note Co-signed by Attending: Coverage Notice Comment: ASHLYN FOR [facility] DP export: 02/15/19 12:28 pm Patient Name: SRINIVAS PARRA Page [phone] at 1335 All edits/amendments must be made on the electronic document DICTATION DATE: 02/15/19 1335 RUBBER PRODUCTION MACHINE OPERATOR: NAYE 02/15/19 1335 RPT#: [id number] DC DATE: STATUS: ADM IN [facility] [address] [place] [address] END OF REPORT
[2019-02-15 14:04] VITALS: BP 126/56
--- NOTE | 2019-02-15 16:07 | NUR ---
I have reviewed this patient and I concur with the Shift Assessment completed by the Licensed Practical Nurse today this shift.
[2019-02-15 16:18] VITALS: BP 107/46
--- NOTE | 2019-02-15 18:23 | NUR ---
ALERT AND ORIENTED, RESTING IN BED. NO C/O PAIN. NO S/S OF ACUTE DISTRESS NOTED. DENIES ANY NEEDS AT THIS TIME. CALL LIGHT IN REACH. WILL CONTINUE TO MONITOR.
[2019-02-15 20:00] VITALS: BP 122/61
--- NOTE | 2019-02-15 21:00 | NUR ---
A/O WITH NO SIGNS OF ACUTE DISTRESS. IV TO THE LT SHOULDER WITH NO REDNESS OR SWELLING NOTED. MIDLINE TO RT UPPER ARM, DRESSING CLEAN AND INTACT. NC @2L AND PURWICK IN PLACE. HEEL PADS ON. GAVE PRN COUGHING MEDS. DENIES NO OTHER NEEDS AT THIS TIME. CONTINUE PLAN OF CARE.
--- NOTE | 2019-02-16 01:50 | NUR ---
SOAKED BED IN URINE AND STOOL. STAFF X2 TO GIVE BATH AND LINEN CHANGE. PLACED NEW PURWICK. RESTING COMFORTABLY IN BED. DENIES NO OTHER NEEDS AT THIS TIME. CONTINUE PLAN OF CARE.
[2019-02-16 04:00] VITALS: BP 102/50
[2019-02-16 06:42] LABS: HEMATOCRIT 33.2 % (36.0-48.0); HEMOGLOBIN 10.4 g/dL (12-16); MCH 32.4 pg (26.0-34.0); MCHC 31.3 g/dL (31.0-37.0); MCV 103.4 fL (80.0-100.0); MEAN PLATELET VOLUME 10.7 fL (7.4-10.4); PLATELET COUNT 257 10x3/uL (130-400); RBC 3.21 10x6/uL (4.00-5.40); RDW 13.5 % (11.5-14.5); WBC 21.1 10x3/uL (4.8-10.8)
--- NOTE | 2019-02-16 06:50 | NUR ---
ALERT AND ORIENTED, RESTING IN BED. NO C/O PAIN. NO S/S OF ACUTE DISTRESS NOTED. ON 2L O2, NC. IV TO LEFT SHOULDER, NS INFUSING @ 100ML/HR. MIDLINE TO RIGHT UPPER ARM, SL. SITES PATENT WITHOUT REDNESS OR SWELLING. CHAIRFAST. PACEMAKER TO LEFT CHEST. ON TELEMETRY 73 SR. REDNESS TO BUTTOCKS AND THIGHS. PUREWICK IN PLACE. DENIES ANY NEEDS AT THIS TIME. CALL LIGHT IN REACH. WILL CONTINUE TO MONITOR.
[2019-02-16 06:54] LABS: ALBUMIN 2.1 g/dL (3.4-5.0); ANION GAP 5.1 mmol/L (8-16); BILIRUBIN - TOTAL 0.38 mg/dL (0.2-1.3); CALCIUM 8.3 mg/dL (8.5-10.1); CARBON DIOXIDE 35.5 mmol/L (21.0-32.0); CREATININE - SERUM 0.8 mg/dL (0.6-1.3); POTASSIUM - SERUM 3.6 mmol/L (3.5-5.1)
[2019-02-16 08:01] VITALS: BP 106/43
[2019-02-16] MEDS ORDERED: NS IVPB (11:07)
[2019-02-16] MEDS ORDERED: BROVANA15 MCG/2 M INH (11:07)
[2019-02-16] MEDS ORDERED: IPRAT-ALBUT 0.5-3 ML UPD (11:07)
[2019-02-16] MEDS ORDERED: GENTAMICIN IVPB (11:07)
[2019-02-16] MEDS ORDERED: PULMICORT0.5 MG/21 UPD (11:08)
[2019-02-16] MEDS ORDERED: PREDNISONE10 MG PO (11:09)
--- NOTE | 2019-02-16 12:04 | MORECARE ---
CASE MANAGEMENT DISCHARGE SUMMARY PATIENT: SRINIVAS PARRA UNIT: [id number] ADM DATE: 02/03/19 AGE: 88 : 31 SEX: F ROOM/BED: D.2235 AUTHOR: SALLY,DOC PHYSICIAN: REFERRING PHYSICIAN: NAIMA HENRY MD DATE OF SERVICE: 02/16/19 Discharge Plan Patient Name: SRINIVAS PARRA Facility: [facility]:[place] : 1930 Planned Disposition: Nursing Facility VLADIMIR Cert Anticipated Discharge Date: Discharge Date: Expected LOS: Initial Reviewer: [id number] Initial Review Date: 02/03/2019 Generated: 02/16/19 1:03 pm Comments DCP- Discharge Planning Updated by [email or web address]: Betty Gustafson on 02/16/19 11:[address] Received discharge orders. I called and spoke to Leandra (claim administrator at [facility]) and they will accept her back today. She will go to a skilled (Medicare) bed per Leandra. Leandra states she is bed ridden and will need to come back via ambulance. I spoke with patient and her daughter (Denise Chau) and they are both in agreement to discharge to [facility]. Nurse to call report to Christiane hammer nurseDebra. DCP- Discharge Planning Updated by [id number]: Betty Gustafson on 02/15/19 12:[address] Spoke with Luis Alfredo at [facility], they will accept patient back on IV Gentamycin with a midline. I spoke with Cuca and vascular access nurse consulted. I spoke with Lazara and informed that I anticipate a discharge back to [facility] today on IV antibiotics. I called Luis Alfredo back and Luis Alfredo states she will need to come back via ambulance and report called to Christiane hammer nurse. Anticipate discharge today to [facility] skilled (Medicare) bed. DCP- Discharge Planning Updated by [email or web address]: Alyssa Dennison on 02/14/19 3:[address] [facility] WILL NEED TO KNOW ANTIBIOTICS NAME AND DURATION BEFORE THEY KNOW IF THEY CAN ACCOMMODATE PATIENT DISCHARGE NEEDS. DCP- Discharge Planning Updated by [id number]: Marielle Romo on 02/10/19 2:[address] CM MET WITH THE PATIENT AT THE BEDSIDE. SHE IS ADAMANT SHE WANTS TO RETURN TO HER HOME WHERE HER SON AND GRANDDAUGHTER REPORTEDLY LIVE WITH HER. SHE STATES SHE HAS AN ARTHRITIS CHAIR, COMMODE AND WILL NEED A HOSPITAL BED. SHE STATES SHE HAD PRIVATE HIRE ASSISTANCE PREVIOUSLY AND HAD HOME HEALTH FOR PHYSICAL THERAPY AND NURSING. CM EXPLAINED THE SON WOULD NEED TO MEET W/ CM TO DISCUSS DISCHARGE AND NEEDS. SHE FEELS SHE IS INDEPENDENT OF HER SON. SHE DOES NOT FEEL SHE IS TREATED WELL AT [facility]. CM TO FOLLOW . DCP- Discharge Planning Updated by [email or web address]: Marielle Romo on 02/10/19 1:[address] PRIMARY NURSE REPORTS THE PATIENT STATES SHE DOES NOT WANT TO RETURN TO [facility]. CM REVIEWED HER CHART. THE PRIMARY COAL HANDLING SUPERVISOR HAS NOTED THE PATIENT CONCERNS AND ADDRESSED. DCP- Discharge Planning Updated by [id number]: Arminda Costello on 02/05/19 10:[address] Patient Name: SRINIVAS PARRA Admission Status: Elective Accout number: [id number] Admission Date: 02-03-2019 : 1930 Admission Diagnosis: Attending: NAIMA HENRY Current LOS: 2 Anticipated DC Date: Planned Disposition: Nursing Facility [facility] Primary Insurance: MEDICARE A & B Discharge Planning Comments: CM met with patient to complete initial dc planning assessment. CM educated patient on the CM role and verbal consent given by patient to complete assessment. Patient is a care home resident at [facility]. 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 Patient says this every time she is in the hospital. She says that she will do better at home and she has a kennel manager, but her children say that it is not possible for her to go home. CM discussed availability of home health, rehab services, and medical equipment. All equipment/ DME is provided by [facility]. At this time the plan will be to return to [facility]. CM will continue to follow and will assist as needed with dc plans/needs. Foot Miter Operator: Arminda Costello DCPIA - Discharge Planning Initial Assessment Updated by [id number]: Arminda Costello on 02/05/19 11:18 am * Is the patient Alert and Oriented? Yes * PCP GARY * Pharmacy [facility] * Preadmission Environment Assembler Ping Pong [employer] [facility] * Facility Name [facility] * ADLs Total Dependent * List name and contact numbers for known caregivers / representatives who currently or will assist patient after discharge: ZENIA PARRA ( SON) * Verbal permission to speak to the caregivers and representatives has been obtained from the patient. N/A * Community resources currently utilized None * Additional services required to return to the preadmission environment? No * Can the patient safely return to the preadmission environment? Yes * Has this patient been hospitalized within the prior 30 days at any hospital? No Coverage Notice Reviewer: [email or web address] Gustafson Notice Issued Date-Time: 02/15/2019 13:03 Notice Type: IM Discharge Notice Notice Delivered To: Patient Relationship to Patient: Self Lcsw Name: Delivery Method: HAND - Hand Delivered Prudence Days: Prior Verbal Notification: Recipient Understood Notice: Yes Recipient Signature: Yes Med Rec Note Co-signed by Attending: Coverage Notice Comment: IMM EXPLAINED, SIGNED, GIVEN, COPY PLACED IN MR Reviewer: [id number] Gustafson Notice Issued Date-Time: 02/15/2019 13:03 Notice Type: Patient Choice Letter Notice Delivered To: Patient Relationship to Patient: Self Lcsw Name: Delivery Method: HAND - Hand Delivered Prudence Days: Prior Verbal Notification: Recipient Understood Notice: Yes Recipient Signature: Yes Med Rec Note Co-signed by Attending: Coverage Notice Comment: [facility] Last DP export: 02/15/19 12:35 pm Patient Name: SRINIVAS PARRA Page [phone] at 1204 All edits/amendments must be made on the electronic document DICTATION DATE: 02/16/19 120 PIPE FINISHER: NAYE 02/16/19 1203 RPT#: [id number] DC DATE: STATUS: ADM IN [facility] [address] [place] [address] END OF REPORT
--- NOTE | 2019-02-16 12:41 | NUR ---
LYING IN BED.SHE IS WITHOUT DISTRESS.CALL LIGHT IN REACH.
[2019-02-16 12:47] LABS: ANISOCYTOSIS OCC; LYMPHOCYTES 33 % (15-50); MONOCYTES 7 % (2-11); NEUTROPHILS 59 % (40-80); PLATELET ESTIMATE NORMAL
--- NOTE | 2019-02-16 14:00 | NUR ---
PATIENT DISCHARGED TO [facility] VIA STRETCHER, AMBULANCE. NO S/S OF ACUTE DISTRESS NOTED. DISCONTINUED IV, CATHETER TIP INTACT. WENT OVER DISCHARGE INSTRUCTIONS WITH PATIENT, VERBALIZED UNDERSTANDING. DISCHARGED WITH RIGHT UPPER ARM MIDLINE, SL. DENIES ANYTHING FURTHER.
--- NOTE | 2019-02-17 18:14 | MORECARE ---
CASE MANAGEMENT DISCHARGE SUMMARY PATIENT: SRINIVAS PARRA UNIT: [id number] ADM DATE: 02/03/19 AGE: 88 : 31 SEX: F ROOM/BED: D.2235 AUTHOR: SALLY,DOC PHYSICIAN: REFERRING PHYSICIAN: NAIMA HENRY MD DATE OF SERVICE: 02/17/19 Discharge Plan Patient Name: SRINIVAS PARRA Facility: [facility]:[place] : 1930 Planned Disposition: Nursing Facility VLADIMIR Cert Anticipated Discharge Date: Discharge Date: 02/16/2019 Expected LOS: Initial Reviewer: [id number] Initial Review Date: 02/03/2019 Generated: 02/17/19 7:13 pm Comments DCP- Discharge Planning Updated by [id number]: Betty Gustafson on 02/16/19 11:[address] Received discharge orders. I called and spoke to Leandra (administrator social welfare at [facility]) and they will accept her back today. She will go to a skilled (Medicare) bed per Leandra. Leandra states she is bed ridden and will need to come back via ambulance. I spoke with patient and her daughter (Denise Chau) and they are both in agreement to discharge to [facility]. Nurse to call report to Debra Mckenzie. DCP- Discharge Planning Updated by [id number]: Betty Gustafson on 02/15/19 12:[address] Spoke with Luis Alfredo at [facility], they will accept patient back on IV Gentamycin with a midline. I spoke with Cuca and vascular access nurse consulted. I spoke with Lazara and informed that I anticipate a discharge back to [facility] today on IV antibiotics. I called Luis Alfredo back and Luis Alfredo states she will need to come back via ambulance and report called to Christiane hammer nurse. Anticipate discharge today to [facility] skilled (Medicare) bed. DCP- Discharge Planning Updated by [id number]: Alyssa Dennison on 02/14/19 3:[address] [facility] WILL NEED TO KNOW ANTIBIOTICS NAME AND DURATION BEFORE THEY KNOW IF THEY CAN ACCOMMODATE PATIENT DISCHARGE NEEDS. DCP- Discharge Planning Updated by [id number]: Marielle Romo on 02/10/19 2:[address] CM MET WITH THE PATIENT AT THE BEDSIDE. SHE IS ADAMANT SHE WANTS TO RETURN TO HER HOME WHERE HER SON AND GRANDDAUGHTER REPORTEDLY LIVE WITH HER. SHE STATES SHE HAS AN ARTHRITIS CHAIR, COMMODE AND WILL NEED A HOSPITAL BED. SHE STATES SHE HAD PRIVATE HIRE ASSISTANCE PREVIOUSLY AND HAD HOME HEALTH FOR PHYSICAL THERAPY AND NURSING. CM EXPLAINED THE SON WOULD NEED TO MEET W/ CM TO DISCUSS DISCHARGE AND NEEDS. SHE FEELS SHE IS INDEPENDENT OF HER SON. SHE DOES NOT FEEL SHE IS TREATED WELL AT [facility]. CM TO FOLLOW . DCP- Discharge Planning Updated by [id number]: Marielle Romo on 02/10/19 1:[address] PRIMARY NURSE REPORTS THE PATIENT STATES SHE DOES NOT WANT TO RETURN TO [facility]. CM REVIEWED HER CHART. THE PRIMARY ANODE WORKER HAS NOTED THE PATIENT CONCERNS AND ADDRESSED. DCP- Discharge Planning Updated by [id number]: Arminda Costello on 02/05/19 10:[address] Patient Name: SRINIVAS PARRA Admission Status: Elective Accout number: [id number] Admission Date: 02-03-2019 : 1930 Admission Diagnosis: Attending: NAIMA HENRY Current LOS: 2 Anticipated DC Date: Planned Disposition: Nursing Facility [facility] Primary Insurance: MEDICARE A & B Discharge Planning Comments: CM met with patient to complete initial dc planning assessment. CM educated patient on the CM role and verbal consent given by patient to complete assessment. 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 Patient says this every time she is in the hospital. She says that she will do better at home and she has a chummer, but her children say that it is not possible for her to go home. CM discussed availability of home health, rehab services, and medical equipment. All equipment/ DME is provided by [facility]. At this time the plan will be to return to [facility]. CM will continue to follow and will assist as needed with dc plans/needs. Middleware Engineer: Arminda Costello DCPIA - Discharge Planning Initial Assessment Updated by [id number]: Arminda Costello on 02/05/19 11:18 am * Is the patient Alert and Oriented? Yes * PCP GARY * Pharmacy [facility] * Preadmission Environment Care Home [facility] * Facility Name [facility] * ADLs Total Dependent * List name and contact numbers for known caregivers / representatives who currently or will assist patient after discharge: ZENIA PARRA ( SON) * Verbal permission to speak to the caregivers and representatives has been obtained from the patient. N/A * Community resources currently utilized None * Additional services required to return to the preadmission environment? No * Can the patient safely return to the preadmission environment? Yes * Has this patient been hospitalized within the prior 30 days at any hospital? No Coverage Notice Reviewer: [id number] Gustafson Notice Issued Date-Time: 02/15/2019 13:03 Notice Type: IM Discharge Notice Notice Delivered To: Patient Relationship to Patient: Self Courtroom Deputy Name: Delivery Method: HAND - Hand Delivered Prudence Days: Prior Verbal Notification: Recipient Understood Notice: Yes Recipient Signature: Yes Med Rec Note Co-signed by Attending: Coverage Notice Comment: IMM EXPLAINED, SIGNED, GIVEN, COPY PLACED IN MR Reviewer: [id number] Gustafson Notice Issued Date-Time: 02/15/2019 13:03 Notice Type: Patient Choice Letter Notice Delivered To: Patient Relationship to Patient: Self Courtroom Deputy Name: Delivery Method: HAND - Hand Delivered Prudence Days: Prior Verbal Notification: Recipient Understood Notice: Yes Recipient Signature: Yes Med Rec Note Co-signed by Attending: Coverage Notice Comment: [facility] Last DP export: 02/16/19 11:04 am Patient Name: SRINIVAS PARRA Page [id number] at 1814 All edits/amendments must be made on the electronic document DICTATION DATE: 02/17/191812 AIRWORTHINESS SAFETY INSPECTOR: NAYE 02/17/191812 RPT#: [id number] DC DATE:02/16/19 STATUS: DIS IN [facility] [address] [place] [address] END OF REPORT
[2019-03-01] MEDS ORDERED: LEVOXYL100 MCG PO (20:01)
[2019-03-01] MEDS ORDERED: K-TAB10 MEQ PO (20:03)
[2019-03-01] MEDS ORDERED: TESSALON PERLE100 MG PO (20:04)
== END 2019-02-16 14:02 | DRG 177 ==
LOC: D.ER 06:03 → D.MS 09:55 → D.ER 10:14 → D.MS 02-16 14:02
PROVIDERS: Emergency Medicine; Family Medicine; Internal Medicine Pulmonary Disease; ADMIT Internal Medicine Nephrology; ATTEND Internal Medicine Nephrology
PROC: 05HB33Z Insertion of Infusion Device into Right Basilic Vein, Percutaneous Approach (ICD-10-PCS; principal; 2019-02-15)
DX: J15.6 Pneumonia due to other Gram-negative bacteria (principal); J96.21 Acute and chronic respiratory failure with hypoxia; I50.23 Acute on chronic systolic (congestive) heart failure; J98.19 Other pulmonary collapse; J44.0 Chronic obstructive pulmonary disease with (acute) lower respiratory infection; I48.20 Chronic atrial fibrillation, unspecified; Z68.43 Body mass index [BMI] 50.0-59.9, adult; R78.81 Bacteremia; J44.1 Chronic obstructive pulmonary disease with (acute) exacerbation; N39.0 Urinary tract infection, site not specified; J15.212 Pneumonia due to Methicillin resistant Staphylococcus aureus; J82 Pulmonary eosinophilia, not elsewhere classified; E11.65 Type 2 diabetes mellitus with hyperglycemia; E03.9 Hypothyroidism, unspecified; I25.10 Atherosclerotic heart disease of native coronary artery without angina pectoris; E78.5 Hyperlipidemia, unspecified; I11.0 Hypertensive heart disease with heart failure; J44.9 Chronic obstructive pulmonary disease, unspecified; K21.9 Gastro-esophageal reflux disease without esophagitis; M19.90 Unspecified osteoarthritis, unspecified site; F32.9 Major depressive disorder, single episode, unspecified; E87.6 Hypokalemia; D53.9 Nutritional anemia, unspecified; Z86.718 Personal history of other venous thrombosis and embolism; E66.01 Morbid (severe) obesity due to excess calories; K44.9 Diaphragmatic hernia without obstruction or gangrene

== ENCOUNTER 2019-05-25 03:40 | Emergency (ER) | payer MEDICARE ==
[~2019-05-25 03:40] MED LIST changes: +DALIRESP250 MCG PO; +DIFLUCAN100 MG PO; +DIPHENHIST25 MG PO; +FLAGYL500 MG PO; +GENTAMICIN IVPB; +GLIMEPIRIDE2 MG PO; +HUMALOG 30100 UNITS/ SC; +JARDIANCE25 MG PO; +LEVOXYL100 MCG PO; +NS IVPB; +PHENERGAN25 M1 PO
[2019-05-25 03:42] VITALS: Ht 162.6 cm
[2019-05-25 04:16] LABS: BASOPHILS 0.3 % (0-2); EOSINOPHILS 1.4 % (0-7); HEMATOCRIT 40.2 % (36.0-48.0); HEMOGLOBIN 12.1 g/dL (12-16); IMMATURE GRANULOCYTES 0.2 % (0-5); LYMPHOCYTES 31.5 % (15-50); MCH 30.7 pg (26.0-34.0); MCHC 30.1 g/dL (31.0-37.0); MEAN PLATELET VOLUME 10.5 fL (7.4-10.4); MONOCYTES 7.3 % (2-11); NEUTROPHILS 59.3 % (40-80); PLATELET COUNT 266 10x3/uL (130-400); RBC 3.94 10x6/uL (4.00-5.40); RDW 14.1 % (11.5-14.5); WBC 10.8 10x3/uL (4.8-10.8)
[2019-05-25 04:26] LABS: ANION GAP 8.4 mmol/L (8-16); CARBON DIOXIDE 27.1 mmol/L (21.0-32.0); CREATININE - SERUM 0.8 mg/dL (0.6-1.3); POTASSIUM - SERUM 3.5 mmol/L (3.5-5.1)
[2019-05-25 04:30] LABS: BILIRUBIN NEGATIVE (NEGATIVE); GLUCOSE 1000 mg/dL (NEGATIVE); KETONE SMALL mg/dL (NEGATIVE); NITRITE NEGATIVE (NEGATIVE); UROBILINOGEN NORMAL (NORMAL)
[2019-05-25 04:32] LABS: BACTERIA FEW /hpf (NEGATIVE); EPITHELIAL CELLS 0-5 /hpf (0-5); RED CELLS - URINE 0-5 /hpf (0-5); WHITE CELLS - URINE 0-5 /hpf (NEGATIVE)
[2019-05-25 04:40] LABS: ALBUMIN 2.5 g/dL (3.4-5.0); BILIRUBIN - TOTAL 0.55 mg/dL (0.2-1.3); PROTEIN - SERUM 7.3 g/dL (6.4-8.2); THYROID STIMULATING HORMONE 0.33 uIU/mL (0.36-3.74); TROPONIN-I 0.026 ng/mL (0.000-0.060)
[2019-05-25 05:28] VITALS: BP 126/67
== END 2019-05-25 05:33 | disposition home or self-care (01) ==
LOC: D.ER 03:40
PROVIDERS: Family Medicine
DX: R07.89 Other chest pain (principal); I11.0 Hypertensive heart disease with heart failure; I50.9 Heart failure, unspecified; E11.9 Type 2 diabetes mellitus without complications; E03.9 Hypothyroidism, unspecified; Z95.0 Presence of cardiac pacemaker; K21.9 Gastro-esophageal reflux disease without esophagitis; Z79.4 Long term (current) use of insulin; R51 Headache; R10.9 Unspecified abdominal pain

== ENCOUNTER 2019-06-25 06:32 | Inpatient (IN) | payer MEDICARE ==
[2019-06-25] VITALS (9 sets, daily range): BP systolic 102–138; BP diastolic 53–75; BMI 51.4
[~2019-06-25] VITALS: Ht 162.6 cm; Wt 135.5 kg
[2019-06-25 07:02] LABS: BASOPHILS 0.4 % (0-2); EOSINOPHILS 2.4 % (0-7); HEMATOCRIT 38.7 % (36.0-48.0); HEMOGLOBIN 11.6 g/dL (12-16); IMMATURE GRANULOCYTES 0.8 % (0-5); LYMPHOCYTES 26.2 % (15-50); MCH 30.9 pg (26.0-34.0); MCV 103.2 fL (80.0-100.0); MEAN PLATELET VOLUME 10.1 fL (7.4-10.4); MONOCYTES 6.1 % (2-11); NEUTROPHILS 64.1 % (40-80); PLATELET COUNT 303 10x3/uL (130-400); RBC 3.75 10x6/uL (4.00-5.40); RDW 16.4 % (11.5-14.5); WBC 13.6 10x3/uL (4.8-10.8)
[2019-06-25 07:17] LABS: APTT 33.3 SECONDS (22.8-39.4); INR 1.1 (0.85-1.17); PROTIME 14.1 SECONDS (11.6-15.0)
[2019-06-25 07:25] LABS: D-DIMER-QUANTITATIVE 1.69 ug/mLFEU (0.20-0.54)
[2019-06-25 07:28] LABS: ALBUMIN 2.5 g/dL (3.4-5.0); ALKALINE PHOSPHATASE 81 U/L (30-120); ALT (SGPT) 14 U/L (10-68); BILIRUBIN - TOTAL 0.64 mg/dL (0.2-1.3); CALC OSMOLALITY 279 mosm/kg (275-300); CALCIUM 8.5 mg/dL (8.5-10.1); CARBON DIOXIDE 26.8 mmol/L (21.0-32.0); CHLORIDE - SERUM 106 mmol/L (98-107); CREATININE - SERUM 0.6 mg/dL (0.6-1.3); GLUCOSE 82 mg/dL (74-106); MAGNESIUM - SERUM 1.8 mg/dL (1.8-2.4); POTASSIUM - SERUM 3.5 mmol/L (3.5-5.1); PRO BNP 8939 pg/mL (0-450); PROTEIN - SERUM 6.9 g/dL (6.4-8.2); SODIUM 141 mmol/L (136-145); THYROID STIMULATING HORMONE 1.97 uIU/mL (0.36-3.74); TROPONIN-I 0.027 ng/mL (0.000-0.060); UREA NITROGEN 12 mg/dL (7-18); eGFR NON AFRICAN AMERICAN > 90 mL/min (90-120)
[2019-06-25 07:32] LABS: LIPASE 35 U/L (73-393)
[2019-06-25 09:17] LABS: BACTERIA FEW /hpf (NEGATIVE); BILIRUBIN NEGATIVE (NEGATIVE); EPITHELIAL CELLS 0-5 /hpf (0-5); GLUCOSE 1000 mg/dL (NEGATIVE); KETONE MODERATE mg/dL (NEGATIVE); NITRITE NEGATIVE (NEGATIVE); RED CELLS - URINE RARE /hpf (0-5); SPECIFIC GRAVITY 1.015 (1.005-1.020); YEAST <1+ /hpf (NONE SEEN)
--- NOTE | 2019-06-25 11:23 | NUR ---
PT CLEANED UP AND REPOSITIONED AT THIS TIME.
--- NOTE | 2019-06-25 12:18 | NUR ---
PT TO ROOM FROM ER VIA CART. ASSISTED TO TRANSFER TO BED, PT NOT ABLE TO MOVE MUCH DUE TO OBESITY. LINENS CHANGED DUE TO INCONTINENCE. PT ALERT AND ORIENTED. HEEL PROTECTOR ON LEFT FOOT. NO WOUNDS NOTED.
--- NOTE | 2019-06-25 12:30 | NUR ---
NOT ABLE TO DO MED REC AT MOMENT DUE TO NO LIST SENT FROM FACILITY. PT NOT ABLE TO VERIFY ALL MEDS. TRIED TO CALL [employer] TO FAX LIST BUT NO ANSWER AT PRESENT. WILL ADMIT PT AND TRY TO CALL AGAIN.
--- NOTE | 2019-06-25 13:55 | NUR ---
PT INCONTINENT WITH LARGE AMT URINE. PADS CHANGED AND PT POSITIONED FOR COMFORT.
--- NOTE | 2019-06-25 22:58 | NUR ---
RECEIVED BEDSIDE SHIFT REPORT. UP IN BED WITH EYES CLOSED. EASILY AROUSES TO VERBAL STIMULI. ORIENTED X4. REMAINS BEDFAST. PUREWICK IN PLACE. O2 @ 4 LITERS PER N/C IN PLACE. IV TO RT HAND 24 GA SL.PACEMAKER TO LT CHEST. REPORTED BY OFFGOING THAT PO HYPERGLYCEMIC MEDS HELD TODAY. OPEN AREA TO LT LOWER BUTTOCK FOLD. HEEL PROTECTOR TO LT HEEL. DENIES ANY NEEDS AT THIS TIME.
--- NOTE | 2019-06-25 23:13 | NUR ---
BLLD GLUCOSE IS 71 AND SNACKS WERE GIVEN.
[2019-06-26 00:30] VITALS: BP 138/67
[2019-06-26 04:30] VITALS: BP 122/63
[2019-06-26 04:54] LABS: BASOPHILS 0.2 % (0-2); EOSINOPHILS 2.2 % (0-7); HEMATOCRIT 36.8 % (36.0-48.0); HEMOGLOBIN 10.9 g/dL (12-16); IMMATURE GRANULOCYTES 0.8 % (0-5); LYMPHOCYTES 22.8 % (15-50); MCH 30.1 pg (26.0-34.0); MCHC 29.6 g/dL (31.0-37.0); MCV 101.7 fL (80.0-100.0); MEAN PLATELET VOLUME 11.1 fL (7.4-10.4); MONOCYTES 7.5 % (2-11); NEUTROPHILS 66.5 % (40-80); RBC 3.62 10x6/uL (4.00-5.40); WBC 11.9 10x3/uL (4.8-10.8)
[2019-06-26 05:02] LABS: PLATELET COUNT 140 10x3/uL (130-400)
[2019-06-26 05:16] LABS: ALBUMIN 2.3 g/dL (3.4-5.0); ALKALINE PHOSPHATASE 71 U/L (30-120); ALT (SGPT) 13 U/L (10-68); BILIRUBIN - TOTAL 0.73 mg/dL (0.2-1.3); CALCIUM 8.7 mg/dL (8.5-10.1); CARBON DIOXIDE 33.4 mmol/L (21.0-32.0); CHLORIDE - SERUM 102 mmol/L (98-107); CREATININE - SERUM 0.7 mg/dL (0.6-1.3); PROTEIN - SERUM 6.7 g/dL (6.4-8.2); SODIUM 138 mmol/L (136-145); TROPONIN-I 0.022 ng/mL (0.000-0.060); UREA NITROGEN 12 mg/dL (7-18); eGFR NON AFRICAN AMERICAN 83 mL/min (90-120)
[2019-06-26 05:19] LABS: CALC OSMOLALITY 273 mosm/kg (275-300); GLUCOSE 62 mg/dL (74-106)
--- NOTE | 2019-06-26 06:24 | NUR ---
BLOOD GLUCOSE 62. HGBA1C 4.0. SNACK GIVEN.
--- NOTE | 2019-06-26 08:44 | NUR ---
ROUNDING DONE THIS AM WITH NO NEEDS VOICED. ON 4L PER NC. RIGHT HAND SEEN WITH SALINE LOCK. ON HEART MONITOR SHOWING SR, HR 94. LEFT PACEMAKER SITE SEEN., MORBID OBESE. LEFT HEEL PROTECTOR ON. FALL PRECAUTIONS IN PLACE. PATIENT HAS REGULAR CLOTHES ON, WILL CHANGE HER WITH BATH GIVEN. CALL LIGHT IN USE.
[2019-06-26 09:26] VITALS: Ht 162.6 cm; Wt 135.5 kg
[2019-06-26 09:47] VITALS: BP 111/63
--- NOTE | 2019-06-26 12:49 | NUR ---
PATIENT HANDOUT INFO GIVEN FOR CONRADO
[2019-06-26 13:10] VITALS: BP 103/48
--- NOTE | 2019-06-26 16:35 | NUR ---
BP 91/50, LASIX HELD
[2019-06-26 17:59] VITALS: BP 91/50
--- NOTE | 2019-06-26 19:40 | NUR ---
RECEIVED BEDSIDE SHIFT REPORT. UP IN BED WITH EYES OPEN. ALERT AND ORIENTED X4. REMAINS BEDFAST. O2@ 4 LITERS PER N/C IN PLACE. PUREWICK IN PLACE. IV TO RT HAND SL. TELEMETRY IN PLACE. BUTTOCKS ESCORIATED . DENIES ANY NEEDS AT THIS TIME. WILL CONT. POC.
[2019-06-26 20:30] VITALS: BP 105/38
[2019-06-27 00:30] VITALS: BP 112/53
--- NOTE | 2019-06-27 07:20 | NUR ---
RECIEVE REPORT. RESTING IN BED WITH EYES CLOSED. SINUS RYTHM ON TELEMETRY. NO SIGNS OF DISTRESS. CONTINUE PLAN OF CARE AND SAFETY PRECAUTIONS.
--- NOTE | 2019-06-27 08:56 | CN ---
PATIENT NAME:SRINIVAS PARRA MEDICAL RECORD: [id number] : [birth year] LOCATION:D. 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 We are asked to see her concerning her cardiovascular status. PAST MEDICAL HISTORY: Includes; 1. History of coronary artery disease. 2. Diabetes mellitus. 3. Dyslipidemia. 4. Cardiomyopathy. 5. Status post pacemaker. ALLERGIES: KEFLEX. SOCIAL HISTORY: Nonsmoker, nondrinker, resides in [facility]. REVIEW OF SYSTEMS: The patient reports easy bruising but reports no swollen glands. The patient reports no fever, no night sweats, no significant weight gain, no significant weight loss. No significant exercise tolerance. The patient reports no dry eyes, no irritation, no vision change. Patient reports no difficulty hearing and no ear pain. Patient reports no frequent nose bleeds or nose and sinus problems. Patient reports on arm pain on exertion. No shortness of breath while lying down. No history of heart murmur. Patient reports no cough, no wheezing or coughing up blood. Patient reports no abdominal pain, no vomiting. Normal appetite. No diarrhea and not vomiting blood. No nausea and no constipation. Patient reports no incontinence. No difficulty urinating. No hematuria. No increased frequency. Patient reports no muscle aches. No weakness, no arthralgias, no back pain. No swelling of the extremities. Patient reports no abnormal mole, no jaundice, no rashes. Reports no loss of consciousness. No weakness and no numbness. No seizures, dizziness, or headaches. The patient reports no depression, no sleep disturbance, feeling safe in a relationship and no alcohol abuse. Patient reports on fatigue. Reports no runny nose or sinus pressure. No itching, no hives, and no frequent sneezing. PHYSICAL EXAMINATION: GENERAL: Pleasant female in no acute distress, conversant, oriented. VITAL SIGNS: Blood pressure 111/63, pulse 90 and regular. HEENT: Normocephalic, atraumatic. NECK: No bruits noted. HEART: Currently is regular, II/ systolic ejection murmur. LUNGS: Fairly good excursion, mildly decreased breath sounds at the bases. ABDOMEN: Soft, nontender. EXTREMITIES: Pulses well preserved, 2+, still with 1+ edema. IMPRESSION: Volume overload with ehxyc-lk-[id number] systolic dysfunction, CONSULT REPORT [id number] SRINIVAS PARRA responding nicely to IV loop diuretic. We will add low dose ARB with pressures in 110s to 120s. Further recommendations based on the above. TRANSINT:[id number] Voice Confirmation ID: [id number] DOCUMENT ID: [id number] VIKA SHELDON MD at 0856 CC: [id number] DICTATION DATE: 06/26/19 1134 DESK TOP PUBLISHER: 06/26/19 1651 ADM IN [facility] [address] [place] [address]
[2019-06-27 09:24] VITALS: BP 117/57
[2019-06-27 12:10] VITALS: BP 111/51
[2019-06-27 18:11] VITALS: BP 105/47
[2019-06-27 20:00] VITALS: BP 103/43
--- NOTE | 2019-06-27 20:03 | NUR ---
RECEIVED UP IN BED WITH EYES OPEN AND TV ON. ALERT AND ORIETNED X4. REMAINS BEDFAST. C/O NOT BEING ABLE TO SLEEP. NOTIFIED DR. VEGA WITH N.O. FOR TRAZADONE 50MG PO QHS. O2@ 4 LITERS PER NC IN PLACE. IV TO RT HAND SL. TELEMETRY IN PLACE. BUTTOCKS EXCORIATED. TX IN PLACE. DENIES ANY OTHER NEEDS.
--- NOTE | 2019-06-28 00:39 | NUR ---
RUN OF TORSADES ON MONITOR. EASILY AROUSED AND TALKATIVE. NO ADVERSE EFFECT OBSERVED.
--- NOTE | 2019-06-28 00:40 | NUR ---
APPEARS TO BE RESTING BETTER THIS SHIFT.
--- NOTE | 2019-06-28 07:20 | NUR ---
RECIEVE REPORT. ALERT AND ORIENTED X4. SITTING UP IN BED RECIEVING UPDRAFT. SINUS RYTHM ON TELEMETRY. DENIES ANY NEEDS. CONTINUE PLAN OF CARE AND SAFETY PRECAUTIONS.
[2019-06-28 08:17] LABS: ALBUMIN 2.3 g/dL (3.4-5.0); ALKALINE PHOSPHATASE 70 U/L (30-120); ALT (SGPT) 12 U/L (10-68); CALC OSMOLALITY 273 mosm/kg (275-300); CALCIUM 8.8 mg/dL (8.5-10.1); CARBON DIOXIDE 29.2 mmol/L (21.0-32.0); CHLORIDE - SERUM 103 mmol/L (98-107); CREATININE - SERUM 0.7 mg/dL (0.6-1.3); MAGNESIUM - SERUM 1.6 mg/dL (1.8-2.4); POTASSIUM - SERUM 3.7 mmol/L (3.5-5.1); PROTEIN - SERUM 6.4 g/dL (6.4-8.2); SODIUM 138 mmol/L (136-145); UREA NITROGEN 6 mg/dL (7-18); eGFR NON AFRICAN AMERICAN 83 mL/min (90-120)
[2019-06-28 08:18] LABS: GLUCOSE 106 mg/dL (74-106)
--- NOTE | 2019-06-28 08:58 | EC ---
PATIENT:SRINIVAS PARRA DATE OF SERVICE: 06/25/19 SEX: F MEDICAL RECORD: [id number] DATE OF : [birth year] LOCATION:D.M2 D.210 AGE OF PATIENT: 89 ADMISSION DATE: 06/25/19 REFERRING PHYSICIAN: INTERPRETING PHYSICIAN: VIKA SHELDON MD ECHOCARDIOGRAM REPORT ECHO CHARGES 4 ECHO COMPLETE Date: 06/25/19 CLINICAL DIAGNOSIS: CHF ECHOCARDIOGRAPHIC MEASUREMENTS (adult normal given) AC root (d.<3.7cm) 3.0 cm LV Septum d (<1.2 cm> 0.8 cm Valve Excursion 1.1 cm LV Septum (systole) 1.0 cm Left Atria (s.<4.0cm> 4.0 cm LVPW d(<1.2cm) 1.0 cm RV (d.<2.3cm) 3.2 cm LVPW (sytole) 1.2 cm LV diastole(<5.6CM) 5.1 cm MV E-F(>70mm/sec) cm LV systole 4.6 cm LVOT Diameter 2.2 cm MV exc.(>10mm) cm Est.ejection fraction (50-75%) % DOPPLER: LVIT cm/sec A 24 cm/sec E 136 cm/sec LA cm/sec RVSP 27.3 mmHg LVOT 81 cm/sec AOP1/2T m/s Asc. Ao 171 cm/sec RVOT 63 cm/sec RA cm/sec PA 67 cm/sec AV Gradient Peak 11.7 mmHg AV Mean 5.8 mmHg AV Area 1.7 cm MV Gradient Peak 10.8 mmHg MV Mean 3.6 mmHg MV Area cm COMMENTS: Booster Pump Operator: Donald BRAMBILAHALEY NATALIYA Associate Professor Of Surgery: 3 Dr. Mcdaniels TAPE# PACS Pericardial Effusion N DATE OF SERVICE: Adequate 2D, color flow imaging, spectral Doppler, and M-Mode No LVH. LV internal dimensions are normal. LV is globally hypokinetic with reduced EF, estimated EF 30% to 35%. Aortic valve is sclerosed without evidence of stenosis by Doppler interrogation. Left atrium is normal at 4.0 cm. Mitral valve shows no prolapse. Trace MR. Right-sided chambers are grossly normal. Trace TR. ECHOCARDIOGRAM REPORT [id number] SRINIVAS PARRA TRANSINT:[id number] Voice Confirmation ID: [id number] DOCUMENT ID: [id number] VIKA SHELDON MD at 0858 CC: [id number] DICTATION DATE: 06/26/1956 CIGAR PACKER AND SORTER: 06/26/19 1501 ADM IN [facility] [address] [place] [address]
[2019-06-28] MEDS ORDERED: JARDIANCE10 MG PO (09:37)
[2019-06-28] MEDS ORDERED: DESERYL PO (09:38)
[2019-06-28] MEDS ORDERED: ASPIRIN325 MG PO (09:38)
[2019-06-28] MEDS ORDERED: COZAAR25 MG PO (09:39)
[2019-06-28 09:46] VITALS: BP 130/53
--- NOTE | 2019-06-28 10:59 | MORECARE ---
CASE MANAGEMENT DISCHARGE SUMMARY PATIENT: SRINIVAS PARRA UNIT: [id number] ADM DATE: 06/25/19 AGE: 89 : [birth year] SEX: F ROOM/BED: D.2103 AUTHOR: SALLY,DOC PHYSICIAN: REFERRING PHYSICIAN: KACI ALMAGUER MD DATE OF SERVICE: 06/28/19 Discharge Plan Patient Name: SRINIVAS PARRA Facility: [facility]:[place] : 1930 Planned Disposition: Senior Living Care Fac MCR Anticipated Discharge Date: 06/28/19 Discharge Date: Expected LOS: 3 Initial Reviewer: [email or web address] Initial Review Date: 06/25/2019 Generated: 06/28/19 11:58 am DCPIA - Discharge Planning Initial Assessment Updated by [id number]: Nena Waters on 06/28/19 10:56 am * Is the patient Alert and Oriented? Yes * How many steps to enter\exit or inside your home? None * PCP Dr. Almaguer * Pharmacy [facility] * Preadmission Environment Market Manager Care Home * Facility Name [facility] * ADLs Partial Dependent * Partial ADLs (Assistance needed) Bathing Dressing Medication Management Toileting Transfers * Equipment Hospital Bed Oxygen Wheelchair * Other Equipment Facility Supplies * List name and contact numbers for known caregivers / representatives who currently or will assist patient after discharge: Lyla Staley (other) [phone] * Verbal permission to speak to the caregivers and representatives has been obtained from the patient. N/A * Community resources currently utilized None * Please name any agencies selected above. NA * Additional services required to return to the preadmission environment? No * Can the patient safely return to the preadmission environment? Yes * Has this patient been hospitalized within the prior 30 days at any hospital? No Coverage Notice Reviewer: [id number] - Nena Waters Notice Issued Date-Time: 06/28/2019 10:47 Notice Type: IM Discharge Notice Notice Delivered To: Patient Relationship to Patient: Self Bereavement Program Coordinator Name: Carmel Parra Delivery Method: HAND - Hand Delivered Prudence Days: Prior Verbal Notification: Recipient Understood Notice: Yes Recipient Signature: Yes Med Rec Note Co-signed by Attending: Coverage Notice Comment: DC IMM signed/given to patient. Copy to chart. Patient Name: SRINIVAS PARRA Page [id number] at 1059 All edits/amendments must be made on the electronic document DICTATION DATE: 06/28/191057 PODOPEDIATRICIAN: NAYE 06/28/191057 RPT#: [id number] DC DATE: STATUS: ADM IN [facility] [address] [place] [address] END OF REPORT
--- NOTE | 2019-06-28 11:04 | NUR ---
CALLED REPORT TO ADRIAN JENNINGS AT [facility]. NOTIFY [facility] TRANSPORTATION NEEDS. DISCHARGE INSTRUCTIONS GIVEN VERBALLY AND WRITTEN. DISCHARGE PAPERS SIGNED ON CHART. DC RT HAND IV TIP INTACT.
--- NOTE | 2019-06-28 11:14 | MORECARE ---
CASE MANAGEMENT DISCHARGE SUMMARY PATIENT: SRINIVAS PARRA UNIT: [id number] ADM DATE: 06/25/19 AGE: 89 : 31 SEX: F ROOM/BED: D.2102 AUTHOR: SALLY,DOC PHYSICIAN: REFERRING PHYSICIAN: KACI ALMAGUER MD DATE OF SERVICE: 06/28/19 Discharge Plan Patient Name: SRINIVAS PARRA Facility: [facility]:[place] : 1930 [facility] Anticipated Discharge Date: 06/28/19 Discharge Date: Expected LOS: 3 Initial Reviewer: [email or web address] Initial Review Date: 06/25/2019 Generated: 06/28/19 12:13 pm Comments DCP- Discharge Planning Updated by [email or web address]: Nena Waters on 06/28/19 10:[address] CM met with patient regarding DC plans. Patient is a resident of [facility]. Patient will return via ambulance. CM contacted SAUMYA Peck nurse and she is unsure of the type of bed the patient will return to. #[phone]. DCPIA - Discharge Planning Initial Assessment Updated by [email or web address]: Nena Waters on 06/28/19 10:56 am * Is the patient Alert and Oriented? Yes * How many steps to enter\exit or inside your home? None * PCP Dr. Almaguer * Pharmacy [facility] * Preadmission Environment [facility] * Facility Name [facility] * ADLs Partial Dependent * Partial ADLs (Assistance needed) Bathing Dressing Medication Management Toileting Transfers * Equipment Hospital Bed Oxygen Wheelchair * Other Equipment Facility Supplies * List name and contact numbers for known caregivers / representatives who currently or will assist patient after discharge: Lyla Staley (other) [phone] * Verbal permission to speak to the caregivers and representatives has been obtained from the patient. N/A * Community resources currently utilized None * Please name any agencies selected above. NA * Additional services required to return to the preadmission environment? No * Can the patient safely return to the preadmission environment? Yes * Has this patient been hospitalized within the prior 30 days at any hospital? No Coverage Notice Reviewer: [id number] - Nena Waters Notice Issued Date-Time: 06/28/2019 10:47 Notice Type: IM Discharge Notice Notice Delivered To: Patient Relationship to Patient: Self Project Superintendent Name: Carmel Parra Delivery Method: HAND - Hand Delivered Prudence Days: Prior Verbal Notification: Recipient Understood Notice: Yes Recipient Signature: Yes Med Rec Note Co-signed by Attending: Coverage Notice Comment: DC IMM signed/given to patient. Copy to chart. Last DP export: 06/28/19 9:59 a Patient Name: SRINIVAS PARRA Page 48762 at 1114 All edits/amendments must be made on the electronic document DICTATION DATE: 06/28/19 1113 RESIDENTIAL TREATMENT STAFF: NAYE 06/28/19 1113 RPT#: [id number] DC DATE: STATUS: ADM IN [facility] [address] [place] [address] END OF REPORT
--- NOTE | 2019-06-28 11:20 | MORECARE ---
CASE MANAGEMENT DISCHARGE SUMMARY PATIENT: SRINIVAS PARRA UNIT: [id number] ADM DATE: 06/25/19 AGE: 89 : 31 SEX: F ROOM/BED: D.3556 AUTHOR: SALLY,DOC PHYSICIAN: REFERRING PHYSICIAN: KACI ALMAGUER MD DATE OF SERVICE: 06/28/19 Discharge Plan Patient Name: SRINIVAS PARRA Facility: [facility]:[place] : 1930 Planned Disposition: [facility] Anticipated Discharge Date: 06/28/19 Discharge Date: Expected LOS: 3 Initial Reviewer: [id number] Initial Review Date: 06/25/2019 Generated: 06/28/19 12:20 pm Comments DCP- Discharge Planning Updated by [id number]: Nena Waters on 06/28/19 10:[address] CM met with patient regarding DC plans. Patient is a resident of [facility]. Patient will return via ambulance. CM contacted Liv [facility] nurse and she is unsure of the type of bed the patient will return to. Ph #[phone]. Patient is alert/oriented. PCP Dr. Almaguer. Pharmacy: [facility]. VOLUMETRIC WEIGHER, patient was in a long-term bed at [facility]. Emergency Contact: Jordan Chau (dtr) [phone]. CM notified patient's daughter of DC back to the facility. Transportation will be via [facility]. DC IMM signed per patient. DCPIA - Discharge Planning Initial Assessment Updated by [email or web address]: Nena Waters on 06/28/19 10:56 am * Is the patient Alert and Oriented? Yes * How many steps to enter\exit or inside your home? None * PCP Dr. Almaguer * Pharmacy [facility] * Preadmission Environment [facility] * [facility] * ADLs Partial Dependent * Partial ADLs (Assistance needed) Bathing Dressing Medication Management Toileting Transfers * Equipment Hospital Bed Oxygen Wheelchair * Other Equipment Facility Supplies * List name and contact numbers for known caregivers / representatives who currently or will assist patient after discharge: Lyla Staley (other) [phone] * Verbal permission to speak to the caregivers and representatives has been obtained from the patient. N/A * Community resources currently utilized None * Please name any agencies selected above. NA * Additional services required to return to the preadmission environment? No * Can the patient safely return to the preadmission environment? Yes * Has this patient been hospitalized within the prior 30 days at any hospital? No Coverage Notice Reviewer: [id number] Mily Waters Notice Issued Date-Time: 06/28/2019 10:47 Notice Type: IM Discharge Notice Notice Delivered To: Patient Relationship to Patient: Self Mushroom Grower Name: Carmel Parra Delivery Method: HAND - Hand Delivered Prudence Days: Prior Verbal Notification: Recipient Understood Notice: Yes Recipient Signature: Yes Med Rec Note Co-signed by Attending: Coverage Notice Comment: DC IMM signed/given to patient. Copy to chart. Last DP export: 06/28/19 10:14 a Patient Name: SRINIVAS PARRA Page 50091 at 1120 All edits/amendments must be made on the electronic document DICTATION DATE: 06/28/19 112 FRAUD EXAMINER: NAYE 06/28/19 1120 RPT#: [id number] DC DATE: STATUS: ADM IN [facility] [address] [place] [address] END OF REPORT
--- NOTE | 2019-06-28 11:55 | NUR ---
[facility] ARRIVES FOR TRANSPORT.
--- NOTE | 2019-06-29 09:16 | MORECARE ---
CASE MANAGEMENT DISCHARGE SUMMARY PATIENT: SRINIVAS PARRA UNIT: [id number] ADM DATE: 06/25/19 AGE: 89 : 31 SEX: F ROOM/BED: D.8033 AUTHOR: SALLY,DOC PHYSICIAN: REFERRING PHYSICIAN: KACI ALMAGUER MD DATE OF SERVICE: 06/29/19 Discharge Plan Patient Name: SRINIVAS PARRA Facility: [facility]:[place] : 1930 Planned Disposition: [facility] Anticipated Discharge Date: 06/28/19 Discharge Date: 06/28/2019 Expected LOS: 3 Initial Reviewer: [email or web address] Initial Review Date: 06/25/2019 Generated: 06/29/19 10:15 am Comments DCP- Discharge Planning Updated by [email or web address]: Nena Waters on 06/29/19 8:[address] [facility] Medicare Skilled bed. DCP- Discharge Planning Updated by [email or web address]: Nena Waters on 06/28/19 10:[address] CM met with patient regarding DC plans. Patient is a resident of [facility]. Patient will return via ambulance. CM contacted Liv [facility] nurse and she is unsure of the type of bed the patient will return to. #[phone]. Patient is alert/oriented. PCP Dr. Almaguer. Pharmacy: [facility]. CLEANING SPECIALIST, patient was in a long-term bed at [facility]. Emergency Contact: Jordan Chau (dtr) [phone]. CM notified patient's daughter of DC back to the facility. Transportation will be via [facility]. DC IMM signed per patient. DCPIA - Discharge Planning Initial Assessment Updated by [email or web address]: Nena Waters on 06/28/19 10:56 am * Is the patient Alert and Oriented? Yes * How many steps to enter\exit or inside your home? None * PCP Dr. Almaguer * Pharmacy [facility] * Preadmission Environment [facility] * Facility Name [facility] * ADLs Partial Dependent * Partial ADLs (Assistance needed) Bathing Dressing Medication Management Toileting Transfers * Equipment Hospital Bed Oxygen Wheelchair * Other Equipment Facility Supplies * List name and contact numbers for known caregivers / representatives who currently or will assist patient after discharge: Lyla Staley (other) [phone] * Verbal permission to speak to the caregivers and representatives has been obtained from the patient. N/A * Community resources currently utilized None * Please name any agencies selected above. NA * Additional services required to return to the preadmission environment? No * Can the patient safely return to the preadmission environment? Yes * Has this patient been hospitalized within the prior 30 days at any hospital? No Coverage Notice Reviewer: [id number] Mily Waters Notice Issued Date-Time: 06/28/2019 10:47 Notice Type: IM Discharge Notice Notice Delivered To: Patient Relationship to Patient: Self Power House Control Room Operator Name: Carmel Parra Delivery Method: HAND - Hand Delivered Prudence Days: Prior Verbal Notification: Recipient Understood Notice: Yes Recipient Signature: Yes Med Rec Note Co-signed by Attending: Coverage Notice Comment: DC IMM signed/given to patient. Copy to chart. Last DP export: 06/28/19 10:20 a Patient Name: SRINIVAS PARRA Page 19579 at 0916 All edits/amendments must be made on the electronic document DICTATION DATE: 06/29/19914 BUSINESS OBJECTS REPORT DEVELOPER: NAYE 06/29/19914 RPT#: [id number] DC DATE:06/28/19 STATUS: DIS IN [facility] [address] [place] [address] END OF REPORT
--- NOTE | 2019-06-29 09:24 | MORECARE ---
CASE MANAGEMENT DISCHARGE SUMMARY PATIENT: SRINIVAS PARRA UNIT: [id number] ADM DATE: 06/25/19 AGE: 89 : 31 SEX: F ROOM/BED: D.7475 AUTHOR: SALLY,DOC PHYSICIAN: REFERRING PHYSICIAN: KACI ALMAGUER MD DATE OF SERVICE: 06/29/19 Discharge Plan Patient Name: SRINIVAS PARRA Facility: [facility]:[place] : 1930 Planned Disposition: Half-Way Care [facility] Anticipated Discharge Date: 06/28/19 Discharge Date: 06/28/2019 Expected LOS: 3 Initial Reviewer: [email or web address] Initial Review Date: 06/25/2019 Generated: 06/29/19 10:23 am Comments DCP- Discharge Planning Updated by [email or web address]: Nena Waters on 06/29/19 8:[address] Per Mena with [facility], patient returned to a Medicare Skilled bed. DCP- Discharge Planning Updated by [email or web address]: Nena Waters on 06/28/19 10:[address] CM met with patient regarding DC plans. Patient is a resident of [facility]. Patient will return via ambulance. CM contacted Liv [facility] nurse and she is unsure of the type of bed the patient will return to. #[phone]. Patient is alert/oriented. PCP Dr. Almaguer. Pharmacy: [facility]. PATTERN MARKER, patient was in a long-term bed at [facility]. Emergency Contact: Jordan Chau (dtr) [phone]. CM notified patient's daughter of DC back to the facility. Transportation will be via [facility]. DC IMM signed per patient. DCPIA - Discharge Planning Initial Assessment Updated by [email or web address]: Nena Waters on 06/28/19 10:56 am * Is the patient Alert and Oriented? Yes * How many steps to enter\exit or inside your home? None * PCP Dr. Almaguer * Pharmacy [facility] * Preadmission Environment Half-Way [facility] * Facility Name [facility] * ADLs Partial Dependent * Partial ADLs (Assistance needed) Bathing Dressing Medication Management Toileting Transfers * Equipment Hospital Bed Oxygen Wheelchair * Other Equipment Facility Supplies * List name and contact numbers for known caregivers / representatives who currently or will assist patient after discharge: Lyla Staley (other) [phone] * Verbal permission to speak to the caregivers and representatives has been obtained from the patient. N/A * Community resources currently utilized None * Please name any agencies selected above. NA * Additional services required to return to the preadmission environment? No * Can the patient safely return to the preadmission environment? Yes * Has this patient been hospitalized within the prior 30 days at any hospital? No Coverage Notice Reviewer: [id number] Mily Waters Notice Issued Date-Time: 06/28/2019 10:47 Notice Type: IM Discharge Notice Notice Delivered To: Patient Relationship to Patient: Self State Game Warden Name: Carmel Parra Delivery Method: HAND - Hand Delivered Prudence Days: Prior Verbal Notification: Recipient Understood Notice: Yes Recipient Signature: Yes Med Rec Note Co-signed by Attending: Coverage Notice Comment: DC IMM signed/given to patient. Copy to chart. Last DP export: 06/29/19 8:16 a Patient Name: SRINIVAS PARRA Page [phone] at 0924 All edits/amendments must be made on the electronic document DICTATION DATE: 06/29/19922 MACHINE SPREADER: NAYE 06/29/19922 RPT#: [id number] DC DATE:06/28/19 STATUS: DIS IN [facility] [address] [place] [address] END OF REPORT
== END 2019-06-28 12:10 | DRG 291 ==
LOC: D.ER 06:32 → D.M2 09:47
PROVIDERS: Family Medicine; ADMIT Family Medicine; ATTEND Family Medicine
DX: I11.0 Hypertensive heart disease with heart failure (principal); J96.20 Acute and chronic respiratory failure, unspecified whether with hypoxia or hypercapnia; N30.00 Acute cystitis without hematuria; J43.9 Emphysema, unspecified; E66.9 Obesity, unspecified; I49.9 Cardiac arrhythmia, unspecified; K59.01 Slow transit constipation; E11.42 Type 2 diabetes mellitus with diabetic polyneuropathy; E78.2 Mixed hyperlipidemia; K21.9 Gastro-esophageal reflux disease without esophagitis; M19.90 Unspecified osteoarthritis, unspecified site; E06.3 Autoimmune thyroiditis; E03.8 Other specified hypothyroidism; D50.8 Other iron deficiency anemias; G30.1 Alzheimer's disease with late onset; F02.80 Dementia in other diseases classified elsewhere, unspecified severity, without behavioral disturbance, psychotic disturbance, mood disturbance, and anxiety; F32.9 Major depressive disorder, single episode, unspecified; J30.89 Other allergic rhinitis; B37.2 Candidiasis of skin and nail; G47.00 Insomnia, unspecified; I50.23 Acute on chronic systolic (congestive) heart failure; Z86.718 Personal history of other venous thrombosis and embolism

== ENCOUNTER 2019-07-09 16:58 | Emergency (ER) | payer MEDICARE ==
[~2019-07-09] VITALS: Ht 162.6 cm; Wt 159.1 kg
[~2019-07-09 16:58] MED LIST changes: +ASPIRIN325 MG PO; +COZAAR25 MG PO; +DESERYL PO; +JARDIANCE10 MG PO
[2019-07-09 17:00] VITALS: Ht 162.6 cm; Wt 159.1 kg
[2019-07-09 18:47] LABS: BASOPHILS 0.3 % (0-2); EOSINOPHILS 2.3 % (0-7); HEMATOCRIT 34.2 % (36.0-48.0); HEMOGLOBIN 10.3 g/dL (12-16); IMMATURE GRANULOCYTES 0.4 % (0-5); LYMPHOCYTES 29.9 % (15-50); MCH 30.6 pg (26.0-34.0); MCHC 30.1 g/dL (31.0-37.0); MCV 101.5 fL (80.0-100.0); MONOCYTES 6.3 % (2-11); NEUTROPHILS 60.8 % (40-80); RBC 3.37 10x6/uL (4.00-5.40); WBC 10.5 10x3/uL (4.8-10.8)
[2019-07-09 18:52] LABS: PLATELET COUNT 309 10x3/uL (130-400)
[2019-07-09] MEDS ORDERED: NYAMYC60 GM TP (18:57)
[2019-07-09 18:58] LABS: BILIRUBIN NEGATIVE (NEGATIVE); GLUCOSE 1000 mg/dL (NEGATIVE); KETONE NEGATIVE (NEGATIVE); NITRITE NEGATIVE (NEGATIVE); UROBILINOGEN NORMAL (NORMAL)
[2019-07-09 18:59] LABS: BACTERIA FEW /hpf (NEGATIVE); EPITHELIAL CELLS 0-5 /hpf (0-5); RED CELLS - URINE 0-5 /hpf (0-5); WHITE CELLS - URINE 25-50 /hpf (NEGATIVE)
[2019-07-09 19:00] LABS: YEAST >1+ /hpf (NONE SEEN)
[2019-07-09 19:02] LABS: ANION GAP 5.9 mmol/L (8-16); CALCIUM 8.9 mg/dL (8.5-10.1); CARBON DIOXIDE 30.6 mmol/L (21.0-32.0); CREATININE - SERUM 0.9 mg/dL (0.6-1.3); POTASSIUM - SERUM 3.5 mmol/L (3.5-5.1)
[2019-07-09 19:09] LABS: ALBUMIN 2.2 g/dL (3.4-5.0); BILIRUBIN - TOTAL 0.44 mg/dL (0.2-1.3); PROTEIN - SERUM 7.4 g/dL (6.4-8.2)
[2019-07-09 19:53] VITALS: BP 122/70
== END 2019-07-09 19:53 ==
LOC: D.ER 16:58
PROVIDERS: Family Medicine
DX: B35.9 Dermatophytosis, unspecified (principal); B37.2 Candidiasis of skin and nail; E11.9 Type 2 diabetes mellitus without complications; E07.9 Disorder of thyroid, unspecified; I11.0 Hypertensive heart disease with heart failure; I50.9 Heart failure, unspecified; Z95.0 Presence of cardiac pacemaker; Z79.4 Long term (current) use of insulin

== ENCOUNTER 2019-11-09 14:59 | Emergency (ER) | payer MEDICARE ==
[~2019-11-09] VITALS: Ht 162.6 cm; Wt 131.8 kg
[~2019-11-09 14:59] MED LIST changes: +NYAMYC60 GM TP
[2019-11-09 15:02] VITALS: Ht 162.6 cm; Wt 131.8 kg
[2019-11-09 15:37] LABS: BASOPHILS 0.3 % (0-2); HEMATOCRIT 38.7 % (36.0-48.0); HEMOGLOBIN 12.3 g/dL (12-16); IMMATURE GRANULOCYTES 0.3 % (0-5); LYMPHOCYTES 29.6 % (15-50); MCH 32.1 pg (26.0-34.0); MCHC 31.8 g/dL (31.0-37.0); MEAN PLATELET VOLUME 10.5 fL (7.4-10.4); MONOCYTES 7.3 % (2-11); NEUTROPHILS 60.5 % (40-80); RBC 3.83 10x6/uL (4.00-5.40); RDW 13.4 % (11.5-14.5); WBC 9.7 10x3/uL (4.8-10.8)
[2019-11-09 15:46] LABS: CALC OSMOLALITY 272 mosm/kg (275-300); CALCIUM 9.3 mg/dL (8.5-10.1); CARBON DIOXIDE 27.2 mmol/L (21.0-32.0); CHLORIDE - SERUM 103 mmol/L (98-107); CREATININE - SERUM 0.8 mg/dL (0.6-1.3); GLUCOSE 117 mg/dL (74-106); POTASSIUM - SERUM 4.2 mmol/L (3.5-5.1); SODIUM 135 mmol/L (136-145); UREA NITROGEN 17 mg/dL (7-18); eGFR NON AFRICAN AMERICAN 72 mL/min (90-120)
[2019-11-09 15:54] LABS: PLATELET COUNT 244 10x3/uL (130-400)
[2019-11-09 16:00] LABS: ALBUMIN 2.9 g/dL (3.4-5.0); ALKALINE PHOSPHATASE 100 U/L (30-120); ALT (SGPT) 13 U/L (10-68); BILIRUBIN - TOTAL 0.47 mg/dL (0.2-1.3); CREATINE KINASE 26 UL (21-215); MAGNESIUM - SERUM 2.1 mg/dL (1.8-2.4); PRO BNP 2358 pg/mL (0-450); PROTEIN - SERUM 8.1 g/dL (6.4-8.2); THYROID STIMULATING HORMONE 0.64 uIU/mL (0.36-3.74)
[2019-11-09 16:04] LABS: TROPONIN-I < 0.017 ng/mL (0.000-0.060)
[2019-11-09 16:50] VITALS: BP 125/58
== END 2019-11-09 19:50 | disposition home or self-care (01) ==
LOC: D.ER 14:59
PROVIDERS: Emergency Medicine
DX: F43.23 Adjustment disorder with mixed anxiety and depressed mood (principal); R07.89 Other chest pain; I11.0 Hypertensive heart disease with heart failure; I50.9 Heart failure, unspecified; E11.9 Type 2 diabetes mellitus without complications; E07.9 Disorder of thyroid, unspecified; Z79.4 Long term (current) use of insulin

== ENCOUNTER 2019-11-17 21:08 | Inpatient (IN) | payer MEDICARE ==
[~2019-11-17] VITALS: Ht 162.6 cm; Wt 116.1 kg
--- NOTE | 2019-11-17 22:15 | NUR ---
PT RESTING IN POSITION OF COMFORT, C/O ABDOMINAL PAIN. IN NO DISTRESS AT THIS TIME. WILL CONTINUE TO MONITOR.
[2019-11-17 22:17] LABS: BASOPHILS 0.4 % (0-2); EOSINOPHILS 2.6 % (0-7); HEMATOCRIT 35.9 % (36.0-48.0); HEMOGLOBIN 11.1 g/dL (12-16); IMMATURE GRANULOCYTES 0.2 % (0-5); LYMPHOCYTES 35.1 % (15-50); MCH 31.8 pg (26.0-34.0); MCHC 30.9 g/dL (31.0-37.0); MCV 102.9 fL (80.0-100.0); MEAN PLATELET VOLUME 10.2 fL (7.4-10.4); MONOCYTES 6.8 % (2-11); NEUTROPHILS 54.9 % (40-80); PLATELET COUNT 271 10x3/uL (130-400); RBC 3.49 10x6/uL (4.00-5.40); RDW 13.7 % (11.5-14.5); WBC 11.1 10x3/uL (4.8-10.8)
[2019-11-17 22:27] LABS: ANION GAP 9.9 mmol/L (8-16); CARBON DIOXIDE 27.6 mmol/L (21.0-32.0); CREATININE - SERUM 0.9 mg/dL (0.6-1.3); POTASSIUM - SERUM 4.5 mmol/L (3.5-5.1)
[2019-11-17 22:38] LABS: ALBUMIN 2.5 g/dL (3.4-5.0); BILIRUBIN - TOTAL 0.44 mg/dL (0.2-1.3); PROTEIN - SERUM 7.4 g/dL (6.4-8.2); TROPONIN-I 0.028 ng/mL (0.000-0.060)
--- NOTE | 2019-11-17 22:42 | NUR ---
DR HERNANDEZ AT BEDSIDE.
[2019-11-17 23:33] LABS: BILIRUBIN NEGATIVE (NEGATIVE); KETONE NEGATIVE (NEGATIVE); NITRITE NEGATIVE (NEGATIVE); UROBILINOGEN NORMAL mg/dL (< 2)
[2019-11-17 23:35] LABS: BACTERIA MANY HPF (NONE SEEN); EPITHELIAL CELLS 0-5 /hpf (0-5)
[2019-11-18] VITALS (7 sets, daily range): BP systolic 93–122; BP diastolic 43–87; BMI 44.0
--- NOTE | 2019-11-18 03:30 | NUR ---
PATIENT HAS NAUSEA, FROM PRODUCTIVE COUGH, ZOFRAN GIVEN
--- NOTE | 2019-11-18 04:47 | NUR ---
PATIENT MOVED TO A REGULAR HOSPITAL BED FOR COMFORT, PATIENT IS STABLE AT THIS TIME.
--- NOTE | 2019-11-18 11:15 | NUR ---
RECEIVED REPORT FROM SARAY BALDERAS
--- NOTE | 2019-11-18 11:53 | NUR ---
PT LAYING IN BED RESTING WITH EYES CLOSED. NO DISTRESS NOTED.
--- NOTE | 2019-11-18 15:50 | NUR ---
CHANGED BEDDING AND GOWN D/T LARGE URINE
--- NOTE | 2019-11-18 16:31 | NUR ---
PT ARRIVES TO ROOM VIA BED ESCORTED BY ER NURSE. PT IS AAO X 4 AND ANSWERS ALL QUESTIONS APPROPRIATELY. PT STATES THAT SHE WISHES TO HAVE RESUSITATIVE MEASURES IF THE NEED ARISES. PT STATES THAT SHE WOULD LIKE TO REMAIN A CONFIDENTIAL PATIENT "MY KIDS DON'T COME SEE ME AT THE HALF-WAY AND I DONT WANT THEM TO KNOW I AM HERE". FRED ALARM IS IN PLACE. PURE WICK PLACED AND TURNED ON. INCENTIVE SPIROMETER WITHIN REACH AND EDUCATION GIVEN PERTAINING TO USE AND IMPORTANCE OF USE. PT GIVES APPROPRIATE RETURN DEMONSTRATION. PT DENIES PRESENCE OF PAIN/N/V/DYSPEA AT THIS TIME. O2 VIA NC @ 2.5L. PT DENIES PRESEENCE OF DIZZINESS. BED IS IN THE LOWEST POSITION. CALL LIGHT AND BEDSIDE TABLE ARE WITHIN REACH. FALL PRECAUTIONS IN PLACE. SIDE RAILS X 2. PT DENIES FURTHER NEEDS. WILL CONT TO MONITOR.
--- NOTE | 2019-11-18 16:40 | NUR ---
PT STATES THAT SHE WOULD LIKE ALL LIFE SAVING MEASURES TO BE COMPLETED IN THE EVENT OF NEEDING THEM WHILE ADMITTED TO THE HOSPITAL. BEE AYALA RN WITNESS TO THIS PT STATEMENT.
[2019-11-19 04:00] VITALS: BP 101/55
[2019-11-19 05:52] LABS: BASOPHILS 0.3 % (0-2); EOSINOPHILS 3.6 % (0-7); HEMATOCRIT 36.4 % (36.0-48.0); HEMOGLOBIN 11.2 g/dL (12-16); IMMATURE GRANULOCYTES 0.4 % (0-5); LYMPHOCYTES 33.6 % (15-50); MCH 31.7 pg (26.0-34.0); MCHC 30.8 g/dL (31.0-37.0); MCV 103.1 fL (80.0-100.0); MEAN PLATELET VOLUME 11.6 fL (7.4-10.4); MONOCYTES 6.5 % (2-11); NEUTROPHILS 55.6 % (40-80); PLATELET COUNT 321 10x3/uL (130-400); RBC 3.53 10x6/uL (4.00-5.40); RDW 13.7 % (11.5-14.5); WBC 11.8 10x3/uL (4.8-10.8)
[2019-11-19 05:53] LABS: ANION GAP 8.2 mmol/L (8-16); CALCIUM 9.6 mg/dL (8.5-10.1); CREATININE - SERUM 0.8 mg/dL (0.6-1.3); POTASSIUM - SERUM 4.2 mmol/L (3.5-5.1)
--- NOTE | 2019-11-19 07:15 | NUR ---
REC'D IN BED AWAKE AND ALERT. RESP EVEN AND UNLABORED WITH NO DISTRESS NOTED. CAN EXPRESS NEEDS AND WANTS. NO C/O NOTED OR VOICED. ASSESSMENT COMPLETED. C/L IN REACH AT BEDSIDE.
[2019-11-19 09:29] VITALS: BP 97/41
--- NOTE | 2019-11-19 10:54 | NUR ---
I have reviewed this patient and I concur with the Shift Assessment completed by the Licensed Practical Nurse today this shift.
[2019-11-19 13:00] VITALS: Ht 162.6 cm; Wt 116.1 kg
[2019-11-19 13:03] VITALS: BP 91/41
--- NOTE | 2019-11-19 14:17 | NUR ---
WAS MEDICATED WITH [facility] FOR C/O PAIN RATING 7/10 ON PAIN SCALE. C/L IN REACH
[2019-11-19 16:34] VITALS: BP 104/50
--- NOTE | 2019-11-19 18:32 | NUR ---
REC'D CALL FROM ALEXANDRA AT [facility] INQUIRING ABOUT WHY PT FAMILY MEMBER ARE UNABLE TO VISIT WITH PT. THIS NURSE EXPLAINED TO ALEXANDRA THAT PT IS LISTED UNDER CONFIDENTIAL AND THAT WHY HER FAMILY WAS TOLD THAT. THIS NURSE THEN WENT DOWN AND SPOKE WITH PT ABOUT BEING CONFIDENTIAL AND SHE STATED THAT DOESNT WANT TO BE THAT WAY AND THAT HER FAMILY OR ANYONE ELSE CAN KNOW THAT SHE IS HER. CALL WAS PLACED TO ADMISSION TO TAKE OFF THE CONFIDENTIAL STATUS AT THIS TIME.
--- NOTE | 2019-11-19 19:10 | NUR ---
RECEIVED REPORT, ASSUMED CARE, A&O X4, DENIES NEEDS, BED LOWEST POSITION, PUREWICK ON AND FUNCTIONING, CALL LIGHT IN REACH, IV TO RH PATENT, STATES SHE IS SLIGHTLY ANXIOUS SCHEDULED ATIVAN GIVEN EARLY.
[2019-11-19 20:00] VITALS: BP 95/44
--- NOTE | 2019-11-19 23:53 | NUR ---
I have reviewed this patient and I concur with the Shift Assessment completed by the Licensed Practical Nurse today this shift.
[2019-11-20 04:00] VITALS: BP 99/49
[2019-11-20 07:02] LABS: BASOPHILS 0.3 % (0-2); EOSINOPHILS 4.3 % (0-7); HEMATOCRIT 35.8 % (36.0-48.0); IMMATURE GRANULOCYTES 0.6 % (0-5); LYMPHOCYTES 30.9 % (15-50); MCH 31.3 pg (26.0-34.0); MCHC 30.7 g/dL (31.0-37.0); MEAN PLATELET VOLUME 10.5 fL (7.4-10.4); MONOCYTES 6.8 % (2-11); NEUTROPHILS 57.1 % (40-80); PLATELET COUNT 287 10x3/uL (130-400); RBC 3.51 10x6/uL (4.00-5.40); RDW 13.5 % (11.5-14.5); WBC 11.1 10x3/uL (4.8-10.8)
[2019-11-20 07:33] LABS: CALC OSMOLALITY 280 mosm/kg (275-300); CARBON DIOXIDE 25.1 mmol/L (21.0-32.0); CHLORIDE - SERUM 106 mmol/L (98-107); CREATININE - SERUM 0.7 mg/dL (0.6-1.3); GLUCOSE 121 mg/dL (74-106); POTASSIUM - SERUM 4.3 mmol/L (3.5-5.1); SODIUM 139 mmol/L (136-145); UREA NITROGEN 18 mg/dL (7-18); eGFR NON AFRICAN AMERICAN 83 mL/min (90-120)
--- NOTE | 2019-11-20 08:12 | NUR ---
RESTING IN BED, NO DISTRESS NOTED, CONT TO MONITOR SUGARS, O2 PER NC
[2019-11-20 09:21] VITALS: BP 100/44
[2019-11-20 14:25] VITALS: BP 97/44
[2019-11-20 17:14] VITALS: BP 99/48
[2019-11-20 20:00] VITALS: BP 92/46
--- NOTE | 2019-11-20 21:00 | NUR ---
ALERT,ORIENTED X 3. RESP UNLABORED. O2 @ 2L PER NC ON. NO DISTRESS NOTED. IV TO RFA INTACT WITHOUT REDNESS OR EDEMA NOTED. PUREWICK INTACT AND DRAINING ORANGE COLORED URINE. PATIENT IS TAKING PYRIDIUM FOR UTI. POSITIONED FOR COMFORT. CL IN REACH
[2019-11-21] VITALS: BP 96/37
[2019-11-21 04:00] VITALS: BP 106/51
--- NOTE | 2019-11-21 07:17 | NUR ---
I have reviewed this patient and I concur with the Shift Assessment completed by the Licensed Practical Nurse today this shift.
--- NOTE | 2019-11-21 07:57 | NUR ---
RESTING IN BED, NO DISTRESS NOTED, IV INFUSING, PUREWICK IN PLACE, CONT TO MONITOR SUGARS
[2019-11-21 08:16] VITALS: BP 108/46
[2019-11-21] MEDS ORDERED: LEVOFLOXACIN500 MG PO (09:11)
[2019-11-21] MEDS ORDERED: PHENAZOPYRIDIN100 MG PO (09:22)
[2019-11-21] MEDS ORDERED: ENTRESTO 24 MG1 EACH PO (09:22)
--- NOTE | 2019-11-21 10:19 | MORECARE ---
CASE MANAGEMENT DISCHARGE SUMMARY PATIENT: SRINIVAS PARRA UNIT: [id number] ADM DATE: 11/18/19 AGE: 89 : 31 SEX: F ROOM/BED: D.2209 AUTHOR: HALLEY ZAVALA PHYSICIAN: REFERRING PHYSICIAN: KACI VEGA MD DATE OF SERVICE: 11/21/19 Discharge Plan Patient Name: SRINIVAS PARRA Facility: [facility]:[place] : 1930 Planned Disposition: Longterm Facility Anticipated Discharge Date: 11/21/19 Discharge Date: Expected LOS: 3 Initial Reviewer: [email or web address] Initial Review Date: 11/18/2019 Generated: 11/21/19 11:18 am Patient Name: SRINIVAS PARRA Page [id number] at 1019 All edits/amendments must be made on the electronic document DICTATION DATE: 11/21/19 1019 DELIVERY MERCHANDISER: NAYE 11/21/19 1019 RPT#: [id number] DC DATE: STATUS: ADM IN [facility] [address] [place] [address] END OF REPORT
--- NOTE | 2019-11-21 10:39 | MORECARE ---
CASE MANAGEMENT DISCHARGE SUMMARY PATIENT: SRINIVAS PARRA UNIT: [id number] ADM DATE: 11/18/19 AGE: 89 : 31 SEX: F ROOM/BED: D.2209 AUTHOR: HALLEY ZAVALA PHYSICIAN: REFERRING PHYSICIAN: KACI VEGA MD DATE OF SERVICE: 11/21/19 Discharge Plan Patient Name: SRINIVAS PARRA [facility] [facility] 1930 Planned Disposition: Prison Facility Anticipated Discharge Date: 11/21/19 Discharge Date: Expected LOS: 3 Initial Reviewer: [email or web address] Initial Review Date: 11/18/2019 Generated: 11/21/19 11:39 am External Providers External Provider: [facility] Next Contact Date: Service Request Date: Service Type: Resolution: Reviewer: Comments: Last DP export: 11/21/19 9:19 Patient Name: SRINIVAS PARRA Page 24443 at 1039 All edits/amendments must be made on the electronic document DICTATION DATE: 11/21/19 1039 DYE REEL OPERATOR: NAYE 11/21/19 1039 RPT#: [id number] DC DATE: STATUS: ADM IN [facility] [address] [place] [address] END OF REPORT
--- NOTE | 2019-11-21 11:37 | NUR ---
HAVE CALLED [facility] X[facility], NO ANSWERE, WILL KEEP TRYING TO TRANSPORT PT BACK
--- NOTE | 2019-11-21 12:00 | NUR ---
CALLED [facility] AGAIN, NO ANSWERE
--- NOTE | 2019-11-21 12:03 | MORECARE ---
CASE MANAGEMENT DISCHARGE SUMMARY PATIENT: SRINIVAS PARRA UNIT: [id number] ADM DATE: 11/18/19 AGE: 89 : 31 SEX: F ROOM/BED: D.2209 AUTHOR: SALLY,DOC PHYSICIAN: REFERRING PHYSICIAN: KACI ALMAGUER MD DATE OF SERVICE: 11/21/19 Discharge Plan Patient Name: SRINIVAS PARRA Facility: [facility]:[place] : 1930 Planned Disposition: Long Term Facility Anticipated Discharge Date: 11/21/19 Discharge Date: Expected LOS: 3 Initial Reviewer: [email or web address] Initial Review Date: 11/18/2019 Generated: 11/21/19 1:03 pm Comments DCP- Discharge Planning Updated by [email or web address]: Sam Cheng on 11/21/19 10:[address] Patient Name: SRINIVAS PARRA Admission Status: ER Accout number: [id number] Admission Date: 11-18-2019 : 1930 Admission Diagnosis:URINARY TRACT INFECTION, SITE NOT SPECIFIED Attending: KACI ALMAGUER Current LOS: 3 Anticipated DC Date: 11-21-2019 Planned Disposition: Long Term Facility Primary Insurance: MEDICARE A & B Discharge Planning Comments: Spoke with patient who was adamant that she not return to [facility], stating that they will not allow her to visit/scientology with her fellow muslim members on "the ". Patient further stated that she does not want this CM to speak with family members and asked "...why do they get to say...". Collaboration with CM staff revealed that the desire to not return issue is ongoing and well documented with each admit. Will inform patient that she can call an alternate NH once she's back at [facility]. This CM will provide the NH information. Phone call to [facility] at [phone], spoke with Madie. Madie states that the Patient may return. Madie further stated that the patient will have to transport via ambulance. Contact information for both [facility] and [facility] were given to the patient. The patient stated that this CM should contact her daughter Denise Lei at [phone]. Phone call to daughter, informed Ms Lei of her mother's desire to transfer from [facility] to one of the [facility]. Ms Lei informed this CM that she is aware of her mother's wishes and concerns. She further stated that she is an employee at [facility] [employer] and will check with SW at her facility tomorrow. This CM informed Ms Lei that her mother will DC via ambulance to [facility] today. Patient will DC to [place] Medicare bed. DC IMM delivered, explained, signed by the patient, and placed in chart. Signed form also left with the patient. CM will continue to follow and will assist as needed with dc plans/needs. Naval Gunfire Spotter: Sam Cheng DCPIA - Discharge Planning Initial Assessment Updated by [email or web address]: Sam Cheng on 11/21/19 11:57 am * Is the patient Alert and Oriented? Yes * How many steps to enter\\exit or inside your home? * PCP Dr. Almaguer * Pharmacy [facility] * Preadmission Environment Software Development Project Manager [facility] * Facility Name [facility] * ADLs Partial Dependent * Partial ADLs (Assistance needed) Medication Management Toileting Transfers * Equipment Hospital Bed Oxygen * List name and contact numbers for known caregivers / representatives who currently or will assist patient after discharge: DENISE LEI (daughter) [phone] Lyla Berry (Friend) [phone] * Verbal permission to speak to the caregivers and representatives has been obtained from the patient. Yes * Community resources currently utilized None * Additional services required to return to the preadmission environment? Yes * Can the patient safely return to the preadmission environment? Yes * Has this patient been hospitalized within the prior 30 days at any hospital? No Coverage Notice Reviewer: [id number] - Sam Cheng Notice Issued Date-Time: 11/21/2019 10:01 Notice Type: IM Discharge Notice Notice Delivered To: Patient Relationship to Patient: Self Order Entry Name: Delivery Method: HAND - Hand Delivered Prudence Days: Prior Verbal Notification: Recipient Understood Notice: Yes Recipient Signature: Yes Med Rec Note Co-signed by Attending: Coverage Notice Comment: DC IMM delivered, explained, signed by the patient, and placed in chart. Signed form also left with the patient. Last DP export: 11/21/19 9:39 Patient Name: SRINIVAS PARRA Page [phone] at 1203 All edits/amendments must be made on the electronic document DICTATION DATE: 11/21/191202 DISEASE EDUCATION SPECIALIST: NAYE 11/21/191202 RPT#: [id number] DC DATE: STATUS: ADM IN [facility] [address] [place] [address] END OF REPORT
--- NOTE | 2019-11-21 13:38 | NUR ---
SPOKE WITH CHU TO GIVE REPORT, SHE STATES THAT AN RX MUST BE PROVIDED FOR ANY NEW MEDS, ADVISED HER THAT I WOULD CALL HER BACK, NOW NO ANSWER
--- NOTE | 2019-11-21 13:47 | NUR ---
CHU, AT [facility], REPORTS THAT THEY NEED RX'S FOR NEW PRESCRIPTIONS PT IS TO BE ON. [phone]. RX'S FOR ENTRESTO, LEVAQUIN AND PYRIDIUM CALLED PRESCRIBED PER DR VEGA. SPOKE WITH PHARMACISTKILLIAN.
--- NOTE | 2019-11-21 14:30 | NUR ---
CALL PLACED FOR AMBULANCE, RX FOR NEW MEDS CALLED IN BY [facility]AMPBE[facility]
--- NOTE | 2019-11-21 15:55 | NUR ---
DC IV, TIP INTACT, REVIEWED DC ORDERS WITH PT, VOICED NO CONCERNS, AMBULANCE HERE TO TAKE PT TO [facility], BELONGINGS SENT AND BAGS
--- NOTE | 2019-11-22 09:10 | MORECARE ---
CASE MANAGEMENT DISCHARGE SUMMARY PATIENT: SRINIVAS PARAR UNIT: [id number] ADM DATE: 11/18/19 AGE: 89 : 32 SEX: F ROOM/BED: D.2209 AUTHOR: SALLY,DOC PHYSICIAN: REFERRING PHYSICIAN: KACI ALMAGUER MD DATE OF SERVICE: 11/22/19 Discharge Plan Patient Name: SRINIVAS PARRA Facility: [facility] : 1930 Planned Disposition: Custodial Facility Anticipated Discharge Date: 11/21/19 Discharge Date: 11/21/2019 Expected LOS: 3 Initial Reviewer: [email or web address] Initial Review Date: 11/18/2019 Generated: 11/22/19 10:09 am Comments DCP- Discharge Planning Updated by [email or web address]: Sam Cheng on 11/21/19 10:[address] Patient Name: SRINIVAS PARRA Admission Status: ER Accout number: [id number] Admission Date: 11-18-2019 : 1930 Admission Diagnosis:URINARY TRACT INFECTION, SITE NOT SPECIFIED Attending: KACI ALMAGUER Current LOS: 3 Anticipated DC Date: 11-21-2019 Planned Disposition: Custodial Facility Primary Insurance: MEDICARE A & B Discharge Planning Comments: Spoke with patient who was adamant that she not return to [facility], stating that they will not allow her to visit/druze with her fellow muslim members on "the ". Patient further stated that she does not want this CM to speak with family members and asked "...why do they get to say...". Collaboration with CM staff revealed that the desire to not return issue is ongoing and well documented with each admit. Will inform patient that she can call an alternate NH once she's back at [facility]. This CM will provide the NH information. Phone call to [facility] at [phone], spoke with Madie. Madie states that the Patient may return. Madie further stated that the patient will have to transport via ambulance. Contact information for both [facility] and [facility] ([place] were given to the patient. The patient stated that this CM should contact her daughter Denise Lei at [phone]. Phone call to daughter, informed Ms Lei of her mother's desire to transfer from [facility] to one of the [facility]. Ms Lei informed this CM that she is aware of her mother's wishes and concerns. She further stated that she is an employee at [employer] and will check with SW at her facility tomorrow. This CM informed Ms Lei that her mother will DC via ambulance to [facility] today. Patient will DC to [facility]. DC IMM delivered, explained, signed by the patient, and placed in chart. Signed form also left with the patient. CM will continue to follow and will assist as needed with dc plans/needs. Associate Entertainment Editor: Sam Cheng DCPIA - Discharge Planning Initial Assessment Updated by [email or web address]: Sam Cheng on 11/21/19 11:57 am * Is the patient Alert and Oriented? Yes * How many steps to enter\\exit or inside your home? * PCP Dr. Almaguer * Pharmacy [facility] * Preadmission Environment Logistics Engineering Manager Long-Term * Facility Name [facility] * ADLs Partial Dependent * Partial ADLs (Assistance needed) Medication Management Toileting Transfers * Equipment Hospital Bed Oxygen * List name and contact numbers for known caregivers / representatives who currently or will assist patient after discharge: DENISE LEI (daughter) [phone] Lyla Berry (Friend) [phone] * Verbal permission to speak to the caregivers and representatives has been obtained from the patient. Yes * Community resources currently utilized None * Additional services required to return to the preadmission environment? Yes * Can the patient safely return to the preadmission environment? Yes * Has this patient been hospitalized within the prior 30 days at any hospital? No Coverage Notice Reviewer: [id number] - Sam Cheng Notice Issued Date-Time: 11/21/2019 10:01 Notice Type: IM Discharge Notice Notice Delivered To: Patient Relationship to Patient: Self Member Service Specialist Name: Delivery Method: HAND - Hand Delivered Prudence Days: Prior Verbal Notification: Recipient Understood Notice: Yes Recipient Signature: Yes Med Rec Note Co-signed by Attending: Coverage Notice Comment: DC IMM delivered, explained, signed by the patient, and placed in chart. Signed form also left with the patient. Last DP export: 11/21/19 11:03 Patient Name: SRINIVAS PARRA Page [id number] at 0910 All edits/amendments must be made on the electronic document DICTATION DATE: 11/22/19908 BRIDGE ENGINEER: NAYE 11/22/19908 RPT#: [id number] DC DATE:11/21/19 STATUS: DIS IN [facility] [address] [place] [address] END OF REPORT
--- NOTE | 2019-11-23 10:03 | NUR ---
[facility] INFUSION STOPPED AT 0930 ON 11/17/2019
== END 2019-11-21 15:55 | DRG 690 ==
LOC: D.ER 21:08 → D.EDHOLD 11-18 01:33 → D.MS 11-18 01:33
PROVIDERS: Family Medicine; ADMIT Family Medicine; ATTEND Family Medicine
DX: N39.0 Urinary tract infection, site not specified (principal); I50.22 Chronic systolic (congestive) heart failure; I11.0 Hypertensive heart disease with heart failure; R53.81 Other malaise; K59.00 Constipation, unspecified; E66.9 Obesity, unspecified; E78.5 Hyperlipidemia, unspecified; M19.012 Primary osteoarthritis, left shoulder; E78.00 Pure hypercholesterolemia, unspecified; J44.9 Chronic obstructive pulmonary disease, unspecified; I48.0 Paroxysmal atrial fibrillation; F34.1 Dysthymic disorder; Z95.0 Presence of cardiac pacemaker; E11.9 Type 2 diabetes mellitus without complications; M10.9 Gout, unspecified; E03.8 Other specified hypothyroidism; G30.1 Alzheimer's disease with late onset; F02.80 Dementia in other diseases classified elsewhere, unspecified severity, without behavioral disturbance, psychotic disturbance, mood disturbance, and anxiety; D50.8 Other iron deficiency anemias; B37.9 Candidiasis, unspecified

== ENCOUNTER → 2020-04-06 18:19 | Outpatient (CLI) | payer MEDICARE ==
[2020-01-18 13:28] VITALS: BMI 45.2
[~2020-04-06 18:19] MED LIST changes: +BUSPAR10 MG PO; +ELIQUIS2.5 MG PO; +ENTRESTO 24 MG1 EACH PO; +NAMENDA5 MG PO; +PHENAZOPYRIDIN100 MG PO; +TRAZODONE HCL100 MG PO; +VITAMIN B-12250 MC3 PO; +ZOLOFT50 MG PO
== END | disposition home or self-care (01) ==
LOC: D.LABREF 18:19
PROVIDERS: ATTEND Family Medicine
DX: E11.9 Type 2 diabetes mellitus without complications (principal)

== ENCOUNTER 2020-07-10 16:00 | Emergency (ER) | payer MEDICARE ==
[~2020-07-10] VITALS: Ht 162.6 cm; Wt 113.6 kg
[2020-07-10 16:05] VITALS: Ht 162.6 cm; Wt 113.6 kg
[2020-07-10 16:32] LABS: BASOPHILS 1.2 % (0-2); EOSINOPHILS 1.2 % (0-7); HEMATOCRIT 37.3 % (36.0-48.0); LYMPHOCYTES 24.8 % (15-50); MCHC 32.1 g/dL (31.0-37.0); MCV 96.4 fL (80.0-100.0); MONOCYTES 6.7 % (2-11); NEUTROPHILS 66.1 % (40-80); PLATELET COUNT 255 10x3/uL (130-400); RBC 3.87 10x6/uL (4.00-5.40); RDW 14.3 % (11.5-14.5); WBC 12.5 10x3/uL (4.8-10.8)
[2020-07-10 16:53] LABS: CALC OSMOLALITY 279 mosm/kg (275-300); CALCIUM 9.3 mg/dL (8.5-10.1); CARBON DIOXIDE 30.5 mmol/L (21.0-32.0); CHLORIDE - SERUM 104 mmol/L (98-107); CREATININE - SERUM 0.6 mg/dL (0.6-1.3); POTASSIUM - SERUM 4.3 mmol/L (3.5-5.1); SODIUM 140 mmol/L (136-145); UREA NITROGEN 15 mg/dL (7-18); eGFR NON AFRICAN AMERICAN > 90 mL/min (90-120)
[2020-07-10 16:55] LABS: GLUCOSE 105 mg/dL (74-106)
[2020-07-10 16:56] LABS: SARS-CoV-2 ANTIGEN NEGATIVE- SARS-COV-2 (NEGATIVE)
[2020-07-10 16:58] LABS: ALBUMIN 2.5 g/dL (3.4-5.0); ALKALINE PHOSPHATASE 90 U/L (30-120); ALT (SGPT) 14 U/L (10-68); PROTEIN - SERUM 7.9 g/dL (6.4-8.2)
[2020-07-10 18:36] VITALS: BP 130/78
== END 2020-07-10 19:26 | disposition home or self-care (01) ==
LOC: D.ER 16:00
PROVIDERS: Student in an Organized Health Care Education/Training Program
DX: R11.0 Nausea (principal); E11.9 Type 2 diabetes mellitus without complications; I10 Essential (primary) hypertension; J44.9 Chronic obstructive pulmonary disease, unspecified; G30.9 Alzheimer's disease, unspecified; F02.80 Dementia in other diseases classified elsewhere, unspecified severity, without behavioral disturbance, psychotic disturbance, mood disturbance, and anxiety; K21.9 Gastro-esophageal reflux disease without esophagitis; Z79.4 Long term (current) use of insulin; R06.02 Shortness of breath

== ENCOUNTER → 2020-07-17 17:01 | Outpatient (CLI) | payer MEDICARE ==
[2020-07-10 16:05] VITALS: BMI 43.0
[2020-07-17 17:13] LABS: BASOPHILS 0.9 % (0-2); EOSINOPHILS 3.2 % (0-7); HEMATOCRIT 36.2 % (36.0-48.0); HEMOGLOBIN 11.4 g/dL (12-16); LYMPHOCYTES 30.2 % (15-50); MCH 30.9 pg (26.0-34.0); MCHC 31.5 g/dL (31.0-37.0); MCV 98.1 fL (80.0-100.0); MEAN PLATELET VOLUME 11.3 fL (7.4-10.4); MONOCYTES 7.7 % (2-11); PLATELET COUNT 239 10x3/uL (130-400); RBC 3.69 10x6/uL (4.00-5.40); RDW 14.4 % (11.5-14.5); WBC 8.9 10x3/uL (4.8-10.8)
[2020-07-17 17:31] LABS: ALBUMIN 2.5 g/dL (3.4-5.0); ALKALINE PHOSPHATASE 88 U/L (30-120); ALT (SGPT) 14 U/L (10-68); BILIRUBIN - TOTAL 0.24 mg/dL (0.2-1.3); CALC OSMOLALITY 284 mosm/kg (275-300); CALCIUM 8.8 mg/dL (8.5-10.1); CARBON DIOXIDE 34.9 mmol/L (21.0-32.0); CHLORIDE - SERUM 103 mmol/L (98-107); CREATININE - SERUM 0.7 mg/dL (0.6-1.3); GLUCOSE 123 mg/dL (74-106); POTASSIUM - SERUM 4.9 mmol/L (3.5-5.1); SODIUM 141 mmol/L (136-145); UREA NITROGEN 20 mg/dL (7-18); eGFR NON AFRICAN AMERICAN 83 mL/min (90-120)
== END | disposition home or self-care (01) ==
LOC: D.LABREF 17:01
PROVIDERS: ATTEND Family Medicine
DX: J44.1 Chronic obstructive pulmonary disease with (acute) exacerbation (principal); I10 Essential (primary) hypertension; E11.9 Type 2 diabetes mellitus without complications